=== PATIENT | male | born 1965 | race Asian ===

== ENCOUNTER 2020-03-01 12:04 | Outpatient (REF) | payer OTHER, SELFPAY ==
--- NOTE | 2020-03-01 | XR_ITS ---
EXAMINATION: XR CHEST CLINICAL INFORMATION: Cough COMPARISON: 08/27/2017 TECHNIQUE: 2 views of the chest were obtained. FINDINGS: Lung volumes are slightly diminished from the prior study. There is new linear opacity in the left midlung; the appearance favors atelectasis. There is slight prominence of the pulmonary interstitium although this is commensurate with the degree of reduced lung volumes. No focal consolidation or mass. No pleural effusion or pneumothorax. Normal heart size. XR/XR chest 2V IMPRESSION: Low lung volumes with slight interstitial prominence which may reflect bronchovascular crowding. New linear opacity in the left midlung is most likely atelectasis.
== END 2020-03-01 12:05 | disposition home or self-care (01) ==
LOC: HO.HMGCX 12:04
PROVIDERS: PCP Pediatrics; Visit Provider Internal Medicine
DX: R05 Cough (principal)
CPT/HCPCS: 71046

== ENCOUNTER 2021-02-07 10:56 | Outpatient (REF) | payer OTHER, SELFPAY ==
--- NOTE | ~2021-02-07 | XR_ITS ---
EXAMINATION: XR CHEST CLINICAL INFORMATION: Cough COMPARISON: 03/01/2020 TECHNIQUE: 2 views of the chest were obtained. FINDINGS: The lungs are well expanded. There is no focal consolidation, edema, or effusion. No pneumothorax. The cardiomediastinal silhouette is within normal limits. No acute osseous abnormality. XR/XR chest 2V IMPRESSION: No acute pulmonary finding.
== END 2021-02-07 10:57 | disposition home or self-care (01) ==
LOC: HO.HMGCX 10:56
PROVIDERS: PCP Pediatrics; Visit Provider Internal Medicine
DX: R05.9 Cough, unspecified (principal)
CPT/HCPCS: 71046

== ENCOUNTER → 2021-03-27 09:01 | Outpatient (BNVA) | payer OTHER, SELFPAY | PROVIDERS: PCP Pediatrics; Visit Provider Internal Medicine Pulmonary Disease | DX: J45.991 Cough variant asthma (principal); R05.3 Chronic cough | CPT/HCPCS: 99202 ==

== ENCOUNTER 2021-04-15 11:16 | Outpatient (REF) | payer OTHER, SELFPAY ==
--- NOTE | 2021-04-15 17:18 | PFT_ITS ---
Forced vital capacity 56%, FEV1 63%, FEV1/FVC ratio is 85. [id number] is 85% and MVV 63%. Post bronchodilator therapy, there is no significant change. Lung volumes, total lung capacity 64%, residual volume 73%. Diffusion capacity 62%, DL/VA is 96%. CONCLUSION: Moderately severe restrictive pulmonary disorder. No significant obstructive airway disorder. No significant response to bronchodilator therapy. Clinical correlation is recommended. MD BRIDGETTE Almazan/[facility] / [phone]
== END 2021-04-15 11:17 | disposition home or self-care (01) ==
LOC: HO.RESP 11:16
PROVIDERS: PCP Pediatrics; Visit Provider Internal Medicine Pulmonary Disease
DX: J45.991 Cough variant asthma (principal)
CPT/HCPCS: 94060; 94727; 94729

== ENCOUNTER → 2021-05-13 08:59 | Outpatient (BNVA) | payer OTHER, SELFPAY | PROVIDERS: PCP Pediatrics; Visit Provider Internal Medicine Pulmonary Disease | DX: J45.991 Cough variant asthma (principal); R05.3 Chronic cough | CPT/HCPCS: 99212 ==

== ENCOUNTER 2021-06-17 09:44 | Emergency (ER) | payer OTHER, SELFPAY ==
--- NOTE | ~2021-06-17 | US_ITS ---
EXAMINATION: ULTRASOUND EXTREMITY NONVASCULAR. CLINICAL INFORMATION: Right arm lump lateral and superior to elbow in the area of triceps COMPARISON: None TECHNIQUE: Limited imaging to the right posterior arm was performed where patient feels a lump. FINDINGS: Imaging to the right posterior arm reveals no focal mass or fluid collection. The soft tissues are unremarkable. Ultrasound of the left posterior arm was performed for comparison with no abnormality seen.. US/US extremity nonvascular IMPRESSION: No soft tissue mass or focal abnormality seen along the right posterior arm.
--- NOTE | ~2021-06-17 | CT_ITS ---
EXAMINATION: DEPENDENT CT LUMBAR SPINE WITHOUT CONTRAST CLINICAL INFORMATION: Intermittent weakness the lower extremities/follicles and intermittent dizziness. COMPARISON: None TECHNIQUE: 5 mm thin axial and reformatted 2 mm thin sagittal and coronal images of brain were obtained. DLP [id number]. Subsequently axial 2 mm thin and reformatted 2 mm thin sagittal and coronal images of lumbar spine were obtained. DLP [id number] FINDINGS: BRAIN: There is no acute intra-axial, extra-axial bleed, masses or midline shift. There is no acute infarction evolution. There is no edema. The david to white matter difference is maintained. The lateral ventricles are symmetrical in size and configuration without enlargement. Bone windows reveal no calvarial abnormality. There is no scalp soft tissue abnormality seen. There is mild mucoperiosteal thickening bilateral anterior middle ethmoid sinuses. Rest the paranasal sinuses and mastoid air cells are well aerated and clear. Bone windows reveal no calvarial abnormality LUMBAR SPINE: On sagittal reconstructed images there is maintained lumbar lordosis. The vertebral heights, alignment and disc heights are normal. Mild ventral spondylosis at the L3-L4 and L4-L5 disc levels. The L1-L2, L2-L3 disc levels are unremarkable. L3-L4 disc level there is minimal disc bulge without spinal canal stenosis. The neural foramina are patent bilaterally. At L4-L5 disc level there is a broad-based diffuse bulge slightly eccentric to the left with mild AP canal stenosis with mild bilateral narrowing of neural foramina.. There is mild bilateral facet joint arthropathy and hypertrophy slightly greater on the left At L5-S1 disc level there is no syndesmophytes, herniation or spinal stenosis. The neural foramina are patent bilaterally. There is mild bilateral facet joint hypertrophy and arthropathy No aggressive lytic or sclerotic process seen. CT/CT lumbar spine wo con IMPRESSION: No acute intracranial process seen. Mild degenerative disc bulge L4-L5 and L5/S1 disc levels with mild AP canal stenosis and mild bilateral narrowing of neural foramina at the L4-L5 disc level. Mild bilateral facet joint arthropathy L5-S1, L4-L5 and L3-L4 disc level slightly greater on the left at the L4-L5 disc level.
--- NOTE | ~2021-06-17 | XR_ITS ---
EXAMINATION: RIGHT SHOULDER, RIGHT HUMERUS AND RIGHT ELBOW CLINICAL INFORMATION: Pain. COMPARISON: None TECHNIQUE: Right shoulder 4 views. Right humerus 2 views and right elbow 3 views. FINDINGS: RIGHT ELBOW: There is no visible acute fracture, dislocation or joint effusion. There is a small olecranon process spur. RIGHT HUMERUS: There is no visible acute fracture or dislocation seen. No bony erosive changes. The soft tissues are normal. RIGHT SHOULDER: There is no visible acute fracture or dislocation. No bony erosive changes or spurring. The soft tissues are normal. There is an old healed right lateral ninth rib fracture XR/XR shoulder RT 1V IMPRESSION: No acute fracture right elbow, right humerus and right shoulder. There is old healed fracture right lateral ninth rib. There is a small olecranon process spur.
--- NOTE | ~2021-06-17 | XR_ITS ---
EXAMINATION: RIGHT SHOULDER, RIGHT HUMERUS AND RIGHT ELBOW CLINICAL INFORMATION: Pain. COMPARISON: None TECHNIQUE: Right shoulder 4 views. Right humerus 2 views and right elbow 3 views. FINDINGS: RIGHT ELBOW: There is no visible acute fracture, dislocation or joint effusion. There is a small olecranon process spur. RIGHT HUMERUS: There is no visible acute fracture or dislocation seen. No bony erosive changes. The soft tissues are normal. RIGHT SHOULDER: There is no visible acute fracture or dislocation. No bony erosive changes or spurring. The soft tissues are normal. There is an old healed right lateral ninth rib fracture XR/XR humerus RT IMPRESSION: No acute fracture right elbow, right humerus and right shoulder. There is old healed fracture right lateral ninth rib. There is a small olecranon process spur.
--- NOTE | ~2021-06-17 | XR_ITS ---
EXAMINATION: XR CHEST CLINICAL INFORMATION: Intermittent dizziness and right arm pain COMPARISON: None TECHNIQUE: Frontal view of the chest was obtained. FINDINGS: No significant abnormality is noted involving the heart, lungs, mediastinum, bony thorax or soft tissues. XR/XR chest 1V IMPRESSION: Unremarkable chest examination.
--- NOTE | ~2021-06-17 | XR_ITS ---
EXAMINATION: RIGHT SHOULDER, RIGHT HUMERUS AND RIGHT ELBOW CLINICAL INFORMATION: Pain. COMPARISON: None TECHNIQUE: Right shoulder 4 views. Right humerus 2 views and right elbow 3 views. FINDINGS: RIGHT ELBOW: There is no visible acute fracture, dislocation or joint effusion. There is a small olecranon process spur. RIGHT HUMERUS: There is no visible acute fracture or dislocation seen. No bony erosive changes. The soft tissues are normal. RIGHT SHOULDER: There is no visible acute fracture or dislocation. No bony erosive changes or spurring. The soft tissues are normal. There is an old healed right lateral ninth rib fracture XR/XR elbow RT 2V IMPRESSION: No acute fracture right elbow, right humerus and right shoulder. There is old healed fracture right lateral ninth rib. There is a small olecranon process spur.
[2021-06-17 10:21] VITALS: BP 134/73; PULSE 61; RESP 18; TEMP 36.8; O2SAT 100; BMI 32.1
--- NOTE | 2021-06-17 12:26 | ED_ITS ---
HPI - Extremity Problem General Chief complaint: Extremity Injury, Upper Stated complaint: Upper R arm pain Time Seen by Provider: 06/17/21 11:48 Source: patient Mode of arrival: ambulatory Limitations: no limitations History of Present Illness HPI Narrative: 55-year-old male with a past medical history of hyperlipidemia, chronic cough, cough variant asthma presenting to the ED with complaints of atraumatic right lateral mid humerus pain for the past 10 days worse today. He reports that he feels a lump that he did not have before. 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 He is unsure if he could of hurt this at work but he does not believe so. He denies any fevers, chills, dizziness, headaches, neck pain/stiffness, trouble swallowing or breathing, chest pain or shortness of breath, dyspnea on exertion, orthopnea, palpitations, paresthesias, nausea/vomiting/diarrhea constipation, black or bloody stools, rashes, recent travel, recent immobilization, recent surgery, history of cancer, history of DVT or PE, any estrogen usage, lower extremity edema or calf tenderness or any other symptoms complaints or concerns at this time. MD Complaint: extremity pain Onset (ago): day(s) (10) Pain Consistency: constant Location: right and upper extremity Quality: aching Radiation: proximal Relieving factors: nothing Exacerbating factors: palpation Associated symptoms: denies other symptoms Related Data Home Medications Medication Instructions Recorded Confirmed albuterol sulfate 90 mcg/actuation 2 puff INHALATION Q4H PRN 03/27/21 aerosol inhaler (ProAir HFA) atorvastatin 40 mg tablet 40 mg PO BEDTIME 03/27/21 cetirizine 10 mg tablet 10 mg PO DAILY PRN 03/27/21 fluticasone propionate 50 1 spray INTRANASAL DAILY 03/27/21 mcg/actuation nasal spray,suspension naproxen 500 mg tablet 500 mg PO BID PRN 03/27/21 omega-3 fatty acids-fish oil 340 1 cap PO BID 03/27/21 mg-1,000 mg capsule (Fish Oil) omeprazole 10 mg capsule,delayed 10 mg PO QAM 03/27/21 release sennosides 8.6 mg-docusate sodium 2 tab PO DAILY PRN 03/27/21 50 mg tablet (Stool Softener-Laxative) Previous Rx's Medication Instructions Recorded fluticasone propionate 220 2 puff INHALATION BID 30 Days #1 ea 03/27/21 mcg/actuation HFA aerosol inhaler (Flovent HFA) cyclobenzaprine 10 mg tablet 10 mg PO Q8H PRN #14 tab 06/17/21 meclizine 50 mg tablet (Antivert) 50 mg PO DAILY PRN #14 tab 06/17/21 naproxen 500 mg tablet 500 mg PO BID PRN #14 tab 06/17/21 Allergies Allergy/AdvReac Type Severity Reaction Status Date / Time No Known Allergies Allergy Verified 06/17/21 10:21 [No Known Allergies*] Review of Systems Review of Systems: Constitutional : No Weight loss, No Fever, No Chills, No Night Sweats, No Fatigue, No Malaise ENT/Mouth : No Hearing loss, No Ear Pain, No Nasal Congestion, No Sinus Pain, No Hoarseness, No sore throat, No Rhinorrhea, No Swallowing Difficulty Eyes: No Eye Pain, No Swelling, No Redness, No Foreign Body, No Discharge, No Vision Changes Cardiovascular : No Chest Pain, No SOB, No Dyspnea on Exertion, No Orthopnea, No Edema, No Palpitations Respiratory : No Cough, No Sputum, No Wheezing, No Smoke Exposure, No Dyspnea Gastrointestinal : No Nausea, No Vomiting, No Diarrhea, No Constipation, No abdominal Pain, No Hematochezia, No Melena Genitourinary : no irregular bleeding, No Dysuria, No Urinary Frequency, No Hematuria, No Urinary Incontinence, No Urgency, No Flank Pain, No Urinary Flow Changes, No Hesitancy Musculoskeletal : + right humerus pain/lump sensation, No joint pain, No Myalgias Skin : No Skin Lesions, No rash Neuro : No Weakness, No Numbness, No Paresthesias, No Loss of Consciousness, No Dizziness, No Headache Psych : No Anxiety/Panic, No Depression, No SI/HI/AH/VH, No Social Issues, Heme/Lymph: No Bruising, No Bleeding,No Lymphadenopathy Endocrine : No Polyuria, No Polydipsia, No Temperature Intolerance Yes all other systems are reviewed and are negative [facility] Past Medical History Attestation statement: The following information was validated with the patient. Medical History High cholesterol Social History Social History Advance Directives: No Advance Directives Information Provided: No Physical Exam Vital Signs: Vital Signs: Last Vital Signs Temp 98.2 F 06/17/21 10:21 Pulse 57 06/17/21 14:25 Resp 18 06/17/21 10:21 BP 141/83 H 06/17/21 14:25 Pulse Ox 100 06/17/21 10:21 BMI result Body Mass Index 32.1 vital signs have been reviewed as normal and appeared to be correct. Blood pressure normal. Heart rate normal. Respiration rate normal. Temperature normal. Oxygen saturation normal. Appearance: Alert. Oriented X3. No acute distress. Head: Normal external exam. Normocephalic. Eyes: PERRLA. EOMI. Conjunctiva and sclera normal. Eyelids normal. ENT: Pharynx normal. Uvula midline. Moist mucous membranes. Neck: Normal inspection. Neck supple. FROM. No adenopathy. No meningeal signs. CVS: Normal heart rate and rhythm. Heart sound normal. No murmurs noted. Pulses normal throughout. Respiratory: No respiratory distress. Painless inspiration. Breath sounds normal. No wheezes/rales/rhonchi noted. Chest nontender. No accessory muscle usage noted or decreased air movement noted. Back: Full range of motion noted. Skin: Skin warm and dry. Normal skin color. Normal skin turgor. To left upper extremity/humerus lateral aspect patient has hardened area questioning lipoma although no signs of infection/fluctuance/induration/drainage/streaking/foreign bodies. Distal pulses are intact. Not consistent with arterial occlusion. No additional rashes/lesions/lacerations noted. Extremities: Patient has full range of motion of right humerus/elbow/hand and wrist. No obvious deformities. No obvious ligmenatous injury noted. Otherwise all other Extremities exhibit normal range of motion and nontender. Neuro: Oriented X 3. No motor deficit. No sensory deficit. Reflexes normal. Moving all extremities. No focal motor deficits. Cranial nerves II-XI intact bilaterally. Facial strength normal. Normal cognition. Speech normal. Gait normal. Strength 5/5 throughout. No pronator drift. No tremor noted. No fasciculations noted. No rigidity noted. Muscle tone normal throughout. No asterixis noted. [id number] test normal. Heel to wheatley test normal. Tandem gait normal. Does not sway with eyes open. Romberg test negative. Rapid alternating movement upper extremity normal. Rapid alternating movement lower extremity normal. Hand drop from overhead Misses face. NIHSS score 0. Course Course Course Narrative: 11:50am - 55-year-old male with a past medical history of hyperlipidemia, chronic cough, cough variant asthma presenting to the ED with complaints of atraumatic right lateral mid humerus pain for the past 10 days worse today. He reports that he feels a lump that he did not have before. 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 He is unsure if he could of hurt this at work but he does not believe so. X-ray of right shoulder/elbow and humerus revealed chronic changes no acute processes were noted. Therefore at this time will obtain of ultrasound to evaluate for possible abscess versus lipoma. Reevaluation(s) Reevaluation #1: - soft tissue ultrasound negative for any acute processes. - when I went into the discharge the patient to him have his results he reported that he is concerned because he is been having intermittent dizziness and pain in this right arm and weakness in his legs and he had a fall and he is concerned that it may be related to his right arm pain/lump. - he reported that his PCP sent him for some type of monitoring for his legs although told him it was normal although patient is not convinced and wants further evaluation treatment. I explained to the patient that I asked him if he was having any other symptoms when I evaluated him 4 hours ago and he reported that he forgot to tell me. - therefore at this time will obtain labs, CT scan of brain, EKG, chest x-ray and re-evaluate. Time: 13:49 Reevaluation #2: - labs reviewed patient mild anemia with an H&H of 13.9/41.5. Anion gap 11. BUN 17. ALT 51. Otherwise all other labs are within normal limits. Negative troponin. EKG sinus bradycardia with right bundle branch block which is similar compared to prior EKG no acute ischemic change are noted. - chest x-ray within normal limits. - CT scan of brain within normal limits no acute processes noted. CT scan of lumbar spine revealed chronic changes such as degenerative disc disease otherwise no other acute processes. Will DC home with symptomatic treatment instructions to follow-up with PCP and to return if any new or worsening symptoms. Patient understands agrees with this plan. Time: 16:00 MDM - Extremity (Nontraumatic) Medical Records Attestation: I reviewed the patient's medical records. Lab Data Attestation: I reviewed the patient's lab results. Result diagrams: 06/17/21 14:05 06/17/21 14:05 Labs: Lab Results 06/17/21 06/17/21 06/17/21 Range/Units 14:05 14:05 14:05 WBC 6.7 (4.8-10.8) X10*3/uL RBC 4.74 (4.60-5.80) X10*6/uL Hgb 13.9 L (14.0-18.0) g/dl Hct 41.5 L (42.0-52.0) % MCV 87.6 (80.0-98.0) fL MCH 29.3 (27.0-33.0) pg MCHC 33.5 (31.0-36.0) g/dl RDW 13.4 (11.0-16.0) % Plt Count 205 (160-400) X10*3/uL MPV 9.6 (9.4-12.4) fL Immature Gran % (Auto) 0.1 (0.0-0.4) % Neut % (Auto) 40.6 L (45-73) % Lymph % (Auto) 43.4 H (20-40) % Boone % (Auto) 8.5 (2-11) % Eos % (Auto) 6.7 H (0-4) % Baso % (Auto) 0.7 (0-2) % Lymph # (Auto) 2.9 (1.2-4.9) X10*3/uL Boone # (Auto) 0.6 (0.1-1.2) X10*3/uL Eos # (Auto) 0.5 H (0.0-0.4) X10*3/uL Baso # (Auto) 0.1 (0.0-0.2) X10*3/uL Abs Immat Gran (auto) 0.01 (0.00-0.03) X10*3/uL Absolute Neuts (auto) 2.7 (2.0-8.3) x10*3/uL Absolute Nucleated RBC 0.000 (0.0-0.012) X10*3/uL Nucleated RBC % (auto) 0.0 (0.0-0.2) /100WBC Sodium 138 (135-145) mmol/L Potassium 4.6 (3.3-5.1) mmol/L Chloride 104 (96-108) mmol/L Carbon Dioxide 28 (22-29) mmol/L Anion Gap 11 L (12-20) BUN 17 H (9-16) mg/dL Creatinine 0.84 (0.5-1.4) mg/dL Estim Creat Clear Calc 105.4 Estimated GFR > 60 Random Glucose 93 (60-115) mg/dL Calcium 9.4 (8.4-10.2) mg/dL Magnesium 2.0 (1.6-2.6) mg/dL Total Bilirubin 0.5 (0.0-1.0) mg/dL AST 30 (5-37) U/L ALT 51 H (0-40) U/L Alkaline Phosphatase 91 (39-117) U/L Troponin I High Sens < 3.5 (<3.5-35.0) ng/L Total Protein 7.9 (6.5-8.0) g/dL Albumin 4.6 (3.5-5.0) g/dL Imaging Data right shoulder/humerus/elbow xrays: Attestation: I personally reviewed and interpreted this imaging study as follows: Radiologist's impression: FINDINGS: RIGHT ELBOW: There is no visible acute fracture, dislocation or joint effusion. There is a small olecranon process spur. RIGHT HUMERUS: There is no visible acute fracture or dislocation seen. No bony erosive changes. The soft tissues are normal. RIGHT SHOULDER: There is no visible acute fracture or dislocation. No bony erosive changes or spurring. The soft tissues are normal. There is an old healed right lateral ninth rib fracture XR/XR shoulder RT 1V IMPRESSION: No acute fracture right elbow, right humerus and right shoulder. ? There is old healed fracture right lateral ninth rib. ? There is a small olecranon process spur.? Soft tissue ultrasound of right upper extremity: Attestation: I personally reviewed and interpreted this imaging study as follows: Radiologist's impression: FINDINGS: Imaging to the right posterior arm reveals no focal mass or fluid collection. The soft tissues are unremarkable. Ultrasound of the left posterior arm was performed for comparison with no abnormality seen.. US/US extremity nonvascular IMPRESSION: No soft tissue mass or focal abnormality seen along the right posterior arm.? CT scan of brain without contrast and CT scan of lumbar spine without contrast: Attestation: I personally reviewed and interpreted this imaging study as follows: Radiologist's impression: FINDINGS: BRAIN: There is no acute intra-axial, extra-axial bleed, masses or midline shift. There is no acute infarction evolution. There is no edema. The david to white matter difference is maintained. The lateral ventricles are symmetrical in size and configuration without enlargement. Bone windows reveal no calvarial abnormality. There is no scalp soft tissue abnormality seen. There is mild mucoperiosteal thickening bilateral anterior middle ethmoid sinuses. Rest the paranasal sinuses and mastoid air cells are well aerated and clear. Bone windows reveal no calvarial abnormality LUMBAR SPINE: On sagittal reconstructed images there is maintained lumbar lordosis. The vertebral heights, alignment and disc heights are normal. Mild ventral spondylosis at the L3-L4 and L4-L5 disc levels. The L1-L2, L2-L3 disc levels are unremarkable. L3-L4 disc level there is minimal disc bulge without spinal canal stenosis. The neural foramina are patent bilaterally. At L4-L5 disc level there is a broad-based diffuse bulge slightly eccentric to the left with mild AP canal stenosis with mild bilateral narrowing of neural foramina.. There is mild bilateral facet joint arthropathy and hypertrophy slightly greater on the left At L5-S1 disc level there is no syndesmophytes, herniation or spinal stenosis. The neural foramina are patent bilaterally. There is mild bilateral facet joint hypertrophy and arthropathy No aggressive lytic or sclerotic process seen. CT/CT head/brain wo con IMPRESSION: No acute intracranial process seen. ? Mild degenerative disc bulge L4-L5 and L5/S1 disc levels with mild AP canal stenosis and mild bilateral narrowing of neural foramina at the L4-L5 disc level. ? Mild bilateral facet joint arthropathy L5-S1, L4-L5 and L3-L4 disc level slightly greater on the left at the L4-L5 disc level.? ECG Data Attestation EKG: I personally reviewed and interpreted this ECG as follows: ECG interpretation date: 06/17/21 ECG interpretation time: 13:49 Interpretation: Sinus bradycardia with ventricular rate of 54 with right bundle-branch block no acute ischemic change are noted. Similar compared to prior EKG 08/27/2017 Critical Care Time Critical Care Time Critical Care Time: Yes Total Critical Care Time: 60 Attestation: I personally attest to this time spent taking care of the patient Discharge Plan Discharge Clinical Impression: Dizziness, Cramp of muscle of right upper extremity, Degenerative disc disease, lumbar Patient Disposition: Home, Self-Care Instructions: Dizziness (ED), Muscle Spasm (ED), Muscle Cramp (ED), Degenerat dane Disc Disease (ED) Prescriptions: New naproxen 500 mg tablet 500 mg PO BID PRN (Reason: pain) Qty: 14 0RF cyclobenzaprine 10 mg tablet 10 mg PO Q8H PRN (Reason: Muscle spasm) Qty: 14 0RF Antivert 50 mg tablet 50 mg PO DAILY PRN (Reason: dizziness) Qty: 14 0RF No Action atorvastatin 40 mg tablet 40 mg PO BEDTIME 0RF omeprazole 10 mg capsule,delayed release(DR/EC) 10 mg PO QAM 0RF cetirizine 10 mg tablet 10 mg PO DAILY PRN0RF albuterol sulfate [ProAir HFA] 90 mcg/actuation HFA aerosol inhaler 2 puff inhalation Q4H PRN (Reason: wheezing) 0RF Fish Oil 340-1,000 mg capsule 1 cap PO BID 0RF naproxen 500 mg tablet 500 mg PO BID PRN (Reason: pain) 0RF fluticasone propionate 50 mcg/actuation spray,suspension 1 spray intranasal DAILY 0RF sennosides-docusate sodium [Stool Softener-Laxative] 8.6-50 mg tablet 2 tab PO DAILY PRN (Reason: constipation) 0RF Flovent HFA 220 mcg/actuation HFA aerosol inhaler 2 puff inhalation BID 30 Days Qty: 1 3RF Referrals: Abiola Hadley MD [Primary Care Provider] - Print Language: Citizen Of [place]
--- NOTE | 2021-06-17 13:47 | ECG_ITS ---
Test Reason : DIZZINESS Blood Pressure : / mmHG Vent. Rate : 054 BPM Atrial Rate : 054 BPM P-R Int : 204 ms QRS Dur : 146 ms QT Int : 434 ms P-R-T Axes : -04 -23 014 degrees QTc Int : 411 ms Sinus bradycardia Right bundle branch block Abnormal ECG When compared with ECG of 27-AUG-2017 11:44, Right bundle branch block is now Present Referred By: Becky Smith Electronically Signed By:SUSHANT ROONEY MD
[2021-06-17 14:09] LABS: MANUAL DIFF FLAG NO
[2021-06-17 14:23] VITALS: BP 134/81; BP 136/84; PULSE 53
[2021-06-17 14:25] VITALS: BP 141/83; PULSE 57
[2021-06-17 14:27] LABS: Alanine Aminotransferase 51 U/L (0-40); Albumin Level 4.6 g/dL (3.5-5.0); Alkaline Phosphatase 91 U/L (39-117); Anion Gap 11 (12-20); Aspartate Amino Transferase 30 U/L (5-37); Bilirubin Total 0.5 mg/dL (0.0-1.0); Blood Urea Nitrogen 17 mg/dL (9-16); Calcium 9.4 mg/dL (8.4-10.2); Carbon Dioxide 28 mmol/L (22-29); Chloride 104 mmol/L (96-108); Creatinine Clr Calc Pharmacy 105.4; Estimated Glomerular Filt Rate > 60; Glucose Random 93 mg/dL (60-115); Potassium 4.6 mmol/L (3.3-5.1); Sodium 138 mmol/L (135-145); Total Protein 7.9 g/dL (6.5-8.0)
[2021-06-17 14:29] LABS: Troponin-I High Sensitivity < 3.5 ng/L (<3.5-35.0)
[2021-06-17 15:20] LABS: Basophils Absolute Auto 0.1 X10*3/uL (0.0-0.2); Basophils Percent Auto 0.7 % (0-2); Eosinophils Absolute Auto 0.5 X10*3/uL (0.0-0.4); Eosinophils Percent Auto 6.7 % (0-4); Hematocrit 41.5 % (42.0-52.0); Hemoglobin 13.9 g/dl (14.0-18.0); Imm Gran Abs Auto 0.01 X10*3/uL (0.00-0.03); Imm Gran Pct Auto 0.1 % (0.0-0.4); Lymphocytes Absolute Auto 2.9 X10*3/uL (1.2-4.9); Lymphocytes Percent Auto 43.4 % (20-40); Mean Corpuscular HGB Conc 33.5 g/dl (31.0-36.0); Mean Corpuscular Hemoglobin 29.3 pg (27.0-33.0); Mean Corpuscular Volume 87.6 fL (80.0-98.0); Mean Platelet Volume 9.6 fL (9.4-12.4); Monocytes Absolute Auto 0.6 X10*3/uL (0.1-1.2); Monocytes Percent Auto 8.5 % (2-11); Neutrophils Absolute Auto 2.7 x10*3/uL (2.0-8.3); Neutrophils Percent Auto 40.6 % (45-73); Platelet Count 205 X10*3/uL (160-400); Red Blood Count 4.74 X10*6/uL (4.60-5.80); Red Cell Distribution Width 13.4 % (11.0-16.0); White Blood Count 6.7 X10*3/uL (4.8-10.8)
== END 2021-06-17 16:49 | disposition home or self-care (01) ==
PROVIDERS: Physician Assistant Medical; Emergency Provider Emergency Medicine; PCP Pediatrics
DX: R42 Dizziness and giddiness (principal); M79.621 Pain in right upper arm; R25.2 Cramp and spasm; M54.50 Low back pain, unspecified; M51.36 Other intervertebral disc degeneration, lumbar region; R05.9 Cough, unspecified; R00.2 Palpitations; Z79.899 Other long term (current) drug therapy
CPT/HCPCS: 36415; 70450; 71045; 72131; 73020; 73060; 73070; 76882; 80053; 83735; 84484; 85025; 93005; 99283; 99291

== ENCOUNTER → 2021-07-15 08:03 | Outpatient (BNVA) | payer OTHER, SELFPAY | PROVIDERS: PCP Pediatrics; Referring Provider Pediatrics; Visit Provider Nurse Practitioner Family | DX: Z13.89 Encounter for screening for other disorder (principal) ==

== ENCOUNTER → 2021-08-20 07:57 | Outpatient (BNVA) | payer OTHER, SELFPAY | PROVIDERS: PCP Pediatrics; Referring Provider Pediatrics; Visit Provider Nurse Practitioner Family | DX: Z12.11 Encounter for screening for malignant neoplasm of colon (principal) | CPT/HCPCS: 99202 ==

== ENCOUNTER 2021-09-30 09:42 | Outpatient (REF) | payer OTHER, SELFPAY ==
--- NOTE | ~2021-09-30 | XR_ITS ---
EXAMINATION: XR KNEE, RIGHT CLINICAL INFORMATION: Sprain COMPARISON: None TECHNIQUE: Four views of the right knee. FINDINGS: Bones and soft tissues are normal. No fracture . Alignment is anatomic. Joint spaces are well maintained. No abnormal soft tissue calcification. Radiolucent line through the patella along the upper lateral corner, this is probably congenitally unfused secondary ossification center versus an old fracture. XR/XR knee RT 4V IMPRESSION: No acute fracture or dislocation. Small knee joint effusion. 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 Please correlate with patient's clinical history.
== END 2021-09-30 09:43 | disposition home or self-care (01) ==
LOC: HO.HMGCX 09:42
PROVIDERS: PCP Pediatrics; Visit Provider Internal Medicine
DX: S83.91XA Sprain of unspecified site of right knee, initial encounter (principal)
CPT/HCPCS: 73564

== ENCOUNTER 2021-10-27 11:05 | Emergency (ER) | payer OTHER, SELFPAY ==
[2021-10-27 11:16] VITALS: BP 161/80; PULSE 62; RESP 17; TEMP 36.6; O2SAT 98; BMI 31.1
--- NOTE | 2021-10-27 12:31 | ED.EXTPRO ---
HPI - Extremity Problem General Chief complaint: Extremity Injury, Lower Stated complaint: R knee pain Time Seen by Provider: 10/27/21 12:16 Source: patient Mode of arrival: ambulatory Limitations: no limitations History of Present Illness HPI Narrative: Patient presents emergency department for ongoing evaluation of right knee pain. He was evaluated about 1 month ago, 09/30/2021 after experiencing 10 days of right knee pain. 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 When he was initially evaluated he had an x-ray obtained which revealed no acute fracture or dislocation and was diagnosed with a sprain. He had been using an Ubaldo bandage for compression and ibuprofen for approximately 3 weeks without significant improvement. The pain continues to be experienced. He is self-employed, and states he is unable to avoid the driving which seems to exacerbate his pain. Denies any fevers, chills, rash, redness, swelling, warmth. Denies swelling to the lower extremity, tenderness in his calf, cold sensation to the legs. Denies any prior history of DVT/PE, coagulation disorders, personal history of cancer. Related Data Home Medications Medication Instructions Recorded Confirmed atorvastatin 40 mg tablet 40 mg PO BEDTIME 03/27/21 cetirizine 10 mg tablet 10 mg PO DAILY PRN 03/27/21 fluticasone propionate 50 1 spray intranasal DAILY 03/27/21 mcg/actuation nasal spray,suspension omega-3 fatty acids-fish oil 340 1 cap PO BID 03/27/21 mg-1,000 mg capsule (Fish Oil) meclizine 25 mg tablet 50 mg PO DAILY PRN dizziness 08/20/21 Previous Rx's Medication Instructions Recorded bisacodyl 5 mg tablet,delayed 10 mg PO ONCE 1 day #2 tabs 08/20/21 release (Dulcolax (bisacodyl)) polyethylene glycol 3350 17 238 g PO ONCE #238 grams 08/20/21 gram/dose oral powder (Miralax) meloxicam 15 mg tablet 15 mg PO DAILY #14 tabs 09/30/21 Allergies Allergy/AdvReac Type Severity Reaction Status Date / Time No Known Allergies Allergy Verified 09/30/21 09:28 [No Known Allergies*] Review of Systems Review of Systems: Musculoskeletal: Positive knee pain Yes all other systems are reviewed and are negative PMFSH Past Medical History Attestation statement: The following information was validated with the patient. Source: old records reviewed Medical History High cholesterol Surgical History Hx of colonoscopy Hx of inguinal hernia surgery Social History Social History Household Members: Spouse and Children Alcohol intake: current Alcohol intake frequency: a few times a month Patient Tobacco Use Status: Never used Tobacco Advance Directives: No Advance Directives Information Provided: No Physical Exam Vital Signs: Vital Signs: Last Vital Signs Temp 98 F 10/27/21 11:16 Pulse 62 10/27/21 11:16 Resp 17 10/27/21 11:16 BP 161/80 H 10/27/21 11:16 Pulse Ox 98 10/27/21 11:16 O2 Del Method 10/27/21 11:16 BMI result Body Mass Index 31.1 Appearance: Alert.?Oriented to person, place and time. No acute distress.?Normal affect. Eyes: Pupils equal, round and reactive to light.? ENT: Pharynx normal.?? Neck: Normal inspection.? Neck supple.?? CVS: Heart sounds normal. Normal heart rate and rhythm.? Pulses normal.?? Respiratory: No respiratory distress.? Lung sounds clear to auscultation bilaterally?? Abdomen: Soft and non-tender. Skin: Skin warm and dry.? Normal skin color.? Extremities: No lower extremity edema.? No calf ttp. Anterior drawer test negative, posterior drawer test negative, valgus stress test negative, Varus stress test negative. José Luis sign negative. No palpable tenderness, warmth, no notable erythema, or rash. 2+ DP/PT pulse bilaterally ? Neuro: Moves all extremities spontaneously. Sensation intact bilaterally. No motor deficits. Ambulates with normal steady gait. Course Course Course Narrative: Patient is a 56-year-old male with a past medical history of hypercholesterolemia who presents to the emergency department for evaluation of persistent right knee pain. Previously diagnosed at the sprain of the knee, pain unrelieved with Ubaldo bandage for compression, ice, and NSAIDs. Patient has not had any further follow-up with his primary care provider or an market risk specialist. Physical exam not consistent with septic arthritis, DVT, wells score 0. Full AROM. No weakness to the lower extremity. Neurovascularly intact distally. No indication for repeat x-ray today as he has had no trauma. Advised outpatient follow-up with primary care provider and provided with referral for market risk specialist for further evaluation and treatment. Advised to continue with rest at all times possibly a, elevation of the leg. Reviewed worrisome signs and symptoms return back to the emergency department for. All questions were answered, and patient was discharged home in stable condition. MDM - Extremity (Nontraumatic) Medical Records Attestation: I reviewed the patient's medical records. Discharge Plan Discharge Clinical Impression: Knee pain, right Patient Disposition: Home, Self-Care Instructions: Arthralgia (ED) Additional Instructions: As we discussed, please contact your primary care provider to arrange for follow-up, additionally a been given contact information for the market risk specialist to follow up regarding your persistent knee pain. Please feel free to return to the emergency department any new or worsening symptoms or concerns. Prescriptions: No Action meloxicam 15 mg tablet 15 mg PO DAILY Qty: 14 0RF atorvastatin 40 mg tablet 40 mg PO BEDTIME cetirizine 10 mg tablet 10 mg PO DAILY PRN Fish Oil 340-1,000 mg capsule 1 cap PO BID fluticasone propionate 50 mcg/actuation spray,suspension 1 spray intranasal DAILY meclizine 25 mg tablet 50 mg PO DAILY PRN (Reason: dizziness) bisacodyl [Dulcolax (bisacodyl)] 5 mg tablet,delayed release (DR/EC) 10 mg PO ONCE 1 Days Qty: 2 0RF Rx Instructions: take 2 tabs at noon the day before your colonoscopy polyethylene glycol 3350 [Miralax] 17 gram/dose powder 238 g PO ONCE Qty: 238 0RF Rx Instructions: As directed by gastroenterology department at [facility] Referrals: Therese Friedman PA-C [Physician Manager Community Development] - (persistent knee pain <1 month, normal XR) Interventions: ED Discharge Assessment Last Done: 10/27/21 12:52 Discharge Date/Time: 10/27/21 12:53
== END 2021-10-27 12:53 | disposition home or self-care (01) ==
PROVIDERS: Emergency Provider Emergency Medicine; PCP Pediatrics
DX: M25.561 Pain in right knee (principal)
CPT/HCPCS: 99282

== ENCOUNTER → 2021-11-18 09:01 | Outpatient (BNVA) | payer OTHER, SELFPAY | PROVIDERS: PCP Pediatrics; Visit Provider Internal Medicine Pulmonary Disease | DX: J45.991 Cough variant asthma (principal) | CPT/HCPCS: 99212 ==

== ENCOUNTER 2022-01-06 07:32 | Day surgery (SDC) | payer OTHER, SELFPAY ==
--- NOTE | 2022-01-03 08:23 | HO.ANESPROP2 ---
Documented by User: Mayi Ribera NP 01/03/22 08:24 HPI - Anesthesia Eval Consult details Narrative: 56yo M for Colonoscopy PMFSH Active Problems Active Problems: All Active Problems (Updated 10/28/21 @ 00:00 by Saul [place]) Sprain of right knee (Acute) High cholesterol (Acute) Chronic cough (Acute) Cough variant asthma (Acute) Past Medical History Medical History High cholesterol Surgical History Surgical History Hx of colonoscopy Hx of inguinal hernia surgery Social History Social History Household Members: Spouse and Children Alcohol intake: current Alcohol intake frequency: a few times a month Patient Tobacco Use Status: Never used Tobacco Advance Directives: No Advance Directives Information Provided: Yes Meds Allergies Allergy/AdvReac Type Severity Reaction Status Date / Time No Known Allergies Allergy Verified 12/31/21 11:04 [No Known Allergies*] Home Medications Medication Instructions Recorded Confirmed Last Taken Type atorvastatin 40 mg tablet 40 mg PO BEDTIME 03/27/21 01/06/22 Unknown History fluticasone propionate 50 1 spray intranasal DAILY 03/27/21 01/06/22 Unknown History mcg/actuation nasal spray,suspension omega-3 fatty acids-fish oil 340 1 cap PO BID 03/27/21 01/06/22 Unknown History mg-1,000 mg capsule (Fish Oil) meclizine 25 mg tablet 50 mg PO DAILY PRN dizziness 08/20/21 01/06/22 Unknown History albuterol sulfate 90 mcg/actuation 2 puff inhalation Q4H PRN wheezing 12/31/21 01/06/22 Unknown History aerosol inhaler (ProAir HFA) Exam Exam Date and Time: January 03, 2022 0823 Pertinent Lab Results Pertinent Lab Results: Laboratory Tests 06/17/21 06/17/21 14:05 14:05 WBC 6.7 Hgb 13.9 L Hct 41.5 L Plt Count 205 Sodium 138 Potassium 4.6 Chloride 104 Carbon Dioxide 28 BUN 17 H Creatinine 0.84 Narrative Narrative: EKG 05/2021 ent. Rate : 054 BPM ? ? Atrial Rate : 054 BPM ?? P-R Int : 204 ms? QRS Dur : 146 ms ? ? QT Int : 434 ms ? ? ? P-R-T Axes : - 014 degrees ?? QTc Int : 411 ms ? Sinus bradycardia Right bundle branch block Abnormal ECG When compared with ECG of 27-AUG-2017 11:44, Right bundle branch block is now Present Assessment and Plan Assessment Anesthesia Assessment: Chart Reviewed Documented by User: Akanksha Gordon MD 01/06/22 13:47 PMF Past Medical History Medical History High cholesterol Surgical History Surgical History Hx of colonoscopy Hx of inguinal hernia surgery History of Problems with Anesthesia: No Social History Social History Household Members: Spouse and Children Alcohol intake: current Alcohol intake frequency: a few times a month Patient Tobacco Use Status: Never used Tobacco Advance Directives: No Advance Directives Information Provided: Yes Meds Allergies Allergy/AdvReac Type Severity Reaction Status Date / Time No Known Allergies Allergy Verified 12/31/21 11:04 [No Known Allergies*] Home Medications Medication Instructions Recorded Confirmed Last Taken Type atorvastatin 40 mg tablet 40 mg PO BEDTIME 03/27/21 01/06/22 Unknown History fluticasone propionate 50 1 spray intranasal DAILY 03/27/21 01/06/22 Unknown History mcg/actuation nasal spray,suspension omega-3 fatty acids-fish oil 340 1 cap PO BID 03/27/21 01/06/22 Unknown History mg-1,000 mg capsule (Fish Oil) meclizine 25 mg tablet 50 mg PO DAILY PRN dizziness 08/20/21 01/06/22 Unknown History albuterol sulfate 90 mcg/actuation 2 puff inhalation Q4H PRN wheezing 12/31/21 01/06/22 Unknown History aerosol inhaler (ProAir HFA) Exam Airway Mallampati Class: III TM Dist: >3cm Neck ROM: Full Loose/Missing/Broken Teeth: No Heart: RRR Lungs: CTA Assessment and Plan Assessment Anesthesia Assessment: Anesthesia Plan Discussed Final Anesthetic Review History of Problems with Anesthesia: No NPO: Yes ASA Class: II Final Preanesthetic Review: Meds/Allgs Chart Reviewed, Consent Obtained/Reviewed and Anes Risks/Benef Reviewed Patient Risk: Low Procedure Risk: Low Anesthetic Plan Anesthetic Plan: MAC: Disposition: Standard PACU
--- NOTE | 2022-01-06 13:30 | MHC.SHP ---
Pre-Procedural Eval Section A Date of Service: 01/06/22 Section B Chief Complaint: screening Details of Present Illness: colon cancer screening, history of colon polyps Relevant Family History (Specify if Yes): No Relevant Social History: None Present Medications: see Short Stay Collaborative assessment Medical History: Significant History (High cholesterol) History of Previous Operations: Relevant previous surgery/procedure and date(s) (Hx of colonoscopy Hx of inguinal hernia surgery) Allergies: Allergies Allergy/AdvReac Type Severity Reaction Status Date / Time No Known Allergies Allergy Verified 12/31/21 11:04 [No Known Allergies*] Review of Systems Sugical H&P ROS: Negative: Constitution, Cardiovascular, Respiratory and Gastrointestinal Exam Surgical H&P Exam: Normal: Heart, Normal: Lungs, Normal: Extremities and Normal: Abdomen Plan Diagnosis/Plan: Unchanged I have reviewed the history and physical and performed a pertinent physical examination on my patient. No changes have occurred unless specified.
[2022-01-06 13:33] VITALS: BMI 32.1
[2022-01-06 13:36] VITALS: BP 128/85; PULSE 62; RESP 16; TEMP 36.1; O2SAT 97
[2022-01-06] MEDS: Lactated Ringers 1,000 ML 100 ML IVCONT (14:00)
--- NOTE | 2022-01-06 14:02 | PM.OP ---
Brief Operative Note Date of Service: 01/06/22 Pre-op diagnosis: colon cancer screening, history of colon polyps Post-op diagnosis: other ( colon polyps, diverticulosis, hemorrhoids) Procedure: COLONOSCOPY TO CECUM WITH BIOPSIES, SNARE POLYPECTOMY AND SUBMUCOSAL INJECTION Surgeon: Jennifer Taveras MD Anesthesia: MAC Was an Gluing Machine Operator used for this Procedure?: Yes Gluing Machine Operator: Richard Hollingsworth Estimated blood loss (mL): 0 Pathology: other (A) Polyp Ascending Colon B) Polyps Transverse Colon C) Polyp Sigmoid Colon) Condition: stable Disposition: PACU
--- NOTE | 2022-01-06 14:02 | W.PM.OPN ---
Operative Note Operative Note Date of Service: 01/06/22 Narrative: Pre-op diagnosis: colon cancer screening, history of colon polyps Post-op diagnosis:?other ( colon polyps, diverticulosis, hemorrhoids) Surgeon: Jennifer Taveras MD Anesthesia:?MAC COLONOSCOPY TILL CECUM WITH BIOPSIES, SNARE POLYPECTOMY AND SUBMUCOSAL INJECTION Consent: Indications for the procedure and potential complications of bleeding, perforation, reaction to medications and missed diagnosis were discussed with the patient and informed consent was obtained. Instrument: Olympus PCF H 190 L variable stiffness pediatric colonoscope Monitoring: Vital signs and clinical assessment, intermittent blood pressure monitoring, continuous EKG monitoring, Pulse oximetry and Carbon Dioxide monitoring were done throughout the procedure. Colon withdrawl time was 31 minutes. Procedure: The patient was placed in the left lateral decubitis position and pre-procedure medications were administered. After a digital rectal examination of the ano-rectum, the video colonoscope was inserted into the rectum and advanced through the colon to the cecum. The colonoscope was slowly withdrawn in a retrograde panoramic fashion and the colon mucosa was carefully examined including a retroflexed view of the rectum. Findings and interventions are described below. Procedure Difficulty: Without difficulty Findings: Terminal Ileum: Not evaluated Cecum: Normal Ascending Colon: A 10 -12 mm sessile polyp removed with a hot snare Transverse Colon: Two 12- 15 mm flat polyps raised with 2-3 cc of normal saline and removed with a hot snare. Descending Colon: Moderate diverticulosis Sigmoid Colon: A 5-6 mm diminutive appearing polyp - removed with a cold biopsy. Moderate diverticulosis Rectum: Normal Ano-rectum: Moderate internal hemorrhoids Colon preparation: Good after some irrigation Impression and Post Procedure Diagnosis: Colonoscopy Findings: Four small to medium sized polyps removed Moderate diverticulosis seen in the left colon Moderate hemorrhoids on retroflexed exam. Plan: Await pathology results Patient has an appointment on 01/20/22 in the [facility] with Rosalba Huber FNP-BC. Repeat Colonoscopy interval based on path results - in 3-5 years if polyps are adenomatous and 10 years if polyps are hyperplastic. Above findings were reviewed with the patient and colon polyps and diverticulosis handouts were given in the discharge area
[2022-01-06 14:54] VITALS: BP 110/65; PULSE 62; RESP 16; TEMP 36.1; O2SAT 100
[2022-01-06 15:09] VITALS: BP 110/65; PULSE 55; RESP 16; O2SAT 99
[2022-01-06 15:20] VITALS: BP 122/73; PULSE 54; RESP 16; TEMP 36.4; O2SAT 99
== END 2022-01-06 15:54 | disposition home or self-care (01) ==
PROVIDERS: PCP Pediatrics; Visit Provider Internal Medicine Gastroenterology
PROC: 0DJD8ZZ Inspection of Lower Intestinal Tract, Via Natural or Artificial Opening Endoscopic (ICD-10-PCS; CPT 45378; principal; 2022-01-06 09:20)
DX: Z12.11 Encounter for screening for malignant neoplasm of colon (principal); Z86.010 Personal history of colon polyps; K63.5 Polyp of colon; K57.30 Diverticulosis of large intestine without perforation or abscess without bleeding; K64.8 Other hemorrhoids; E78.00 Pure hypercholesterolemia, unspecified; Z79.899 Other long term (current) drug therapy
CPT/HCPCS: 45385; 45380; 45381; 88305

== ENCOUNTER 2022-01-13 09:00 | Outpatient (REF) | payer OTHER, SELFPAY ==
--- NOTE | ~2022-01-13 | XR_ITS ---
EXAMINATION: XR KNEE AP STANDING, BILATERAL CLINICAL INFORMATION: Pain right knee COMPARISON: None TECHNIQUE: AP bilateral standing view of the knees was obtained. Lateral views each knee weight-bearing. FINDINGS: BILATERAL AP KNEE STANDING: There is mild reduction in the medial and lateral compartment of both knees but no bony erosive changes, loose bodies or soft tissue swelling. WEIGHT-BEARING: Right Knee: The patellofemoral compartment joint space is reduced with mild suprapatellar spurring. There is minimal suprapatellar joint effusion. No loose bodies, fracture or dislocation. Left Knee: There is minimal suprapatellar joint effusion. Mild reduction in the patellofemoral compartment joint space. No fracture, loose bodies or bony erosive changes. XR/XR knee standing BI IMPRESSION: Bilateral tricompartment reduced joint space with minimal bilateral suprapatellar joint effusion. No visible acute fracture or dislocation seen.
== END 2022-01-13 09:01 | disposition home or self-care (01) ==
LOC: HO.HMGCX 09:00
PROVIDERS: PCP Pediatrics; Visit Provider Pediatrics
DX: M25.561 Pain in right knee (principal)
CPT/HCPCS: 73565

== ENCOUNTER → 2022-01-20 08:09 | Outpatient (BNVA) | payer OTHER, SELFPAY | PROVIDERS: PCP Pediatrics; Referring Provider Pediatrics; Visit Provider Nurse Practitioner Family | DX: K63.5 Polyp of colon (principal); K57.90 Diverticulosis of intestine, part unspecified, without perforation or abscess without bleeding; K59.01 Slow transit constipation | CPT/HCPCS: 99212 ==

== ENCOUNTER 2022-05-05 14:11 | Emergency (ER) | payer OTHER, SELFPAY ==
--- NOTE | ~2022-05-05 | CT_ITS ---
EXAMINATION: CT ABDOMEN AND PELVIS WITHOUT CONTRAST CLINICAL INFORMATION: Abdominal distention and abdominal pain COMPARISON: CT abdomen 08/27/2017. CT pelvis 12/18/2017 TECHNIQUE: Multidetector volumetric imaging was performed from the superior aspect of the liver through the pubic symphysis. Sagittal and coronal reformatted images were obtained on the technologist's workstation. This CT examination was performed using dose optimization techniques as appropriate, variously including the following: *Automated exposure control *Adjustment of mA and/or kV according to patient size (this includes techniques or standardized protocols for targeted exams where dose is matched to indication/reason for exam; i.e. extremities or head) *Use of iterative reconstruction technique DLP: 674 mGy-cm FINDINGS: LUNG BASES: The visualized lung bases are unremarkable. LIVER, GALLBLADDER, AND BILIARY TREE: The liver is normal in size, shape, and attenuation. No focal hepatic lesion or biliary ductal dilatation is present. The gallbladder is unremarkable with no evidence of radiopaque gallstones, gallbladder wall thickening, or obvious pericholecystic inflammatory changes. PANCREAS: Unremarkable. SPLEEN: Unremarkable. ADRENAL GLANDS: Unremarkable. KIDNEYS AND URETERS: The kidneys are normal in size, shape, and attenuation. No hydronephrosis, hydroureter, or calculi seen. No perinephric stranding. BLADDER: Unremarkable. GASTROINTESTINAL TRACT: The small and large bowel are unremarkable. The appendix is unremarkable. ABDOMINAL WALL: No significant hernia is appreciated. LYMPH NODES: Normal. VASCULAR: Unremarkable. PELVIC VISCERA: Prostate measures 3.8 cm transverse. OSSEOUS STRUCTURES: Unremarkable. CT/CT abdomen pelvis wo IV con IMPRESSION: No significant abnormality. Fleischner guidelines were followed.
[2022-05-05 14:19] VITALS: BP 131/77; PULSE 62; RESP 20; TEMP 36.5; O2SAT 99; BMI 32.8
--- NOTE | 2022-05-05 14:20 | ECG_ITS ---
Test Reason : ABD PAIN Blood Pressure : / mmHG Vent. Rate : 060 BPM Atrial Rate : 060 BPM P-R Int : 194 ms QRS Dur : 144 ms QT Int : 388 ms P-R-T Axes : 002 -34 009 degrees QTc Int : 388 ms Artifact in tracing Normal sinus rhythm Left axis deviation Right bundle branch block Abnormal ECG When compared with ECG of 17-JUN-2021 13:49, No significant change was found Referred By: Ammy Lakhani Electronically Signed By:LAILA MACIEL
--- NOTE | 2022-05-05 14:21 | ED.ABDPAIN ---
HPI - Abdominal Pain General Chief Complaint: Abdominal Pain <RENATA Miles - Last Filed: 05/05/22 14:23> Stated Complaint: Abd pain/Chest pain sent by [facility] <RENATA Miles - Last Filed: 05/05/22 14:23> Time Seen by Provider: 05/05/22 20:41 <RENATA Miles - Last Filed: 05/05/22 14:23> Source: patient <Sarwat Raphael MD - Last Filed: 05/05/22 22:11> Mode of arrival: ambulatory <Sarwat Raphael MD - Last Filed: 05/05/22 22:11> Limitations: no limitations <Sarwat Raphael MD - Last Filed: 05/05/22 22:11> History of Present Illness HPI narrative: Patient no significant abdominal complaints in the past had colonoscopy 3 months ago comes here for abdominal distention for last 4 - 5 minutes feels bloated all the time. GI aware about this and has a follow-up plan to see him. Patient states whenever he eats something feels increase care and abdominal distension does have constipation but moves his bowels every day. No fever no chills no nausea no vomiting patient is not alcoholic no liver issues <Sarwat Raphael MD - Last Filed: 05/05/22 22:11> Related Data Home Medications: Home Medications Medication Instructions Recorded Confirmed atorvastatin 40 mg tablet 40 mg PO BEDTIME 03/27/21 01/06/22 fluticasone propionate 50 1 spray intranasal DAILY 03/27/21 01/06/22 mcg/actuation nasal spray,suspension omega-3 fatty acids-fish oil 340 1 cap PO BID 03/27/21 01/06/22 mg-1,000 mg capsule (Fish Oil) meclizine 25 mg tablet 50 mg PO DAILY PRN dizziness 08/20/21 01/06/22 albuterol sulfate 90 mcg/actuation 2 puff inhalation Q4H PRN wheezing 12/31/21 01/06/22 aerosol inhaler (ProAir HFA) Previous Rx's Medication Instructions Recorded fluticasone propionate 220 2 puff inhalation BID 30 days #12 11/18/21 mcg/actuation HFA aerosol inhaler grams (Flovent HFA) polyethylene glycol 3350 17 17 g PO DAILY #510 grams 01/20/22 gram/dose oral powder (Miralax) <RENATA Miles - Last Filed: 05/05/22 14:23> Allergies/Adverse Reactions: Allergies Allergy/AdvReac Type Severity Reaction Status Date / Time No Known Allergies Allergy Verified 05/05/22 13:31 [No Known Allergies*] <RENATA Miles - Last Filed: 05/05/22 14:23> Review of Systems Review of Systems Yes all other systems are reviewed and are negative <Sarwat Raphael MD - Last Filed: 05/05/22 22:11> [facility] Past Medical History Medical History: Medical History Diverticulosis High cholesterol Sessile colonic polyp <RENATA Miles - Last Filed: 05/05/22 14:23> Surgical History: Surgical History Hx of colonoscopy Hx of inguinal hernia surgery <RENATA Miles - Last Filed: 05/05/22 14:23> Social History Social History: Social History Household Members: Spouse and Children Alcohol intake: current Alcohol intake frequency: a few times a month Patient Tobacco Use Status: Never used Tobacco Advance Directives: No Advance Directives Information Provided: No <RENATA Miles - Last Filed: 05/05/22 14:23> Physical Exam ED Vital Signs: Vital Signs - 24 hr 05/05/22 14:19 05/05/22 17:20 Temperature 97.7 F 98.4 F Pulse Rate 62 72 Respiratory Rate 20 16 Blood Pressure 131/77 135/77 Pulse Oximetry 99 98 Oxygen Delivery Method Room Air Room Air BMI result Body Mass Index 32.8 <RENATA Miles - Last Filed: 05/05/22 14:23> Vital Signs - 24 hr 05/05/22 14:19 05/05/22 17:20 Temperature 97.7 F 98.4 F Pulse Rate 62 72 Respiratory Rate 20 16 Blood Pressure 131/77 135/77 Pulse Oximetry 99 98 Oxygen Delivery Method Room Air Room Air BMI result Body Mass Index 32.8 <Sarwat Raphael MD - Last Filed: 05/05/22 22:11> Appearance: Alert. Oriented X3. No acute distress. Eyes: No pallor or icterus ENT: Pharynx normal. Oral Mucosa moist Neck: Normal inspection. Neck supple. CVS: Normal heart rate and rhythm. Pulses normal. Respiratory: No respiratory distress. Equal air entry bilateral, no wheezing/rales/rhonchi Abdomen: Soft , diffuse tenderness gaseous distended. Bowel sounds are present, no mass palpable, no CVA tenderness Skin: Skin warm and dry. Normal skin color. Normal skin turgor. Extremities: No lower extremity edema. No calf tenderness Neuro: Oriented X 3. No motor deficit. <Sarwat Raphael MD - Last Filed: 05/05/22 22:11> Course Course Course Narrative: RME - 56 yo male wtih history of HLD, asthma, diverticulosis, constipation who presents to the ER for worsening diffuse abdominal pain and distention for the last 2 months. He denies any associated N/V/D and has been having normal BMs once per day. He reports significant distention w/ eating small amounts of food. He also reports new onset chest tightness that started last night. Plan: EKG, CXR, labs, and CT scan of the abd/pelvis <RENATA Miles - Last Filed: 05/05/22 14:23> Medical Decision Making Medical Decision Making [facility] Narrative: Patient nonspecific abdominal distension likely IBS CT scan was done prior to my evaluation which was negative labs are stable patient advised to follow-up with GI meanwhile advised to avoid food which causes increase gas list of FODMAPs food was given to the patient to avoid <Sarwat Raphael MD - Last Filed: 05/05/22 22:11> Differential Diagnosis Constipation/IBS/obesity <Sarwat Raphael MD - Last Filed: 05/05/22 22:11> Lab Data [facility] Lab Attestation statement: I reviewed the patient's lab results. <Sarwat Raphael MD - Last Filed: 05/05/22 22:11> Result Diagrams: 05/05/22 17:11 05/05/22 17:11 <RENATA Miles - Last Filed: 05/05/22 14:23> Labs: Lab Results 05/05/22 05/05/22 05/05/22 Range/Units 17:11 17:11 17:11 WBC 10.0 (4.8-10.8) X10*3/uL RBC 5.31 (4.60-5.80) X10*6/uL Hgb 15.7 (14.0-18.0) g/dl Hct 47.5 (42.0-52.0) % MCV 89.5 (80.0-98.0) fL MCH 29.6 (27.0-33.0) pg MCHC 33.1 (31.0-36.0) g/dl RDW 13.5 (11.0-16.0) % Plt Count 215 (160-400) X10*3/uL MPV 9.2 L (9.4-12.4) fL Immature Gran % (Auto) 0.1 (0.0-0.4) % Neut % (Auto) 50.7 (45-73) % Lymph % (Auto) 35.9 (20-40) % Kemper % (Auto) 9.9 (2-11) % Eos % (Auto) 2.6 (0-4) % Baso % (Auto) 0.8 (0-2) % Lymph # (Auto) 3.6 (1.2-4.9) X10*3/uL Kemper # (Auto) 1.0 (0.1-1.2) X10*3/uL Eos # (Auto) 0.3 (0.0-0.4) X10*3/uL Baso # (Auto) 0.1 (0.0-0.2) X10*3/uL Abs Immat Gran (auto) 0.01 (0.00-0.03) X10*3/uL Absolute Neuts (auto) 5.1 (2.0-8.3) x10*3/uL Absolute Nucleated RBC 0.000 (0.0-0.012) X10*3/uL Nucleated RBC % (auto) 0.0 (0.0-0.2) /100WBC Sodium 145 (135-145) mmol/L Potassium 4.6 (3.3-5.1) mmol/L Chloride 107 (96-108) mmol/L Carbon Dioxide 27 (22-29) mmol/L Anion Gap 16 (12-20) BUN 15 (9-16) mg/dL Creatinine 0.86 (0.5-1.4) mg/dL Estim Creat Clear Calc 102.9 Estimated GFR > 60 Random Glucose 71 (60-115) mg/dL Calcium 9.4 (8.4-10.2) mg/dL Magnesium 2.1 (1.6-2.6) mg/dL Total Bilirubin 0.7 (0.0-1.0) mg/dL Direct Bilirubin 0.2 (0.0-0.5) mg/dL AST 24 (5-37) U/L ALT 46 H (0-40) U/L Alkaline Phosphatase 78 (39-117) U/L Troponin I High Sens < 3.5 (<3.5-35.0) ng/L Total Protein 8.2 H (6.5-8.0) g/dL Albumin 4.8 (3.5-5.0) g/dL Urine Color Urine Appearance Urine pH (5.0-9.0) Ur Specific Stamps (1.005-1.025) Urine Protein (Neg-Trace) mg/dL Urine Glucose (UA) (Negative) mg/dL Urine Ketones (Negative) mg/dL Urine Blood (Negative) Urine Nitrite (Negative) Ur Leukocyte Esterase (Negative) 05/05/22 Range/Units 17:11 WBC (4.8-10.8) X10*3/uL RBC (4.60-5.80) X10*6/uL Hgb (14.0-18.0) g/dl Hct (42.0-52.0) % MCV (80.0-98.0) fL MCH (27.0-33.0) pg MCHC (31.0-36.0) g/dl RDW (11.0-16.0) % Plt Count (160-400) X10*3/uL MPV (9.4-12.4) fL Immature Gran % (Auto) (0.0-0.4) % Neut % (Auto) (45-73) % Lymph % (Auto) (20-40) % Kemper % (Auto) (2-11) % Eos % (Auto) (0-4) % Baso % (Auto) (0-2) % Lymph # (Auto) (1.2-4.9) X10*3/uL Kemper # (Auto) (0.1-1.2) X10*3/uL Eos # (Auto) (0.0-0.4) X10*3/uL Baso # (Auto) (0.0-0.2) X10*3/uL Abs Immat Gran (auto) (0.00-0.03) X10*3/uL Absolute Neuts (auto) (2.0-8.3) x10*3/uL Absolute Nucleated RBC (0.0-0.012) X10*3/uL Nucleated RBC % (auto) (0.0-0.2) /100WBC Sodium (135-145) mmol/L Potassium (3.3-5.1) mmol/L Chloride (96-108) mmol/L Carbon Dioxide (22-29) mmol/L Anion Gap (12-20) BUN (9-16) mg/dL Creatinine (0.5-1.4) mg/dL Estim Creat Clear Calc Estimated GFR Random Glucose (60-115) mg/dL Calcium (8.4-10.2) mg/dL Magnesium (1.6-2.6) mg/dL Total Bilirubin (0.0-1.0) mg/dL Direct Bilirubin (0.0-0.5) mg/dL AST (5-37) U/L ALT (0-40) U/L Alkaline Phosphatase (39-117) U/L Troponin I High Sens (<3.5-35.0) ng/L Total Protein (6.5-8.0) g/dL Albumin (3.5-5.0) g/dL Urine Color Yellow Urine Appearance Clear Urine pH 5.0 (5.0-9.0) Ur Specific Stamps 1.025 (1.005-1.025) Urine Protein Negative (Neg-Trace) mg/dL Urine Glucose (UA) Negative (Negative) mg/dL Urine Ketones Negative (Negative) mg/dL Urine Blood Negative (Negative) Urine Nitrite Negative (Negative) Ur Leukocyte Esterase Negative (Negative) <RENATA Miles - Last Filed: 05/05/22 14:23> Lab Results 05/05/22 05/05/22 05/05/22 Range/Units 17:11 17:11 17:11 WBC 10.0 (4.8-10.8) X10*3/uL RBC 5.31 (4.60-5.80) X10*6/uL Hgb 15.7 (14.0-18.0) g/dl Hct 47.5 (42.0-52.0) % MCV 89.5 (80.0-98.0) fL MCH 29.6 (27.0-33.0) pg MCHC 33.1 (31.0-36.0) g/dl RDW 13.5 (11.0-16.0) % Plt Count 215 (160-400) X10*3/uL MPV 9.2 L (9.4-12.4) fL Immature Gran % (Auto) 0.1 (0.0-0.4) % Neut % (Auto) 50.7 (45-73) % Lymph % (Auto) 35.9 (20-40) % Kemper % (Auto) 9.9 (2-11) % Eos % (Auto) 2.6 (0-4) % Baso % (Auto) 0.8 (0-2) % Lymph # (Auto) 3.6 (1.2-4.9) X10*3/uL Kemper # (Auto) 1.0 (0.1-1.2) X10*3/uL Eos # (Auto) 0.3 (0.0-0.4) X10*3/uL Baso # (Auto) 0.1 (0.0-0.2) X10*3/uL Abs Immat Gran (auto) 0.01 (0.00-0.03) X10*3/uL Absolute Neuts (auto) 5.1 (2.0-8.3) x10*3/uL Absolute Nucleated RBC 0.000 (0.0-0.012) X10*3/uL Nucleated RBC % (auto) 0.0 (0.0-0.2) /100WBC Sodium 145 (135-145) mmol/L Potassium 4.6 (3.3-5.1) mmol/L Chloride 107 (96-108) mmol/L Carbon Dioxide 27 (22-29) mmol/L Anion Gap 16 (12-20) BUN 15 (9-16) mg/dL Creatinine 0.86 (0.5-1.4) mg/dL Estim Creat Clear Calc 102.9 Estimated GFR > 60 Random Glucose 71 (60-115) mg/dL Calcium 9.4 (8.4-10.2) mg/dL Magnesium 2.1 (1.6-2.6) mg/dL Total Bilirubin 0.7 (0.0-1.0) mg/dL Direct Bilirubin 0.2 (0.0-0.5) mg/dL AST 24 (5-37) U/L ALT 46 H (0-40) U/L Alkaline Phosphatase 78 (39-117) U/L Troponin I High Sens < 3.5 (<3.5-35.0) ng/L Total Protein 8.2 H (6.5-8.0) g/dL Albumin 4.8 (3.5-5.0) g/dL Urine Color Urine Appearance Urine pH (5.0-9.0) Ur Specific Stamps (1.005-1.025) Urine Protein (Neg-Trace) mg/dL Urine Glucose (UA) (Negative) mg/dL Urine Ketones (Negative) mg/dL Urine Blood (Negative) Urine Nitrite (Negative) Ur Leukocyte Esterase (Negative) 05/05/22 Range/Units 17:11 WBC (4.8-10.8) X10*3/uL RBC (4.60-5.80) X10*6/uL Hgb (14.0-18.0) g/dl Hct (42.0-52.0) % MCV (80.0-98.0) fL MCH (27.0-33.0) pg MCHC (31.0-36.0) g/dl RDW (11.0-16.0) % Plt Count (160-400) X10*3/uL MPV (9.4-12.4) fL Immature Gran % (Auto) (0.0-0.4) % Neut % (Auto) (45-73) % Lymph % (Auto) (20-40) % Kemper % (Auto) (2-11) % Eos % (Auto) (0-4) % Baso % (Auto) (0-2) % Lymph # (Auto) (1.2-4.9) X10*3/uL Kemper # (Auto) (0.1-1.2) X10*3/uL Eos # (Auto) (0.0-0.4) X10*3/uL Baso # (Auto) (0.0-0.2) X10*3/uL Abs Immat Gran (auto) (0.00-0.03) X10*3/uL Absolute Neuts (auto) (2.0-8.3) x10*3/uL Absolute Nucleated RBC (0.0-0.012) X10*3/uL Nucleated RBC % (auto) (0.0-0.2) /100WBC Sodium (135-145) mmol/L Potassium (3.3-5.1) mmol/L Chloride (96-108) mmol/L Carbon Dioxide (22-29) mmol/L Anion Gap (12-20) BUN (9-16) mg/dL Creatinine (0.5-1.4) mg/dL Estim Creat Clear Calc Estimated GFR Random Glucose (60-115) mg/dL Calcium (8.4-10.2) mg/dL Magnesium (1.6-2.6) mg/dL Total Bilirubin (0.0-1.0) mg/dL Direct Bilirubin (0.0-0.5) mg/dL AST (5-37) U/L ALT (0-40) U/L Alkaline Phosphatase (39-117) U/L Troponin I High Sens (<3.5-35.0) ng/L Total Protein (6.5-8.0) g/dL Albumin (3.5-5.0) g/dL Urine Color Yellow Urine Appearance Clear Urine pH 5.0 (5.0-9.0) Ur Specific Stamps 1.025 (1.005-1.025) Urine Protein Negative (Neg-Trace) mg/dL Urine Glucose (UA) Negative (Negative) mg/dL Urine Ketones Negative (Negative) mg/dL Urine Blood Negative (Negative) Urine Nitrite Negative (Negative) Ur Leukocyte Esterase Negative (Negative) <Sarwat Raphael MD - Last Filed: 05/05/22 22:11> Medications Administered Discontinued Medications Generic Name Dose Route Start Last Admin Trade Name Freq PRN Reason Stop Dose Admin Magnesium Hydroxide 30 ml 05/05/22 21:35 05/05/22 22:05 Milk Of Magnesia 30 Ml Oral.Susp PO 05/05/22 21:36 30 ml ONCE ONE Administration <RENATA Miles - Last Filed: 05/05/22 14:23> Medications Administered Discontinued Medications Generic Name Dose Route Start Last Admin Trade Name Freq PRN Reason Stop Dose Admin Magnesium Hydroxide 30 ml 05/05/22 21:35 05/05/22 22:05 Milk Of Magnesia 30 Ml Oral.Susp PO 05/05/22 21:36 30 ml ONCE ONE Administration <Sarwat Raphael MD - Last Filed: 05/05/22 22:11> Discharge Plan Discharge Clinical Impression: Abdominal pain, Irritable bowel syndrome <RENATA Miles - Last Filed: 05/05/22 14:23> Patient Disposition: Home, Self-Care <RENATA Miles - Last Filed: 05/05/22 14:23> Instructions: Irritable Bowel Syndrome (ED), Abdominal Pain (ED) <RENATA Miles - Last Filed: 05/05/22 14:23> Additional Instructions: Drink plenty of fluids Likely have IBS, avoid food as advised which causes more gas Follow with gastroenterology for further management <RENATA Miles - Last Filed: 05/05/22 14:23> Prescriptions: No Action albuterol sulfate [ProAir HFA] 90 mcg/actuation HFA aerosol inhaler 2 puff inhalation Q4H PRN (Reason: wheezing) atorvastatin 40 mg tablet 40 mg PO BEDTIME Fish Oil 340-1,000 mg capsule 1 cap PO BID fluticasone propionate 50 mcg/actuation spray,suspension 1 spray intranasal DAILY fluticasone propionate [Flovent HFA] 220 mcg/actuation HFA aerosol inhaler 2 puff inhalation BID 30 Days Qty: 12 6RF meclizine 25 mg tablet 50 mg PO DAILY PRN (Reason: dizziness) polyethylene glycol 3350 [Miralax] 17 gram/dose powder 17 g PO DAILY Qty: 510 2RF <RENATA Miles - Last Filed: 05/05/22 14:23>
[2022-05-05 17:18] LABS: MANUAL DIFF FLAG NO
[2022-05-05 17:20] VITALS: BP 135/77; PULSE 72; RESP 16; TEMP 36.9; O2SAT 98
[2022-05-05 17:21] LABS: Appearance Urine Clear; Basophils Absolute Auto 0.1 X10*3/uL (0.0-0.2); Basophils Percent Auto 0.8 % (0-2); Color Urine Yellow; Eosinophils Absolute Auto 0.3 X10*3/uL (0.0-0.4); Eosinophils Percent Auto 2.6 % (0-4); Glucose Urine UA Negative (Negative); Hematocrit 47.5 % (42.0-52.0); Hemoglobin 15.7 g/dl (14.0-18.0); Imm Gran Abs Auto 0.01 X10*3/uL (0.00-0.03); Imm Gran Pct Auto 0.1 % (0.0-0.4); Leukocyte Esterase Urine Negative (Negative); Lymphocytes Absolute Auto 3.6 X10*3/uL (1.2-4.9); Lymphocytes Percent Auto 35.9 % (20-40); Mean Corpuscular HGB Conc 33.1 g/dl (31.0-36.0); Mean Corpuscular Hemoglobin 29.6 pg (27.0-33.0); Mean Corpuscular Volume 89.5 fL (80.0-98.0); Mean Platelet Volume 9.2 fL (9.4-12.4); Monocytes Percent Auto 9.9 % (2-11); Neutrophils Absolute Auto 5.1 x10*3/uL (2.0-8.3); Neutrophils Percent Auto 50.7 % (45-73); Nitrite Urine Negative (Negative); Platelet Count 215 X10*3/uL (160-400); Red Blood Count 5.31 X10*6/uL (4.60-5.80); Red Cell Distribution Width 13.5 % (11.0-16.0); Specific Gravity - Urine 1.025 (1.005-1.025); Urine Blood Negative (Negative); Urine Ketones Negative (Negative); Urine Protein Negative (Neg-Trace)
--- NOTE | 2022-05-05 17:21 | MHC.EDTECH ---
pt blood drawn ,urine sample collected and sent to lab ,ekg taken and read by provider .
[2022-05-05 17:38] LABS: Alanine Aminotransferase 46 U/L (0-40); Albumin Level 4.8 g/dL (3.5-5.0); Alkaline Phosphatase 78 U/L (39-117); Anion Gap 16 (12-20); Aspartate Amino Transferase 24 U/L (5-37); Bilirubin Direct 0.2 mg/dL (0.0-0.5); Bilirubin Total 0.7 mg/dL (0.0-1.0); Blood Urea Nitrogen 15 mg/dL (9-16); Calcium 9.4 mg/dL (8.4-10.2); Carbon Dioxide 27 mmol/L (22-29); Chloride 107 mmol/L (96-108); Creatinine Clr Calc Pharmacy 102.9; Estimated Glomerular Filt Rate > 60; Glucose Random 71 mg/dL (60-115); Magnesium 2.1 mg/dL (1.6-2.6); Potassium 4.6 mmol/L (3.3-5.1); Sodium 145 mmol/L (135-145); Total Protein 8.2 g/dL (6.5-8.0)
[2022-05-05 17:49] LABS: Troponin-I High Sensitivity < 3.5 ng/L (<3.5-35.0)
[2022-05-05] MEDS: Milk of Magnesia 30 ML ORAL.SUSP PO (22:05)
== END 2022-05-05 23:01 | disposition home or self-care (01) ==
PROVIDERS: Physician Assistant; Emergency Provider Internal Medicine; PCP Pediatrics
DX: K58.9 Irritable bowel syndrome, unspecified (principal); R10.9 Unspecified abdominal pain; E78.5 Hyperlipidemia, unspecified; Z79.02 Long term (current) use of antithrombotics/antiplatelets
CPT/HCPCS: 36415; 74176; 80048; 80076; 81003; 83735; 84484; 85025; 93005; 99283; 99284

== ENCOUNTER → 2022-05-07 10:41 | Outpatient (BNVA) | payer OTHER, SELFPAY | PROVIDERS: PCP Pediatrics; Visit Provider Nurse Practitioner Family | DX: R14.0 Abdominal distension (gaseous) (principal); R10.9 Unspecified abdominal pain; K58.1 Irritable bowel syndrome with constipation; K59.01 Slow transit constipation; K21.9 Gastro-esophageal reflux disease without esophagitis | CPT/HCPCS: 99212 ==

== ENCOUNTER 2022-05-08 09:54 | Outpatient (REF) | payer OTHER, SELFPAY ==
[2022-05-08 11:14] LABS: TSH reflex Free T4 1.69 uIU/mL (0.32-4.0)
[2022-05-08 12:11] LABS: Vitamin B12 959 pg/mL (200-900)
[2022-05-14 18:13] LABS: Vitamin D 25-OH, D2 <4 ng/mL; Vitamin D 25-OH, D3 13 ng/mL; Vitamin D 25-OH, Total 13 ng/mL (30-100)
[2022-05-15 12:23] LABS: Transglutaminase Ab IgG 1.7 U/mL; Transglutaminase IgA <1.0 U/mL
== END 2022-05-08 09:55 | disposition home or self-care (01) ==
LOC: HO.LAB 09:54
PROVIDERS: PCP Pediatrics; Visit Provider Nurse Practitioner Family
DX: E55.9 Vitamin D deficiency, unspecified (principal); R19.7 Diarrhea, unspecified; R10.9 Unspecified abdominal pain; K59.00 Constipation, unspecified
CPT/HCPCS: 36415; 82306; 82607; 82746; 84443; 86364

== ENCOUNTER → 2022-05-22 09:22 | Outpatient (BNVA) | payer OTHER, SELFPAY | PROVIDERS: PCP Pediatrics; Visit Provider Urology | DX: N40.1 Benign prostatic hyperplasia with lower urinary tract symptoms (principal); R35.0 Frequency of micturition; R39.15 Urgency of urination | CPT/HCPCS: 51798 ==

== ENCOUNTER 2022-05-22 10:52 | Outpatient (REF) | payer OTHER, SELFPAY ==
[2022-05-22 13:13] LABS: PSA,Total (Free>4and<10) 0.62 ng/mL (0.00-4.00)
== END 2022-05-22 10:53 | disposition home or self-care (01) ==
LOC: HO.LAB 10:52
PROVIDERS: Visit Provider Urology
DX: Z12.5 Encounter for screening for malignant neoplasm of prostate (principal); N40.1 Benign prostatic hyperplasia with lower urinary tract symptoms
CPT/HCPCS: 36415; 84153

== ENCOUNTER 2022-10-29 07:49 | Outpatient (AMB) | payer OTHER, SELFPAY ==
--- NOTE | 2022-10-29 07:59 | A.OFFVIS_ITS ---
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 At low FODMAP diet discussed with patient. List of food recommended as well as list of food to avoid given to patient. Patient was also given eliminate shunt diet sample if he chooses Abdominal pain Postprandial abdominal cramping and discomfort. Most likely related to gas trapping as patient is constipated and is eating food that for meds when is digested. Patient was encouraged to her try low FODMAP diet. As mentioned above list of food recommended as well as is the food to avoid given to patient. Patient was encouraged to stop pear, apples, sosa IBS (irritable bowel syndrome) Postprandial abdominal bloating and cramping. Patient is constipated. Patient was educated on how much MiraLax he should be taking. Low FODMAP diet discussed with patient. Constipation Continue MiraLax. I will add Senokot. Patient can take 1 or 2 tablets depending on how is he moving his bowels. Patient was also encouraged to increase fluid intake and activity to promote better bowel motility. GERD (gastroesophageal reflux disease) Occasional postprandial epigastric discomfort with dyspepsia, without dysphagia or odynophagia. Discussed with patient avoiding dietary triggers and I and snacking. Staying upright for minimal 3 hours after meals discussed with patient. Will start him on low-dose omeprazole and keep him on that for 3 months. Patient will let me know if this not going to be effective I will see him in 3 months, sooner on as needed basis. Patient is agreeable to this plan and verbalizes understanding of instructions. He was given the opportunity to ask questions and all questions answered. ? Thank you for allowing me to participate in his care Plan Orders Orders TSH reflex Free T4 Today K59.00 Vitamin B12 and Folate Today R19.7 Vitamin D 25-OH (D2 and D3) Today E55.9 Transglutaminase Ab IgG Today R10.9 Transglutaminase IgA Today R10.9 Medications New omeprazole 20 mg PO DAILY 30 caps 3RF K21.9 sennosides (Natural Senna Laxative) 17.2 mg (2 x 8.6 mg) PO BEDTIME 60 tabs 3RF constipation K59.00 Refilled polyethylene glycol 3350 (Miralax) 17 grams PO DAILY 510 grams 2RF TODAY'S VISIT Patient is here today for follow-up. Patient reports that he no longer is taking omeprazole. Patient no longer has symptoms of acid reflux. Patient denies is Pepcid, dysphagia or odynophagia. Patient reports that he has still postprandial abdominal bloating and constipation. Patient is taking MiraLax once a day, however he finished Senokot and now he reports to be constipated. Patient states that he tried to follow low FODMAP diet. He continues to be very bloated. Patient denies melena, hematochezia, unintentional weight loss or ribbon like stools. Sometimes no bowel movements for 3-4 days. Patient denies any nausea or vomiting. Denies any other GI concerning symptoms. PFSH Medical History Diverticulosis High cholesterol Sessile colonic polyp Surgical History Hx of colonoscopy Hx of inguinal hernia surgery Social History Household Members: Spouse and Children Alcohol intake: current Alcohol intake frequency: a few times a month Patient Tobacco Use Status: Never used Tobacco Review of Systems Const Denies weight gain and Denies weight loss ENT Reports no additional complaints, Denies dysphagia and Denies odynophagia Card Reports no additional complaints Resp Reports no additional complaints GI Denies abdominal pain, Denies belching, Denies melena, Reports bloating, Denies change in bowel habits, Reports constipation, Denies dysphagia, Denies excessive flatus, Denies dyspepsia, Denies heartburn, Denies diarrhea, Denies loose stools, Denies nausea, Denies odynophagia and Denies vomiting Reports no additional complaints Musc Reports no additional complaints Neuro Reports no additional complaints Psych Reports no additional complaints Endo Reports no additional complaints Physical Exam Vital Signs: Last Vital Signs Pulse 60 10/29/22 08:00 BP 131/80 10/29/22 08:00 BMI result Body Mass Index 33.3 Const General: healthy appearing, no acute distress and well developed Nutritional Appearance: obese Orientation/consciousness: patient oriented x3 HEENT Head: Yes normal to inspection, Yes normocephalic and Yes atraumatic Face and sinus: Yes normal facial exam Mouth: Normal oral and palatal mucosa present Throat: Yes posterior oropharynx normal, Yes tonsils normal and Yes uvula midline Eyes General: appearance normal, both eyes and all related structures Neck Neck: Yes normal visual inspection, Yes full ROM and Yes trachea midline Thyroid: Thyroid normal Resp Effort & Inspection: normal respiratory effort, able to speak in complete sentences, no tracheal deviation and symmetric chest movement Auscultation: clear to auscultation bilaterally Cardio Rate: regular rate Heart sounds: S1 normal heart sound present and S2 normal heart sound present GI Inspection: Yes normal to inspection, Yes distended and Yes obesity Palpation (GI): Soft to palpation, not firm, nontender and No hepatosplenomegaly present Auscultation: normal bowel sounds General: Yes no CVA tenderness Back/Spine/Pelvis Back: no CVA tenderness Skin General skin exam: elasticity normal, turgor normal and dry skin Neuro General: patient oriented x3 Psych Appearance: grossly normal Mental Status: mental status grossly normal Speech and movement: Normal speech and movement present Assessment & Plan Assessment & Plan (1) Abdominal distention: Code(s): R14.0 - Abdominal distension (gaseous) Plan: Postprandial abdominal bloating and distension. Most likely related to patient not be emptying his bowels completely. (2) IBS (irritable bowel syndrome): Code(s): K58.9 - Irritable bowel syndrome without diarrhea Qualifiers: Irritable bowel syndrome type: with constipation Qualified Code(s): K58.1 - Irritable bowel syndrome with constipation Plan: Patient reports postprandial abdominal bloating. Patient reports that he feels bloated sometimes the whole day. No bowel movements for 3-4 days sometimes. Continue low FODMAP diet. Patient reports occasional abdominal cramping. Cramping throughout the whole abdomen especially when he is very bloated. Will check lipase, liver profile, pancreatic insufficiency (3) Constipation: Code(s): K59.00 - Constipation, unspecified Qualifiers: Constipation type: slow transit constipation Qualified Code(s): K59.01 - Slow transit constipation Plan: Patient tried [id number] Senokot. States that it was helping, however he felt like he was not emptying his bowels completely. Patient can start Linzess. He will call us in 2 weeks if the medication will not be effective. Patient was also encouraged to increase fluid intake and activity to promote better bowel motility. (4) GERD (gastroesophageal reflux disease): Code(s): K21.9 - Gastro-esophageal reflux disease without esophagitis Plan: Patient reports that he no longer has acid reflux. Patient stopped taking omeprazole. Discussed with patient avoiding dietary triggers in late night snacking. Staying upright for minimum 3 hours after meals discussed with patient. Patient will return in 4-5 weeks, sooner on as needed basis. Patient is agreeable to this plan and verbalizes understanding of instructions. He was given the opportunity to ask questions and all questions answered. Thank you for allowing me to participate in his care Orders: Orders Pancreatic Elastase-1 Today R10.9 - Unspecified abdominal pain Lipase Today R10.9 - Unspecified abdominal pain Liver Panel Today R10.9 - Unspecified abdominal pain Medications: New linaclotide (Linzess) 145 mcg PO DAILY 30 caps 2RF Refilled cholecalciferol (vitamin D3) 50 mcg PO DAILY 90 caps 3RF R79.89 - Other specified abnormal findings of blood chemistry Discontinued sennosides (Natural Senna Laxative) Discontinued Reason: Patient no longer taking 17.2 mg (2 x 8.6 mg) PO BEDTIME 60 tabs 3RF constipation K59.00 - Constipation, unspecified omeprazole Discontinued Reason: Patient no longer taking 20 mg PO DAILY 30 caps 3RF K21.9 - Gastro-esophageal reflux disease without esophagitis Coding Level of Care Code Est Pt Level 4 (48211) Diagnoses Abdominal distention R14.0 IBS (irritable bowel syndrome) K58.1 Irritable bowel syndrome type: with constipation Constipation K59.01 Constipation type: slow transit constipation GERD (gastroesophageal reflux disease) K21.9 Time Spent (min) 35 Comment 20 minutes spent with patient and additional 15 minutes spent reviewing his records
[2022-10-29 08:00] VITALS: BP 131/80; PULSE 60; BMI 33.3
== END 2022-10-29 08:23 | disposition home or self-care (01) ==
PROVIDERS: PCP Pediatrics; Visit Provider Nurse Practitioner Family
DX: R14.0 Abdominal distension (gaseous) (principal); K58.1 Irritable bowel syndrome with constipation; K59.01 Slow transit constipation; K21.9 Gastro-esophageal reflux disease without esophagitis
CPT/HCPCS: 99214

== ENCOUNTER 2022-10-29 07:49 | Outpatient (REF) | payer OTHER, SELFPAY ==
[2022-10-29 09:24] LABS: Alanine Aminotransferase 42 U/L (0-40); Albumin Level 4.4 g/dL (3.5-5.0); Alkaline Phosphatase 91 U/L (39-117); Aspartate Amino Transferase 26 U/L (5-37); Bilirubin Direct 0.2 mg/dL (0.0-0.5); Bilirubin Total 0.5 mg/dL (0.0-1.0); Lipase 18 U/L (8-78); Total Protein 7.7 g/dL (6.5-8.0)
== END 2022-10-29 07:50 | disposition home or self-care (01) ==
LOC: HO.LAB 07:49
PROVIDERS: PCP Pediatrics; Visit Provider Nurse Practitioner Family
DX: R10.9 Unspecified abdominal pain (principal); R14.0 Abdominal distension (gaseous); K58.1 Irritable bowel syndrome with constipation; K59.01 Slow transit constipation; K21.9 Gastro-esophageal reflux disease without esophagitis
CPT/HCPCS: 36415; 80076; 83690; 99212

== ENCOUNTER 2022-10-30 13:02 | Outpatient (REF) | payer OTHER, SELFPAY ==
[2022-11-08 04:09] LABS: Pancreatic Elastase-1 158 mcg/g
== END 2022-10-30 13:03 | disposition home or self-care (01) ==
LOC: HO.CHCLNP 13:02
PROVIDERS: Visit Provider Nurse Practitioner Family
DX: R10.9 Unspecified abdominal pain (principal)
CPT/HCPCS: 82656

== ENCOUNTER 2022-12-10 08:17 | Outpatient (AMB) | payer OTHER, SELFPAY ==
[2022-12-10 08:21] VITALS: BP 116/83; PULSE 61; BMI 33.3
--- NOTE | 2022-12-10 08:21 | A.OFFVIS_ITS ---
Intake Vital Signs 12/10/22 08:21 Height 5 ft 7 in Weight 212 lb 8.41 oz BMI 33.3 BP 116/83 Blood Pressure Location Rt brachial Position Sitting Pulse 61 Pulse Source Monitor Intake Visit Reasons: 6 week follow up Intake Note: Patient is here for a 6 week follow up , no complaints Allergies No Known Allergies [No Known Allergies*] Allergy (Verified 10/29/22 08:02) HPI 6 week follow up HPI Details LAST VISIT: Abdominal distention Postprandial abdominal bloating and distension. Most likely related to patient not be emptying his bowels completely. IBS (irritable bowel syndrome) Patient reports postprandial abdominal bloating. Patient reports that he feels bloated sometimes the whole day. No bowel movements for 3-4 days sometimes. Continue low FODMAP diet. Patient reports occasional abdominal cramping. Cramping throughout the whole abdomen especially when he is very bloated. Will check lipase, liver profile, pancreatic insufficiency Constipation Patient tried [id number] Senokot. States that it was helping, however he felt like he was not emptying his bowels completely. Patient can start Linzess. He will call us in 2 weeks if the medication will not be effective. Patient was also encouraged to increase fluid intake and activity to promote better bowel motility. GERD (gastroesophageal reflux disease) Patient reports that he no longer has acid reflux. Patient stopped taking omeprazole. Discussed with patient avoiding dietary triggers in late night snacking. Staying upright for minimum 3 hours after meals discussed with patient. Patient will return in 4-5 weeks, sooner on as needed basis. Patient is agreeable to this plan and verbalizes understanding of instructions. He was given the opportunity to ask questions and all questions answered. ? * TODAY'S VISIT Patient is here today for follow-up. Patient was diagnosed with pancreatic insufficiency and was started on Creon. Patient reports that he has been feeling little better, however he continues to feel abdominal bloating postprandially. Patient denies any nausea or vomiting. Reports that he is moving his bowels well. He is taking Linzess and he feels like he empties his bowels completely with this dose. Patient denies dyspepsia, dysphagia or odynophagia. Patient denies any melena, hematochezia, unintentional weight loss or ribbon like stools. PFSH Medical History Diverticulosis High cholesterol Sessile colonic polyp Surgical History Hx of colonoscopy Hx of inguinal hernia surgery Social History Household Members: Spouse and Children Alcohol intake: current Alcohol intake frequency: a few times a month Patient Tobacco Use Status: Never used Tobacco Review of Systems Const Denies weight gain and Denies weight loss ENT Reports no additional complaints, Denies dysphagia and Denies odynophagia Card Reports no additional complaints Resp Reports no additional complaints GI Denies abdominal pain, Denies belching, Denies melena, Reports bloating, Denies change in bowel habits, Denies dysphagia, Denies excessive flatus, Denies dyspepsia, Denies heartburn, Denies diarrhea, Denies loose stools, Denies nausea, Denies odynophagia and Denies vomiting Reports no additional complaints Musc Reports no additional complaints Neuro Reports no additional complaints Psych Reports no additional complaints Endo Reports no additional complaints Physical Exam Vital Signs: Last Vital Signs Pulse 61 12/10/22 08:21 BP 116/83 12/10/22 08:21 BMI result Body Mass Index 33.3 Const General: healthy appearing, no acute distress and well developed Nutritional Appearance: obese Orientation/consciousness: patient oriented x3 HEENT Head: Yes normal to inspection, Yes normocephalic and Yes atraumatic Face and sinus: Yes normal facial exam Mouth: Normal oral and palatal mucosa present Throat: Yes posterior oropharynx normal, Yes tonsils normal and Yes uvula midline Eyes General: appearance normal, both eyes and all related structures Neck Neck: Yes normal visual inspection, Yes full ROM and Yes trachea midline Thyroid: Thyroid normal Resp Effort & Inspection: normal respiratory effort, able to speak in complete sentences, no tracheal deviation and symmetric chest movement Auscultation: clear to auscultation bilaterally Cardio Rate: regular rate Heart sounds: S1 normal heart sound present and S2 normal heart sound present GI Inspection: Yes normal to inspection, No distended and Yes obesity Palpation (GI): Soft to palpation, not firm, nontender and No hepatosplenomegaly present Auscultation: normal bowel sounds General: Yes no CVA tenderness Back/Spine/Pelvis Back: no CVA tenderness Skin General skin exam: elasticity normal, turgor normal and dry skin Neuro General: patient oriented x3 Psych Appearance: grossly normal Mental Status: mental status grossly normal Speech and movement: Normal speech and movement present Assessment & Plan Assessment & Plan (1) Exocrine pancreatic insufficiency: Code(s): K86.81 - Exocrine pancreatic insufficiency (2) Constipation: Code(s): K59.00 - Constipation, unspecified Qualifiers: Constipation type: slow transit constipation Qualified Code(s): K59.01 - Slow transit constipation (3) Postprandial abdominal bloating: Code(s): R14.0 - Abdominal distension (gaseous) Plan Will increase patient's Creon. Patient will take it with meals. Currently patient reports that he eats about twice a day. Patie encouraged to eat smaller meals and more often. Avoid food that is high in fat. List of food recommended given to patient. Continue Linzess. Patient was encouraged to increase fluid intake and activity to promote better bowel motility. I will see patient in 6 months, sooner on as needed basis. Patient is agreeable to this plan and verbalizes understanding of instructions. He was given the opportunity to ask questions and all questions answered. Thank you for allowing me to participate in his care Medications: Changed From [id number] 36,000-114,000- 180,000 unit (Creon) administer with meals and/or snacks 1 cap PO QID 120 caps 3RF K86.89 - Other specified diseases of pancreas To [id number] 36,000-114,000- 180,000 unit (Creon) administer with meals and/or snacks 2 caps PO QID 240 caps 3RF K86.89 - Other specified diseases of pancreas Coding Level of Care Code Est Pt Level 4 (02598) Diagnoses Exocrine pancreatic insufficiency K86.81 Slow transit constipation K59.01 Constipation type: slow transit constipation Postprandial abdominal bloating R14.0 Time Spent (min) 35 Comment 20 minutes spent with patient and additional 15 minutes spent reviewing his records.
== END 2022-12-10 08:53 | disposition home or self-care (01) ==
PROVIDERS: PCP Pediatrics; Visit Provider Nurse Practitioner Family
DX: K86.81 Exocrine pancreatic insufficiency (principal); K59.01 Slow transit constipation; R14.0 Abdominal distension (gaseous)
CPT/HCPCS: 99214

== ENCOUNTER → 2022-12-10 08:17 | Outpatient (BNVA) | payer OTHER, SELFPAY | PROVIDERS: PCP Pediatrics; Visit Provider Nurse Practitioner Family | DX: K59.01 Slow transit constipation (principal); K86.81 Exocrine pancreatic insufficiency; R14.0 Abdominal distension (gaseous) | CPT/HCPCS: 99212 ==

== ENCOUNTER 2023-04-29 12:21 | Emergency (ER) | payer OTHER, SELFPAY ==
--- NOTE | ~2023-04-29 | CT_ITS ---
EXAMINATION: CT ABDOMEN AND PELVIS WITH CONTRAST CLINICAL INFORMATION: Lower abdominal pain COMPARISON: CT abdomen and pelvis without IV contrast 05/05/2022. TECHNIQUE: Multidetector volumetric images were obtained from the superior aspect of the liver through the pubic symphysis following administration 85 mL of Omnipaque 350 intravenous contrast. Sagittal and coronal reformatted images were obtained on the technologist's workstation. Oral contrast: No This CT examination was performed using dose optimization techniques as appropriate, variously including the following: *Automated exposure control *Adjustment of mA and/or kV according to patient size (this includes techniques or standardized protocols for targeted exams where dose is matched to indication/reason for exam; i.e. extremities or head) *Use of iterative reconstruction technique DLP: 648 mGy-cm FINDINGS: LUNG BASES: Minimal atelectatic changes seen left lung base. LIVER, GALLBLADDER, AND BILIARY TREE: The liver is normal in size, shape, and attenuation. No focal hepatic lesion or biliary ductal dilatation is present. The gallbladder is unremarkable with no evidence of radiopaque gallstones, gallbladder wall thickening, or obvious pericholecystic inflammatory changes. PANCREAS: Unremarkable. SPLEEN: Unremarkable. ADRENAL GLANDS: Unremarkable. KIDNEYS AND URETERS: The kidneys are normal in size, shape, and attenuation. No hydronephrosis, hydroureter, or calculi seen. No perinephric stranding. There are punctate hypodensities in the midpole left kidney question cyst. They are not optimally visualized. BLADDER: Unremarkable. GASTROINTESTINAL TRACT: There is scattered stool and gas seen in the colon without any significant distention. The small bowel loops are normal caliber. Appendix is normal caliber. No free air or free fluid seen. ABDOMINAL WALL: There is small umbilical hernia containing fat. LYMPH NODES: Normal. VASCULAR: Unremarkable. PELVIC VISCERA: A prominent right inguinal canal containing fat is noted. OSSEOUS STRUCTURES: No aggressive lytic or sclerotic process seen. CT/CT abdomen pelvis w IV con IMPRESSION: Moderate constipation otherwise no acute intra-abdominal process seen. Normal appendix. Fleischner guidelines were followed.
[2023-04-29 12:24] VITALS: BP 149/80; PULSE 71; RESP 16; TEMP 36.6; O2SAT 98; BMI 31.6
--- NOTE | 2023-04-29 12:24 | ED.GENADULT ---
HPI - General Adult General Chief complaint: General Medical Stated complaint: ? Hernia Time Seen by Provider: 04/29/23 12:37 Source: patient Mode of arrival: ambulatory Limitations: no limitations History of Present Illness HPI narrative: Patient is a 57 yo male with a history of HLD, asthma, BPH (with urinary frequency and urgency), and diverticulosis with a 1 week history of lower abdominal/groin pain. Patient states that he has pain on the right and left side of his groin (right side worse than left) that is exacerbated by pressure and when attempting to lift heavy objects at work. Patient also endorses a right inguinal hernia repair 5-6 years ago at this facility. Onset (ago): week(s) (1) Location: pelvis Radiation: non-radiation Severity: mild Severity scale (1-10): 2 Quality: aching Pain Consistency: intermittent Relieving factors: none Exacerbating factors: none Associated symptoms: denies other symptoms Treatments prior to arrival: none Related Data Home Medications Medication Instructions Recorded Confirmed atorvastatin 40 mg tablet 40 mg PO BEDTIME 03/27/21 05/22/22 fluticasone propionate 50 1 spray intranasal DAILY 03/27/21 05/22/22 mcg/actuation nasal spray,suspension omega-3 fatty acids-fish oil 340 1 cap PO BID 03/27/21 05/22/22 mg-1,000 mg capsule (Fish Oil) meclizine 25 mg tablet 50 mg PO DAILY PRN dizziness 08/20/21 05/22/22 albuterol sulfate 90 mcg/actuation 2 puff inhalation Q4H PRN wheezing 12/31/21 05/22/22 aerosol inhaler (ProAir HFA) Previous Rx's Medication Instructions Recorded fluticasone propionate 220 2 puff inhalation BID 30 days #12 11/18/21 mcg/actuation HFA aerosol inhaler grams (Flovent HFA) solifenacin 10 mg tablet (Vesicare) 10 mg PO DAILY #90 tabs 05/22/22 tamsulosin 0.4 mg capsule (Flomax) 0.4 mg PO BEDTIME #90 caps 05/22/22 cholecalciferol (vitamin D3) 50 50 mcg PO DAILY #90 caps 10/29/22 mcg (2,000 unit) capsule polyethylene glycol 3350 17 17 g PO DAILY #510 grams 11/14/22 gram/dose oral powder (Miralax) [id number] 2 cap PO QID #240 caps 12/10/22 36,000-114,000-180,000 unit capsule,delay rel (Creon) linaclotide 145 mcg capsule 145 mcg PO DAILY #30 caps 12/25/22 (Linzess) magnesium citrate 150 ml PO DAILY PRN constipation 04/29/23 #296 mL Allergies Allergy/AdvReac Type Severity Reaction Status Date / Time No Known Allergies Allergy Verified 04/29/23 12:23 [No Known Allergies*] Review of Systems Constitutional: Constitutional: Reports no additional constitutional complaints, Denies chills, Denies fever(s) and Denies night sweats Eyes: Eyes: Reports no additional eye complaints, Denies blurry vision, Denies change in vision, Denies diplopia, Denies eye discharge, Denies loss of vision and Denies eye pain ENT: Denies dizziness Cardiovascular: Cardiovascular: Reports no additional cardiovascular complaints, Denies chest pain, Denies lightheadedness, Denies Loss of Consciousness and Denies dyspnea Respiratory: Respiratory: Reports no additional respiratory complaints and Denies dyspnea Gastrointestinal: Gastrointestinal: Reports no additional gastrointestinal complaints, Reports abdominal pain, Denies melena, Denies hematochezia, Denies change in bowel habits and Denies change in stool character Genitourinary: Genitourinary: Reports no additional male genitourinary complaints, Denies hematuria, Denies oliguria, Denies difficulty urinating, Denies dysuria, Denies urinary frequency, Denies urinary hesitancy, Denies urinary incontinence and Denies urinary urgency Musculoskeletal: Musculoskeletal: Reports no additional musculoskeletal complaints, Denies numbness and Denies tingling Neurologic: Denies dizziness, Denies loss of vision, Denies numbness and Denies tingling Psychiatric: Psychiatric: Reports no additional psychiatric complaints Endocrine: Endocrine: Reports no additional endocrine complaints Hematologic/Lymphatic: Hematologic/Lymphatic: Reports no additional hematologic/lymphatic complaints Allergic/Immunologic: Allergic/Immunologic: Reports no additional allergic/immunologic complaints PMFSH Past Medical History Attestation statement: The following information was validated with the patient. Source: old records reviewed and nursing notes reviewed Medical History Diverticulosis Sessile colonic polyp High cholesterol Surgical History Hx of inguinal hernia surgery Hx of colonoscopy Social History Social History Household Members: Spouse and Children Alcohol intake: current Alcohol intake frequency: a few times a month Patient Tobacco Use Status: Never used Tobacco Advance Directives: No Advance Directives Information Provided: Yes Physical Exam ED Vital Signs: Vital Signs - 24 hr 04/29/23 12:24 Temperature 98 F Pulse Rate 71 Respiratory Rate 16 Blood Pressure 149/80 H Pulse Oximetry 98 Oxygen Delivery Method Room Air BMI result Body Mass Index 31.6 Const General: cooperative, no acute distress, alert and awake Nutritional Appearance: well nourished Orientation/consciousness: patient oriented x3 Limitations: no limitations HENMT Head: Yes normal to inspection and Yes atraumatic Ears: hearing grossly normal bilaterally and external ears normal General nose exam: Normal external nose present, no nasal discharge noted and no epistaxis Face and sinus: Yes normal facial exam, No abrasion and No laceration Mouth: Normal oral and palatal mucosa present, no drooling and no muffled voice Eyes General: appearance normal, both eyes and all related structures Periorbital: periorbital findings normal Eyelids: Yes eyelids normal Conjunctivae: conjunctivae normal Pupils: Equal, round and reactive pupils present EOM: EOMs intact bilaterally Neck Neck: Yes normal visual inspection, Yes full ROM and Yes no lymphadenopathy Chest Chest palpation & inspection: normal inspection of the chest Resp Effort & Inspection: normal respiratory effort and able to speak in complete sentences GI Inspection: Yes normal to inspection Palpation (GI): Soft to palpation, not firm, Tenderness to palpation present (GI) in the LLQ and in the RLQ, no guarding and not rigid Neuro General: patient oriented x3 and moves all extremities Cranial nerves: Yes Equal, round and reactive pupils present Cognition (Neuro): normal cognition Motor exam (neuro): 5/5 motor strength present throughout Sensory Exam: Normal double simultaneous stimulation for sensation Coordination: [id number] test normal Extrem General: Yes normal to inspection, Yes full ROM and Yes capillary refill normal Psych Appearance: grossly normal Mental Status: mental status grossly normal Affect: normal affect Attitude: cooperative Thought process: Normal thought process present Thought content: Normal thought content present Insight: Good insight present (Psych) Course Course Course Narrative: This is a rapid medical exam: Additional HPI, ROS, PE not included below will be deferred to primary provider. Patient is a 57-year-old male with history of inguinal hernia repair around 6 years ago presenting to the emergency department with complaint of bilateral groin pain radiating to lower back for the past week. Denies any nausea, vomiting, diarrhea. Denies any difficulty with urination. Unable to fully assess in triage due to privacy concerns. Plan: UA Medications Administered Discontinued Medications Generic Name Dose Route Start Last Admin Trade Name Panchito PRN Reason Stop Dose Admin Iohexol 100 ml 04/29/23 13:41 04/29/23 13:41 Iohexol 350 Mg/Ml 100 Ml Infus..Btl IV 04/29/23 13:42 85 ml ONCE ONE Administration Medical Decision Making Medical Decision Making [facility] Narrative: Patient is a 57 year old assigned male at with a history of BPH, diverticulosis, and HLD presenting to the emergency department today with lower abdominal pain. Patient's physical exam showed minimal tenderness to palpation of the RLQ and LLQ of the abdomen but was otherwise unremarkable. Patient's blood work was unremarkable. Patient's urine showed no acute process. Patient's abdomen/pelvis CT showed moderate constipation but was otherwise unremarkable. I explained my physical exam findings as well as all test results to the patient. I answered all questions asked by the patient. I stressed the importance of the patient taking his medication as prescribed. I stressed the importance of the patient following up with his primary care provider. I stressed the importance of the patient returning to the emergency department immediately if his symptoms were to worsen or if he were to develop any dizziness, shortness of breath, difficulty breathing, chest pain, blurry vision, loss of vision, nausea, vomiting, abdominal pain, fever, chills, back pain, or any other complaints. Patient verbalized agreement and understanding with this treatment plan and discharge. Differential Diagnosis Differential Diagnoses: The differential diagnosis associated with the presentation includes Constipation Abdominal pain Diverticulitis Admission/Observation Consideration of admission/observation: Escalation of care including admission/observation considered Patient would have been admitted to the hospital had his work up had any findings where hospital admission was appropriate and his clinical presentation warranted hospital admission. Lab Data [facility] Lab Attestation statement: I reviewed the patient's lab results. My interpretation of these results are in the [facility] Rationale portion of this note. 04/29/23 13:02 04/29/23 13:02 Labs: Lab Results 04/29/23 04/29/23 Range/Units 12:32 13:02 WBC 6.6 (4.8-10.8) X10*3/uL RBC 4.83 (4.60-5.80) X10*6/uL Hgb 14.1 (14.0-18.0) g/dl Hct 42.1 (42.0-52.0) % MCV 87.2 (80.0-98.0) fL MCH 29.2 (27.0-33.0) pg MCHC 33.5 (31.0-36.0) g/dl RDW 13.2 (11.0-16.0) % Plt Count 200 (160-400) X10*3/uL MPV 9.1 L (9.4-12.4) fL Immature Gran % (Auto) 0.2 (0.0-0.4) % Neut % (Auto) 44.8 L (45-73) % Lymph % (Auto) 38.9 (20-40) % Clinch % (Auto) 10.1 (2-11) % Eos % (Auto) 5.2 H (0-4) % Baso % (Auto) 0.8 (0-2) % Lymph # (Auto) 2.6 (1.2-4.9) X10*3/uL Clinch # (Auto) 0.7 (0.1-1.2) X10*3/uL Eos # (Auto) 0.3 (0.0-0.4) X10*3/uL Baso # (Auto) 0.1 (0.0-0.2) X10*3/uL Abs Immat Gran (auto) 0.01 (0.00-0.03) X10*3/uL Absolute Neuts (auto) 3.0 (2.0-8.3) x10*3/uL Absolute Nucleated RBC 0.000 (0.0-0.012) X10*3/uL Nucleated RBC % (auto) 0.0 (0.0-0.2) /100WBC Sodium 142 (135-145) mmol/L Potassium 4.6 (3.3-5.1) mmol/L Chloride 107 (96-108) mmol/L Carbon Dioxide 28 (22-29) mmol/L Anion Gap 12 (12-20) BUN 20 H (9-16) mg/dL Creatinine 0.80 (0.5-1.4) mg/dL Estim Creat Clear Calc 110.7 Estimated GFR > 60 Random Glucose 88 (60-115) mg/dL Calcium 9.4 (8.4-10.2) mg/dL Magnesium 2.1 (1.6-2.6) mg/dL Total Bilirubin 0.4 (0.0-1.0) mg/dL AST 23 (5-37) U/L ALT 35 (0-40) U/L Alkaline Phosphatase 94 (39-117) U/L Total Protein 8.0 (6.5-8.0) g/dL Albumin 4.4 (3.5-5.0) g/dL Urine Color Yellow Urine Appearance Clear Urine pH 7.0 (5.0-9.0) Ur Specific [place] 1.020 (1.005-1.025) Urine Protein Negative (Neg-Trace) mg/dL Urine Glucose (UA) Negative (Negative) mg/dL Urine Ketones Negative (Negative) mg/dL Urine Blood Negative (Negative) Urine Nitrite Negative (Negative) Ur Leukocyte Esterase Negative (Negative) Independent Interpretation I performed an independent interpretation of an: CT Scan Interpretation: My interpretation is in agreement with the radiologist's impression of this imaging study. EXAMINATION: CT ABDOMEN AND PELVIS WITH CONTRAST CLINICAL INFORMATION: Lower abdominal pain COMPARISON: CT abdomen and pelvis without IV contrast 05/05/2022. TECHNIQUE: Multidetector volumetric images were obtained from the superior aspect of the liver through the pubic symphysis following administration 85 mL of Omnipaque 350 intravenous contrast. Sagittal and coronal reformatted images were obtained on the technologist's workstation. Oral contrast: No This CT examination was performed using dose optimization techniques as appropriate, variously including the following: *Automated exposure control *Adjustment of mA and/or kV according to patient size (this includes techniques or standardized protocols for targeted exams where dose is matched to indication/reason for exam; i.e. extremities or head) *Use of iterative reconstruction technique DLP: 648 mGy-cm FINDINGS: LUNG BASES: Minimal atelectatic changes seen left lung base. LIVER, GALLBLADDER, AND BILIARY TREE: The liver is normal in size, shape, and attenuation. No focal hepatic lesion or biliary ductal dilatation is present. The gallbladder is unremarkable with no evidence of radiopaque gallstones, gallbladder wall thickening, or obvious pericholecystic inflammatory changes. PANCREAS: Unremarkable. SPLEEN: Unremarkable. ADRENAL GLANDS: Unremarkable. KIDNEYS AND URETERS: The kidneys are normal in size, shape, and attenuation. No hydronephrosis, hydroureter, or calculi seen. No perinephric stranding. There are punctate hypodensities in the midpole left kidney question cyst. They are not optimally visualized. BLADDER: Unremarkable. GASTROINTESTINAL TRACT: There is scattered stool and gas seen in the colon without any significant distention. The small bowel loops are normal caliber. Appendix is normal caliber. No free air or free fluid seen. ABDOMINAL WALL: There is small umbilical hernia containing fat. LYMPH NODES: Normal. VASCULAR: Unremarkable. PELVIC VISCERA: A prominent right inguinal canal containing fat is noted. OSSEOUS STRUCTURES: No aggressive lytic or sclerotic process seen. CT/CT abdomen pelvis w IV con IMPRESSION: Moderate constipation otherwise no acute intra-abdominal process seen. Normal appendix. Fleischner guidelines were followed. Dictated By: Venkata Vargas MD Signed By: Electronically signed by Venkata Vargas MD 04/29/23 5406 Radiology Impression Discussion of test interpretation with radiology: I have reviewed the radiologist's reading. Discharge Plan Discharge Clinical Impression: Constipation Patient Disposition: Home, Self-Care Instructions: Constipation (DC) Additional Instructions: Follow up with your primary care provider. Return to the emergency department immediately if your symptoms worsen or if you develop any dizziness, shortness of breath, difficulty breathing, chest pain, blurry vision, loss of vision, nausea, vomiting, abdominal pain, fever, chills, back pain, or any other complaints. Prescriptions: New magnesium citrate Solution 150 ml PO DAILY PRN (Reason: constipation) Qty: 296 0RF No Action polyethylene glycol 3350 [Miralax] 17 gram/dose powder 17 g PO DAILY Qty: 510 2RF Linzess 145 mcg capsule 145 mcg PO DAILY Qty: 30 2RF albuterol sulfate [ProAir HFA] 90 mcg/actuation HFA aerosol inhaler 2 puff inhalation Q4H PRN (Reason: wheezing) atorvastatin 40 mg tablet 40 mg PO BEDTIME Fish Oil 340-1,000 mg capsule 1 cap PO BID fluticasone propionate 50 mcg/actuation spray,suspension 1 spray intranasal DAILY fluticasone propionate [Flovent HFA] 220 mcg/actuation HFA aerosol inhaler 2 puff inhalation BID 30 Days Qty: 12 6RF solifenacin [Vesicare] 10 mg tablet 10 mg PO DAILY Qty: 90 1RF Rx Instructions: take with breakfast tamsulosin [Flomax] 0.4 mg capsule 0.4 mg PO BEDTIME Qty: 90 1RF meclizine 25 mg tablet 50 mg PO DAILY PRN (Reason: dizziness) cholecalciferol (vitamin D3) 50 mcg (2,000 unit) capsule 50 mcg PO DAILY Qty: 90 3RF Creon 36,000-114,000- 180,000 unit capsule,delayed release(DR/EC) 2 cap PO QID Qty: 240 3RF Rx Instructions: administer with meals and/or snacks Referrals: Abiola Hadley MD [Primary Care Provider] - Interventions: ED Discharge Assessment Last Done: 04/29/23 15:32 Print Language: Jamaican
[2023-04-29 12:40] LABS: Appearance Urine Clear; Color Urine Yellow; Glucose Urine UA Negative (Negative); Leukocyte Esterase Urine Negative (Negative); Nitrite Urine Negative (Negative); Urine Blood Negative (Negative); Urine Ketones Negative (Negative); Urine Protein Negative (Neg-Trace)
[2023-04-29 13:06] LABS: MANUAL DIFF FLAG NO
[2023-04-29 13:13] LABS: Basophils Absolute Auto 0.1 X10*3/uL (0.0-0.2); Basophils Percent Auto 0.8 % (0-2); Eosinophils Absolute Auto 0.3 X10*3/uL (0.0-0.4); Eosinophils Percent Auto 5.2 % (0-4); Hematocrit 42.1 % (42.0-52.0); Hemoglobin 14.1 g/dl (14.0-18.0); Imm Gran Abs Auto 0.01 X10*3/uL (0.00-0.03); Imm Gran Pct Auto 0.2 % (0.0-0.4); Lymphocytes Absolute Auto 2.6 X10*3/uL (1.2-4.9); Lymphocytes Percent Auto 38.9 % (20-40); Mean Corpuscular HGB Conc 33.5 g/dl (31.0-36.0); Mean Corpuscular Hemoglobin 29.2 pg (27.0-33.0); Mean Corpuscular Volume 87.2 fL (80.0-98.0); Mean Platelet Volume 9.1 fL (9.4-12.4); Monocytes Absolute Auto 0.7 X10*3/uL (0.1-1.2); Monocytes Percent Auto 10.1 % (2-11); Neutrophils Percent Auto 44.8 % (45-73); Platelet Count 200 X10*3/uL (160-400); Red Blood Count 4.83 X10*6/uL (4.60-5.80); Red Cell Distribution Width 13.2 % (11.0-16.0); White Blood Count 6.6 X10*3/uL (4.8-10.8)
[2023-04-29 13:26] LABS: Alanine Aminotransferase 35 U/L (0-40); Albumin Level 4.4 g/dL (3.5-5.0); Alkaline Phosphatase 94 U/L (39-117); Anion Gap 12 (12-20); Aspartate Amino Transferase 23 U/L (5-37); Bilirubin Total 0.4 mg/dL (0.0-1.0); Blood Urea Nitrogen 20 mg/dL (9-16); Calcium 9.4 mg/dL (8.4-10.2); Carbon Dioxide 28 mmol/L (22-29); Chloride 107 mmol/L (96-108); Creatinine Clr Calc Pharmacy 110.7; Estimated Glomerular Filt Rate > 60; Glucose Random 88 mg/dL (60-115); Magnesium 2.1 mg/dL (1.6-2.6); Potassium 4.6 mmol/L (3.3-5.1); Sodium 142 mmol/L (135-145)
[2023-04-29] MEDS: iohexoL 350 MG/ML 100 ML INFUS..BTL IV (13:41)
== END 2023-04-29 15:33 | disposition home or self-care (01) ==
PROVIDERS: Physician Assistant Medical; Registered Nurse Emergency; Emergency Provider Emergency Medicine; PCP Pediatrics
DX: K59.00 Constipation, unspecified (principal)
CPT/HCPCS: 36415; 74177; 80053; 81003; 83735; 85025; 99284; Q9967

== ENCOUNTER 2023-05-21 09:43 | Outpatient (REF) | payer OTHER, SELFPAY ==
[2023-05-21 15:26] LABS: Alanine Aminotransferase 61 U/L (0-40); Albumin Level 4.2 g/dL (3.5-5.0); Alkaline Phosphatase 102 U/L (39-117); Anion Gap 13 (12-20); Aspartate Amino Transferase 28 U/L (5-37); Bilirubin Direct 0.2 mg/dL (0.0-0.5); Bilirubin Total 0.4 mg/dL (0.0-1.0); Blood Urea Nitrogen 16 mg/dL (9-16); Calcium 9.4 mg/dL (8.4-10.2); Carbon Dioxide 25 mmol/L (22-29); Chloride 107 mmol/L (96-108); Cholesterol 131 mg/dL (<200); Estimated Glomerular Filt Rate > 60; Glucose Random 89 mg/dL (60-115); HDL Cholesterol 37 mg/dL (>40); LDL Cholesterol Calculated 74 mg/dL (<100); Potassium 4.3 mmol/L (3.3-5.1); Sodium 141 mmol/L (135-145); Total Protein 7.6 g/dL (6.5-8.0); Triglycerides 102 mg/dL (<150)
== END 2023-05-21 09:44 | disposition home or self-care (01) ==
LOC: HO.CHCLDS 09:43
PROVIDERS: Visit Provider Student in an Organized Health Care Education/Training Program
DX: E78.5 Hyperlipidemia, unspecified (principal)
CPT/HCPCS: 36415; 80048; 80061; 80076

== ENCOUNTER 2023-06-12 07:58 | Outpatient (AMB) | payer OTHER, SELFPAY ==
--- NOTE | 2023-06-12 08:01 | MHC.OFFVIS ---
Intake Vital Signs 06/12/23 08:04 Height 5 ft 7 in Weight 216 lb 0.848 oz BMI 33.8 BP 125/69 Blood Pressure Location Lt brachial Position Sitting Pulse 79 Intake Visit Reasons: 6 month follow up diseases of pancreas Intake Note: Jeronimo presents in the office as a 6 month follow up. CC: Disease of pancreas - states that he is not having any concerns at this time. 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 Patient will take it with meals. Currently patient reports that he eats about twice a day. Patie encouraged to eat smaller meals and more often. Avoid food that is high in fat. List of food recommended given to patient. Continue Linzess. Patient was encouraged to increase fluid intake and activity to promote better bowel motility. I will see patient in 6 months, sooner on as needed basis. Patient is agreeable to this plan and verbalizes understanding of instructions. He was given the opportunity to ask questions and all questions answered. ? Thank you for allowing me to participate in his care Medications Changed Changed From [id number]-[id number]-oyzytki 36,000-114,000- 180,000 unit (Creon) administer with meals and/or snacks 1 cap PO QID 120 caps 3RF K86.89 Changed To [id number] 36,000-114,000- 180,000 unit (Creon) administer with meals and/or snacks 2 caps PO QID 240 caps 3RF K86.89 TODAY'S VISIT Patient is here today for follow-up. Patient reports that he is feeling little better, however he continues to have abdominal bloating. Patient reports that when he takes Linzess he feels well, however sometimes he skips the dose as he works and Linzess makes him go to the bathroom fairly quickly. 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 Patient states that he takes Linzess usually in the evening with food. Patient states that Creon is making him feel little better, however he continues to have a postprandial abdominal bloating. Patient reports that he feels like he does not empty completely. In April he went to ER for right and left lower quadrant pain. Patient thought that he had inguinal hernia, however CT scan showed no acute processes except for moderate constipation. Patient does not feel like he empty his bowels completely currently is on Linzess 145 mcg daily. Patient denies any nausea or vomiting. Denies any dyspepsia, dysphagia or odynophagia. Denies any melena, hematochezia, unintentional weight loss or ribbon like stools. Patient had colonoscopy in 2021 1 hyperplastic polyp found and colonoscopy was recommended in 10 years. Patient denies any other GI concerning symptoms. [facility] Medical History Diverticulosis Sessile colonic polyp High cholesterol Surgical History Hx of inguinal hernia surgery Hx of colonoscopy Social History Household Members: Spouse and Children Alcohol intake: current Alcohol intake frequency: a few times a month Patient Tobacco Use Status: Never used Tobacco Review of Systems Const Denies weight gain and Denies weight loss ENT Reports no additional complaints, Denies dysphagia and Denies odynophagia Card Reports no additional complaints Resp Reports no additional complaints GI Reports abdominal pain, Denies belching, Denies melena, Reports bloating, Reports constipation, Denies dysphagia, Denies excessive flatus, Denies dyspepsia, Denies heartburn, Denies diarrhea, Denies loose stools, Denies nausea, Denies odynophagia and Denies vomiting Reports no additional complaints Musc Reports no additional complaints Neuro Reports no additional complaints Psych Reports no additional complaints Endo Reports no additional complaints Physical Exam Vital Signs: Last Vital Signs Pulse 79 06/12/23 08:04 BP 125/69 06/12/23 08:04 BMI result Body Mass Index 33.8 Const General: healthy appearing and no acute distress Nutritional Appearance: obese Orientation/consciousness: patient oriented x3 Resp Effort & Inspection: normal respiratory effort, able to speak in complete sentences, no tracheal deviation and symmetric chest movement Auscultation: clear to auscultation bilaterally Cardio Rate: regular rate GI Inspection: Yes normal to inspection and No distended Palpation (GI): Soft to palpation, not firm, nontender and No hepatosplenomegaly present Auscultation: normal bowel sounds General: Yes no CVA tenderness Back/Spine/Pelvis Back: no CVA tenderness Skin General skin exam: elasticity normal, turgor normal and dry skin Neuro General: patient oriented x3 Psych Appearance: grossly normal Mental Status: mental status grossly normal Results Reviewed Results Reviewed: ABDOMINAL CT SCAN 04/29/2023 FROM ED VISIT FINDINGS: LUNG BASES: Minimal atelectatic changes seen left lung base. LIVER, GALLBLADDER, AND BILIARY TREE: The liver is normal in size, shape, and attenuation. No focal hepatic lesion or biliary ductal dilatation is present. The gallbladder is unremarkable with no evidence of radiopaque gallstones, gallbladder wall thickening, or obvious pericholecystic inflammatory changes. PANCREAS: Unremarkable. SPLEEN: Unremarkable. ADRENAL GLANDS: Unremarkable. KIDNEYS AND URETERS: The kidneys are normal in size, shape, and attenuation. No hydronephrosis, hydroureter, or calculi seen. No perinephric stranding. There are punctate hypodensities in the midpole left kidney question cyst. They are not optimally visualized. BLADDER: Unremarkable. GASTROINTESTINAL TRACT: There is scattered stool and gas seen in the colon without any significant distention. The small bowel loops are normal caliber. Appendix is normal caliber. No free air or free fluid seen. ABDOMINAL WALL: There is small umbilical hernia containing fat. LYMPH NODES: Normal. VASCULAR: Unremarkable. PELVIC VISCERA: A prominent right inguinal canal containing fat is noted. OSSEOUS STRUCTURES: No aggressive lytic or sclerotic process seen. CT/CT abdomen pelvis w IV con IMPRESSION: Moderate constipation otherwise no acute intra-abdominal process seen. Normal appendix. Assessment & Plan Assessment & Plan (1) Exocrine pancreatic insufficiency: Code(s): K86.81 - Exocrine pancreatic insufficiency (2) Constipation: Code(s): K59.00 - Constipation, unspecified Qualifiers: Constipation type: chronic idiopathic constipation Qualified Code(s): K59.04 - Chronic idiopathic constipation (3) Postprandial abdominal bloating: Code(s): R14.0 - Abdominal distension (gaseous) (4) Abdominal pain: Code(s): R10.9 - Unspecified abdominal pain Qualifiers: Abdominal location: lower abdomen, unspecified Qualified Code(s): R10.30 - Lower abdominal pain, unspecified Plan Will increase Linzess to 290 mcg daily. Patient was encouraged to drink fluids throughout the day. Patient should take Linzess on empty stomach. If he can not take it in the morning then he can take it when he gets home from work, however should be NPO for few hours before taking it. Take Creon before meals. Continue avoiding dietary triggers. Continue low FODMAP diet, low fat diet. Patient was encouraged to increase activity to promote better bowel motility and to help him lose weight. Continues with high ALT. Normal AST. Weight loss encouraged. Patient will be seen in 2 months, sooner on as needed basis. He is agreeable to this plan and verbalizes understanding of instructions. He was given the opportunity to ask questions and all questions answered. Thank you for allowing me to participate in his care Medications: New linaclotide (Linzess) 290 mcg PO QAM 30 caps 4RF K59.00 - Constipation, unspecified Discontinued linaclotide (Linzess) Discontinued Reason: Doctor's Order 145 mcg PO DAILY 30 caps 2RF Coding Level of Care Code Est Pt Level 4 (42282) Diagnoses Exocrine pancreatic insufficiency K86.81 Chronic idiopathic constipation K59.04 Constipation type: chronic idiopathic constipation Postprandial abdominal bloating R14.0 Lower abdominal pain R10.30 Abdominal location: lower abdomen, unspecified Time Spent (min) 40 Comment 25 minutes spent with patient and additional 15 minutes spent reviewing his records
[2023-06-12 08:04] VITALS: BP 125/69; PULSE 79; BMI 33.8
== END 2023-06-12 08:47 | disposition home or self-care (01) ==
PROVIDERS: PCP Pediatrics; Visit Provider Nurse Practitioner Family
DX: K86.81 Exocrine pancreatic insufficiency (principal); K59.04 Chronic idiopathic constipation; R14.0 Abdominal distension (gaseous); R10.30 Lower abdominal pain, unspecified
CPT/HCPCS: 99214

== ENCOUNTER → 2023-06-12 07:58 | Outpatient (BNVA) | payer OTHER, SELFPAY | PROVIDERS: PCP Pediatrics; Visit Provider Nurse Practitioner Family | DX: K86.81 Exocrine pancreatic insufficiency (principal); K59.04 Chronic idiopathic constipation; R14.0 Abdominal distension (gaseous); R10.30 Lower abdominal pain, unspecified | CPT/HCPCS: 99212 ==

== ENCOUNTER 2023-09-22 09:59 | Outpatient (REF) | payer OTHER, SELFPAY ==
[2023-09-22 14:25] LABS: Alanine Aminotransferase 34 U/L (0-40); Albumin Level 4.3 g/dL (3.5-5.0); Alkaline Phosphatase 93 U/L (39-117); Anion Gap 12 (12-20); Aspartate Amino Transferase 19 U/L (5-37); Bilirubin Direct 0.2 mg/dL (0.0-0.5); Bilirubin Total 0.6 mg/dL (0.0-1.0); Blood Urea Nitrogen 16 mg/dL (9-16); Calcium 9.1 mg/dL (8.4-10.2); Carbon Dioxide 25 mmol/L (22-29); Chloride 107 mmol/L (96-108); Estimated Glomerular Filt Rate > 60; Glucose Random 104 mg/dL (60-115); Potassium 4.3 mmol/L (3.3-5.1); Sodium 140 mmol/L (135-145); Total Protein 7.5 g/dL (6.5-8.0)
== END 2023-09-22 10:00 | disposition home or self-care (01) ==
LOC: HO.10HDL 09:59
PROVIDERS: Visit Provider Student in an Organized Health Care Education/Training Program
DX: E78.5 Hyperlipidemia, unspecified (principal)
CPT/HCPCS: 36415; 80048; 80076

== ENCOUNTER 2023-12-21 08:19 | Outpatient (AMB) | payer OTHER, SELFPAY ==
--- NOTE | 2023-12-21 08:33 | A.OFFVIS_ITS ---
Intake Visit Reasons: 1 yr. follow up/PVR Intake Note: PATIENT IS HERE TODAY FOR 1Y F/U PVR medications: none Blood thinners: none TODAY'S PVR:0ML'S Systems Navigator Required: No Accompanied by: Self / Same As Patient Allergies No Known Allergies [No Known Allergies*] Allergy (Verified 12/21/23 08:35) HPI Comments Details: 12/21/23--Jeronimo is a 58-year-old male who has LUTS urge incontinence and hesitency. He was last seen on 05/22/22 and started on vesicare and tamsulosin. He states the meds helped. He ran out of refills and is here for FU. UA- unremarkable. Will continue combination therapy. PSA screening. Review of chart: 05/22/2022--Jeronimo is a 56-year-old male who presents to the clinic as a new patient evaluation for urge incontinence. The patient visited the ER on 05/05/22 for complaint of abdominal pain The patient complains urine dribbling before voiding since a year. Have urge to use washroom after every 2 hours during the day and wakes up once at nighttime. The patient is taking atorvastatin, Vitamin D, meclizine PRN and inhaler PRN. Has well controlled diabetes. Denies drinking and consumes tea 16-20 ounces a day. States consuming adequate amount of water. Consumes apple and voids right away. Denies family history of prostate cancer. AUA symptom score-2. Plan: Advised to cut back to 10 ounces of caffeinated beverage/tea. Orders were written for PSA testing. Orders were written to take Vesicare 10 mg in the morning with breakfast. Educated that the drug can cause dry mouth. Orders were written to take Flomax in the evening with meal for bladder emptying. Educated that the drug can cause retrograde ejaculations. Follow-up in [address] scan result reviewed--05/05/2022-- Normal findings. Evaluation today: Blood: negative, Leukocytes: Negative. Prostate Exam: Smooth and no suspicious nodules palpated. [facility] Medical History Diverticulosis Sessile colonic polyp High cholesterol Surgical History Hx of inguinal hernia surgery Hx of colonoscopy Social History Household Members: Spouse and Children Alcohol intake: current Alcohol intake frequency: a few times a month Patient Tobacco Use Status: Never used Tobacco Review of Systems Const All systems reviewed & are unremarkable except as noted in HPI and below Reports no additional complaints Eyes Reports no additional complaints ENT Reports no additional complaints Card Reports no additional complaints Resp Reports no additional complaints GI Reports no additional complaints Reports as per HPI Musc Reports no additional complaints Skin/Breast Reports system reviewed and no additional complaints, except as documented Neuro Reports no additional complaints Psych Reports no additional complaints Endo Reports no additional complaints Reyes/Lymph Reports no additional complaints Aller/Immun Reports no additional complaints Office Procedures Post Void Residual Post Residual Void Post Void Residual (PVR): 0 [id number]-[id number] Void Residual by ultrasound Results AMB Urinalysis, Automated UA Leukoctes 0 Krissy/uL Last Edit by WIL Leonardo on 12/21/23 08:49 UA Nitrite Negative Last Edit by WIL Leonardo on 12/21/23 08:49 UA Urobilinogen 0.2 mg/dL Last Edit by WIL Leonardo on 12/21/23 08:4 9 UA Protein 15 mg/dL Last Edit by WIL Leonardo on 12/21/23 08:49 UA pH 6.0 Last Edit by WIL Leonardo on 12/21/23 08:49 UA Blood 0 Carl/uL Last Edit by WIL Leonardo on 12/21/23 08:49 UA Specific [place] 1.020 Last Edit by WIL Leonardo on 12/21/23 08: 49 UA Ketone Negative Last Edit by WIL Leonardo on 12/21/23 08:49 UA Bilirubin 1 mg/dL Last Edit by WIL Leonardo on 12/21/23 08:49 UA Glucose 0 mg/dL Last Edit by WIL Leonardo on 12/21/23 08:49 Results Reviewed Results Reviewed: Laboratory Last Values Urine pH (Auto) 6.0 12/21/23 08:49 Specific [place] (Auto) 1.020 12/21/23 08:49 Urine Protein (Auto) 15 mg/dL 12/21/23 08:49 Glucose (UA)(Auto) 0 mg/dL 12/21/23 08:49 Urine Ketones (Auto) Negative 12/21/23 08:49 Urine Blood (Auto) 0 Carl/uL 12/21/23 08:49 Urine Nitrite (Auto) Negative 12/21/23 08:49 Urine Bilirubin (Auto) 1 mg/dL 12/21/23 08:49 Urine Urobilinogen (Auto) 0.2 mg/dL 12/21/23 08:49 Leukocyte Esterase (Auto) 0 Krissy/uL 12/21/23 08:49 Assessment & Plan Assessment & Plan (1) Urinary frequency: Code(s): R35.0 - Frequency of micturition Category: Medical (2) BPH loc w urin obs/LUTS: Code(s): N40.1 - Benign prostatic hyperplasia with lower urinary tract symptoms Category: Medical (3) Urinary urgency: Code(s): R39.15 - Urgency of urination Category: Medical (4) Screening PSA (prostate specific antigen): Code(s): Z12.5 - Encounter for screening for malignant neoplasm of prostate Category: Medical Plan LUTS- treatment combination Oxybutynin and tamsulosin Orders: Orders AMB Urinalysis Automated 12/21/23 Z13.9 - Encounter for screening, unspecified PSA,Total (Free>4and<10) 12/21/23 Z12.5 - Encounter for screening for malignant neoplasm of prostate Medications: New oxybutynin chloride ER take in the morning with breakfast 10 mg PO DAILY 90 tabs 3RF tamsulosin (Flomax) 0.4 mg PO BEDTIME 90 caps 3RF Patient Instructions: The patient had an opportunity to ask questions regarding treatment plan. The patient expressed understanding and agreement with the above treatment plan. The patient is aware they should contact our office by phone for worsening of their current condition or the appearance of new symptoms. Compliance is encouraged with any medications and followup testing that is ordered. It is a privilege to be allowed the opportunity to participate in the urologic care of your patient. If you have any questions or concerns regarding treatment for the above conditions please do not hesitate to contact me. The office telephone contact is [phone]. This note is constructed in part using voice recognition software. While every effort has been made to ensure accuracy photograph inspector errors may have been included. Yours sincerely, Barbie Melo MD Coding Level of Care Code Est Pt Level 4 (66807) Diagnoses Urinary frequency R35.0 BPH loc w urin obs/LUTS N40.1 Urinary urgency R39.15 Screening PSA (prostate specific antigen) Z12.5 CPT Codes Post Residual Void - PVR CPT Code: 07359-Pwlj Void Residual by ultrasound ([id number])
== END 2023-12-21 09:10 | disposition home or self-care (01) ==
PROVIDERS: PCP Pediatrics; Visit Provider Urology
DX: N40.1 Benign prostatic hyperplasia with lower urinary tract symptoms (principal); R35.0 Frequency of micturition; R39.15 Urgency of urination; Z12.5 Encounter for screening for malignant neoplasm of prostate
CPT/HCPCS: 99214

== ENCOUNTER → 2023-12-21 08:19 | Outpatient (BNVA) | payer OTHER, SELFPAY | PROVIDERS: PCP Pediatrics; Visit Provider Urology | DX: N40.1 Benign prostatic hyperplasia with lower urinary tract symptoms (principal); N39.41 Urge incontinence; R39.11 Hesitancy of micturition; R35.0 Frequency of micturition | CPT/HCPCS: 51798; 81003; 99212 ==

== ENCOUNTER 2023-12-21 09:20 | Outpatient (REF) | payer OTHER, SELFPAY ==
[2023-12-21 11:39] LABS: PSA,Total (Free>4and<10) 0.64 ng/mL (0.00-4.00)
== END 2023-12-21 09:21 | disposition home or self-care (01) ==
LOC: HO.10HDL 09:20
PROVIDERS: Visit Provider Urology
DX: Z12.5 Encounter for screening for malignant neoplasm of prostate (principal)
CPT/HCPCS: 36415; 84153

== ENCOUNTER 2024-01-05 07:54 | Outpatient (AMB) | payer OTHER, SELFPAY ==
[2024-01-05 08:14] VITALS: BP 130/66; PULSE 62; O2SAT 98; BMI 33.8
--- NOTE | 2024-01-05 08:14 | A.OFFVIS_ITS ---
Vital Signs 01/05/24 08:14 Height 5 ft 7 in Weight 216 lb 0.848 oz BMI 33.8 BP 130/66 Blood Pressure Location Rt brachial Position Sitting Pulse 62 Pulse Source Pulse Oximeter Pulse Oximetry (%) 98 Oxygen Delivery Method Room Air Intake Visit Reasons: r/s from July Intake Note: Relevant Flags or Indicators ? Requires Rn Admissions? Cricket Decker presents in office today for a scheduled ~6-7 mos FUV. CC; No recent labs, diagnostics, or med orders placed. ? Relevant GI Sx as reported per pt? None ? Hx of any recent surgeries? None Rn Admissions Required: No Allergies No Known Allergies [No Known Allergies*] Allergy (Verified 01/05/24 08:15) HPI HPI r/s from July: Details: LAST VISIT: Exocrine pancreatic insufficiency Constipation Postprandial abdominal bloating Abdominal pain Plan Will increase Linzess to 290 mcg daily. Patient was encouraged to drink fluids throughout the day. Patient should take Linzess on empty stomach. If he can not take it in the morning then he can take it when he gets home from work, however should be NPO for few hours before taking it. Take Creon before meals. Continue avoiding dietary triggers. Continue low FODMAP diet, low fat diet. Patient was encouraged to increase activity to promote better bowel motility and to help him lose weight. Continues with high ALT. Normal AST. Weight loss encouraged. Patient will be seen in 2 months, sooner on as needed basis. He is agreeable to this plan and verbalizes understanding of instructions. He was given the opportunity to ask questions and all questions answered. ? Thank you for allowing me to participate in his care Medications New linaclotide (Linzess) 290 mcg PO QAM 30 caps 4RF K59.00 Discontinued linaclotide (Linzess) Discontinued Reason: Doctor's Order 145 mcg PO DAILY 30 caps 2RF TODAY'S VISIT Patient is here today for follow-up. Patient reports that he continues to feel bloated. Takes Linzess daily and is moving his bowels. Patient admits that if he is not taking Linzess he will be constipated. Patient reports that he feels like he empties well. Denies melena, hematochezia, unintentional weight loss or ribbon like stools. Patient is taking Creon with meals and reports that his symptoms of abdominal bloating are better, however he continues to feel bloated after meals. Patient denies any dyspepsia, dysphagia or odynophagia. Patient denies any other GI concerning symptoms PFSH Medical History Diverticulosis Sessile colonic polyp High cholesterol Surgical History Hx of inguinal hernia surgery Hx of colonoscopy Social History Household Members: Spouse and Children Alcohol intake: current Alcohol intake frequency: a few times a month Patient Tobacco Use Status: Never used Tobacco Review of Systems Const Denies weight gain and Denies weight loss ENT Reports no additional complaints, Denies dysphagia and Denies odynophagia Card Reports no additional complaints Resp Reports no additional complaints GI Denies abdominal pain, Denies belching, Denies melena, Reports bloating, Denies change in bowel habits, Denies constipation, Denies dysphagia, Denies excessive flatus, Denies dyspepsia, Denies heartburn, Denies diarrhea, Denies loose stools, Denies nausea, Denies odynophagia and Denies vomiting Reports no additional complaints Musc Reports no additional complaints Neuro Reports no additional complaints Psych Reports no additional complaints Endo Reports no additional complaints Physical Exam Vital Signs: Last Vital Signs Pulse 62 01/05/24 08:14 BP 130/66 01/05/24 08:14 Pulse Ox 98 01/05/24 08:14 Oxygen Delivery Method Room Air 01/05/24 08:14 BMI result Body Mass Index 33.8 Const General: healthy appearing and no acute distress Nutritional Appearance: obese Orientation/consciousness: patient oriented x3 Resp Effort & Inspection: normal respiratory effort, able to speak in complete sentences, no tracheal deviation and symmetric chest movement Auscultation: clear to auscultation bilaterally Cardio Rate: regular rate GI Inspection: Yes normal to inspection, No distended and Yes obesity Palpation (GI): Soft to palpation, not firm, nontender and No hepatosplenomegaly present Auscultation: normal bowel sounds General: Yes no CVA tenderness Back/Spine/Pelvis Back: no CVA tenderness Skin General skin exam: elasticity normal, turgor normal and dry skin Neuro General: patient oriented x3 Psych Appearance: grossly normal Mental Status: mental status grossly normal Assessment & Plan Assessment & Plan (1) Exocrine pancreatic insufficiency: Code(s): K86.81 - Exocrine pancreatic insufficiency (2) Constipation: Code(s): K59.00 - Constipation, unspecified Qualifiers: Constipation type: chronic idiopathic constipation Qualified Code(s): K59.04 - Chronic idiopathic constipation (3) Postprandial abdominal bloating: Code(s): R14.0 - Abdominal distension (gaseous) (4) Abdominal pain: Code(s): R10.9 - Unspecified abdominal pain Qualifiers: Abdominal location: generalized Qualified Code(s): R10.84 - Generalized abdominal pain Plan Continue Linzess every morning. Increase fluid intake and activity to promote better bowel motility. Discussed with patient low FODMAP diet. List of food recommended as well as list of food to avoid given to patient. Continue Creon with meals. Follow-up in 6 months, sooner on as needed basis. He is agreeable to plan of care and verbalizes understanding of instructions. He was given the opportunity to ask questions and all questions answered Thank you for allowing me to participate in his care Coding Level of Care Code Est Pt Level 3 (91058) Diagnoses Exocrine pancreatic insufficiency K86.81 Chronic idiopathic constipation K59.04 Constipation type: chronic idiopathic constipation Postprandial abdominal bloating R14.0 Generalized abdominal pain R10.84 Abdominal location: generalized Time Spent (min) 30 Comment 20 minutes spent with patient and additional 10 minutes spent reviewing his records
== END 2024-01-05 08:52 | disposition home or self-care (01) ==
LOC: HO.HGI 07:55
PROVIDERS: PCP Pediatrics; Visit Provider Nurse Practitioner Family
DX: K86.81 Exocrine pancreatic insufficiency (principal); K59.04 Chronic idiopathic constipation; R14.0 Abdominal distension (gaseous); R10.84 Generalized abdominal pain
CPT/HCPCS: 99213

== ENCOUNTER → 2024-01-05 07:54 | Outpatient (BNVA) | payer OTHER, SELFPAY | PROVIDERS: PCP Pediatrics; Visit Provider Nurse Practitioner Family | DX: K86.81 Exocrine pancreatic insufficiency (principal); R14.0 Abdominal distension (gaseous); K59.04 Chronic idiopathic constipation; R10.84 Generalized abdominal pain | CPT/HCPCS: 99212 ==

== ENCOUNTER 2024-02-06 15:05 | Emergency (ER) | payer OTHER, SELFPAY ==
--- NOTE | ~2024-02-06 | XR_ITS ---
EXAMINATION: XR HAND, LEFT CLINICAL INFORMATION: injury to 5th digit COMPARISON: None available. TECHNIQUE: PA, lateral, and oblique views of the left hand. FINDINGS: Fragmentation of the tuft of the left fifth distal phalanx. Mild soft tissue swelling around the left fifth digit. Normal radiocarpal alignment. XR/XR hand LT 2V IMPRESSION: Comminuted fracture of the tuft of the left fifth distal phalanx. Electronically signed by: Chandana Ac MD 02/06/2024 04:21 PM [facility]
[2024-02-06 15:12] VITALS: BP 142/80; PULSE 84; RESP 18; TEMP 36.6; O2SAT 98; BMI 33.5
--- NOTE | 2024-02-06 15:13 | ED.WOUNDLAC ---
HPI - Wound/Laceration General Chief Complaint: Wound/Laceration Stated Complaint: pinky laceration Time Seen by Provider: 02/06/24 18:00 Source: patient Mode of arrival: ambulatory Limitations: no limitations History of Present Illness ED Provider: DALE HURT PA-C HPI narrative: 58 year old male with past medical history significant for diverticulosis presents to the ED today for evaluation of laceration/injury to left pinky a sustained prior to arrival in ED. Patient states that he was attempting to get his [place] decorations out of the attic when the top of the ladder slid down and crushed his left pinky. Reports immediate pain and bleeding. Bleeding controlled on arrival to ED. he was not on a blood thinner. he does not believe his tetanus is up to date. He has no further concerns in the ED. Related Data Home Medications ?Medication ?Instructions ?Recorded ?Confirmed atorvastatin 40 mg tablet 40 mg PO BEDTIME 03/27/21 05/22/22 fluticasone propionate 50 1 spray intranasal DAILY 03/27/21 05/22/22 mcg/actuation nasal spray,suspension meclizine 25 mg tablet 50 mg PO DAILY PRN dizziness 08/20/21 05/22/22 albuterol sulfate 90 mcg/actuation 2 puff inhalation Q4H PRN wheezing 12/31/21 05/22/22 aerosol inhaler (ProAir HFA) omega-3 300 mg-dha 120 mg-epa 180 1 cap PO BID 06/12/23 mg-fish oil 1,000 mg capsule cetirizine 10 mg tablet 10 mg PO DAILY 01/05/24 Previous Rx's ?Medication ?Instructions ?Recorded fluticasone propionate 220 2 puff inhalation BID 30 days #12 11/18/21 mcg/actuation HFA aerosol inhaler grams (Flovent HFA) cholecalciferol (vitamin D3) 50 50 mcg PO DAILY #90 caps 10/29/22 mcg (2,000 unit) capsule magnesium citrate 150 ml PO DAILY PRN constipation 04/29/23 #296 mL polyethylene glycol 3350 17 17 g PO DAILY #510 grams 11/19/23 gram/dose oral powder (Miralax) linaclotide 290 mcg capsule 290 mcg PO QAM #30 caps 12/15/23 (Linzess) kibmwc-rtdpzbmn-pcatcvt 2 cap PO QID #240 caps 12/15/23 36,000-114,000-180,000 unit capsule,delay rel (Creon) oxybutynin chloride 10 mg 10 mg PO DAILY #90 tabs 12/21/23 tablet,extended release 24 hr tamsulosin 0.4 mg capsule (Flomax) 0.4 mg PO BEDTIME #90 caps 12/21/23 amoxicillin 875 mg-potassium 1 tab PO BID 7 days #14 tabs 02/06/24 clavulanate 125 mg tablet Allergies Allergy/AdvReac Type Severity Reaction Status Date / Time No Known Allergies Allergy Verified 02/06/24 15:15 [No Known Allergies*] Review of Systems Review of Systems: Yes all other systems are reviewed and are negative [facility] Past Medical History Attestation statement: The following information was validated with the patient. Source: old records reviewed and nursing notes reviewed Medical History Diverticulosis Sessile colonic polyp High cholesterol Surgical History Hx of inguinal hernia surgery Hx of colonoscopy Social History Social History Household Members: Spouse and Children Alcohol intake: current Alcohol intake frequency: a few times a month Patient Tobacco Use Status: Never used Tobacco Advance Directives: No Advance Directives Information Provided: No Do you have a plan to hurt others: No Plan Physical Exam Vital Signs: Vital Signs: Last Vital Signs Temp 98 F 02/06/24 18:59 Pulse 82 02/06/24 18:59 Resp 20 02/06/24 18:59 BP 146/78 H 02/06/24 18:59 Pulse Ox 99 02/06/24 18:59 O2 Del Method Room Air 02/06/24 18:59 BMI result Body Mass Index 33.5 Patient hypertensive, vitals otherwise WNL General: Well appearing, in no acute distress. Skin: Warm, dry, intact. No rashes or lesions. Head: Normocephalic, atraumatic. EENT: Hearing is intact b/l. Conjunctiva clear. PERRLA. EOM intact. Moist mucous membranes.? Cardiac: Chest wall symmetric. RRR Lungs: Normal respiratory effort without accessory muscle use Ext: + small, 1 cm laceration noted to distal left 5th digit with partial nail avulsion. No obvious exposed bone. No foreign body. Full ROM intact to left 5th digit. Finger strength intact. Cryptographic Clerk strength intact. Sensation intact. 2+ radial/ulnar pulse intact. Neuro: AOx3. Normal speech. Ambulating with steady gait. Psych: Appropriate mood and affect. Responds appropriately to questions. Course Course Course Narrative: This is a rapid medical exam. Deferred additional HPI, ROS, PE to primary provider. 58yo male with no known medical history here with laceration to left 5th digit. On exam there is a distal laceration, nail avulsion partial. Unclear injury but maybe crushed in a ladder from a ?hook. Will need x-ray and tetanus updated as well as wound repair. EVER Arora APRN Reevaluation(s) Reevaluation #1: X-ray left hand showing a comminuted fracture of the tuft of the distal left 5th phalanx. Laceration soaked in saline and iodine for around 30 minutes. Laceration repaired with sutures. See procedure note. Patient's tetanus was updated today. Will start patient on Augmentin for prophylactic treatment of open fracture. I also advised him to follow up with our hand surgeon Thursday morning. Referral provided. Patient has remained stable throughout ED visit today. Discussed worrisome signs and symptoms and when to return to the ED. All questions answered at this time. Patient is agreeable with disposition and stable for discharge. Medications Administered Discontinued Medications Generic Name Dose Route Start Last Admin Trade Name Freq PRN Reason Stop Dose Admin Diphtheria/Tetanus/Acell Pertussis 0.5 ml 02/06/24 15:14 02/06/24 17:13 Diphth,Pertus(Acell),Tet Adult 0.5 Ml Syringe IM 02/06/24 15:15 0.5 ml .ONCE ONE Administration Lidocaine HCl 5 ml 02/06/24 18:16 02/06/24 18:54 Lidocaine Hcl 1 % Mpf 5 Ml Vial INFILTRATI 02/06/24 18:17 5 ml ONCE ONE Administration Medical Decision Making Medical Decision Making MDM Narrative: 58 year old male with past medical history significant for diverticulosis presents to the ED today for evaluation of laceration/injury to left pinky a sustained prior to arrival in ED. patient hypertensive, vitals otherwise WNL. He is nontoxic-appearing and in no acute distress. On exam, there is a small, 1 cm laceration noted to distal left 5th digit with partial nail avulsion. No obvious exposed bone. No foreign body. Full ROM intact to left 5th digit. Finger strength intact. Cryptographic Clerk strength intact. Sensation intact. 2+ radial/ulnar pulse intact. Differential diagnosis includes fracture, subluxation, open fracture, laceration, nail avulsion, skin avulsion Plan for x-rays, Tdap booster, laceration repair, re-evaluation. Differential Diagnosis Differential Diagnoses: The differential diagnosis associated with the presentation includes as above. Admission/Observation not indicated Independent Interpretation I performed an independent interpretation of an: Plain X-Ray Interpretation: xr left hand showing fracture to distal left 5th phalanx Radiology Impression Discussion of test interpretation with radiology: I have reviewed the radiologist's reading. Radiologist Impression: EXAMINATION: XR HAND, LEFT CLINICAL INFORMATION: injury to 5th digit COMPARISON: None available. TECHNIQUE: PA, lateral, and oblique views of the left hand. FINDINGS: Fragmentation of the tuft of the left fifth distal phalanx. Mild soft tissue swelling around the left fifth digit. Normal radiocarpal alignment. XR/XR hand LT 2V IMPRESSION: Comminuted fracture of the tuft of the left fifth distal phalanx. Electronically signed by: Chandana Ac MD 02/06/2024 04:21 PM [facility] External Record Review External record reviewed: Inpatient record Prescription Management I considered prescription management with: Antibiotic (Augmentin) Social Determinants Patient?s care significantly limited by Social Determinants of Health including: Other Social Determinant of Health Procedures Laceration Laceration 1: Site: hand Side (If applicable): left Size (cm): 1 Description: linear Depth: simple, single layer Local Anesthetic: lidocaine 1% Amount of anesthesia used (mL): 5 Pre-repair: wound explored, irrigated extensively and deep structures intact Skin layer closed with: nylon Size (cm): 3-0 Number of sutures: 2 Technique: simple, interrupted Nerve Block Nerve Block 1: Time out performed: Yes Local Anesthetic: lidocaine 1% Amount of anesthesia used (mL): 5 Side: left Nerve Blocks: digital Procedure Successful: Yes Patient Tolerated Procedure: well Complications: none Critical Care Time Critical Care Time Critical Care Time: No Discharge Plan Discharge Clinical Impression: Avulsion of nail of left little finger, Open fracture of tuft of distal phalanx of finger Patient Disposition: Home, Self-Care Instructions: Laceration (ED), Finger Fracture (ED) Additional Instructions: You were evaluated in the ED today following injury to your left pinky finger. You were noted to have a fracture to the tip of the left finger. The laceration was repaired with 2 sutures today. Please keep the area surrounding the laceration clean and dry. Please keep the area out of the sunlight for the next 6 months to help prevent scarring.? If you develop redness or swelling at the site of your laceration please come back to the ER for a wound check. Augmentin as antibiotic that has been sent to your pharmacy. Take this as prescribed. Do not skip any doses or finish this early. I recommend you take 600mg ibuprofen every 6 hours or tylenol 650mg every 6 hours as needed for pain. If needed, you can alternate these medications so that you take one medication every 3 hours. For example, at noon take ibuprofen, then at 3pm take tylenol, then at 6pm take ibuprofen. Please follow up with your primary care physician in 7-10 days for suture removal. You can also return to the ER or another urgent care facility for this service. I have also provided you with a referral to our hand surgeon. Please call them to follow-up. They will not call you. Return to the Emergency Department if you experience discharge from your laceration, redness around your laceration, warmth around your laceration, fever, vomiting, numbness, tingling, or any other concerning symptoms. In the case of an emergency call 911. Prescriptions: New amoxicillin-pot clavulanate 875-125 mg tablet 1 tab PO BID 7 Days Qty: 14 0RF No Action polyethylene glycol 3350 [Miralax] 17 gram/dose powder 17 g PO DAILY Qty: 510 2RF Linzess 290 mcg capsule 290 mcg PO QAM Qty: 30 4RF Creon 36,000-114,000- 180,000 unit capsule,delayed release(DR/EC) 2 cap PO QID Qty: 240 3RF Rx Instructions: administer with meals and/or snacks albuterol sulfate [ProAir HFA] 90 mcg/actuation HFA aerosol inhaler 2 puff inhalation Q4H PRN (Reason: wheezing) magnesium citrate Solution 150 ml PO DAILY PRN (Reason: constipation) Qty: 296 0RF atorvastatin 40 mg tablet 40 mg PO BEDTIME fluticasone propionate 50 mcg/actuation spray,suspension 1 spray intranasal DAILY fluticasone propionate [Flovent HFA] 220 mcg/actuation HFA aerosol inhaler 2 puff inhalation BID 30 Days Qty: 12 6RF meclizine 25 mg tablet 50 mg PO DAILY PRN (Reason: dizziness) cholecalciferol (vitamin D3) 50 mcg (2,000 unit) capsule 50 mcg PO DAILY Qty: 90 3RF omega 5-fjf-kul-fish oil 300 mg (120 mg- 180mg)-1,000 mg capsule 1 cap PO BID cetirizine 10 mg tablet 10 mg PO DAILY oxybutynin chloride 10 mg tablet extended release 24hr 10 mg PO DAILY Qty: 90 3RF Rx Instructions: take in the morning with breakfast tamsulosin [Flomax] 0.4 mg capsule 0.4 mg PO BEDTIME Qty: 90 3RF Referrals: Ayesha Chua MD [Primary Care Provider] - Neelam West MD [Physician] - 3 days (Open Fracture of distal phalanx) Print Language: Icelandic
[2024-02-06] MEDS: Diphth,Pertus(ACell),Tet Adult 0.5 ML SYRINGE IM (17:13)
[2024-02-06] MEDS: Lidocaine HCl 1 % MPF 5 ML VIAL INFILTRATI (18:54)
[2024-02-06 18:59] VITALS: BP 146/78; PULSE 82; RESP 20; TEMP 36.6; O2SAT 99
[2024-02-06] MEDS: Amoxicillin/Potassium Clav 875 MG TABLET PO (19:27)
[2024-02-06 19:37] VITALS: BP 146/78; PULSE 82; RESP 20; TEMP 36.6; O2SAT 99
== END 2024-02-06 19:38 | disposition home or self-care (01) ==
PROVIDERS: Emergency Provider Emergency Medicine; PCP Student in an Organized Health Care Education/Training Program
DX: S62.637B Displaced fracture of distal phalanx of left little finger, initial encounter for open fracture (principal); W20.8XXA Other cause of strike by thrown, projected or falling object, initial encounter; Y93.89 Activity, other specified; Y92.018 Other place in single-family (private) house as the place of occurrence of the external cause; Y99.9 Unspecified external cause status; Z23 Encounter for immunization
CPT/HCPCS: 12001; 73120; 90471; 90715; 99282; 99284; J2003

== ENCOUNTER 2024-02-14 10:14 | Emergency (ER) | payer OTHER, SELFPAY ==
[2024-02-14 10:16] VITALS: BP 142/74; PULSE 57; RESP 16; TEMP 36.8; O2SAT 99; BMI 32.0
--- NOTE | 2024-02-14 10:25 | ED_ITS ---
HPI - General Adult General Chief complaint: General Medical Stated complaint: Suture removal Time Seen by Provider: 02/14/24 10:22 Source: patient and old records reviewed Mode of arrival: ambulatory Limitations: no limitations History of Present Illness ED Provider: PEDRITO MERCADO narrative: 58 yo male with PMH of HLD, asthma, BPH was here on 02/05 for crush injury of the L pinky with tuft fracture, oral abx, 2 sutures placed he has no sig complaints no fevers. He has appointment with hand surgery tomorrow. Keeps a dressing on it daily MD complaint: suture removal Onset (ago): day(s) (7) Location: left and upper extremity Radiation: non-radiation Severity: mild Relieving factors: none Exacerbating factors: none Associated symptoms: denies other symptoms Treatments prior to arrival: other (bandage) Related Data Home Medications ?Medication ?Instructions ?Recorded ?Confirmed atorvastatin 40 mg tablet 40 mg PO BEDTIME 03/27/21 05/22/22 fluticasone propionate 50 1 spray intranasal DAILY 03/27/21 05/22/22 mcg/actuation nasal spray,suspension meclizine 25 mg tablet 50 mg PO DAILY PRN dizziness 08/20/21 05/22/22 albuterol sulfate 90 mcg/actuation 2 puff inhalation Q4H PRN wheezing 12/31/21 05/22/22 aerosol inhaler (ProAir HFA) omega-3 300 mg-dha 120 mg-epa 180 1 cap PO BID 06/12/23 mg-fish oil 1,000 mg capsule cetirizine 10 mg tablet 10 mg PO DAILY 01/05/24 Previous Rx's ?Medication ?Instructions ?Recorded fluticasone propionate 220 2 puff inhalation BID 30 days #12 11/18/21 mcg/actuation HFA aerosol inhaler grams (Flovent HFA) cholecalciferol (vitamin D3) 50 50 mcg PO DAILY #90 caps 10/29/22 mcg (2,000 unit) capsule magnesium citrate 150 ml PO DAILY PRN constipation 04/29/23 #296 mL polyethylene glycol 3350 17 17 g PO DAILY #510 grams 11/19/23 gram/dose oral powder (Miralax) linaclotide 290 mcg capsule 290 mcg PO QAM #30 caps 12/15/23 (Linzess) nyrdmc-lglaxmvn-kcauask 2 cap PO QID #240 caps 12/15/23 36,000-114,000-180,000 unit capsule,delay rel (Creon) oxybutynin chloride 10 mg 10 mg PO DAILY #90 tabs 12/21/23 tablet,extended release 24 hr tamsulosin 0.4 mg capsule (Flomax) 0.4 mg PO BEDTIME #90 caps 12/21/23 amoxicillin 875 mg-potassium 1 tab PO BID 7 days #14 tabs 02/06/24 clavulanate 125 mg tablet Allergies Allergy/AdvReac Type Severity Reaction Status Date / Time No Known Allergies Allergy Verified 02/14/24 10:19 [No Known Allergies*] Review of Systems Review of Systems: Constitutional : No Fever, No Chills, Cardiovascular : No Chest Pain, No SOB Respiratory : No Dyspnea Gastrointestinal : No abdominal pain Musculoskeletal : No Joint Swelling Skin : No rash, positive healing skin laceration Neuro : No Weakness, No Numbness PMFSH Past Medical History Attestation statement: The following information was validated with the patient. Source: old records reviewed Medical History Diverticulosis Sessile colonic polyp High cholesterol Surgical History Hx of inguinal hernia surgery Hx of colonoscopy Social History Social History Household Members: Spouse and Children Alcohol intake: current Alcohol intake frequency: a few times a month Patient Tobacco Use Status: Never used Tobacco Do you have a plan to hurt others: No Plan Physical Exam ED Vital Signs: Vital Signs - 24 hr 02/14/24 10:16 Temperature 98.2 F Pulse Rate 57 Respiratory Rate 16 Blood Pressure 142/74 H Pulse Oximetry 99 Oxygen Delivery Method Room Air BMI result Body Mass Index 32.0 Appearance: Alert. Oriented X3. No acute distress. Eyes: Pupils equal, round and reactive to light. ENT: Pharynx normal. Neck: Neck supple. CVS: Pulses normal. Respiratory: No respiratory distress. Abdomen: Soft and nontender. Skin: Skin warm and dry. Normal skin color. Extremities: L pinky encrusted sutures in place no redness, erythema, purulence, scant ss/drainage from top of nail when palpating, NV intact, stitches are encrusted Neuro: Oriented X 3. No motor deficit. No sensory deficit. Procedures Procedure Narrative Procedure Narrative: needed to soak hand given the encrusted sutures unable to remove as finger was covered in scab afterwards removed 2 sutures without issue. Medical Decision Making Medical Decision Making [facility] Narrative: 58 yo male with PMH of HLD, asthma, BPH was here on 02/05 for crush injury of the L ramonita here for suture removal has no sig complaints no signs of infection. Has hand appointment tomorrow Differential Diagnosis Differential Diagnoses: The differential diagnosis associated with the presentation includes suture removal External Record Review External record reviewed: Outpatient record Discharge Plan Discharge Clinical Impression: Encounter for removal of sutures Patient Disposition: Home, Self-Care Instructions: Stitches Removal (ED) Additional Instructions: return for any worsening symptoms - pain yellow drainage, swelling fevers follow up with hand surgery tomorrow as planned Prescriptions: No Action polyethylene glycol 3350 [Miralax] 17 gram/dose powder 17 g PO DAILY Qty: 510 2RF Linzess 290 mcg capsule 290 mcg PO QAM Qty: 30 4RF Creon 36,000-114,000- 180,000 unit capsule,delayed release(DR/EC) 2 cap PO QID Qty: 240 3RF Rx Instructions: administer with meals and/or snacks albuterol sulfate [ProAir HFA] 90 mcg/actuation HFA aerosol inhaler 2 puff inhalation Q4H PRN (Reason: wheezing) amoxicillin-pot clavulanate 875-125 mg tablet 1 tab PO BID 7 Days Qty: 14 0RF magnesium citrate Solution 150 ml PO DAILY PRN (Reason: constipation) Qty: 296 0RF atorvastatin 40 mg tablet 40 mg PO BEDTIME fluticasone propionate 50 mcg/actuation spray,suspension 1 spray intranasal DAILY fluticasone propionate [Flovent HFA] 220 mcg/actuation HFA aerosol inhaler 2 puff inhalation BID 30 Days Qty: 12 6RF meclizine 25 mg tablet 50 mg PO DAILY PRN (Reason: dizziness) cholecalciferol (vitamin D3) 50 mcg (2,000 unit) capsule 50 mcg PO DAILY Qty: 90 3RF omega 1-gjw-ttp-fish oil 300 mg (120 mg- 180mg)-1,000 mg capsule 1 cap PO BID cetirizine 10 mg tablet 10 mg PO DAILY oxybutynin chloride 10 mg tablet extended release 24hr 10 mg PO DAILY Qty: 90 3RF Rx Instructions: take in the morning with breakfast tamsulosin [Flomax] 0.4 mg capsule 0.4 mg PO BEDTIME Qty: 90 3RF Print Language: Jamaican
[2024-02-14 10:58] VITALS: BP 142/74; PULSE 57; RESP 16; TEMP 36.8; O2SAT 99
== END 2024-02-14 10:58 | disposition home or self-care (01) ==
LOC: HO.ED 10:54
PROVIDERS: Emergency Provider Emergency Medicine; PCP Student in an Organized Health Care Education/Training Program
DX: Z48.02 Encounter for removal of sutures (principal)
CPT/HCPCS: 99282

== ENCOUNTER 2024-02-15 08:47 | Outpatient (AMB) | payer OTHER, SELFPAY ==
--- NOTE | 2024-02-15 08:55 | A.OFFVIS_ITS ---
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 DOI: 02/05/24. Patient reports he was at work and was trying to reverse to the loading dock, he opened the door, the loading dock had black ice and he slipped under the truck. He thinks the door closed on his small left finger. Patient was seen in [facility] ED on 02/06/24 after the injury where they repaired his laceration with 2 sutures, prescribed antibiotics and referred to Orthopedics. He was then seen again on 02/14/24 where his sutures were removed. Patient reports a 2 out of 10 on pain scale that comes and goes. Mild numbness and tingling at the tip of his left 5th digit. He express first day he took Tylenol but has not been taking it since. 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 Patient was previously evaluated in the emergency department, where x-rays were taken revealing a distal tuft fracture of the left small finger, and sutures were placed in the laceration. Patient did have sutures removed in the ED yesterday. Today, the patient reports that he experiences minimal pain in the left small finger, and then he has no concerns for redness, swelling, purulent drainage, or other signs of infection. The patient does report some numbness in the distal aspects of the left small finger. No other acute complaints or concerns at this time. 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 Neuro: Diminished sensation of the tip of the left small finger at this time Normal sensation of the tips of all of the digits of the left hand Vascular: Cap refill brisk Pain: Mild tenderness to palpation about the laceration in fracture site of the left small finger ROM: Patient is able to make a closed fist and extend all digits of the left hand fully Skin: There is a laceration noted on the dorsal aspect of the patient's left small finger with nail involvement No surrounding erythema, purulent drainage, or other evidence of infection General: No ecchymosis Psych: Appears grossly normal Affect normal Attitude cooperative Office Procedures AMB Fracture Care Details: Tuft fracture of the left small finger Fracture Billing Code: Fracture Billing Code Results Reviewed Results Reviewed: X-rays obtained in the office today and independently reviewed by me, Gopal Sherman PA-C, demonstrate minimally displaced distal tuft fracture of the left small finger. Assessment & Plan Assessment & Plan (1) Open fracture of distal phalanx of left little finger: Code(s): S62.637B - Displaced fracture of distal phalanx of left little finger, initial encounter for open fracture Category: Medical Plan 1. 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 West in the office, sooner with any acute concerns Orders: Orders XR hand LT min 3V Today M79.642 - Pain in left hand Medications: New amoxicillin-pot clavulanate 875-125 mg 1 tab PO BID 20 tabs 0RF 10 days Coding Level of Care Code New Pt Level 3 (43467) Diagnoses Open fracture of distal phalanx of left little finger S62.637B CPT Codes Fracture Care - Fracture Billing Code: Fracture Billing Code ([id number])
[2024-02-15 09:00] VITALS: BMI 32.6
== END 2024-02-15 09:36 | disposition home or self-care (01) ==
PROVIDERS: PCP Student in an Organized Health Care Education/Training Program
DX: S62.637B Displaced fracture of distal phalanx of left little finger, initial encounter for open fracture (principal)
CPT/HCPCS: 99203

== ENCOUNTER 2024-02-15 09:04 | Outpatient (REF) | payer OTHER, SELFPAY | END 2024-02-15 09:05 | disposition home or self-care (01) | LOC: HO.HOSX 09:04 | DX: M79.642 Pain in left hand (principal); S62.637B Displaced fracture of distal phalanx of left little finger, initial encounter for open fracture | CPT/HCPCS: 73130; 99202 ==

== ENCOUNTER 2024-02-23 09:08 | Outpatient (REF) | payer OTHER, SELFPAY | END 2024-02-23 09:09 | disposition home or self-care (01) | LOC: HO.HOSX 09:08 | DX: S62.637D Displaced fracture of distal phalanx of left little finger, subsequent encounter for fracture with routine healing (principal) | CPT/HCPCS: 73130; 99212 ==

== ENCOUNTER 2024-02-23 11:40 | Outpatient (AMB) | payer OTHER, SELFPAY ==
--- NOTE | 2024-02-23 11:44 | A.OFFVIS_ITS ---
Vital Signs 02/23/24 11:49 Height 5 ft 7 in Weight 208 lb BMI 32.6 Handedness Right Intake Visit Reasons: OV: FX of distal phalanx of 5th digit DOI 02/05/24 Intake Note: Jeronimo is a 58 year old right hand dominant male who presents today for a follow up visit and wound check of his fracture of distal phalanx of left 5th digit, DOI: 02/05/2024. Patient reports he is still taking his antibiotics. Denies numbness and tingling. Reports he has pain at tip of small finger when it is palpitated or bumped. Denies any other concerns. Allergies No Known Allergies [No Known Allergies*] Allergy (Verified 02/23/24 11:49) HPI HPI OV: FX of distal phalanx of 5th digit DOI 02/05/24: Details: Patient is a 58 year old right hand dominant male who presents today for a follow up visit and wound check of his fracture of distal phalanx of left 5th digit,02/05/2024. Patient reports he is still taking his antibiotics. Denies numbness and tingling. Reports he has pain at tip of small finger when it is palpitated or bumped. Denies any other concerns. 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 Neuro: Diminished sensation of the tip of the left small finger at this time Normal sensation of the tips of all of the digits of the left hand Vascular: Cap refill brisk Pain: Mild tenderness to palpation about the laceration in fracture site of the left small finger ROM: Patient is able to make a closed fist and extend all digits of the left hand fully Skin: There is a laceration noted on the dorsal aspect of the patient's left small finger with nail involvement Appears much better healed and was less discharge and at last visit No surrounding erythema, purulent drainage, or other evidence of infection General: No ecchymosis Psych: Appears grossly normal Affect normal Attitude cooperative Results Reviewed Results Reviewed: X-rays obtained in the office today and independently reviewed by me, Gopal Sherman PA-C, demonstrate minimally displaced distal tuft fracture of the left small finger. Assessment & Plan Assessment & Plan (1) Open fracture of distal phalanx of left little finger: Code(s): S62.637B - Displaced fracture of distal phalanx of left little finger, initial encounter for open fracture Category: Medical Plan 1. 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, but he must keep the dressing clean, dry, intact, and has a strict 2 lb weight restriction in his left hand Patient was advised that he should continue keeping the wound site clean, dry, intact until follow-up Patient expresses some frustration that he can not return to work, but 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 West in the office, sooner with any acute concerns Orders: Orders XR hand LT min 3V 02/23/24 M79.642 - Pain in left hand Coding Level of Care Code Global (68081) Diagnoses Open fracture of distal phalanx of left little finger S62.637B
[2024-02-23 11:49] VITALS: BMI 32.6
== END 2024-02-23 12:44 | disposition home or self-care (01) ==
PROVIDERS: PCP Student in an Organized Health Care Education/Training Program
DX: S62.637B Displaced fracture of distal phalanx of left little finger, initial encounter for open fracture (principal)
CPT/HCPCS: 99213

== ENCOUNTER 2024-03-25 09:52 | Outpatient (REF) | payer OTHER, SELFPAY ==
[2024-03-25 15:54] LABS: Alanine Aminotransferase 68 U/L (0-40); Albumin Level 4.4 g/dL (3.5-5.0); Alkaline Phosphatase 99 U/L (39-117); Anion Gap 11 (12-20); Aspartate Amino Transferase 41 U/L (5-37); Bilirubin Direct 0.3 mg/dL (0.0-0.5); Bilirubin Total 0.8 mg/dL (0.0-1.0); Blood Urea Nitrogen 14 mg/dL (9-16); Calcium 9.2 mg/dL (8.4-10.2); Carbon Dioxide 27 mmol/L (22-29); Chloride 106 mmol/L (96-108); Cholesterol 176 mg/dL (<200); Estimated Glomerular Filt Rate > 60; Glucose Random 101 mg/dL (60-115); HDL Cholesterol 33 mg/dL (>40); LDL Cholesterol Calculated 106 mg/dL (<100); Potassium 4.1 mmol/L (3.3-5.1); Sodium 140 mmol/L (135-145); Total Protein 8.3 g/dL (6.5-8.0); Triglycerides 187 mg/dL (<150)
== END 2024-03-25 09:53 | disposition home or self-care (01) ==
LOC: HO.CHCLDS 09:52
PROVIDERS: Visit Provider Student in an Organized Health Care Education/Training Program
DX: E78.5 Hyperlipidemia, unspecified (principal)
CPT/HCPCS: 36415; 80048; 80061; 80076

== ENCOUNTER 2024-06-06 13:16 | Emergency (ER) | payer OTHER, SELFPAY ==
--- NOTE | ~2024-06-06 | CT_ITS ---
CLINICAL HISTORY: LLQ tenderness R O diverticulitis CT abdomen and pelvis with contrast Comparison: CT/SR - CT ABDOMEN PELVIS W IV CON - 04/29/23 13:[address]/DC/SR - CT ABDOMEN PELVIS WO IV CON - 05/05/22 14:27 EST Findings: The lung bases are clear. Hepatic steatosis. 1.7 cm pancreatic head cyst, similar to prior. Gallbladder, spleen, and adrenal glands are within normal limits. No hydronephrosis. Symmetric contrast enhancement of the kidneys. Left renal cyst. No bowel obstruction, pneumoperitoneum, or pneumatosis. Small round area of fat necrosis in the left lower quadrant most consistent with omental infarct. Pelvic contents unremarkable. Normal appendix. No acute fracture. IMPRESSION: Left lower quadrant omental infarct. 1.7 cm pancreatic head cyst, stable from 2022. Recommend follow-up MRI or CT pancreas protocol in 2 years. This document has been electronically signed by: Teagan Zheng MD on 06/06/2024 20:36:20
[2024-06-06 13:22] VITALS: BP 133/76; PULSE 82; RESP 16; TEMP 36.8; O2SAT 97; BMI 32.7
--- NOTE | 2024-06-06 14:36 | ED.GENADULT ---
HPI - General Adult General Chief complaint: Abdominal Pain Stated complaint: l side lower abd pain Time Seen by Provider: 06/06/24 17:55 Source: patient Mode of arrival: ambulatory Limitations: no limitations History of Present Illness ED Provider: Dr. Rogelio Kelly HPI narrative: 58-year-old male with a history of hyperlipidemia who presents emergency department for evaluation of left lower quadrant pain x2 days. The patient states that the pain came on gradually but he was gotten progressively worse. The pain is constant sharp and is 8/10 at its worst. Patient states that he was last bowel movement was at 02:30 hours, he states that it was a normal bowel movement with no blood or dark stool. He states he does feel bloated. He denied fever, chills, nausea, vomiting, diarrhea. This is 1st episode of this type of pain. He states he did have a colonoscopy 3 years ago and was told it was not need another colonoscopy for 10 years. Related Data Home Medications ?Medication ?Instructions ?Recorded ?Confirmed atorvastatin 40 mg tablet 40 mg PO BEDTIME 03/27/21 05/22/22 fluticasone propionate 50 1 spray intranasal DAILY 03/27/21 05/22/22 mcg/actuation nasal spray,suspension meclizine 25 mg tablet 50 mg PO DAILY PRN dizziness 08/20/21 05/22/22 albuterol sulfate 90 mcg/actuation 2 puff inhalation Q4H PRN wheezing 12/31/21 05/22/22 aerosol inhaler (ProAir HFA) omega-3 300 mg-dha 120 mg-epa 180 1 cap PO BID 06/12/23 mg-fish oil 1,000 mg capsule cetirizine 10 mg tablet 10 mg PO DAILY 01/05/24 Previous Rx's ?Medication ?Instructions ?Recorded fluticasone propionate 220 2 puff inhalation BID 30 days #12 11/18/21 mcg/actuation HFA aerosol inhaler grams (Flovent HFA) cholecalciferol (vitamin D3) 50 50 mcg PO DAILY #90 caps 10/29/22 mcg (2,000 unit) capsule magnesium citrate 150 ml PO DAILY PRN constipation 04/29/23 #296 mL linaclotide 290 mcg capsule 290 mcg PO QAM #30 caps 12/15/23 (Linzess) oxybutynin chloride 10 mg 10 mg PO DAILY #90 tabs 12/21/23 tablet,extended release 24 hr tamsulosin 0.4 mg capsule (Flomax) 0.4 mg PO BEDTIME #90 caps 12/21/23 amoxicillin 875 mg-potassium 1 tab PO BID 10 days #20 tabs 02/15/24 clavulanate 125 mg tablet polyethylene glycol 3350 17 17 g PO DAILY #510 grams 03/30/24 gram/dose oral powder [id number] 2 cap PO QID #240 caps 06/06/24 36,000-114,000-180,000 unit capsule,delay rel (Creon) morphine 15 mg immediate release 15 mg PO Q6H PRN pain #14 tabs 06/06/24 tablet Allergies Allergy/AdvReac Type Severity Reaction Status Date / Time No Known Allergies Allergy Verified 06/06/24 13:23 [No Known Allergies*] Review of Systems Review of Systems: Yes all other systems are reviewed and are negative [facility] Past Medical History [facility] Narrative: Social history: He denies tobacco use. He states he occasionally drinks alcohol but he was not had any alcohol to drink in over 30 days. He denies drug use. 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 Exam: General: Awake, alert in no distress Head: Normocephalic, atraumatic EENT: PERRL, Lids normal, sclera normal, conjunctiva normal, nose normal , ears normal, throat without erythema or exudates Neck: Supple, no adenopathy Lung: breath sounds symmetric, no wheezing, rales or rhonchi Chest: symmetric movement, nontender Heart: regular rate and rhythm, normal S1, S2 no murmurs or rubs Abdomen: soft, Moderate left lower quadrant tenderness, no voluntary or involuntary guarding, no rebound, nondistended, normal bowel sounds Back: no vertebral tenderness, no CVAT Extremities: no deformities, moves all extremities symmetrically Neuro: Awake, alert, oriented, normal speech, cranial nerves intact, moves all extremities symmetrically Psych: Pleasant, cooperative Course Course Course Narrative: RME: 58-year-old male presents to ED for left lower quadrant abdominal pain without any genitourinary symptoms. positive for LLQ pain. labs UA ordered. Medications Administered Discontinued Medications Generic Name Dose Route Start Last Admin Trade Name Freq PRN Reason Stop Dose Admin Sodium Chloride 1,000 mls @ 999 mls/hr 06/06/24 18:23 06/06/24 21:26 Ns IV 06/06/24 19:23 Infused .Q1H1M STA Infusion Iohexol 85 ml 06/06/24 19:35 06/06/24 19:35 Iohexol 350 Mg/Ml 100 Ml Infus..Btl IV 06/06/24 19:36 85 ml ONCE ONE Administration Ketorolac Tromethamine 15 mg 06/06/24 18:25 06/06/24 18:36 Ketorolac Tromethamine 15 Mg/Ml Vial IVPUSH 06/06/24 18:26 15 mg ONCE STA Administration Morphine Sulfate 4 mg 06/06/24 18:25 06/06/24 18:36 Morphine Sulfate 4 Mg/Ml Cartridge IVPUSH 06/06/24 18:26 4 mg ONCE STA Administration Protocol Medical Decision Making Medical Decision Making [facility] Narrative: 58-year-old male with a history of hyperlipidemia who presents emergency department for evaluation of gradual onset, constant, left lower quadrant pain, 8/10 x2 days. patient feels bloated, last bowel movement was at 02:30 hours and was normal. It was a 1st episode of this type of pain for this patient. Patient states that he had a colonoscopy 3 years prior which she was negative. Vital signs were unremarkable. Physical examination revealed moderate left lower quadrant tenderness. Differential diagnosis: Includes but is not limited to Pancreatitis, diverticulitis, colitis, bowel obstruction, anemia, electrolyte abnormalities Course: 18:31 My interpretation patient's laboratory evaluation as follows: CBC was normal. AST and ALT were elevated 46 and 83. Urinalysis was negative. Given the severity of the patient's left lower quadrant pain, I am concerned that he may have diverticulitis with possible perforation/abscess. The patient was treated with normal saline IV x1 L, morphine 4 mg IV and Toradol 15 mg IV. I did order a CT scan of the abdomen pelvis with IV contrast for further evaluation of his pain. 21:08 the patient's lipase was normal. CT scan of the abdomen pelvis with IV contrast revealed left lower quadrant omental fat infarct and an incidental 1.7 cm pancreatic head cyst which has been stable since 2022. the omental fat infarct explains the patient's pain. I did discuss this with him. I told him that the treatment is often pain management and at the symptoms resolve over time and often does not require any further workup. The patient is on aspirin 81 mg daily and I told him to continue this medication. Patient was advised to take Tylenol and ibuprofen for pain and for pain not relieved by these medications he was prescribed morphine. There was an incidental pancreatic cysts noted that is unchanged from 2022. I advised the patient to follow up with his PCP and to discuss getting an MRI of the pancreas now and getting a follow-up MRI in 2 years. Printed and verbal instructions and discharged home. Differential Diagnosis Differential Diagnoses: The differential diagnosis associated with the presentation includes ( Yes) Lab Data [facility] Lab Attestation statement: I reviewed the patient's lab results. 06/06/24 14:45 06/06/24 14:45 Labs: Lab Results 06/06/24 Range/Units 14:45 WBC 8.1 (4.8-10.8) X10*3/uL RBC 4.91 (4.60-5.80) X10*6/uL Hgb 14.4 (14.0-18.0) g/dl Hct 41.3 L (42.0-52.0) % MCV 84.1 (80.0-98.0) fL MCH 29.3 (27.0-33.0) pg MCHC 34.9 (31.0-36.0) g/dl RDW 13.3 (11.0-16.0) % Plt Count 217 (160-400) X10*3/uL MPV 8.8 L (9.4-12.4) fL Immature Gran % (Auto) 0.2 (0.0-0.4) % Neut % (Auto) 51.3 (45-73) % Lymph % (Auto) 34.0 (20-40) % [place] % (Auto) 8.1 (2-11) % Eos % (Auto) 5.8 H (0-4) % Baso % (Auto) 0.6 (0-2) % Lymph # (Auto) 2.7 (1.2-4.9) X10*3/uL [place] # (Auto) 0.7 (0.1-1.2) X10*3/uL Eos # (Auto) 0.5 H (0.0-0.4) X10*3/uL Baso # (Auto) 0.1 (0.0-0.2) X10*3/uL Abs Immat Gran (auto) 0.02 (0.00-0.03) X10*3/uL Absolute Neuts (auto) 4.1 (2.0-8.3) x10*3/uL Absolute Nucleated RBC 0.000 (0.0-0.012) X10*3/uL Nucleated RBC % (auto) 0.0 (0.0-0.2) /100WBC Sodium 141 (135-145) mmol/L Potassium 4.7 (3.3-5.1) mmol/L Chloride 106 (96-108) mmol/L Carbon Dioxide 27 (22-29) mmol/L Anion Gap 13 (12-20) BUN 14 (9-16) mg/dL Creatinine 0.89 (0.5-1.4) mg/dL Estim Creat Clear Calc 99.9 Estimated GFR > 60 Random Glucose 100 (60-115) mg/dL Calcium 9.5 (8.4-10.2) mg/dL Total Bilirubin 0.7 (0.0-1.0) mg/dL AST 46 H (5-37) U/L ALT 83 H (0-40) U/L Alkaline Phosphatase 107 (39-117) U/L Total Protein 7.9 (6.5-8.0) g/dL Albumin 4.4 (3.5-5.0) g/dL Lipase 26 (8-78) U/L Urine Color Yellow Urine Appearance Clear Urine pH 5.5 (5.0-9.0) Ur Specific [place] 1.015 (1.005-1.025) Urine Protein Negative (Neg-Trace) mg/dL Urine Glucose (UA) Negative (Negative) mg/dL Urine Ketones Negative (Negative) mg/dL Urine Blood Negative (Negative) Urine Nitrite Negative (Negative) Ur Leukocyte Esterase Negative (Negative) Radiology Impression Discussion of test interpretation with radiology: I have reviewed the radiologist's reading. Radiologist Impression: CT abdomen and pelvis with contrast Comparison: CT/SR - CT ABDOMEN PELVIS W IV CON - 04/29/23 13:[address]/MA/SR - CT ABDOMEN PELVIS WO IV CON - 05/05/22 14:27 EST Findings: The lung bases are clear. Hepatic steatosis. 1.7 cm pancreatic head cyst, similar to prior. Gallbladder, spleen, and adrenal glands are within normal limits. No hydronephrosis. Symmetric contrast enhancement of the kidneys. Left renal cyst. No bowel obstruction, pneumoperitoneum, or pneumatosis. Small round area of fat necrosis in the left lower quadrant most consistent with omental infarct. Pelvic contents unremarkable. Normal appendix. No acute fracture. IMPRESSION: Left lower quadrant omental infarct. 1.7 cm pancreatic head cyst, stable from 2022. Recommend follow-up MRI or CT pancreas protocol in 2 years. This document has been electronically signed by: Teagan Zheng MD on 06/06/2024 20:36:20 Prescription Management I considered prescription management with: Pain Medication ( Morphine) Chronic Conditions Patient?s care impacted by: Other ( hyperlipidemia) Discharge Plan Discharge Clinical Impression: Abdominal pain, Pancreas cyst Patient Disposition: Home, Self-Care Instructions: Abdominal Pain (ED) Additional Instructions: Your blood work was unremarkable. The CT scan of your abdomen revealed an area of fat, on the left side of your belly, that lost its blood supply ( ischemia) and . The reason for this is often unknown, it is not uncommon ad it explains the severe pain that your having in your belly. The treatment is pain medications and not antibiotics. Take ibuprofen 200 mg pills, 2 pills every 6 hours as needed for pain. Take Tylenol (acetaminophen) 2 pills every 6 hours as needed for pain. For pain not relieved by ibuprofen or Tylenol take morphine 15 mg pills, 1 pill every 6 hours as needed for pain. This medication will make you sleepy, do not drive or work while taking this medication. Morphine is a narcotic medication and can be addicting. If you are concerned about addiction you can ask the pharmacist for less pills or do not get this prescription filled. Continue taking your aspirin 81 mg once a day. You also have an a cyst on your pancreas that revealed a 1.7 cm pancreatic head cyst which was unchanged from 2022. The radiologist recommended that you get an MRI or CT of the pancreas protocol in 2 years however I would discuss this with your doctor and see if they want to get an MRI now to make sure you do not have pancreatic cancer and then get a follow-up MRI in 2 years. I want you to follow-up in 4 days with your doctor and review the CT scan results below and also to make sure that your pain is getting better Follow-up with your doctor in 4 days. Please return to the emergency department if your symptoms get worse or if you develop any symptoms that are concerning to you. CT abdomen and pelvis with contrast Comparison: CT/SR - CT ABDOMEN PELVIS W IV CON - 04/29/23 13:[address]/MA/SR - CT ABDOMEN PELVIS WO IV CON - 05/05/22 14:27 EST Findings: The lung bases are clear. Hepatic steatosis. 1.7 cm pancreatic head cyst, similar to prior. Gallbladder, spleen, and adrenal glands are within normal limits. No hydronephrosis. Symmetric contrast enhancement of the kidneys. Left renal cyst. No bowel obstruction, pneumoperitoneum, or pneumatosis. Small round area of fat necrosis in the left lower quadrant most consistent with omental infarct. Pelvic contents unremarkable. Normal appendix. No acute fracture. IMPRESSION: Left lower quadrant omental infarct. 1.7 cm pancreatic head cyst, stable from 2022. Recommend follow-up MRI or CT pancreas protocol in 2 years. This document has been electronically signed by: Teagan Zheng MD on 06/06/2024 20:36:20 Prescriptions: New morphine 15 mg tablet 15 mg PO Q6H PRN (Reason: pain) Qty: 14 0RF Rx Instructions: Partial Fill upon patient request. No Action Linzess 290 mcg capsule 290 mcg PO QAM Qty: 30 4RF polyethylene glycol 3350 17 gram/dose powder 17 g PO DAILY Qty: 510 2RF Creon 36,000-114,000- 180,000 unit capsule,delayed release(DR/EC) 2 cap PO QID Qty: 240 3RF albuterol sulfate [ProAir HFA] 90 mcg/actuation HFA aerosol inhaler 2 puff inhalation Q4H PRN (Reason: wheezing) magnesium citrate Solution 150 ml PO DAILY PRN (Reason: constipation) Qty: 296 0RF atorvastatin 40 mg tablet 40 mg PO BEDTIME fluticasone propionate 50 mcg/actuation spray,suspension 1 spray intranasal DAILY fluticasone propionate [Flovent HFA] 220 mcg/actuation HFA aerosol inhaler 2 puff inhalation BID 30 Days Qty: 12 6RF meclizine 25 mg tablet 50 mg PO DAILY PRN (Reason: dizziness) cholecalciferol (vitamin D3) 50 mcg (2,000 unit) capsule 50 mcg PO DAILY Qty: 90 3RF omega 4-wpn-hzr-fish oil 300 mg (120 mg- 180mg)-1,000 mg capsule 1 cap PO BID amoxicillin-pot clavulanate 875-125 mg tablet 1 tab PO BID 10 Days Qty: 20 0RF cetirizine 10 mg tablet 10 mg PO DAILY oxybutynin chloride 10 mg tablet extended release 24hr 10 mg PO DAILY Qty: 90 3RF Rx Instructions: take in the morning with breakfast tamsulosin [Flomax] 0.4 mg capsule 0.4 mg PO BEDTIME Qty: 90 3RF Interventions: ED Discharge Assessment Last Done: 06/06/24 21:27 Discharge Date/Time: 06/06/24 21:27 Print Language: [place]
[2024-06-06 14:50] LABS: MANUAL DIFF FLAG NO
[2024-06-06 14:52] LABS: Basophils Absolute Auto 0.1 X10*3/uL (0.0-0.2); Basophils Percent Auto 0.6 % (0-2); Eosinophils Absolute Auto 0.5 X10*3/uL (0.0-0.4); Eosinophils Percent Auto 5.8 % (0-4); Hematocrit 41.3 % (42.0-52.0); Hemoglobin 14.4 g/dl (14.0-18.0); Imm Gran Abs Auto 0.02 X10*3/uL (0.00-0.03); Imm Gran Pct Auto 0.2 % (0.0-0.4); Lymphocytes Absolute Auto 2.7 X10*3/uL (1.2-4.9); Mean Corpuscular HGB Conc 34.9 g/dl (31.0-36.0); Mean Corpuscular Hemoglobin 29.3 pg (27.0-33.0); Mean Corpuscular Volume 84.1 fL (80.0-98.0); Mean Platelet Volume 8.8 fL (9.4-12.4); Monocytes Absolute Auto 0.7 X10*3/uL (0.1-1.2); Monocytes Percent Auto 8.1 % (2-11); Neutrophils Absolute Auto 4.1 x10*3/uL (2.0-8.3); Neutrophils Percent Auto 51.3 % (45-73); Platelet Count 217 X10*3/uL (160-400); Red Blood Count 4.91 X10*6/uL (4.60-5.80); Red Cell Distribution Width 13.3 % (11.0-16.0); White Blood Count 8.1 X10*3/uL (4.8-10.8)
[2024-06-06 14:53] LABS: Appearance Urine Clear; Color Urine Yellow; Glucose Urine UA Negative (Negative); Leukocyte Esterase Urine Negative (Negative); Nitrite Urine Negative (Negative); PH 5.5 (5.0-9.0); Specific Gravity - Urine 1.015 (1.005-1.025); Urine Blood Negative (Negative); Urine Ketones Negative (Negative); Urine Protein Negative (Neg-Trace)
[2024-06-06 15:31] LABS: Alanine Aminotransferase 83 U/L (0-40); Albumin Level 4.4 g/dL (3.5-5.0); Anion Gap 13 (12-20); Aspartate Amino Transferase 46 U/L (5-37); Bilirubin Total 0.7 mg/dL (0.0-1.0); Blood Urea Nitrogen 14 mg/dL (9-16); Calcium 9.5 mg/dL (8.4-10.2); Carbon Dioxide 27 mmol/L (22-29); Chloride 106 mmol/L (96-108); Creatinine Clr Calc Pharmacy 99.9; Estimated Glomerular Filt Rate > 60; Glucose Random 100 mg/dL (60-115); Potassium 4.7 mmol/L (3.3-5.1); Sodium 141 mmol/L (135-145); Total Protein 7.9 g/dL (6.5-8.0)
[2024-06-06 16:28] LABS: Alkaline Phosphatase 107 U/L (39-117)
[2024-06-06 18:02] VITALS: BP 134/80; PULSE 78; RESP 16; TEMP 36.8; O2SAT 99
[2024-06-06 18:03] VITALS: BP 154/74; PULSE 62; O2SAT 98
[2024-06-06] MEDS: Morphine Sulfate 4 MG/ML CARTRIDGE IVPUSH (18:36)
[2024-06-06] MEDS: Ketorolac Tromethamine 15 MG/ML VIAL IVPUSH (18:36)
[2024-06-06] MEDS: 0.9 % Sodium Chloride 1,000 ML 999 ML IV (18:36)
[2024-06-06 18:40] LABS: Lipase 26 U/L (8-78)
--- OUTSIDE RECORDS SUMMARY | 2024-06-06 18:58 | XMS_ITS | Encounter Summary ---
Author Organization [employer] Address [address] [place] [address] 7[address] [place] [address] Care Team Providers Care Floatlight Powder Mixer Name Role Phone Abiola Hadley MD Primary Care Provider [phone] Ayesha Chua MD Primary Care Provider [phone] Ho Wilkerson DMD Unavailable [phone] Encounter Details Date Type Department Care Team (Late Contact Info) Description 02/18/2022 Orders Only [facility] [address] [place] [address] Linda Alvarez LPN Social History Tobacco Use Types Packs/Day Years Used Date Smoking Tobacco: Never Assessed Sex and Gender Information Value Date Recorded Sex Assigned at Male 12/30/2021 10:20 AM EDT Legal Sex Male 10:20 AM EDT Gender Identity Male 12/30/2021 10:20 AM EDT Sexual Orientation Straight 12/30/2021 10 :20 AM EDT documented as of this encounter Plan of Treatment Upcoming Encounters Date Type Department Care Team (Late st Contact Info) Description 06/23/2024 10:00 AM EDT Office Visit [facility] [address] [place] [address] Ho Wilkerson DMD [address] [place] [address] 07/15/2024 8:00 AM EDT Office Visit [facility] [address] [place] [address] Jennifer Barboza 08/26/2024 9:15 AM EDT Office Visit [facility] [address] [place] [address] Ayesha Chua MD [address] [place] [address] documented as of this encounter Procedures Procedure Name Priority Date/Time Associated Diagnosis Comments LIPASE Routine 10/29/2022 8:42 AM EDT HEPATIC FUNCTION PANEL Routine 8:42 AM EDT PSA, TOTAL WITH REFLEX TO PSA, FREE Routine 05/22/2022 11:03 AM EDT VITAMIN D 25-OH (D2 AND D3) Routine 05/08/2022 10:09 AM EST VITAMIN B12/FOLATE, SERUM PANEL Routine 05/08/2022 10:09 AM EST TSH W/REFLEX TO FT4 Routine 05/08/2022 1 0:09 AM EST TISSUE TRANSGLUTAMINASE AB, IGG Routine 05/08/2022 10:09 AM EST TISSUE TRANSGLUTAMINASE AB, IGA Routine 05/08/2022 10:09 AM EST HIGH SENSITIVITY TROPONIN I Routine 05/05/2022 5:11 PM EST CBC WITH AUTO DIFFERENTIAL Routine 05/05/2022 5:11 PM EST URINALYSIS WITH REFLEX MICROSCOPIC Routine 05/05/2022 5:11 PM EST MAGNESIUM Routine 05/05/2022 5:11 PM EST HEPATIC FUNCTION PANEL Routine 5:11 PM EST BASIC METABOLIC PANEL Routine 05/05/2022 5:11 PM EST documented in this encounter Results * Lipase (10/29/2022 8:42 AM EDT) Lipase 18 8 - 78 U/L [facility] 10/29/2022 8:42 AM EDT 10/29/2022 8:42 AM EDT Generic External Data Provider LAB BLOOD ORDERAB LES Final Result Performing Organization Address [facility]/ZIP Co de Phone Number [facility] [address] [place] [address] [phone] * (ABNORMAL) Hepatic Function Panel (10/29/2022 8:42 AM EDT) Pathologist [facility] Bilirubin, Total 0.5 0.0 - 1.0 mg/dL [facility] Bilirubin, Direct 0.2 0.0 - 0.5 mg/dL [facility] Aspartate Amino Transferase 26 5 - 37 U/L [facility] Alanine Aminotransferase 42(H) 0 - 40 U/L [facility] Total Protein 7.7 6.5 - 8.0 g/dL [facility] Albumin Level 4.4 3.5 - 5.0 g/dL [facility] Alkaline Phosphatase 91 39 - 117 U/L [facility] 10/29/2022 8:42 AM EDT 10/29/2022 8:42 AM EDT [facility] External Provider LAB BLO OD ORDERABLES Final Result Performing Organization Address [facility]/ZIP Co de Phone Number [facility] [address] [place] [address] [phone] * PSA, Total With Reflex to PSA, Free (05/22/2022 11:03 AM EDT) PSA,Total (Free>4and<10) 0.62 0.00 - 4.00 ng/mL [facility] Comment:A Free PSA was not p erformed: The percentage of Free PSA can be used to enhance the differentiation of prostate cancer from benign prostatic disease in subjects whose PSA levels are between 4.0 and 10.0 ng/mL. For subjects whose PSA levels are below 4.0 or above 10.0 ng/mL, the risk of prostate cancer is determined on the basis of the PSA alone. Therefore the % Free PSA is recommended only for those subjects whose PSA levels are between 4.0 and 10.0 ng/mL.PSA methodology: Warren Alinity i ChemiluminescentMicroparticle Immunoassay (CMIA) 05/22/2022 11:0 3 AM EDT 05/22/2022 11:03 AM EDT [facility] External Provider LAB BLO OD ORDERABLES Final Result Performing Organization Address [facility] [[email or web address]] Co de Phone Number [facility] [address] [place] [phone] * Tissue Transglutaminase Antibody, IgA (05/08/2022 10:09 AM EST) Transglutaminase IgA <1.0 U/mL [facility] Comment:Value Interpretation ----- <15.0 Antibody not detected> or = 15.0 Antibody detectedTHIS TEST WAS PERFORMED AT:[employer] [place] [phone] FULLER MD 05/08/2022 10:0 9 AM EST 05/08/2022 10:09 AM EST [facility] External Provider LAB BLO OD ORDERABLES Final Result Performing Organization Address [facility] [[email or web address]] Co de Phone Number [facility] [address] [place] [phone] * Tissue Transglutaminase (tTG) Antibody (IgG) (05/08/2022 10:09 AM EST) Tissue Transglutaminase Antibody IgG 1.7 U/mL [facility] Comment:Value Interpretation ----- <15.0 Antibody not detected> or = 15.0 Antibody detectedTHIS TEST WAS PERFORMED AT:[employer] [phone] FULLER MD 05/08/2022 10:0 9 AM EST 05/08/2022 10:09 AM EST [facility] External Provider LAB BLO OD ORDERABLES Final Result [facility] [address] [place] [address] [phone] * (ABNORMAL) VITAMIN D 25-OH (D2 AND D3) (05/08/2022 10:09 AM EST) Vitamin D, 25-OH, D2 <4 ng/mL [facility] Comment:This test was develo ped and its analytical performancecharacteristics have been determined by [employer], [place]. It hasnot been cleared or approved by the U.S. Food and DrugAdministration. This assay has been validated pursuantto the CLIA regulations and is used for clinicalpurposes.THIS TEST WAS PERFORMED AT:[employer] [id number] [place] [phone] W. MASON,MD,PHD Vitamin D, 25-OH, D3 13 ng/mL [facility] Comment:This test was develo ped and its analytical performancecharacteristics have been determined by [employer] [place], [place]. It hasnot been cleared or approved by the U.S. Food and DrugAdministration. This assay has been validated pursuantto the CLIA regulations and is used for clinicalpurposes. Vitamin D, 25-OH, Total 13(A) 30 - 100 ng/mL [facility] Comment: Vitamin D, 25-Hydroxy reports concentrations of twocommon forms, 25-OHD2 and 25- OHD3. 25-OHD3 indicatesboth endogenous production and supplementation.25-OHD2 is an indicator of exogenous sources such asdiet or supplementation. ??Therapy is based onmeasurement of Total 25-OHD, with levels <20 ng/mLindicative of Vitamin D deficiency, while levelsbetween 20 ng/mL and 30 ng/mL suggest insufficiency.Optimal levels are > or = 30 ng/mL.Vitamin D is fat-soluble and therefore inadvertent orintentional ingestion of excessively high amountscould be toxic. Studies in children and adults suggestblood levels would need to exceed 150 ng/mL beforethere is any concern. Shi MF, Zain LAI,Vivi THAPA, et al. Evaluation, treatment andprevention of vitamin D deficiency: an EndocrineSociety clinical practice guideline. J Clin EndocrinolMetab. 2011;96(7):1911-30.For additional information, please refer tohttp://education.Med fusion/faq/YPZ714(This link is being provided for informational/educational purposes only.) 05/08/2022 10:0 9 AM EST 05/08/2022 10:09 AM EST us [facility] External Provider LAB BLO OD ORDERABLES Final Result [facility] [address] [place] [phone] * (ABNORMAL) Vitamin B12/Folate, Serum Panel (05/08/2022 10:09 AM EST) Vitamin B12 959(H) 200 - 900 pg/mL [facility] Comment:NORMAL 200-900 PG/ML INDETERMINATE 160-199 PG/ML DEFICIENT < 160 PG/ML Folate 13.0 > or = 4.0 ng/mL [facility] Comment:Reference Values:> o r = 4.0 ng/mL< 4.0 ng/mL suggests folate deficiency Methotrexate, aminopterin and folinic acid(leucovorin) are chemotherapeutic agents whose molecularstructures are similar to folate; therefore, the Architectfolate assay cannot be used for patients using these drugs. 05/08/2022 10:0 9 AM EST 05/08/2022 10:09 AM EST [facility] External Provider LAB BLO OD ORDERABLES Final Result Performing Organization Address [facility] [[email or web address]] Co de Phone Number [facility] [address] [place] [phone] * TSH W/Reflex to FT4 (05/08/2022 10:09 AM EST) TSH reflex Free T4 1.69 0.32 - 4.0 uIU/mL [facility] 05/08/2022 10:0 9 AM EST 05/08/2022 10:09 AM EST [facility] External Provider LAB BLO OD ORDERABLES Final Result Performing Organization Address [facility] [address] [place] [phone] * HIGH SENSITIVITY TROPONIN I (05/05/2022 5:11 PM EST) TROPONIN I HIGH SENSITIVITY <3.5 <3.5 - 35.0 ng/L [facility] Comment:The Warren high sens itivity Troponin-I results should beused in conjunction with other diagnostic information suchas ECG, clinical observations and information, and patientsymptoms to aid in the diagnosis of ND. 05/05/2022 5:11 PM EST 05/05/2022 5:16 PM EST [facility] External Provider LAB BLO OD ORDERABLES Final Result Performing Organization Address [facility] Phone Number [facility] [address] [place] [phone] * Magnesium (05/05/2022 5:11 PM EST) Magnesium 2.1 1.6 - 2.6 mg/dL [facility] 05/05/2022 5:11 PM EST 05/05/2022 5:16 PM EST [facility] External Provider LAB BLO OD ORDERABLES Final Result Performing Organization Address City/[facility]/ZIP Co de Phone Number [facility] [address] [place] [address] [phone] * Basic Metabolic Panel (05/05/2022 5:11 PM EST) Sodium 145 135 - 145 mmol/L [facility] Potassium 4.6 3.3 - 5.1 mmol/L [facility] Chloride 107 96 - 108 mmol/L [facility] Carbon Dioxide 27 22 - 29 mmol/L [facility] Anion Gap 16 12 - 20 [facility] Urea Nitrogen (BUN) 15 9 - 16 mg/dL [facility] Creatinine, Serum 0.86 0.5 - 1.4 mg/dL [facility] Creatinine Clr Calc Pharmacy 102.9 [facility] Comment:eGFR (calculated fro m the MDRD study equation) and eCrCl(calculated from the Cockcroft-Gault equation) are based ondifferent parameters and may not yield comparable results.If eCrCl result is absurd, please check patient'sheight/weight. Estimated Glomerular Filt Rate >60 [facility] Comment:NOTE: For -Am erican individuals, multiply the result by 1.210.Chronic Kidney Disease: Estimated GFR < 60 mL/min/1.01g6Szirqo Kidney Disease: Estimated GFR < 15 mL/min/1.73m2 Glucose 71 60 - 115 mg/dL [facility] Calcium 9.4 8.4 - 10.2 mg/dL [facility] 05/05/2022 5:11 PM EST 05/05/2022 5:16 PM EST [facility] External Provider LAB BLO OD ORDERABLES Final Result Performing Organization Address City/[facility]/ZIP Co de Phone Number [facility] [address] [place] [phone] [phone] * (ABNORMAL) Hepatic Function Panel (05/05/2022 5:11 PM EST) [facility] Bilirubin, Total 0.7 0.0 - 1.0 mg/dL [facility] Bilirubin, Direct 0.2 0.0 - 0.5 mg/dL [facility] Aspartate Amino Transferase 24 5 - 37 U/L [facility] Alanine Aminotransferase 46(H) 0 - 40 U/L [facility] Total Protein 8.2(H) 6.5 - 8.0 g/dL [facility] Albumin Level 4.8 3.5 - 5.0 g/dL [facility] Alkaline Phosphatase 78 39 - 117 U/L [facility] 05/05/2022 5:11 PM EST 05/05/2022 5:16 PM EST us [facility] External Provider LAB BLO OD ORDERABLES Final Result Performing Organization Address City/State/[facility] [[email or web address]] Co de Phone Number [facility] [address] [place] [phone] * (ABNORMAL) CBC auto differential (05/05/2022 5:11 PM EST) [facility] White Blood Count 10.0 4.8 - 10.8 X10*3/uL [facility] Red Blood Count 5.31 4.60 - 5.80 X10*6/uL [facility] Hemoglobin 15.7 14.0 - 18.0 g/dl [facility] Hematocrit 47.5 42.0 - 52.0 % [facility] Mean Corpuscular Volume 89.5 80.0 - 98.0 fL [facility] Mean Corpuscular Hemoglobin 29.6 27.0 - 33.0 pg [facility] Mean Corpuscular HGB Conc 33.1 31.0 - 36.0 g/dl [facility] Red Cell Distribution Width 13.5 11.0 - 16.0 % [facility] Platelet Count 215 160 - 400 X10*3/uL [facility] Mean Platelet Volume 9.2(L) 9.4 - 12.4 fL [facility] Neutrophils Percent Auto 50.7 45 - 73 % [facility] Imm Gran Pct Auto 0.1 0.0 - 0.4 % [facility] Lymphocytes Percent Auto 35.9 20 - 40 % [facility] Monocytes Percent Auto 9.9 2 - 11 % [facility] Eosinophils Percent Auto 2.6 0 - 4 % [facility] Basophils Percent Auto 0.8 0 - 2 % [facility] NRBC Pct Auto 0.0 0.0 - 0.2 /100WBC [facility] Neutrophils Absolute Auto 5.1 2.0 - 8.3 x10*3/uL [facility] Imm Gran Abs Auto 0.01 0.00 - 0.03 X10*3/uL [facility] Lymphocytes Absolute Auto 3.6 1.2 - 4.9 X10*3/uL [facility] Monocytes Absolute Auto 1.0 0.1 - 1.2 X10*3/uL [facility] Eosinophils Absolute Auto 0.3 0.0 - 0.4 X10*3/uL [facility] Basophils Absolute Auto 0.1 0.0 - 0.2 X10*3/uL [facility] NRBC Abs Auto 0.000 0.0 - 0.012 X10*3/uL [facility] 05/05/2022 5:11 PM EST 05/05/2022 5:16 PM EST us [facility] External Provider LAB BLO OD ORDERABLES Final Result [facility] [address] [place] [phone] * Urinalysis with reflex microscopic (05/05/2022 5:11 PM EST) Color Urine Yellow [facility] Appearance Urine Clear [facility] PH 5.0 5.0 - 9.0 [facility] Glucose Urine UA Negative Negative mg/dL [facility] Urine Blood Negative Negative [facility] Specific [place] - Urine 1.025 1.005 - 1.025 [facility] Urine Protein Negative Neg-Trace mg/dL [facility] Urine Ketones Negative Negative mg/dL [facility] Nitrite Urine Negative Negative [facility] Leukocyte Esterase Urine Negative Negative [facility] 05/05/2022 5:11 PM EST 05/05/2022 5:17 PM EST Narrative [facility] - 05/05/2022 5:21 PM EST [id number], Clean Catch us [facility] External Provider LAB URI NE ORDERABLES Final Result [facility] [address] [place] [phone] [phone] documented in this encounter Visit Diagnoses Not on filedocumented in this encounter Care Teams Floatlight Powder Mixer Relationship Specialty Start Date End Date Abiola Hadley MD [address] [place] [address] PCP - General Family Medicine 10/22/17 05/20/23 Ayesha Chua MD [address] [place] [address] PCP - General Family Medicine 05/21/23 Ho Wilkerson DMD [address] [place] [address] Dentist 04/21/24 documented as of this encounter
--- OUTSIDE RECORDS SUMMARY | 2024-06-06 18:58 | XMS_ITS | Encounter Summary ---
Author Organization [employer] Address [address] [facility] 7t [place] [address] Care Team Providers Care Machine Operator Hay Stacker Name Role Phone Abiola Hadley MD Primary Care Provider [phone] Ayesha Chua MD Primary Care Provider [phone] Ho Wilkerson DMD Unavailable [phone] Encounter Details Date Type Department Care Team (Latest Contact Info) Description 12/10/2018 Abstract [facility] CONVERSIONS Dental, Provider, DDS Social History Tobacco Use Types Packs/Day Years [...] Description 06/23/2024 10:00 AM EDT Office Visit [facility] [address] [place] [address] Ho Wilkerson, DMD [address] [place] [address] 07/15/2024 8:00 AM EDT Office Visit [facility] [address] [place] [address] Jennifer Barboza 08/26/2024 9:15 AM EDT Office Visit [facility] [address] [place] [address] Ayesha Chua MD [address] [place] [address] documented as of this encounter Visit Diagnoses Not on filedocumented in this encounter Care Teams Machine Operator Hay Stacker Relationship Specialty Start Date End Date Abiola Hadley MD [address] [place] [address] PCP - General Family Medicine 10/22/17 05/20/23 Ayesha Chua MD [address] [place] [phone] PCP - General Family Medicine 05/21/23 Ho Wilkerson DMD [address] [place] [address] Dentist 04/21/24 documented as of this encounter
--- OUTSIDE RECORDS SUMMARY | 2024-06-06 18:58 | XMS_ITS | Clinical Summary ---
Author Organization [facility] Address [address] [place] [address] Care Team Providers Care Clinical Lab Clerk Name Role Phone Unavailable Primary Care Provider Unavailabl e Social History Tobacco Use Types Packs/Day Years Used Date Smoking Tobacco: Never Assessed Sex and Gender Information Value Date Recorded Sex Assigned at Not on file Legal Sex Male 11:42 AM EST Gender Identity Not on file Sexual Orientation Not on file Plan of Treatment Not on file
--- OUTSIDE RECORDS SUMMARY | 2024-06-06 18:58 | XMS_ITS | Encounter Summary ---
Author Organization [employer] Address [address] [facility] [address] [place] [address] Care Team Providers Care Blasting Clay Miner Name Role Phone Abiola Hadley MD Primary Care Provider Ayesha Chua MD Primary Care Provider [phone] Ho Wilkerson DMD Unavailable [phone] Encounter Details Date Type Department Care Team (Latest Contact Info) Description 10/01/2021 Abstract [facility] CONVERSIONS Dental, Provider, DDS Social History [...] Description 06/23/2024 10:00 AM EDT Office Visit [facility] [address] [place] [address] Ho Wilkerson, DMD [address] [place] [address] 07/15/2024 8:00 AM EDT Office Visit [facility] [address] [place] [address] Jennifer Barboza 08/26/2024 9:15 AM EDT Office Visit [facility] [address] [place] [address] Aeysha Chua MD [address] [place] [address] documented as of this encounter Visit Diagnoses Not on filedocumented in this encounter Care Teams Blasting Clay Miner Relationship Specialty Start Date End Date Abiola Hadley MD [address] [place] [address] PCP - General Family Medicine 10/22/17 05/20/23 Ayesha Chua MD [address] [place] [phone] PCP - General Family Medicine 05/21/23 Ho Wilkerson DMD [address] [place] [address] Dentist 04/21/24 documented as of this encounter
--- OUTSIDE RECORDS SUMMARY | 2024-06-06 18:58 | XMS_ITS | Clinical Summary ---
Author Organization [employer] Address [address] [place] [address] Care Team Providers [facility] [employer] Name Role Phone Ayesha Chua MD Primary Care Provider [phone] Ho Wilkerson DMD Unavailable [phone] Allergies No known active allergies Medications cholecalciferol (Vitamin D-3) 50 MCG (1999 UT) capsule Take by mouth in the morning. 023 Active polyethylene glycol, PEG, 3350 (Glycolax) 17 GM/SCOOP powder STIR 17GM INTO 8 OUNCES OF WATER, OR JUICE, AND DRINK DAILY NEEDED / DIRECTED 023 Active senna (Senokot) 8.6 MG tablet TAKE TWO TABLETS BY MOUTH AT BEDTIME NEEDED FOR CONSTIPATION 023 Active fluticasone (Flonase) 50 MCG/ACT nasal spray INHALE ONE SPRAY IN EACH NOSTRIL DAILY 16 g 11 024 Active Linzess 145 MCG capsule Take 145 mcg by mouth in the morning. 024 Active Creon [id number] units capsule delayed-release particles capsule TAKE TWO CAPSULES FOUR TIMES DAILY WITH MEALS AND OR snacks Active triamcinolone (Kenalog) 0.1 % cream Apply topically if needed in the morning and at bedtime (pain and swelling). 30 g 2 024 Active hydroquinone 4 % cream Apply topically at bedtime. 30 mL 2 024 2024 Active albuterol 108 (90 Base) MCG/ACT inhaler Q4H 021 Active FT Magnesium Citrate oral solution DRINK 150 ML BY MOUTH DAILY NEEDED FOR CONSTIPATION Active oxybutynin XL (Ditropan-XL) 10 MG 24 hr tablet Take 10 mg by mouth with breakfast. Active tamsulosin (Flomax) 0.4 MG 24 hr capsule TAKE ONE CAPSULE EVERY NIGHT AT BEDTIME Active Sodium Fluoride 1.1 % creamIndications:De ntin hypersensitivity [place] teeth for 2 minutes, morning and night. Spit, do not rinse. Do not eat or drink anything for 30 minutes following use. 112 g 3 024 Active cetirizine (ZyrTEC) 10 MG tablet TAKE ONE TABLET BY MOUTH ONCE DAILY 90 tablet 1 025 Active triamcinolone (Kenalog) 0.1 % ointmentIndications :Post-inflammatory hyperpigmentation Apply topically 2 times daily. 30 g 025 Active omega-3 (Fish Oil) 1000 MG capsule TAKE ONE CAPSULE TWICE DAILY 60 capsule 5 025 Active pseudoephedrine (Sudafed) 30 MG tablet Take 1 tablet (30 mg) by mouth every 4 (four) hours if needed for congestion for up to 10 days. 30 tablet 025 Active atorvastatin (Lipitor) 40 MG tabletIndications:M ixed hyperlipidemia TAKE ONE TABLET BY MOUTH AT BEDTIME 90 tablet 1 025 Active atorvastatin (Lipitor) 40 MG tabletIndications:M ixed hyperlipidemia TAKE ONE TABLET BY MOUTH AT BEDTIME 90 tablet 1 024 2024 Discontinued azithromycin (Zithromax) 250 MG tabletIndications:A cute cough,Bronchitis 500 mg on day 1, 250 mg day 2-5 6 tablet 025 2024 Discontinued benzonatate (Tessalon Perles) 100 MG capsuleIndications: Acute cough,Bronchitis Take 1 capsule (100 mg) by mouth if needed in the morning, at noon, and at bedtime for cough for up to 7 days. Do not crush or chew. 20 capsule 025 2024 Discontinued Active Problems Problem Noted Date Diagnosed Date Avulsion of nail of left little finger Benign localized prostatic h yperplasia with lower urinary tract symptoms (LUTS) 04/21/2024 Chronic cough 04/21/2024 Constipation 04/21/2024 Cough variant asthma 04/21/2024 Diverticulosis 04/21/2024 High cholesterol 04/21/2024 Open fracture of tuft of distal phalanx of finge r 04/21/2024 Screening PSA (prostate specific antigen) 2024 Sessile colonic polyp 04/21/2024 Overview (04/21/2024): Sessile serrated polyp Sprain of right knee 04/21/2024 Urinary frequency 04/21/2024 Urinary urgency 04/21/2024 Allergic rhinitis 08/06/2015 Dyslipidemia 01/15/2015 Obstructive sleep apnea of adult 01/15/2015 Tubular adenoma of colon 01/15/2015 Overweight 10/27/2011 Hyperlipidemia 10/27/2011 Encounters Date Type Department Care Team Description 06/01/2024 8:00 AM EDT Office Visit [facility] [address] [place] [address] Ho Wilkerson, AMOS Partial edentulism, unspecified edentulism class (Primary Dx) 05/28/2024 Refill [facility] [address] [place] [address] Ayesha Chua MD Mixed hyperlipidemia 05/25/2024 11:00 AM EDT Office Visit [facility] [address] [place] [address] Ayesha Chua MD Cough, unspecified type (Primary Dx) 05/25/2024 Travel 05/23/2024 Telephone [facility] [address] [place] [address] Ayesha Chua MD Nurse Triage 05/16/2024 10:45 AM EDT Office Visit [facility] [address] [place] [address] Suze Santos MD Acute cough (Primary Dx); Bronchitis 05/16/2024 Travel 05/16/2024 Telephone [facility] [address] [place] [address] Ayesha Chua MD Nurse Triage 04/28/2024 Refill [facility] [address] [place] [address] Suze Santos MD 04/21/2024 11:00 AM EST Office Visit [facility] [address] [place] [address] Ho Wilkerson DMD Full coverage crown needed for tooth at risk for fracture (Primary Dx) 04/19/2024 9:00 AM EST Office Visit [facility] [address] [place] [address] Suze Santos MD Post inflammatory hypopigmentation (Primary Dx); Post-inflammatory hyperpigmentation 04/19/2024 Travel 04/05/2024 10:15 AM EST Office Visit [facility] [address] [place] [address] Ayesha Chua MD Dyslipidemia (Primary Dx); Preop cardiovascular exam; Obstructive sleep apnea of adult 04/05/2024 Travel 04/04/2024 Telephone [facility] [address] [place] [address] Ayesha Chua MD Chart Prep 04/02/2024 Refill [facility] [address] [place] [address] Ayesha Chua MD 03/30/2024 Telephone [facility] [address] [place] [phone] Ayesha Chua MD results 03/29/2024 Telephone [facility] [address] [place] [address] Ayesha Chua MD Pre-op Exam 03/25/2024 8:00 AM EST Office Visit [facility] [address] [place] [address] Ho Wilkerson DMD Dental caries (Primary Dx); Full coverage crown needed for tooth at risk for fracture 03/24/2024 Telephone [facility] [address] [place] [address] Awilda Shaw OD from Last 3 Months Immunizations Name Administration Dates Next Due Influenza, seasonal, injectable, preservative fr ee 01/08/2024 Pneumococcal Polysaccharide PPSV23 06/04/2015 TD (adult), 2 Lf tetanus tox oid, preservative free, adsorbed 03/18/2017,05/16/2008 Tdap 05/21/2023 Social History Tobacco Use Types Packs/Day Years Used Date Smoking Tobacco: Never Passive Smoke Exposure: Never Smokeless Tobacco: Never Tobacco Cessation:Counseling Given: Not Answered Alcohol Use Standard Drinks/Week Comments Never 0 (1 standard drink = 0.6 oz pur e alcohol) Depression Answer Date Recorded Patient Health Questionnaire-9 Score 0 08/05/2022 Housing Stability Answer Date Recorded What is your housing situation today? I have pranay melissa 01/07/[address] you li ve. Do you have problems with any of the following? None of the above 01/07/2023 Food Insecurity Answer Date Recorded Within the past 12 months, y ou worried that your food would run out before you got money to buy more: Never True 01/07/2023 Within the past 12 months,th e food you bought just didn't last and you didn't have enough money to get more: Never True 09/2022 Transportation Answer Date Recorded In the past 12 months, has l ack of transportation kept you from medical appts, meetings, work or from getting things needed for daily living? No 01/07/2023 Utilities Answer Date Recorded In the past 12 months, has t he electric, gas, oil or water company threatened to shut off services in your home? No 01/07/2023 Depression Answer Date Recorded Patient Health Questionnaire-2 Score 0 08/05/2022 Sex and Gender Information Value Date Recorded Sex Assigned at Male 12/30/2021 10:20 AM EDT Legal Sex Male 10:20 AM EDT Gender Identity Male 12/30/2021 10:20 AM EDT Sexual Orientation Straight 12/30/2021 10 :20 AM EDT Last Filed Vital Signs Vital Sign Reading Time Taken Comments Blood Pressure 118/72 05/25/2024 11:07 AM EDT Pulse 74 05/25/2024 11:07 AM EDT Temperature 36.3 ??C (97.3 ??F) 05/25/2024 11:07 AM E DT Respiratory Rate 18 05/25/2024 11:07 AM EDT Oxygen Saturation 99% 05/25/2024 11:07 AM EDT Inhaled Oxygen Concentration - - Weight 97.5 kg (215 lb) 05/25/2024 11:07 AM EDT Height 170.2 cm (5' 7 ) 05/25/2024 11:07 AM EDT Body Mass Index 33.67 05/25/2024 11:07 AM EDT Plan of Treatment Upcoming Encounters Date Type Department Care Team (Late st Contact Info) Description 06/23/2024 10:00 AM EDT Office Visit [facility] [address] [place] [address] Ho Wilkerson DMD [address] [place] [address] 07/15/2024 8:00 AM EDT Office Visit [facility] [address] [place] [address] Jennifer Barboza 08/26/2024 9:15 AM EDT Office Visit [facility] [address] [place] [address] Ayesha Chua MD [address] [place] [address] Health Maintenance Due Date Last Done Comments CT Colonography 1963 FIT DNA/Cologuard 1963 FIT 1963 FOBT 1963 HIV Screening 1963 Sigmoidoscopy 1963 Alcohol/Substance Use Screening 1975 Hepatitis C Screening 09/07/1981 Zoster Vaccines (1 of 2) 09/07/2013 Pneumococcal Vaccine: 50+ Years (2 of 2 - PCV) 06/03/2016 06/04/2015 Depression Screening 08/06/2023 08/05/2022, 08/06/19 23 RSV Patients and Patients Aged 60 years or older (1 - Risk 60-74 years 1-dose series) 2023 COVID-19 Vaccine ( season) 2023 12/16/2021, 04/12/2021, 06/22/2020, Additional history exists SDOH Screening 05/12/2024 05/13/2023 Dental X-Ray: Bitewings 05/15/2024 05/15/19 24, 11/27/2021, 10/01/2021, Additional history exists Dental Oral Exam 07/13/2024 01/13/2024, , 10/01/2021, Additional history exists Dental Prophylaxis 07/13/2024 01/13/2024, 0 05/15/2023, 10/16/2021, Additional history exists Tobacco Screening 06/01/2025 06/01/2024 Dental X-Ray: Full Mouth 05/15/2026 05/15/2023, 01/31 Colonoscopy 01/06/2027 01/06/2022 Colorectal Cancer Screening 01/06/2027 Lipid Panel 03/25/2029 03/25/2024, 05/01, 04/15/2021, Additional history exists DTaP/Tdap/Td Vaccines (3 - Td or Tdap) 02/05/2034 02/06/2024, 05/21/2023, 03/18/2017, Additional history exists Influenza Vaccine Completed 01/08/2024, , 11/22/2019, Additional history exists HIB Vaccines Aged Out No longer eligi ble based on patient's age to complete this topic HPV Vaccines Aged Out No longer eligi ble based on patient's age to complete this topic Hepatitis A Vaccines Aged Out No long er eligible based on patient's age to complete this topic Hepatitis B Vaccines Aged Out No long er eligible based on patient's age to complete this topic IPV Vaccines Aged Out No longer eligi ble based on patient's age to complete this topic Meningococcal Vaccine Aged Out No heber lexx eligible based on patient's age to complete this topic RSV under 20 months Aged Out No longe r eligible based on patient's age to complete this topic Rotavirus Vaccines Aged Out No longer eligible based on patient's age to complete this topic Procedures Procedure Name Priority Date/Time Associated Diagnosis Comments LIPASE Routine 06/06/2024 2:45 PM EDT COMPREHENSIVE METABOLIC PANEL Routine 06/06/2024 2:45 PM EDT URINALYSIS WITH REFLEX MICROSCOPIC Routine 06/06/2024 2:45 PM EDT CBC WITH AUTO DIFFERENTIAL Routine 06/06/2024 2:45 PM EDT CASE PRESENTATION, DETAILED AND EXTENSIVE TREATMENT PLANNING Routine 06/01/2024 8:00 AM EDT Partial edentulism, unspecified edentulism class DENTURE IMPRESSION Routine 06/01/2024 8: 00 AM EDT Partial edentulism, unspecified edentulism class POCT INFLUENZA B Routine 05/16/2024 11:1 3 AM EDT Acute cough Bronchitis POCT INFLUENZA A Routine 05/16/2024 11:1 3 AM EDT Acute cough Bronchitis POCT RAPID COVID ANTIGEN Routine 05/16/2024 11:12 AM EDT Acute cough Bronchitis CASE PRESENTATION, DETAILED AND EXTENSIVE TREATMENT PLANNING Routine 04/21/2024 11:00 AM EST Full coverage crown needed for tooth at risk for fracture 20 CROWN - PORCELAIN/CERAMIC Routine 04/21/2024 11:00 AM EST Full coverage crown needed for tooth at risk for fracture ECG 12-LEAD Routine 04/05/2024 11:36 AM EST Preop cardiovascular exam HEPATIC FUNCTION PANEL Routine 03/25/2024 9:53 AM EST Dyslipidemia LIPID PANEL, STANDARD Routine 03/25/2024 9:53 AM EST Dyslipidemia BASIC METABOLIC PANEL Routine 03/25/2024 9:53 AM EST Dyslipidemia CASE PRESENTATION, DETAILED AND EXTENSIVE TREATMENT PLANNING Routine 03/25/2024 8:00 AM EST Dental caries Full coverage crown needed for tooth at risk for fracture 20 CORE BUILDUP, INCL ANY PINS WHEN REQ Routine 03/25/2024 8:00 AM EST Dental caries Full coverage crown needed for tooth at risk for fracture 20 CROWN PREP Routine 03/25/2024 8:00 AM EST Dental caries Full coverage crown needed for tooth at risk for fracture 21 DO RESIN-BASED COMPOSITE - 2 SURF, POSTERIOR Routine 03/25/2024 8:00 AM EST Dental caries 19 O RESIN-BASED COMPOSITE - 1 SURF, POSTERIOR Routine 03/25/2024 8:00 AM EST Dental caries PROPHYLAXIS - ADULT Routine 01/13/2024 8 :00 AM EST Dentin hypersensitivity Dental caries PERIODIC ORAL EVALUATION - ESTABLISHED PATIENT Routine 01/13/2024 8:00 AM EST Dentin hypersensitivity Dental caries INTRAORAL - COMPLETE SERIES OF RADIOGRAPHIC IMAGES Routine 05/15/2023 8:00 AM EDT HM COLONOSCOPY Routine 01/06/2022 from Last 3 Months or Most Recently Relevant to Health Maintenance Results * (ABNORMAL) CBC auto differential (06/06/2024 2:45 PM EDT) White Blood Count 8.1 4.8 - 10.8 X10*3/uL [facility] Red Blood Count 4.91 4.60 - 5.80 X10*6/uL [facility] Hemoglobin 14.4 14.0 - 18.0 g/dl [facility] Hematocrit 41.3(L) 42.0 - 52.0 % [facility] Mean Corpuscular Volume 84.1 80.0 - 98.0 fL [facility] Mean Corpuscular Hemoglobin 29.3 27.0 - 33.0 pg [facility] Mean Corpuscular HGB Conc 34.9 31.0 - 36.0 g/dl [facility] Red Cell Distribution Width 13.3 11.0 - 16.0 % [facility] Platelet Count 217 160 - 400 X10*3/uL [facility] Mean Platelet Volume 8.8(L) 9.4 - 12.4 fL [facility] Neutrophils Percent Auto 51.3 45 - 73 % [facility] Imm Gran Pct Auto 0.2 0.0 - 0.4 % [facility] Lymphocytes Percent Auto 34.0 20 - 40 % [facility] Monocytes Percent Auto 8.1 2 - 11 % [facility] Eosinophils Percent Auto 5.8(H) 0 - 4 % [facility] Basophils Percent Auto 0.6 0 - 2 % [facility] NRBC Pct Auto 0.0 0.0 - 0.2 /100WBC [facility] Neutrophils Absolute Auto 4.1 2.0 - 8.3 x10*3/uL [facility] Imm Gran Abs Auto 0.02 0.00 - 0.03 X10*3/uL [facility] Lymphocytes Absolute Auto 2.7 1.2 - 4.9 X10*3/uL [facility] Monocytes Absolute Auto 0.7 0.1 - 1.2 X10*3/uL [facility] Eosinophils Absolute Auto 0.5(H) 0.0 - 0.4 X10*3/uL [facility] Basophils Absolute Auto 0.1 0.0 - 0.2 X10*3/uL [facility] NRBC Abs Auto 0.000 0.0 - 0.012 X10*3/uL [facility] 06/06/2024 2:45 PM EDT 06/06/2024 2:48 PM EDT us Generic External Data Provider LAB BLOOD ORDERAB LES Final Result [facility] [address] [place] [phone] * Urinalysis w/reflex microscopic (06/06/2024 2:45 PM EDT) Color Urine Yellow [facility] Appearance Urine Clear [facility] PH 5.5 5.0 - 9.0 [facility] Glucose Urine UA Negative Negative mg/dL [facility] Urine Blood Negative Negative [facility] Specific Mousie - Urine 1.015 1.005 - 1.025 [facility] Urine Protein Negative Neg-Trace mg/dL [facility] Urine Ketones Negative Negative mg/dL [facility] Nitrite Urine Negative Negative [facility] Leukocyte Esterase Urine Negative Negative [facility] 06/06/2024 2:45 PM EDT 06/06/2024 2:48 PM EDT Narrative [facility] - 06/06/2024 2:54 PM EDT [id number], [employer] us Generic External Data Provider LAB URINE ORDERAB LES Final Result Performing Organization Address City/[facility]/ZIP Co de Phone Number [facility] [address] [place] [address] [phone] * Lipase (06/06/2024 2:45 PM EDT) Lipase 26 8 - 78 U/L [facility] 06/06/2024 2:45 PM EDT 06/06/2024 2:48 PM EDT Generic External Data Provider LAB BLOOD ORDERAB LES Final Result Performing Organization Address [facility] Phone Number [facility] [address] [place] [address] [phone] * (ABNORMAL) Comprehensive Metabolic Panel (06/06/2024 2:45 PM EDT) Pathologist [facility] Sodium 141 135 - 145 mmol/L [facility] Potassium 4.7 3.3 - 5.1 mmol/L [facility] Chloride 106 96 - 108 mmol/L [facility] Carbon Dioxide 27 22 - 29 mmol/L [facility] Anion Gap 13 12 - 20 [facility] Urea Nitrogen (BUN) 14 9 - 16 mg/dL [facility] Creatinine, Serum 0.89 0.5 - 1.4 mg/dL [facility] Creatinine Clr Calc Pharmacy 99.9 [facility] Comment:eGFR (calculated fro m the MDRD study equation) and eCrCl(calculated from the Cockcroft-Gault equation) are based ondifferent parameters and may not yield comparable results.If eCrCl result is absurd, please check patient'sheight/weight. Estimated Glomerular Filt Rate >60 [facility] Comment:Chronic Kidney Disea se: Estimated GFR < 60 mL/min/[id number] Kidney Disease: Estimated GFR < 15 mL/min/1.73m2 Glucose 100 60 - 115 mg/dL [facility] Calcium 9.5 8.4 - 10.2 mg/dL [facility] Bilirubin, Total 0.7 0.0 - 1.0 mg/dL [facility] Aspartate Amino Transferase 46(H) 5 - 37 U/L [facility] Alanine Aminotransferase 83(H) 0 - 40 U/L [facility] Total Protein 7.9 6.5 - 8.0 g/dL [facility] Albumin Level 4.4 3.5 - 5.0 g/dL [facility] Alkaline Phosphatase 107 39 - 117 U/L [facility] 06/06/2024 2:45 PM EDT 06/06/2024 2:48 PM EDT Generic External Data Provider LAB BLOOD ORDERAB LES Final Result Performing Organization Address City/State/[facility] Co de Phone Number [facility] [address] [place] [phone] * POCT Rapid Influenza B OSOM (05/16/2024 11:13 AM EDT) Pathologist [facility] Rapid Influenza B Ag Negative Negative, Indeterminate QC Media Lot # [id number] Lot# Expiration Date Swab 05/16/2024 11:1 3 AM EDT Suze Santos MD POINT OF CARE TEST ENTER/ED IT ORDERABLES Final Result * POCT Rapid Influenza A OSOM (05/16/2024 11:13 AM EDT) Pathologist [facility] Rapid Influenza A Ag Negative Negative, Indeterminate QC Media Lot # [id number] Lot# Expiration Date Swab Nasopharyngeal structure / Unknown 05/16/2024 11:13 AM EDT Suze Santos MD POINT OF CARE TEST ENTER/ED IT ORDERABLES Final Result * POCT Rapid Covid-19 BinaxNOW (05/16/2024 11:12 AM EDT) Pathologist [facility] Rapid COVID Ag Negative QC Media Lot # [id number] Lot# Expiration Date Swab 05/16/2024 11:1 2 AM EDT Suze Santos MD POINT OF CARE TEST ENTER/ED IT ORDERABLES Final Result * ECG 12 lead (04/05/2024 11:36 AM EST) Narrative Ayesha Cuha MD - 04/05/2024 11:36 AM EST NSR No acute process.Multiple artifacts due to the machine Ayesha Chua MD ECG ORDERABLES Final Result * (ABNORMAL) Hepatic Function Panel (03/25/2024 9:53 AM EST) [facility] Bilirubin, Total 0.8 0.0 - 1.0 mg/dL [facility] Bilirubin, Direct 0.3 0.0 - 0.5 mg/dL [facility] Aspartate Amino Transferase 41(H) 5 - 37 U/L [facility] Alanine Aminotransferase 68(H) 0 - 40 U/L [facility] Total Protein 8.3(H) 6.5 - 8.0 g/dL [facility] Albumin Level 4.4 3.5 - 5.0 g/dL [facility] Alkaline Phosphatase 99 39 - 117 U/L [facility] Blood Venous blood specimen / Unknown 03/25/2024 9:53 AM EST 03/25/2024 2:34 PM EST Ayesha Chua MD LAB BLOOD ORDERABLES Final Resul t [facility] [address] [place] [phone] * (ABNORMAL) Lipid Panel, Standard (03/25/2024 9:53 AM EST) [facility] Triglycerides 187(H) <150 mg/dL [facility] Comment:Desirable Triglyceri de: less than 150 mg/dLBorderline High Triglyceride 150-199 mg/dLHigh Triglyceride: 200-499 mg/dLVery High Triglyceride: greater than or equal to 5OO mg/dL Cholesterol 176 <200 mg/dL [facility] Comment:Desirable Cholestero l: less than 200 mg/dLBorderline High Cholesterol: 200-239 mg/dLHigh Cholesterol: greater than 239 mg/dL LDL Cholesterol Calculated 106(H) <100 mg/dL [facility] Comment:Desirable LDL: less than 100 mg/dLNear Optimal/Above Optimal LDL: 110- 129 mg/dLBorderline High LDL: 130-159 mg/dLHigh LDL: 160-189 mg/dLVery High LDL: greater than or equal to 190 mg/dL HDL Cholesterol 33(L) >40 mg/dL [facility] Comment:Desirable HDL: great er than 40 mg/dL Note: This HDL assay may give artificially low results in patients with liver disease. Blood Venous blood specimen / Unknown 03/25/2024 9:53 AM EST 03/25/2024 2:34 PM EST us Ayesha Chua MD LAB BLOOD ORDERABLES Final Resul t [facility] [address] [place] [phone] * (ABNORMAL) Basic Metabolic Panel (03/25/2024 9:53 AM EST) Sodium 140 135 - 145 mmol/L [facility] Potassium 4.1 3.3 - 5.1 mmol/L [facility] Chloride 106 96 - 108 mmol/L [facility] Carbon Dioxide 27 22 - 29 mmol/L [facility] Anion Gap 11(L) 12 - 20 [facility] Urea Nitrogen (BUN) 14 9 - 16 mg/dL [facility] Creatinine, Serum 0.86 0.5 - 1.4 mg/dL [facility] Estimated Glomerular Filt Rate >60 [facility] Comment:Chronic Kidney Disea se: Estimated GFR < 60 mL/min/[id number] Kidney Disease: Estimated GFR < 15 mL/min/1.73m2 Glucose 101 60 - 115 mg/dL [facility] Calcium 9.2 8.4 - 10.2 mg/dL [facility] Blood Venous blood specimen / Unknown 03/25/2024 9:53 AM EST 03/25/2024 2:34 PM EST Ayesha Chua MD LAB BLOOD ORDERABLES Final Resul t [facility] [address] [place] [phone] * Colonoscopy (01/06/2022) Colonoscopy Normal Normal Narrative Anu Cartagena - 01/06/2022 Recommended 5 year follow up Historical Provider HEALTH MAINTENANCE Final Result from Last 3 Months or Most Recently Relevant to Health Maintenance Insurance [employer] [facility] F[facility] MEDICAID LIMITED ADULT DENTAL - HSN FULL (MEDICAID) Care Teams [employer] Relationship Specialty Start Date End Date Ayesha Chua MD [address] [place] [phone] PCP - General Family Medicine 05/21/23 Ho Wilkerson DMD [address] [place] [address] Dentist 04/21/24
--- OUTSIDE RECORDS SUMMARY | 2024-06-06 18:58 | XMS_ITS | Encounter Summary ---
Author Organization [employer] Address [address] [place] [address] Care Team Providers Care Field Sales Trainer Name Role Phone Abiola Hadley MD Primary Care Provider [phone] Ayesha Chua MD Primary Care Provider [phone] Ho Wilkerson DMD Unavailable [phone] Encounter Details Date Type Department Care Team (Late st Contact Info) Description 01/07/2023 Abstract [facility] MEDICINE [address] [place] [address] Anu Cartagena Social History Tobacco Use Types Packs/Day Years Used Date Smoking Tobacco: Never Passive Smoke Exposure: Never Smokeless Tobacco: Never Alcohol Use Standard Drinks/Week Comments Never 0 (1 standard drink = 0.6 oz pur e alcohol) Depression Answer Date Recorded Patient Health Questionnaire-9 Score 0 08/05/2022 Housing Stability Answer Date Recorded What is your housing situation today? I have pranay torres 01/07/[address] you li [...] Description 06/23/2024 10:00 AM EDT Office Visit [facility] ADULT DENTAL [address] [place] [address] Ho Wilkerson DMD [address] [place] [address] 07/15/2024 8:00 AM EDT Office Visit [facility] ADULT DENTAL [address] [place] [address] Jennifer Barboza 08/26/2024 9:15 AM EDT Office Visit [facility] MED & PEDS [address] [place], [place] [phone] Ayesha Chua MD [address] [place] [address] documented as of this encounter Procedures Procedure Name Priority Date/Time Associated Diagnosis Comments COLONOSCOPY Routine 01/06/2022 documented in this encounter Results * Hm Colonoscopy (01/06/2022) Colonoscopy Normal Normal Narrative Anu Cartagena - 01/06/2022 Recommended 5 year follow up us Historical Provider HEALTH MAINTENANCE Final Result documented in this encounter Visit Diagnoses Not on filedocumented in this encounter Additional Health Concerns Assessment Noted Time PHQ-9 Depression Total Score: 0 08/06/19 23 9:03 AM EDT documented as of this encounter Care Teams Field Sales Trainer Relationship Specialty Start Date End Date Abiola Hadley MD [address] [place] [id number] PCP - General Family Medicine 10/22/17 05/20/23 Ayesha Chua MD [address] [place] [id number] PCP - General Family Medicine 05/21/23 Ho Wilkerson DMD [address] [place] [phone] Dentist 04/21/24 documented as of this encounter
--- OUTSIDE RECORDS SUMMARY | 2024-06-06 18:58 | XMS_ITS | Encounter Summary ---
Author Organization [employer] Address [address] [facility] [facility] [address] [place] [address] Care Team Providers Care French Tutor Name Role Phone Ayesha Chua MD Primary Care Provider [phone] Ho Wilkerson DMD Unavailable [phone] Reason for Visit * Reason Comments Dentures Impression for dentu res Encounter Details Date Type Department Care Team (Late st Contact Info) Description 06/01/2024 8:00 AM EDT Office Visit [facility] ADULT DENTAL [address] [place] [address] Ho Wilkerson, DMD [address] [place] [address] Partial edentulism, unspecified edentulism class (Primary Dx) Social History Tobacco Use Types Packs/Day Years [...] AM EDT documented as of this encounter Progress Notes * Ho Wilkerson DMD - 06/01/2024 8:00 AM EDT Patient ID: Jeronimo Banks is a 58 y.o. male. Time Out: Timeout Date: 06/01/24, Timeout Time: 806 Location: [facility] Tooth: Maxilla and Mandible Procedure: Dentures Verified the above with patient, news production assistant, and provider. Confirmed via patient's chart, intraorally and by radiographs. Reverse Unit Operator: not applicable Chief Complaint Patient presents with Dentures Impression for dentures Medical Hx: Vitals: There were no vitals taken for this visit. Medications, Med Hx reviewed with patient and updated in chart. Consent Obtained: The risks, benefits, indications, potential complications, and alternatives were explained to the patient and informed consent was obtained with good understanding. Treatment Provided: Dental procedures in this visit D5110 - DENTURE IMPRESSION (Completed) Service provider: Ho Wilkerson DMD Billing provider: Ho Wilkerson DMD [id number] - CASE PRESENTATION, DETAILED AND EXTENSIVE TREATMENT PLANNING (Completed) Service provider: Ho Wilkerson DMD Billing provider: Ho Wilkerson DMD Impression taken with [place] of Maxilla and Mandible Case sent to lab to fabricate record bases and wax rims Pt interested in UR and UL 3 unit FPD to replace #7 and #12 Pt approved for SFS - gave pt estimated cost. Financially not possible for pt at this time Advise fabricating partial and in future we can fabricate FPDs. Pt understood and agreed Lab used: [facility] Due Date: 06/10 Patient discharged alert, oriented, and in stable condition. NV: Bite reg Nuclear Engineer: Lizzeth Henriquez Dentist: Ho Wilkerson DMD documented in this encounter Plan of Treatment Upcoming Encounters Date Type Department Care Team (Late st Contact Info) Description 06/23/2024 10:00 AM EDT Office Visit [facility] ADULT DENTAL [address] [place] [address] Ho Wilkerson DMD [address] [place] [address] 07/15/2024 8:00 AM EDT Office Visit [facility] ADULT DENTAL [address] [place] [address] Jennifer Barboza 08/26/2024 9:15 AM EDT Office Visit [facility] MED & PEDS [address] [place] [address] Ayesha Chua MD [address] [place] [address] Scheduled Orders Name Type Priority Associated Diagnoses Orde r Schedule DENTAL LAB DENTURES AND PARTIALS Dental Routine Ordered: 025 documented as of this encounter Procedures Procedure Name Priority Date/Time Associated Diagnosis Comments DENTURE IMPRESSION Routine 06/01/2024 8: 00 AM EDT Partial edentulism, unspecified edentulism class CASE PRESENTATION, DETAILED AND EXTENSIVE TREATMENT PLANNING Routine 06/01/2024 8:00 AM EDT Partial edentulism, unspecified edentulism class documented in this encounter Visit Diagnoses Diagnosis Partial edentulism, unspecified edentulism class- Primary documented in this encounter Additional Health Concerns Assessment Noted Time PHQ-9 Depression Total Score: 0 08/06/19 23 9:03 AM EDT documented as of this encounter Care Teams French Tutor Relationship Specialty Start Date End Date Ayesha Chua MD [address] [place] [phone] PCP - General Family Medicine 3/21/24 Ho Wilkerson DMD [address] [place] [phone] Dentist 04/21/24 documented as of this encounter
[2024-06-06] MEDS: iohexoL 350 MG/ML 100 ML INFUS..BTL 85 ML IV (19:35)
[2024-06-06 20:14] VITALS: BP 128/69; PULSE 67; RESP 16; TEMP 36.7; O2SAT 98
[2024-06-06 21:27] VITALS: BP 128/69; PULSE 67; RESP 16; TEMP 36.7; O2SAT 98
== END 2024-06-06 21:27 | disposition home or self-care (01) ==
PROVIDERS: Physician Assistant; Emergency Provider Emergency Medicine Emergency Medical Services; PCP Student in an Organized Health Care Education/Training Program
DX: R10.32 Left lower quadrant pain (principal); K86.2 Cyst of pancreas; R11.0 Nausea; Z79.899 Other long term (current) drug therapy
CPT/HCPCS: 36415; 74177; 80053; 81003; 83690; 85025; 96361; 96374; 96375; 99284; J1885; J2270; Q9967

== ENCOUNTER → 2024-06-06 18:25 | Outpatient (BNV) | payer OTHER, SELFPAY | PROVIDERS: Emergency Provider Emergency Medicine Emergency Medical Services; PCP Student in an Organized Health Care Education/Training Program; Visit Provider Radiology Diagnostic Radiology | DX: K86.2 Cyst of pancreas (principal) | CPT/HCPCS: 74177 ==

== ENCOUNTER 2024-07-04 08:13 | Outpatient (AMB) | payer OTHER, SELFPAY ==
--- NOTE | 2024-07-04 08:14 | MHC.OFFVIS ---
Vital Signs 07/04/24 08:15 Height 5 ft 8 in Weight 215 lb BMI 32.7 BP 132/64 Blood Pressure Location Rt brachial Position Sitting Pulse 64 Pulse Source Pulse Oximeter Pulse Oximetry (%) 98 Oxygen Delivery Method Room Air Intake Visit Reasons: 6 mo. f/u Intake Note: ESTABLISHED PATIENT for mgmt of constipation, IBS, and pancreatic insuff. Chief Complaint; Pt denies any GI sx or concerns at this time. Medications still effective. Pt reports he just recently requested refills but believes they should be processed / handled already. Pt comments if he needs another refill that he will call. Lobby Concierge Required: No Accompanied by: Self / Same As Patient Allergies No Known Allergies [No Known Allergies*] Allergy (Verified 07/04/24 08:19) HPI HPI 6 mo. f/u: Details: LAST VISIT: Exocrine pancreatic insufficiency Constipation Postprandial abdominal bloating Abdominal pain Plan Continue Linzess every morning. Increase fluid intake and activity to promote better bowel motility. Discussed with patient low FODMAP diet. List of food recommended as well as list of food to avoid given to patient. Continue Creon with meals. Follow-up in 6 months, sooner on as needed basis. He is agreeable to plan of care and verbalizes understanding of instructions. He was given the opportunity to ask questions and all questions answered ? TODAY'S VISIT: Patient is here today for follow-up. Patient was seen in the ER June 06 for left lower quadrant abdominal pain. CT scan done and it showed left lower quadrant omental infarct. No diverticulitis. No leukocytosis, transaminitis. Patient reports that he has been doing well except he is more constipated now. Patient states that he is taking Linzess 290 mcg every day and feels like no longer is working as well as it did in the beginning. Patient reports that he drinks water throughout the day. Follows low FODMAP diet to prevent bloating. He still is taking Creon. Patient denies melena, hematochezia, unintentional weight loss or ribbon like stools. Patient denies dyspepsia, dysphagia or odynophagia. 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 Patient reports that he has a bowel movement every day, however he feels like he does not empty his bowels completely like he used to. Patient denies dyspepsia, dysphagia or odynophagia. Denies any other GI concerning symptoms. 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 Review of Systems Const Denies weight gain and Denies weight loss ENT Reports no additional complaints, Denies dysphagia and Denies odynophagia Card Reports no additional complaints Resp Reports no additional complaints GI Denies abdominal pain, Denies belching, Denies melena, Reports bloating, Denies change in bowel habits, Reports constipation, Denies dysphagia, Denies excessive flatus, Denies dyspepsia, Denies heartburn, Denies diarrhea, Denies loose stools, Denies nausea, Denies odynophagia and Denies vomiting Reports no additional complaints Musc Reports no additional complaints Neuro Reports no additional complaints Psych Reports no additional complaints Endo Reports no additional complaints Physical Exam Vital Signs: Last Vital Signs Pulse 64 07/04/24 08:15 BP 132/64 07/04/24 08:15 Pulse Ox 98 07/04/24 08:15 Oxygen Delivery Method Room Air 07/04/24 08:15 BMI result Body Mass Index 32.7 Const General: healthy appearing and no acute distress Nutritional Appearance: obese Orientation/consciousness: patient oriented x3 Resp Effort & Inspection: normal respiratory effort, able to speak in complete sentences, no tracheal deviation and symmetric chest movement Auscultation: clear to auscultation bilaterally Cardio Rate: regular rate GI Inspection: Yes normal to inspection, No distended and Yes obesity Palpation (GI): Soft to palpation, not firm, nontender and No hepatosplenomegaly present Auscultation: normal bowel sounds General: Yes no CVA tenderness Back/Spine/Pelvis Back: no CVA tenderness Skin General skin exam: elasticity normal, turgor normal and dry skin Neuro General: patient oriented x3 Psych Appearance: grossly normal Mental Status: mental status grossly normal Results Reviewed Results Reviewed: CT OF ABDOMEN AND PELVIS 06/06/2024 MPRESSION: Left lower quadrant omental infarct. 1.7 cm pancreatic head cyst, stable from 2022. Recommend follow-up MRI or CT pancreas protocol in 2 years. Laboratory Tests 03/25/24 06/06/24 09:53 14:45 AST 41 H 46 H ALT 68 H 83 H Assessment & Plan Assessment & Plan (1) Exocrine pancreatic insufficiency: Code(s): K86.81 - Exocrine pancreatic insufficiency (2) Constipation: Code(s): K59.00 - Constipation, unspecified Qualifiers: Constipation type: slow transit constipation Qualified Code(s): K59.01 - Slow transit constipation (3) Postprandial abdominal bloating: Code(s): R14.0 - Abdominal distension (gaseous) (4) Abdominal pain: Code(s): R10.9 - Unspecified abdominal pain Qualifiers: Abdominal location: left lower quadrant Qualified Code(s): R10.32 - Left lower quadrant pain (5) Pancreatic cyst: Code(s): K86.2 - Cyst of pancreas Plan Patient will continue Linzess 290 mcg daily. Increase fluid intake and activity to promote better bowel motility. Patient can add Dulcolax 2 tablets in the evening. Increased fiber in his diet as well. Increase fluid intake and activity to promote better bowel motility. Continue Creon. Elevation of liver enzymes last months and in March. Will send patient for ultrasound with elastography. He will return in 4 months we will repeat labs then. Patient was en encouraged to follow fact diet. Weight loss and exercise recommended. Patient is agreeable to current plan of care and verbalizes understanding of instructions. He was given the opportunity to ask questions and all questions answered. Thank you for allowing me to participate in his care Orders: Orders US abdomen comp w elastography Today R79.89 - Other specified abnormal findings of blood chemistry Medications: New bisacodyl (Dulcolax (bisacodyl)) 10 mg (2 x 5 mg) PO BEDTIME 180 tabs 4RF Coding Level of Care Code Est Pt Level 4 (18695) Complex EM visit Add On G2211 Diagnoses Exocrine pancreatic insufficiency K86.81 Slow transit constipation K59.01 Constipation type: slow transit constipation Postprandial abdominal bloating R14.0 Left lower quadrant abdominal pain R10.32 Abdominal location: left lower quadrant Pancreatic cyst K86.2 Time Spent (min) 35 Comment 20 minutes spent with patient and additional 15 minutes spent reviewing his records
[2024-07-04 08:15] VITALS: BP 132/64; PULSE 64; O2SAT 98; BMI 32.7
--- OUTSIDE RECORDS SUMMARY | 2024-07-04 08:29 | XMS_ITS | Clinical Summary ---
Author Organization [employer] Address [address] [facility] 7[address] [place] [address] Care Team Providers Care Gas Treater Name Role Phone Ayesha Chua MD Primary Care Provider [phone] Ho Wilkerson DMD Unavailable Allergies No known active allergies Medications cholecalciferol [...] mouth in the morning. 024 Active Creon 58587-100787 units capsule delayed-release particles capsule TAKE TWO [...] ML BY MOUTH DAILY NEEDED FOR CONSTIPATION 024 Active oxybutynin XL (Ditropan-XL) 10 MG 24 hr tablet Take 10 mg by mouth with breakfast. 024 Active tamsulosin (Flomax) 0.4 MG 24 hr capsule TAKE ONE CAPSULE EVERY NIGHT AT BEDTIME 024 Active Sodium Fluoride 1.1 % creamIndications:De ntin hypersensitivity [place] teeth for 2 minutes, morning and night. [...] TWICE DAILY 60 capsule 5 025 Active atorvastatin (Lipitor) 40 MG tabletIndications:M ixed hyperlipidemia TAKE ONE TABLET BY MOUTH AT BEDTIME 90 tablet 1 025 Active pseudoephedrine (Sudafed) 30 MG tablet Take 1 tablet (30 mg) by mouth every 4 (four) hours if needed for congestion for up to 10 days. 30 tablet 025 2024 Discontinued Active Problems Problem Noted Date Diagnosed Date Hepatic steatosis 06/28/2024 Pancreatic cyst 06/28/2024 Avulsion of nail of left little finger [...] Encounters Date Type Department Care Team Description 06/28/2024 8:45 AM EDT Office Visit [facility] [address] [place] [address] Ayesha Chua MD Hepatic steatosis (Primary Dx); Pancreatic cyst; Pure hypercholesterolemia 06/28/2024 Travel 06/27/2024 Telephone [facility] [address] [place] [address] Ayesha Chua MD Chart Prep 06/23/2024 10:00 AM EDT Office Visit [facility] [address] [place] [address] Ho Wilkerson DMD Partial edentulism, unspecified edentulism class (Primary Dx) 06/09/2024 Telephone [facility] [address] [place] [address] Ayesha Chua MD ER Follow-up 06/06/2024 Orders Only [facility] External Provider, [facility] 06/01/2024 8:00 AM EDT Office Visit [facility] [address] [place] [address] Ho Wilkerson, AMOS Partial edentulism, unspecified edentulism class (Primary Dx) 05/28/2024 Refill [facility] [address] [place] [address] Ayesha Chua MD Mixed hyperlipidemia 05/25/2024 11:00 AM EDT Office Visit [facility] [address] [place] [address] Ayesha Chua MD Cough, unspecified type (Primary Dx) 05/25/2024 Travel 05/23/2024 Telephone [facility] [address] [place] [address] Ayesha Chua MD Nurse Triage 05/16/2024 10:45 AM EDT Office Visit [facility] [address] [place] [address] Suze Santos MD Acute cough (Primary Dx); Bronchitis 05/16/2024 Travel 05/16/2024 Telephone [facility] [address] [place] [address] Ayesha Chua MD Nurse Triage 04/28/2024 Refill [facility] [address] [place] [address] Suze Santos MD 04/21/2024 11:00 AM EST Office Visit [facility] [address] [place] [address] Ho Wilkerson DMD Full coverage crown needed for tooth at risk for fracture (Primary Dx) 04/19/2024 9:00 AM EST Office Visit [facility] [address] [place] [address] Suze Santos MD Post inflammatory hypopigmentation (Primary Dx); Post-inflammatory hyperpigmentation 04/19/2024 Travel from Last 3 Months Immunizations Name Administration Dates Next Due Influenza, seasonal, injectable, preservative fr ee 01/08/2024 Pneumococcal Polysaccharide PPSV23 06/04/2015 TD (adult), 2 Lf tetanus tox oid, preservative free, adsorbed 03/18/2017,05/16/2008 Tdap 02/06/2024,05/21/2023 Social History Tobacco Use Types Packs/Day Years Used Date Smoking Tobacco: Never Passive Smoke Exposure: Never Smokeless Tobacco: Never Tobacco Cessation:Counseling Given: Not Answered Alcohol Use Standard Drinks/Week Comments Never 0 (1 standard drink = 0.6 oz pur e alcohol) Depression Answer Date Recorded Patient Health Questionnaire-9 Score 0 06/28/2024 Patient Health Questionnaire-9 Score 0 06/28/2024 Last PHQ-9: Questionnaire Data Not on file 0 06/28/2024 Housing Stability Answer Date Recorded What is your housing situation today? I have pranay torres 06/28/[address] you li ve. Do you have problems with any of the following? None of the above 06/28/2024 Food Insecurity Answer Date Recorded Within the past 12 months, y ou worried that your food would run out before you got money to buy more: Never True 06/28/2024 Within the past 12 months,th e food you bought just didn't last and you didn't have enough money to get more: Never True Transportation Answer Date Recorded In the past 12 months, has l ack of transportation kept you from medical appts, meetings, work or from getting things needed for daily living? No 06/28/2024 Utilities Answer Date Recorded In the past 12 months, has t he electric, gas, oil or water company threatened to shut off services in your home? No 06/28/2024 Depression Answer Date Recorded Patient Health Questionnaire-2 Score 0 06/28/2024 Internet Access Answer Date Recorded Internet Access Q1 No 06/28/2024 Internet Access Q2 I do not want or need it 06/01 Sex and Gender Information Value Date Recorded Sex Assigned at Male 12/30/2021 10:20 AM EDT Legal Sex Male 10:20 AM EDT Gender Identity Male 12/30/2021 10:20 AM EDT Sexual Orientation Straight 12/30/2021 10 :20 AM EDT Last Filed Vital Signs Vital Sign Reading Time Taken Comments Blood Pressure 129/74 06/28/2024 9:06 AM EDT Pulse 65 06/28/2024 9:06 AM EDT Temperature 36.4 ??C (97.6 ??F) 06/28/2024 9:06 AM ED T Respiratory Rate 18 06/28/2024 9:06 AM EDT Oxygen Saturation 99% 06/28/2024 9:06 AM EDT Inhaled Oxygen Concentration - - Weight 97.5 kg (215 lb) 06/28/2024 9:06 AM EDT Height 170.2 cm (5' 7 ) 06/28/2024 9:06 AM EDT Body Mass Index 33.67 06/28/2024 9:06 AM EDT Plan of Treatment Upcoming Encounters Date Type Department Care Team (Late st Contact Info) Description 07/19/2024 9:00 AM EDT Office Visit [facility] [address] [place] [address] Subhash Santos 07/19/2024 11:00 AM EDT Office Visit [facility] [address] [place] [address] Ho Wilkerson DMD [address] [place] [address] 08/26/2024 9:15 AM EDT Office Visit [facility] [address] [place] [address] Ayesha Chua MD [address] [place] [address] 09/27/2024 9:15 AM EDT Office Visit [facility] [address] [place] [address] Ayesha Chua MD [address] [place] [address] Health Maintenance Due Date Last Done Comments CT Colonography 1965 FIT DNA/Cologuard 1965 FIT 1965 FOBT 1965 HIV Screening 1965 Sigmoidoscopy 1965 Hepatitis C Screening 09/07/1981 Hepatitis A Vaccines (1 of 2 - Risk 2-dose series) 09/07/1982 Zoster Vaccines (1 of 2) 09/07/2013 Pneumococcal Vaccine: 50+ Years (2 of 2 - PCV) 06/03/2016 06/04/2015 Hepatitis B Vaccines (1 of 3 - Risk 3-dose series) 2023 RSV Patients and Patients Aged 60 years or older (1 - Risk 60-74 years 1-dose series) 2023 COVID-19 Vaccine ( season) 2023 12/16/2021, 04/12/2021, 06/22/2020, Additional history exists Dental X-Ray: Bitewings 05/15/2024 05/15/19 24, 11/27/2021, 10/01/2021, Additional history exists Dental Oral Exam 07/13/2024 01/13/2024, , 10/01/2021, Additional history exists Dental Prophylaxis 07/13/2024 01/13/2024, 0 05/15/2023, 10/16/2021, Additional history exists Alcohol/Substance Use Screening 06/28/2025 06/28/2024 Depression Screening 06/28/2025 06/28/2024, 06/29/19 25 SDOH Screening 06/28/2025 06/28/2024 Tobacco Screening 06/28/2025 06/28/2024 Dental X-Ray: Full Mouth 05/15/2026 05/15/2023, 01/31 [...] Procedure Name Priority Date/Time Associated Diagnosis Comments CASE PRESENTATION, DETAILED AND EXTENSIVE TREATMENT PLANNING Routine 06/23/2024 10:00 AM EDT Partial edentulism, unspecified edentulism class BITE REGISTRATION Routine 06/23/2024 10: 00 AM EDT Partial edentulism, unspecified edentulism class AMB REFERRAL TO SLEEP MEDICINE Routine 06/14/2024 Obstructive sleep apnea of adult CT ABDOMEN PELVIS W CONTRAST Routine 06/06/2024 8:36 PM EDT LIPASE Routine 06/06/2024 2:45 PM EDT COMPREHENSIVE [...] needed for tooth at risk for fracture LIPID PANEL, STANDARD Routine 03/25/2024 9:53 AM EST Dyslipidemia PROPHYLAXIS - ADULT Routine 01/13/2024 8 :00 AM EST Dentin hypersensitivity Dental caries PERIODIC ORAL EVALUATION - ESTABLISHED PATIENT Routine 01/13/2024 8:00 AM EST Dentin hypersensitivity Dental caries INTRAORAL - COMPLETE SERIES OF RADIOGRAPHIC IMAGES Routine 05/15/2023 8:00 AM EDT HM COLONOSCOPY Routine 01/06/2022 from Last 3 Months or Most Recently Relevant to Health Maintenance Results * Referral to Sleep Medicine (06/14/2024) us Ayesha Chua MD OUTPATIENT REFERRAL ORDERABLES F inal Result * CT Abdomen Pelvis w/ Contrast (06/06/2024 8:36 PM EDT) Anatomical Region Laterality Modality Body, Pelvis, Abdomen Computed T omography 06/06/2024 8:36 PM EDT Narrative 06/06/2024 8:37 PM EDT ? [facility] ?[address] ?[place] [address] ? CT Scan Report ? Signed ? Patient: Mendis,Hiddadura ?MR#: [id number] ?? [id number] ? : 1965 ?Acct:[id number] ? Age/Sex: 58 / M ?ADM Date: 06/06/24 ? Loc: HO.ED ? Attending Dr: ? Ordering Physician: Rogelio Kelly MD ?? Date of Service: 06/06/24 ?? Procedure(s): CT abdomen pelvis w IV con ?? Accession Number(s): [id number] ? cc: Ayesha Chua MD; Rogelio Kelly MD ? Report Number: ?? [id number]: Total DLP = ??575.00 mGy-cm ? CLINICAL HISTORY: LLQ tenderness R O diverticulitis ? CT abdomen and pelvis with contrast ? Comparison: CT/SR - CT ABDOMEN PELVIS W IV CON - 2/ 13:34 EST ?? CT/SD/SR - CT ABDOMEN PELVIS WO IV CON - 05/05/22 14:27 EST ? Findings: ?? The lung bases are clear. ? Hepatic steatosis. ?? 1.7 cm pancreatic head cyst, similar to prior. ?? Gallbladder, spleen, and adrenal glands are within normal limits. ?? No hydronephrosis. Symmetric contrast enhancement of the kidneys. Left ?? renal cyst. ? No bowel obstruction, pneumoperitoneum, or pneumatosis. ?? Small round area of fat necrosis in the left lower quadrant most ?? consistent with omental infarct. ? Pelvic contents unremarkable. Normal appendix. ?? No acute fracture. ? IMPRESSION: ? Left lower quadrant omental infarct. ?? 1.7 cm pancreatic head cyst, stable from 2022. Recommend follow-up MRI or ?? CT pancreas protocol in 2 years. ? This document has been electronically signed by: Teagan Zheng MD on ?? 06/06/2024 20:36:20 ? Dictated By: ?Teagan Zheng MD ? Signed By: ?<Electronically signed by Teagan Zheng MD in OV> ?06/06/242036 ? DD/ 35 ? TD/TT: 06/06/242035 ? Environmental Science Technician: ? Procedure Note Donotuseinterpreter, Image - 06/06/[address] [place] [id number] [address] Scan Report Signed Patient: Paty Banks#: [id number] : 1965Acct:[id number] Age/Sex: 58 / MADM Date: 06/06/24 Loc: HO.ED Attending Dr: Ordering Physician: Rogelio Kelly MD Date of Service: 06/06/24 Procedure(s): CT abdomen pelvis w IV con Accession Number(s): [id number] cc: Ayesha Chua MD; Rogelio Kelly MD Report Number: [id number]: Total DLP = 575.00 mGy-cm CLINICAL HISTORY: LLQ tenderness R O diverticulitis CT abdomen and pelvis with contrast Comparison: CT/SR - CT ABDOMEN PELVIS W IV CON - 04/29/23 13:[address]/SD/SR - CT ABDOMEN PELVIS WO IV CON - 05/05/22 14:27 EST Findings: The lung bases are clear. Hepatic steatosis. 1.7 cm pancreatic head cyst, similar to prior. Gallbladder, spleen, and adrenal glands are within normal limits. No hydronephrosis. Symmetric contrast enhancement of the kidneys. Left renal cyst. No bowel obstruction, pneumoperitoneum, or pneumatosis. Small round area of fat necrosis in the left lower quadrant most consistent with omental infarct. Pelvic contents unremarkable. Normal appendix. No acute fracture. IMPRESSION: Left lower quadrant omental infarct. 1.7 cm pancreatic head cyst, stable from 2022. Recommend follow-up MRI or CT pancreas protocol in 2 years. This document has been electronically signed by: Teagan Zheng MD on 06/06/2024 20:36:20 Dictated By: Teagan Zheng MD Signed By: <Electronically signed by Teagan Zheng MD in OV> 06/06/242036 DD/ 35 TD/TT: 06/06/242035 Environmental Science Technician: [facility] External Provider IMG CT PROCEDURES Final Result * (ABNORMAL) CBC auto differential (06/06/2024 2:45 PM EDT) White Blood Count 8.1 4.8 - 10.8 X10*3/uL [facility] Red Blood Count 4.91 4.60 - 5.80 X10*6/uL [facility] Hemoglobin 14.4 14.0 - 18.0 g/dl [facility] Hematocrit 41.3(L) 42.0 - 52.0 % [facility] Mean Corpuscular Volume 84.1 80.0 - 98.0 fL [facility] Mean Corpuscular Hemoglobin 29.3 27.0 - 33.0 pg [facility] Mean Corpuscular HGB Conc 34.9 31.0 - 36.0 g/dl [facility] Red Cell Distribution Width 13.3 11.0 - 16.0 % [facility] Platelet Count 217 160 - 400 X10*3/uL [facility] Mean Platelet Volume 8.8(L) 9.4 - 12.4 fL [facility] Neutrophils Percent Auto 51.3 45 - 73 % [facility] Imm Gran Pct Auto 0.2 0.0 - 0.4 % [facility] Lymphocytes Percent Auto 34.0 20 - 40 % [facility] Monocytes Percent Auto 8.1 2 - 11 % [facility] Eosinophils Percent Auto 5.8(H) 0 - 4 % [facility] Basophils Percent Auto 0.6 0 - 2 % [facility] NRBC Pct Auto 0.0 0.0 - 0.2 /100WBC [facility] Neutrophils Absolute Auto 4.1 2.0 - 8.3 x10*3/uL [facility] Imm Gran Abs Auto 0.02 0.00 - 0.03 X10*3/uL [facility] Lymphocytes Absolute Auto 2.7 1.2 - 4.9 X10*3/uL [facility] Monocytes Absolute Auto 0.7 0.1 - 1.2 X10*3/uL [facility] Eosinophils Absolute Auto 0.5(H) 0.0 - 0.4 X10*3/uL [facility] Basophils Absolute Auto 0.1 0.0 - 0.2 X10*3/uL [facility] NRBC Abs Auto 0.000 0.0 - 0.012 X10*3/uL [facility] 06/06/2024 2:45 PM EDT 06/06/2024 2:48 PM EDT us Generic External Data Provider LAB BLOOD ORDERAB LES Final Result Performing Organization Address [facility] Co de Phone Number [facility] [address] [place] [phone] * Urinalysis w/reflex microscopic (06/06/2024 2:45 PM EDT) Color Urine Yellow [facility] Appearance Urine Clear [facility] PH 5.5 5.0 - 9.0 [facility] Glucose Urine UA Negative Negative mg/dL [facility] Urine Blood Negative Negative [facility] Specific Gore - Urine 1.015 1.005 - 1.025 [facility] Urine Protein Negative Neg-Trace mg/dL [facility] Urine Ketones Negative Negative mg/dL [facility] Nitrite Urine Negative Negative [facility] Leukocyte Esterase Urine Negative Negative [facility] 06/06/2024 2:45 PM EDT 06/06/2024 2:48 PM EDT Narrative [facility] - 06/06/2024 2:54 PM EDT [id number], [employer] us Generic External Data Provider LAB URINE ORDERAB LES Final Result Performing Organization Address [facility]/ZIP Co de Phone Number [facility] [address] [place] [phone] * Lipase (06/06/2024 2:45 PM EDT) Lipase 26 8 - 78 U/L [facility] 06/06/2024 2:45 PM EDT 06/06/2024 2:48 PM EDT us Generic External Data Provider LAB BLOOD ORDERAB LES Final Result [facility] [address] [place] [phone] [phone] * (ABNORMAL) Comprehensive Metabolic Panel (06/06/2024 2:45 PM EDT) Sodium 141 135 - 145 mmol/L [facility] Potassium 4.7 3.3 - 5.1 mmol/L [facility] Chloride 106 96 - 108 mmol/L [facility] Carbon Dioxide 27 22 - 29 mmol/L [facility] Anion Gap 13 12 - 20 [facility] Urea Nitrogen (BUN) 14 9 - 16 mg/dL [facility] Creatinine, Serum 0.89 0.5 - 1.4 mg/dL [facility] Creatinine Clr Calc Pharmacy 99.9 [facility] Comment:eGFR (calculated fro m the MDRD study equation) and eCrCl(calculated from the Cockcroft-Gault equation) are based ondifferent parameters and may not yield comparable results.If eCrCl result is absurd, please check patient'sheight/weight. Estimated Glomerular Filt Rate >60 [facility] Comment:Chronic Kidney Disea se: Estimated GFR < 60 mL/min/1.39c3Fidyfs Kidney Disease: Estimated GFR < 15 mL/min/1.73m2 Glucose 100 60 - 115 mg/dL [facility] Calcium 9.5 8.4 - 10.2 mg/dL [facility] Bilirubin, Total 0.7 0.0 - 1.0 mg/dL [facility] Aspartate Amino Transferase 46(H) 5 - 37 U/L [facility] Alanine Aminotransferase 83(H) 0 - 40 U/L [facility] Total Protein 7.9 6.5 - 8.0 g/dL [facility] Albumin Level 4.4 3.5 - 5.0 g/dL [facility] Alkaline Phosphatase 107 39 - 117 U/L [facility] 06/06/2024 2:45 PM EDT 06/06/2024 2:48 PM EDT us Generic External Data Provider LAB BLOOD ORDERAB LES Final Result [facility] [address] [place] [phone] [phone] * POCT Rapid Influenza B OSOM (05/16/2024 11:13 AM EDT) [facility] Rapid Influenza B Ag Negative Negative, Indeterminate QC Media Lot # [id number] Lot# Expiration Date Swab 05/16/2024 11:1 3 AM EDT Suze Santos MD POINT OF CARE TEST ENTER/ED IT ORDERABLES Final Result * POCT Rapid Influenza A OSOM (05/16/2024 11:13 AM EDT) [facility] Rapid Influenza A Ag Negative Negative, Indeterminate QC Media Lot # [id number] Lot# Expiration Date Swab Nasopharyngeal structure / Unknown 05/16/2024 11:13 AM EDT Suze Santos MD POINT OF CARE TEST ENTER/ED IT ORDERABLES Final Result * POCT Rapid Covid-19 BinaxNOW (05/16/2024 11:12 AM EDT) [facility] Rapid COVID Ag Negative QC Media Lot # [id number] Lot# Expiration Date ,026 Swab 05/16/2024 11:1 2 AM EDT Suze Santos MD POINT OF CARE TEST ENTER/ED IT ORDERABLES Final Result * (ABNORMAL) Lipid Panel, Standard (03/25/2024 9:53 AM EST) Triglycerides 187(H) <150 mg/dL [facility] Comment:Desirable Triglyceri de: less than 150 mg/dLBorderline High Triglyceride 150-199 mg/dLHigh Triglyceride: 200-499 mg/dLVery High Triglyceride: greater than or equal to 5OO mg/dL Cholesterol 176 <200 mg/dL [facility] Comment:Desirable Cholestero l: less than 200 mg/dLBorderline High Cholesterol: 200-239 mg/dLHigh Cholesterol: greater than 239 mg/dL LDL Cholesterol Calculated 106(H) <100 mg/dL [facility] Comment:Desirable LDL: less than 100 mg/dLNear Optimal/Above Optimal LDL: 110- 129 mg/dLBorderline High LDL: 130-159 mg/dLHigh LDL: 160-189 mg/dLVery High LDL: greater than or equal to 190 mg/dL HDL Cholesterol 33(L) >40 mg/dL [facility] Comment:Desirable HDL: great er than 40 mg/dL Note: This HDL assay may give artificially low results in patients with liver disease. Blood Venous blood specimen / Unknown 03/25/2024 9:53 AM EST 03/25/2024 2:34 PM EST us Ayesha Chua MD LAB BLOOD ORDERABLES Final Resul t [facility] [address] [place] [phone] * Hm Colonoscopy (01/06/2022) Colonoscopy Normal Normal Narrative Anu Cartagena - 01/06/2022 Recommended 5 year follow up Historical Provider HEALTH MAINTENANCE Final Result from Last 3 Months or Most Recently Relevant to Health Maintenance Insurance [facility] FULL DENT[facility] LIMITED ADULT DENTAL - [facility] FULL (MEDICAID) Care Teams Gas Treater Relationship Specialty Start Date End Date Ayesha Chua MD [address] [place] [address] PCP - General Family Medicine 05/21/23 Ho Wilkerson DMD [address] [place] [phone] Dentist 04/21/24
--- OUTSIDE RECORDS SUMMARY | 2024-07-04 08:29 | XMS_ITS | Encounter Summary ---
Author Organization [email or web address] Address [address] [facility] [address] [place] [address] Care Team Providers Care Automatic Grinding Machine Operator Name Role Phone Abiola Hadley MD Primary Care Provider [phone] Ayesha Chua MD Primary Care Provider [phone] Ho Wilkerson DMD Unavailable [phone] Encounter Details Date Type Department Care Team (Latest Contact Info) Description 10/01/2021 Abstract [facility] Dental, Provider, DDS Social History Tobacco [...] 07/19/2024 9:00 AM EDT Office Visit [facility] [address] [place] [address] Subhash Santos 07/19/2024 11:00 AM EDT Office Visit [facility] [address] [place] [address] Ho Wilkerson, DMD [address] [place] [address] 08/26/2024 9:15 AM EDT Office Visit [facility] [address] [place] [address] Ayesha Chua MD [address] [place] [address] 09/27/2024 9:15 AM EDT Office Visit [facility] [address] [place] [address] Ayesha Chua MD [address] [place] [address] documented as of this encounter Visit Diagnoses Not on filedocumented in this encounter Care Teams Automatic Grinding Machine Operator Relationship Specialty Start Date End Date Abiola Hadley MD [address] [place] [address] PCP - General Family Medicine 10/22/17 05/20/23 Ayesha Chua MD [address] [place] [phone] PCP - General Family Medicine 05/21/23 Ho Wilkerson DMD [address] [place] [address] Dentist 04/21/24 documented as of this encounter
--- OUTSIDE RECORDS SUMMARY | 2024-07-04 08:29 | XMS_ITS | Encounter Summary ---
Author Organization [employer] Address [address] [place] [address] Care Team Providers Care Biomedical Engineering Technologist Name Role Phone Abiola Hadley MD Primary Care Provider [phone] Ayesha Chua MD Primary Care Provider Ho Wilkerson DMD Unavailable [phone] Encounter Details Date Type Department Care Team (Late st Contact Info) Description 01/07/2023 Abstract [facility] [address] [place] [address] Anu Cartagena Social History Tobacco Use Types [...] Description 07/19/2024 9:00 AM EDT Office Visit [facility] [address] [place] [address] Subhash Santos 07/19/2024 11:00 AM EDT Office Visit [facility] [address] [place] [address] Ho Wilkerson DMD [address] [place] [address] 08/26/2024 9:15 AM EDT Office Visit [facility] [address] [place] [address] Ayesha Chua MD [address] [place] [address] 09/27/2024 9:15 AM EDT Office Visit [facility] [address] [place] [address] Ayesha Chua MD [address] [place] [address] documented as of this encounter Procedures Procedure Name Priority Date/Time Associated Diagnosis Comments COLONOSCOPY Routine 01/06/2022 documented in this encounter Results * Colonoscopy (01/06/2022) Colonoscopy Normal Normal Narrative Anu Cartagena - 01/06/2022 Recommended 5 year follow up us Historical Provider HEALTH MAINTENANCE Final Result documented in this encounter Visit Diagnoses Not on filedocumented in this encounter Additional Health Concerns Assessment Noted Time PHQ-9 Depression Total Score: 0 08/06/19 9:03 AM EDT documented as of this encounter Care Teams Biomedical Engineering Technologist Relationship Specialty Start Date End Date Abiola Hadley MD [address] [place] [address] PCP - General Family Medicine 10/22/17 05/20/23 Ayesha Chua MD [address] [place] [address] PCP - General Family Medicine 05/21/23 Ho Wilkerson DMD [address] [place] [address] Dentist 04/21/24 documented as of this encounter
--- OUTSIDE RECORDS SUMMARY | 2024-07-04 08:29 | XMS_ITS | Encounter Summary ---
Author Organization [employer] Address [address] [place] [address] [address] [place] [address] Care Team Providers Care College Intern Name Role Phone Abiola Hadley MD Primary Care Provider [phone] Ayesha Chua MD Primary Care Provider [phone] Ho Wilkerson DMD Unavailable [phone] Encounter Details Date Type Department Care Team (Late Contact Info) Description 02/18/2022 Orders Only [facility] [address] [place] [address] Linda Alvarez LPN Social History Tobacco Use [...] Encounters Date Type Department Care Team (Late Contact Info) Description 07/19/2024 9:00 AM EDT Office Visit [facility] AD[facility] [address] [place] [address] Subhash Santos 07/19/2024 11:00 AM EDT Office Visit [facility] AD[facility] [address] [place] [address] Ho Wilkerson, DMD [address] [place] [address] 08/26/2024 9:15 AM EDT Office Visit [facility] & PEDS [address] [place] [address] Ayesha Chua MD [address] [place] [address] 09/27/2024 9:15 AM EDT Office Visit [facility] [address] [place] [address] Ayesha Chua MD [address] [place] [address] documented as of this encounter Procedures Procedure [...] EDT) Lipase 18 8 - 78 U/L [facility] 10/29/2022 8:42 AM EDT 10/29/2022 8:42 AM EDT [facility] [place] [facility] [place] LAB BLOOD ORDERAB LES Final Result Performing Organization Address [facility] de Phone Number [facility] [address] [place] [phone] * (ABNORMAL) Hepatic Function Panel (10/29/2022 8:42 AM EDT) Bilirubin, Total 0.5 0.0 - 1.0 mg/dL [facility] Bilirubin, Direct 0.2 0.0 - 0.5 mg/dL [facility] Aspartate Amino Transferase 26 5 - 37 U/L [facility] Alanine Aminotransferase 42(H) 0 - 40 U/L [facility] Total Protein 7.7 6.5 - 8.0 g/dL [facility] Albumin Level 4.4 3.5 - 5.0 g/dL [facility] Alkaline Phosphatase 91 39 - 117 U/L [facility] 10/29/2022 8:42 AM EDT 10/29/2022 8:42 AM EDT [facility] External Provider LAB BLO OD ORDERABLES Final Result Performing Organization Address [facility] Co de Phone Number [facility] [address] [place] [phone] * PSA, Total With Reflex to PSA, Free (05/22/2022 11:03 AM EDT) PSA,Total (Free>4and<10) 0.62 0.00 - 4.00 ng/mL [facility] Comment:A Free PSA was not p [...] 3 AM EDT 05/22/2022 11:03 AM EDT [facility] External Provider LAB BLO OD ORDERABLES Final Result Performing Organization Address City/[facility]/ZIP Co de Phone Number [facility] [address] [place] [phone] * Tissue Transglutaminase Antibody, IgA (05/08/2022 10:09 AM EST) Transglutaminase IgA <1.0 U/mL [facility] Comment:Value Interpretation ----- <15.0 Antibody not detected> or = 15.0 Antibody detectedTHIS TEST WAS PERFORMED AT:[facility] [place] [id number] FULLER MD 05/08/2022 10:0 9 AM EST 05/08/2022 10:09 AM EST [facility] External Provider LAB BLO OD ORDERABLES Final Result Performing Organization Address [facility]/ZIP Co de Phone Number [facility] [address] [place] [phone] * Tissue Transglutaminase (tTG) Antibody (IgG) (05/08/2022 10:09 AM EST) Tissue Transglutaminase Antibody IgG 1.7 U/mL [facility] Comment:Value Interpretation ----- <15.0 Antibody not detected> or = 15.0 Antibody detectedTHIS TEST WAS PERFORMED AT:[employer] [address] [id number] FULLER MD 05/08/2022 10:0 9 AM EST 05/08/2022 10:09 AM EST [facility] External Provider LAB BLO OD ORDERABLES Final Result [facility] [address] [place] [phone] * (ABNORMAL) VITAMIN D 25-OH (D2 AND D3) (05/08/2022 10:09 AM EST) Vitamin D, 25-OH, D2 <4 ng/mL [facility] Comment:This test was develo ped and its analytical performancecharacteristics have been determined by [employer] [place], [place]. It hasnot been cleared or approved by the U.S. Food and DrugAdministration. This assay has been validated pursuantto the CLIA regulations and is used for clinicalpurposes.THIS TEST WAS PERFORMED AT:[employer] [id number] [place] [address]CIRLEKG W. MASON,MD,PHD Vitamin D, 25-OH, D3 13 ng/mL [facility] Comment:This test was develo ped and its analytical performancecharacteristics have been determined by [facility] [place], [place]. It hasnot been cleared or approved by the U.S. Food and DrugAdministration. This assay has been validated pursuantto the CLIA regulations and is used for clinicalpurposes. Vitamin D, 25-OH, Total 13(A) 30 - 100 ng/mL [facility] Comment: Vitamin D, 25-Hydroxy reports concentrations [...] 150 ng/mL beforethere is any concern. Shi PEACOCK, Zain LAI,Vivi THAPA, et al. Evaluation, treatment andprevention of vitamin D deficiency: an EndocrineSociety clinical practice guideline. J Clin EndocrinolMetab. 2011;96(7):1911-30.For additional information, please refer tohttp://education.[employer].[place]. [employer]/faq/VZQ584(This link is being provided for informational/educational purposes only.) 05/08/2022 10:0 9 AM EST 05/08/2022 10:09 AM EST us [facility] External Provider LAB BLO OD ORDERABLES Final Result [facility] [address] [place] [phone] [phone] * (ABNORMAL) Vitamin B12/Folate, Serum Panel (05/08/2022 10:09 AM EST) Vitamin B12 959(H) 200 - 900 pg/mL [facility] Comment:NORMAL 200-900 PG/ML INDETERMINATE 160-199 PG/ML DEFICIENT < 160 PG/ML Folate 13.0 > or = 4.0 ng/mL [facility] Comment:Reference Values:> o r = 4.0 ng/mL< 4.0 ng/mL suggests folate deficiency Methotrexate, aminopterin and folinic acid(leucovorin) are chemotherapeutic agents whose molecularstructures are similar to folate; therefore, the Architectfolate assay cannot be used for patients using these drugs. 05/08/2022 10:0 9 AM EST 05/08/2022 10:09 AM EST [facility] External Provider LAB BLO OD ORDERABLES Final Result Performing Organization Address [facility] de Phone Number [facility] [address] [place] [phone] * TSH W/Reflex to FT4 (05/08/2022 10:09 AM EST) TSH reflex Free T4 1.69 0.32 - 4.0 uIU/mL [facility] 05/08/2022 10:0 9 AM EST 05/08/2022 10:09 AM EST [facility] External Provider LAB BLO OD ORDERABLES Final Result Performing Organization Address [facility] Number [facility] [address] [place] [phone] * HIGH SENSITIVITY TROPONIN I (05/05/2022 5:11 PM EST) TROPONIN I HIGH SENSITIVITY <3.5 <3.5 - 35.0 ng/L [facility] Comment:The [place] high sens itivity Troponin-I results should beused in conjunction with other diagnostic information suchas ECG, clinical observations and information, and patientsymptoms to aid in the diagnosis of [place]. 05/05/2022 5:11 PM EST 05/05/2022 5:16 PM EST [facility] External Provider LAB BLO OD ORDERABLES Final Result Performing Organization Address [facility] Phone Number [facility] [address] [place] [phone] * Magnesium (05/05/2022 5:11 PM EST) Magnesium 2.1 1.6 - 2.6 mg/dL [facility] 05/05/2022 5:11 PM EST 05/05/2022 5:16 PM EST us [facility] External Provider LAB BLO OD ORDERABLES Final Result [facility] [address] [place] [phone] [phone] * Basic Metabolic Panel (05/05/2022 5:11 PM EST) Sodium 145 135 - 145 mmol/L [facility] Potassium 4.6 3.3 - 5.1 mmol/L [facility] Chloride 107 96 - 108 mmol/L [facility] Carbon Dioxide 27 22 - 29 mmol/L [facility] Anion Gap 16 12 - 20 [facility] Urea Nitrogen (BUN) 15 9 - 16 mg/dL [facility] Creatinine, Serum 0.86 0.5 - 1.4 mg/dL [facility] Creatinine Clr Calc Pharmacy 102.9 [facility] Comment:eGFR (calculated fro m the MDRD study equation) and eCrCl(calculated from the Cockcroft-Gault equation) are based ondifferent parameters and may not yield comparable results.If eCrCl result is absurd, please check patient'sheight/weight. Estimated Glomerular Filt Rate >60 [facility] Comment:NOTE: For -Am erican individuals, multiply the result by 1.210.Chronic Kidney Disease: Estimated GFR < 60 mL/min/1.15g1[place] Kidney Disease: Estimated GFR < 15 mL/min/1.73m2 Glucose 71 60 - 115 mg/dL [facility] Calcium 9.4 8.4 - 10.2 mg/dL [facility] 05/05/2022 5:11 PM EST 05/05/2022 5:16 PM EST [facility] External Provider LAB BLO OD ORDERABLES Final Result Performing Organization Address City/[facility]/ZIP Co de Phone Number [facility] [address] [place] [phone] * (ABNORMAL) Hepatic Function Panel (05/05/2022 5:11 PM EST) Bilirubin, Total 0.7 0.0 - 1.0 mg/dL [facility] Bilirubin, Direct 0.2 0.0 - 0.5 mg/dL [facility] Aspartate Amino Transferase 24 5 - 37 U/L [facility] Alanine Aminotransferase 46(H) 0 - 40 U/L [facility] Total Protein 8.2(H) 6.5 - 8.0 g/dL [facility] Albumin Level 4.8 3.5 - 5.0 g/dL [facility] Alkaline Phosphatase 78 39 - 117 U/L [facility] 05/05/2022 5:11 PM EST 05/05/2022 5:16 PM EST [facility] External Provider LAB BLO OD ORDERABLES Final Result Performing Organization Address City/[facility] Co de Phone Number [facility] [address] [place] [phone] * (ABNORMAL) CBC auto differential (05/05/2022 5:11 PM EST) White Blood Count 10.0 4.8 - 10.8 X10*3/uL [facility] Red Blood Count 5.31 4.60 - 5.80 X10*6/uL [facility] Hemoglobin 15.7 14.0 - 18.0 g/dl [facility] Hematocrit 47.5 42.0 - 52.0 % [facility] Mean Corpuscular Volume 89.5 80.0 - 98.0 fL [facility] Mean Corpuscular Hemoglobin 29.6 27.0 - 33.0 pg [facility] Mean Corpuscular HGB Conc 33.1 31.0 - 36.0 g/dl [facility] Red Cell Distribution Width 13.5 11.0 - 16.0 % [facility] Platelet Count 215 160 - 400 X10*3/uL [facility] Mean Platelet Volume 9.2(L) 9.4 - 12.4 fL [facility] Neutrophils Percent Auto 50.7 45 - 73 % [facility] Imm Gran Pct Auto 0.1 0.0 - 0.4 % [facility] Lymphocytes Percent Auto 35.9 20 - 40 % [facility] Monocytes Percent Auto 9.9 2 - 11 % [facility] Eosinophils Percent Auto 2.6 0 - 4 % [facility] Basophils Percent Auto 0.8 0 - 2 % [facility] NRBC Pct Auto 0.0 0.0 - 0.2 /100WBC [facility] Neutrophils Absolute Auto 5.1 2.0 - 8.3 x10*3/uL [facility] Imm Gran Abs Auto 0.01 0.00 - 0.03 X10*3/uL [facility] Lymphocytes Absolute Auto 3.6 1.2 - 4.9 X10*3/uL [facility] Monocytes Absolute Auto 1.0 0.1 - 1.2 X10*3/uL [facility] Eosinophils Absolute Auto 0.3 0.0 - 0.4 X10*3/uL [facility] Basophils Absolute Auto 0.1 0.0 - 0.2 X10*3/uL [facility] NRBC Abs Auto 0.000 0.0 - 0.012 X10*3/uL [facility] 05/05/2022 5:11 PM EST 05/05/2022 5:16 PM EST us [facility] External Provider LAB BLO OD ORDERABLES Final Result [facility] [address] [place] [phone] * Urinalysis with reflex microscopic (05/05/2022 5:11 PM EST) Color Urine Yellow [facility] Appearance Urine Clear [facility] PH 5.0 5.0 - 9.0 [facility] Glucose Urine UA Negative Negative mg/dL [facility] Urine Blood Negative Negative [facility] Specific [place] - Urine 1.025 1.005 - 1.025 [facility] Urine Protein Negative Neg-Trace mg/dL [facility] Urine Ketones Negative Negative mg/dL [facility] Nitrite Urine Negative Negative [facility] Leukocyte Esterase Urine Negative Negative [facility] 05/05/2022 5:11 PM EST 05/05/2022 5:17 PM EST Narrative [facility] - 05/05/2022 5:21 PM EST [id number], Clean Catch us [facility] External Provider LAB URI NE ORDERABLES Final Result [facility] [address] [place] [address] [phone] documented in this encounter Visit Diagnoses Not on filedocumented in this encounter Care Teams College Intern Relationship Specialty Start Date End Date Abiola Hadley MD [address] [place] [address] PCP - General Family Medicine 10/22/17 05/20/23 Ayesha Chua MD [address] [place] [address] PCP - General Family Medicine 05/21/23 Ho Wilkerson DMD [address] [place] [address] Dentist 04/21/24 documented as of this encounter
--- OUTSIDE RECORDS SUMMARY | 2024-07-04 08:29 | XMS_ITS | Encounter Summary ---
Author Organization [employer] Address [address] [facility] [address] [place] [address] Care Team Providers Care House Wrecker Name Role Phone Abiola Hadley MD Primary Care Provider [phone] Ayesha Chua MD Primary Care Provider [phone] Ho Wilkerson DMD Unavailable [phone] Encounter Details Date Type Department Care Team (Latest Contact Info) Description 12/10/2018 [facility], Provider, DDS Social History [...] 07/19/2024 9:00 AM EDT [facility] [address] [place] [address] Subhash Santos 07/19/2024 11:00 AM EDT Office Visit [facility] [address] [place] [address] Ho Wilkerson, DMD [address] [place] [address] 08/26/2024 9:15 AM EDT Office Visit [facility] MED [facility] PEDS [address] [place] [address] Ayesha Chua MD [address] [place] [address] 09/27/2024 9:15 AM EDT Office Visit [facility] [address] [place] [address] Ayesha Chua MD [address] [place] [address] documented as of this encounter Visit Diagnoses Not on filedocumented in this encounter Care Teams House Wrecker Relationship Specialty Start Date End Date Abiola Hadley MD [address] [place] [address] PCP - General Family Medicine 10/22/17 05/20/23 Ayesha Chua MD [address] [place] [phone] PCP - General Family Medicine 05/21/23 Ho Wilkerson DMD [address] [place] [address] Dentist 04/21/24 documented as of this encounter
--- OUTSIDE RECORDS SUMMARY | 2024-07-04 08:29 | XMS_ITS | Clinical Summary ---
Author Organization [facility] Address [address] [place] [address] Care Team Providers Care Counter Intelligence Technician Name Role Phone Unavailable Primary Care Provider [...]
== END 2024-07-04 08:38 | disposition home or self-care (01) ==
LOC: HO.HGI 08:14
PROVIDERS: PCP Student in an Organized Health Care Education/Training Program; Visit Provider Nurse Practitioner Family
DX: K86.81 Exocrine pancreatic insufficiency (principal); K59.01 Slow transit constipation; R14.0 Abdominal distension (gaseous); R10.32 Left lower quadrant pain; K86.2 Cyst of pancreas
CPT/HCPCS: 99214; G2211

== ENCOUNTER → 2024-07-04 08:13 | Outpatient (BNVA) | payer OTHER, SELFPAY | PROVIDERS: PCP Student in an Organized Health Care Education/Training Program; Visit Provider Nurse Practitioner Family | DX: K86.81 Exocrine pancreatic insufficiency (principal); K59.01 Slow transit constipation; R14.0 Abdominal distension (gaseous); R10.32 Left lower quadrant pain; K86.2 Cyst of pancreas | CPT/HCPCS: 99212 ==

== ENCOUNTER 2024-08-19 09:20 | Outpatient (REF) | payer OTHER, SELFPAY ==
--- NOTE | ~2024-08-19 | US_ITS ---
EXAMINATION: US COMPLETE ABDOMEN WITH LIVER ELASTOGRAPHY CLINICAL INFORMATION: Elevated liver enzymes. COMPARISON: No prior ultrasound. Correlation made with CT abdomen and pelvis 06/06/2024. TECHNIQUE: Real-time imaging of the abdominal viscera. Noninvasive ultrasound liver fibrosis assessment is performed using Michael ElastPQ point quantification shear wave elastography (pSWE) with a C5-2 MHz transducer. Multiple elastography samples are obtained. FINDINGS: PANCREAS: There is a cyst in the head of the pancreas measuring 1.3 x 1.0 x 1.3 cm. This was present on the recent CT examinations. This is most likely an incidental IPMN. The visualized pancreatic head and body are otherwise normal in appearance. The remainder of the pancreas is obscured from visualization by the overlying bowel gas. ABDOMINAL AORTA: No aortic aneurysm is seen. INFERIOR VENA CAVA: Visualized portions are normal. LIVER: Liver is normal in size with diffusely increased hepatic echogenicity suggestive of steatosis. Focal fatty sparing seen adjacent to the gallbladder fossa. No suspicious focal lesion. No intrahepatic biliary dilatation. The right lobe measures 14.9 cm in length. The left lobe measures 10.9 cm in length. Portal flow is hepatopedal. Shear wave liver elastography median stiffness is 1.92 m/s (reference: normal median stiffness is 1.3 m/s or less). IQR/median stiffness to assess sampling precision is 0.08 (reference: good quality data set is IQR/median stiffness of 0.15 or less). GALLBLADDER: The gallbladder is physiologically distended without evidence of stones, sludge, polyps, wall thickening or pericholecystic fluid. COMMON BILE DUCT: Normal in caliber measuring 0.2 cm in diameter. RIGHT KIDNEY: No hydronephrosis. No renal calculi or focal parenchymal lesions. The kidney measures 11.6 cm in maximum dimension. LEFT KIDNEY: No hydronephrosis. No renal calculi or focal parenchymal lesions. The kidney measures 11.3 cm in maximum dimension. SPLEEN: Unremarkable. The spleen measures 10.2 cm in maximum dimension. FREE FLUID: None seen. US/US abdomen comp w elastography IMPRESSION: 1. Diffusely increased hepatic echogenicity suggestive of hepatic steatosis. No suspicious focal lesion. Focal fatty sparing abutting the gallbladder fossa. 2. Liver elastography: 1.92 m/s. Measuremensts are consistent with compensated advanced chronic liver disease. 3. Stable 1.3 cm small cyst in the head of the pancreas, statistically most likely a benign IPMN. 4. Normal gallbladder and bile ducts. 5. Remainder the exam is normal. REFERENCE: Society of Radiologists in Ultrasound Liver Stiffness Thresholds (2019): LIVER STIFFNESS THRESHOLDS: *Liver Stiffness equal or less than 1.3 m/s: High probability of being normal. *Liver Stiffness less than 1.7 m/s: In the absence of other known clinical signs, rules out compensated advanced chronic liver disease. *Liver Stiffness 1.7-2.1 m/s: Suggestive of compensated advanced chronic liver disease but need further test for confirmation. *Liver Stiffness over 2.1 m/s: Rules in compensated advanced chronic liver disease. *Liver Stiffness over 2.4 m/s: Suggestive of clinically significant portal hypertension. QUALITY OF DATA SET: *IQR/Median value equal or less than 0.15 implies a quality data set. *IQR/Median value over 0.15 implies a poor quality data set. SIGNIFICANT CHANGE FROM PRIOR EXAM: Significant change if liver stiffness measurement is 10% or greater from prior exam. OTHER CONSIDERATIONS: The stage of liver fibrosis may be overestimated in the setting of acute hepatitis, liver inflammation, elevated liver function tests, hepatic vascular congestion, obstructive cholestasis, non-fasting state, and infiltrative diseases such as amyloidosis and lymphoma. In some patients with NAFLD, the liver stiffness thresholds for compensated advanced chronic liver disease may be lower. In causes other than viral hepatitis and NAFLD, liver stiffness thresholds are not well established. Electronically signed by: Erwin Zuñiga MD 08/19/2024 10:15 AM EDT
--- OUTSIDE RECORDS SUMMARY | 2024-08-19 09:38 | XMS_ITS | Clinical Summary ---
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 [...] mouth in the morning. 024 Active Creon 55705-308265 units capsule delayed-release particles capsule TAKE TWO [...] Sodium Fluoride 1.1 % creamIndications:De ntin hypersensitivity Muddy teeth for 2 minutes, morning and night. Spit, do not rinse. Do not eat or drink anything for 30 minutes following use. 112 g 3 024 Active cetirizine (ZyrTEC) 10 MG tablet TAKE ONE TABLET BY MOUTH ONCE DAILY 90 tablet 1 025 Active omega-3 (Fish Oil) 1000 MG capsule TAKE ONE CAPSULE TWICE DAILY 60 capsule 5 025 Active atorvastatin (Lipitor) 40 MG tabletIndications:M ixed hyperlipidemia TAKE ONE TABLET BY MOUTH AT BEDTIME 90 tablet 1 025 Active triamcinolone (Kenalog) 0.1 % ointmentIndications :Post-inflammatory hyperpigmentation APPLY TO THE AFFECTED AREA(S) TWICE DAILY 30 g 025 Active triamcinolone (Kenalog) 0.1 % ointmentIndications :Post-inflammatory hyperpigmentation Apply topically 2 times daily. 30 g 025 2024 Discontinued( Reorder (will not trigger notification to Pharmacy)) Active Problems Problem Noted Date Diagnosed Date [...] Encounters Date Type Department Care Team Description 07/29/2024 Refill [facility] [address] [place] [address] Ayesha Chua MD Post-inflammatory hyperpigmentation 07/19/2024 11:00 AM EDT Office Visit [facility] [address] [place] [address] Ho Wilkerson DMD Partial edentulism, unspecified edentulism class (Primary Dx) 07/19/2024 9:00 AM EDT Office Visit [facility] [address] [place] [address] Subhash Santos Dental calculus (Primary Dx) 06/28/2024 8:45 AM EDT Office Visit [facility] [address] [place] [address] Ayesha Chua MD Hepatic steatosis (Primary Dx); Pancreatic cyst; Pure hypercholesterolemia 06/28/2024 Travel 06/27/2024 Telephone [facility] [address] [place] [address] Ayesha Chua MD Chart Prep 06/23/2024 10:00 AM EDT Office Visit [facility] [address] [place] [address] Ho Wilkerson DMD Partial edentulism, unspecified edentulism class (Primary Dx) 06/09/2024 Telephone [facility] [address] [place] [address] Ayesha Chua MD ER Follow-up 06/06/2024 Orders Only [facility] External Provider, [facility] 06/01/2024 8:00 AM EDT Office Visit [facility] [address] [place] [address] Rock, Ho, DMD Partial edentulism, unspecified edentulism class (Primary Dx) 05/28/2024 Refill [facility] [address] [facility] [place] [address] Ayesha Chua MD Mixed hyperlipidemia 05/25/2024 11:00 AM EDT Office Visit [facility] [address] [facility] [place] [address] Ayesha Chua MD Cough, unspecified type (Primary Dx) 05/25/2024 Travel 05/23/2024 Telephone [facility] [address] [facility] [place] [address] Ayesha Chua MD Nurse Triage from Last 3 Months Immunizations Immunization Administration Dates Next Due Influenza, seasonal, injectable, [...] Sign Reading Time Taken Comments Blood Pressure 118/64 07/19/2024 9:10 AM EDT Pulse 65 07/19/2024 9:10 AM EDT Temperature 36.4 C (97.6 F) 06/28/2024 9:06 AM EDT Respiratory Rate 18 06/28/2024 9:06 AM EDT Oxygen Saturation 99% 06/28/2024 9:06 AM EDT Inhaled Oxygen Concentration - - Weight 97.5 kg (215 lb) 06/28/2024 9:06 AM EDT Height 170.2 cm (5' 7 ) 06/28/2024 9:06 AM EDT Body Mass Index 33.67 06/28/2024 9:06 AM EDT Plan of Treatment Upcoming Encounters Date Type Department Care Team (Late st Contact Info) Description 08/26/2024 9:15 AM EDT Office Visit [facility] [address] [place] [address] Ayesha Chua MD [address] [place] [address] 09/27/2024 9:15 AM EDT Office Visit [facility] [address] [place] [address] Ayesha Chua MD [address] [place] [address] Health Maintenance Due Date Last Done Comments [...] 60-74 years 1-dose series) 2023 COVID-19 Vaccine (2023- season) 2023 12/16/2021, 04/12/2021, 06/22/2020, Additional history exists Dental X-Ray: Bitewings 05/15/2024 05/15/19, 11/27/2021, 10/01/2021, Additional history exists Dental Oral Exam 01/20/2025 07/19/2024, , 05/15/2023, Additional history exists Dental Prophylaxis 01/20/2025 07/19/2024, 1 03/14/2023, 05/15/2023, Additional history exists Alcohol/Substance Use Screening 06/28/2025 06/28/2024 Depression Screening 06/28/2025 06/28/2024, 06/29/19 25 Disability Screening 06/28/2025 06/28/2024 SDOH Screening 06/28/2025 06/28/2024 Tobacco Screening 07/19/2025 07/19/2024 Dental X-Ray: Full Mouth 05/15/2026 05/15/2023, 01/31 [...] patient's age to complete this topic Meningococcal B Vaccine Aged Out No l onger eligible based on patient's age to complete [...] Procedure Name Priority Date/Time Associated Diagnosis Comments PERIODIC ORAL EVALUATION - ESTABLISHED PATIENT Routine 07/19/2024 11:00 AM EDT Partial edentulism, unspecified edentulism class CASE PRESENTATION, DETAILED AND EXTENSIVE TREATMENT PLANNING Routine 07/19/2024 11:00 AM EDT Partial edentulism, unspecified edentulism class WAX TRY IN Routine 07/19/2024 11:00 AM EDT Partial edentulism, unspecified edentulism class CASE PRESENTATION, DETAILED AND EXTENSIVE TREATMENT PLANNING Routine 07/19/2024 9:00 AM EDT ORAL HYGIENE INSTRUCTIONS Routine 07/19/2024 9:00 AM EDT PROPHYLAXIS - ADULT Routine 07/19/2024 9 :00 AM EDT CASE PRESENTATION, DETAILED AND EXTENSIVE TREATMENT [...] AM EDT Partial edentulism, unspecified edentulism class LIPID PANEL, STANDARD Routine 03/25/2024 9:53 AM EST Dyslipidemia INTRAORAL - COMPLETE SERIES OF RADIOGRAPHIC IMAGES Routine 05/15/2023 8:00 AM EDT HM COLONOSCOPY Routine 01/06/2022 from Last 3 Months or Most Recently Relevant to Health Maintenance Results * Referral to Sleep Medicine (06/14/2024) Ayesha Chua MD OUTPATIENT REFERRAL ORDERABLES F inal Result * CT Abdomen Pelvis w/ Contrast (06/06/2024 8:36 PM EDT) Anatomical Region Laterality Modality Body, Pelvis, Abdomen Computed T omography 06/06/2024 8:36 PM EDT Narrative 06/06/2024 8:37 PM EDT [place] [address] [address] Scan Report Signed Patient: Jeronimo Banks MR#: [id number] : 1965 Acct:[id number] Age/Sex: 58 / M ADM Date: 06/06/24 Loc: HO.ED Attending Dr: Ordering Physician: Rogelio Kelly MD Date of Service: 06/06/24 Procedure(s): CT abdomen pelvis w IV con Accession Number(s): [id number] cc: Ayesha Chua MD; Rogelio Kelly MD Report Number: [id number]: Total DLP = 575.00 mGy-cm CLINICAL HISTORY: LLQ tenderness R O diverticulitis CT abdomen and pelvis with contrast Comparison: CT/SR - CT ABDOMEN PELVIS W IV CON - 04/29/23 13:[address]/[place]/SR - CT ABDOMEN PELVIS WO IV CON [...] in OV> 06/06/242036 DD/ 35 TD/TT: 06/06/242035 Electronics Lead: Procedure Note Donotuseinterpreter, Image - 06/06/[address] [place] [address] [address] Scan Report Signed Patient: Paty Banks#: [id number] : 1965Acct:[id number] Age/Sex: 58 / MADM Date: 06/06/24 Loc: HO.ED Attending Dr: Ordering Physician: Rogelio Kelly MD Date of Service: 06/06/24 Procedure(s): CT abdomen pelvis w IV con Accession Number(s): [id number] cc: Ayesha Chua MD; Rogelio Kelly MD Report Number: [id number]: Total DLP = 575.00 mGy-cm CLINICAL HISTORY: LLQ tenderness R O diverticulitis CT abdomen and pelvis with contrast Comparison: CT/SR - CT ABDOMEN PELVIS W IV CON - 04/29/23 13:[address]/[place]/SR - CT ABDOMEN PELVIS WO IV CON [...] in OV> 06/06/242036 DD/ 35 TD/TT: 06/06/242035 Electronics Lead: [facility] External Provider IMG CT PROCEDURES Final Result * (ABNORMAL) CBC auto differential (06/06/2024 2:45 PM EDT) White Blood Count 8.1 4.8 - 10.8 X10*3/uL [facility] Red Blood Count 4.91 4.60 - 5.80 X10*6/uL [facility] Hemoglobin 14.4 14.0 - 18.0 g/dl [facility] Hematocrit 41.3(L) 42.0 - 52.0 % [facility] Mean Corpuscular Volume 84.1 80.0 - 98.0 fL [facility] Mean Corpuscular Hemoglobin 29.3 27.0 - 33.0 pg [facility] Mean Corpuscular HGB Conc 34.9 31.0 - 36.0 g/dl [facility] Red Cell Distribution Width 13.3 11.0 - 16.0 % [facility] Platelet Count 217 160 - 400 X10*3/uL [facility] Mean Platelet Volume 8.8(L) 9.4 - 12.4 fL [facility] Neutrophils Percent Auto 51.3 45 - 73 % [facility] Imm Gran Pct Auto 0.2 0.0 - 0.4 % [facility] Lymphocytes Percent Auto 34.0 20 - 40 % [facility] Monocytes Percent Auto 8.1 2 - 11 % [facility] Eosinophils Percent Auto 5.8(H) 0 - 4 % [facility] Basophils Percent Auto 0.6 0 - 2 % [facility] NRBC Pct Auto 0.0 0.0 - 0.2 /100WBC [facility] Neutrophils Absolute Auto 4.1 2.0 - 8.3 x10*3/uL [facility] Imm Gran Abs Auto 0.02 0.00 - 0.03 X10*3/uL [facility] Lymphocytes Absolute Auto 2.7 1.2 - 4.9 X10*3/uL [facility] Monocytes Absolute Auto 0.7 0.1 - 1.2 X10*3/uL [facility] Eosinophils Absolute Auto 0.5(H) 0.0 - 0.4 X10*3/uL [facility] Basophils Absolute Auto 0.1 0.0 - 0.2 X10*3/uL [facility] NRBC Abs Auto 0.000 0.0 - 0.012 X10*3/uL [facility] 06/06/2024 2:45 PM EDT 06/06/2024 2:48 PM EDT us Generic External Data Provider LAB BLOOD ORDERAB LES Final Result [facility] [address], [place] [phone] * Urinalysis w/reflex microscopic (06/06/2024 2:45 PM EDT) Color Urine Yellow [facility] Appearance Urine Clear [facility] PH 5.5 5.0 - 9.0 [facility] Glucose Urine UA Negative Negative mg/dL [facility] Urine Blood Negative Negative [facility] Specific Fif[place] - Urine 1.015 1.005 - 1.025 [facility] Urine Protein Negative Neg-Trace mg/dL [facility] Urine Ketones Negative Negative mg/dL [facility] Nitrite Urine Negative Negative [facility] Leukocyte Esterase Urine Negative Negative [facility] 06/06/2024 2:45 PM EDT 06/06/2024 2:48 PM EDT Narrative [facility] - 06/06/2024 2:54 PM EDT [id number], Clean Catch us Generic External Data Provider LAB URINE ORDERAB LES Final Result Performing Organization Address [facility]/ZIP Co de Phone Number [facility] [address] [place] [phone] * Lipase (06/06/2024 2:45 PM EDT) Pathologist [facility] Lipase 26 8 - 78 U/L [facility] 06/06/2024 2:45 PM EDT 06/06/2024 2:48 PM EDT us Generic External Data Provider LAB BLOOD ORDERAB LES Final Result Performing Organization Address [facility] Co de Phone Number [facility] [address] [place] [phone] * (ABNORMAL) Comprehensive Metabolic Panel (06/06/2024 2:45 PM EDT) Sodium 141 135 - 145 mmol/L [facility] Potassium 4.7 3.3 - 5.1 mmol/L [facility] Chloride 106 96 - 108 mmol/L [facility] Carbon Dioxide 27 22 - 29 mmol/L [facility] Anion Gap 13 12 - 20 [facility] Urea Nitrogen (BUN) 14 9 - 16 mg/dL [facility] Creatinine, Serum 0.89 0.5 - 1.4 mg/dL [facility] Creatinine Clr Calc Pharmacy 99.9 [facility] Comment:eGFR (calculated fro m the MDRD study equation) and eCrCl(calculated from the Cockcroft-Gault equation) are based ondifferent parameters and may not yield comparable results.If eCrCl result is absurd, please check patient'sheight/weight. Estimated Glomerular Filt Rate >60 [facility] Comment:Chronic Kidney Disea se: Estimated GFR < 60 mL/min/1.22d4Gvqcfp Kidney Disease: Estimated GFR < 15 mL/min/1.73m2 Glucose 100 60 - 115 mg/dL [facility] Calcium 9.5 8.4 - 10.2 mg/dL [facility] Bilirubin, Total 0.7 0.0 - 1.0 mg/dL [facility] Aspartate Amino Transferase 46(H) 5 - 37 U/L [facility] Alanine Aminotransferase 83(H) 0 - 40 U/L [facility] Total Protein 7.9 6.5 - 8.0 g/dL [facility] Albumin Level 4.4 3.5 - 5.0 g/dL [facility] Alkaline Phosphatase 107 39 - 117 U/L [facility] 06/06/2024 2:45 PM EDT 06/06/2024 2:48 PM EDT us Generic External Data Provider LAB BLOOD ORDERAB LES Final Result [facility] [address], [place] [phone] * (ABNORMAL) Lipid Panel, Standard (03/25/2024 9:53 AM EST) Triglycerides 187(H) <150 mg/dL [facility] Comment:Desirable Triglyceri de: less than 150 mg/dLBorderline High Triglyceride 150-199 mg/dLHigh Triglyceride: 200-499 mg/dLVery High Triglyceride: greater than or equal to 5OO mg/dL Cholesterol 176 <200 mg/dL [facility] Comment:Desirable Cholestero l: less than 200 mg/dLBorderline High Cholesterol: 200-239 mg/dLHigh Cholesterol: greater than 239 mg/dL LDL Cholesterol Calculated 106(H) <100 mg/dL [facility] Comment:Desirable LDL: less than 100 mg/dLNear Optimal/Above Optimal LDL: 110- 129 mg/dLBorderline High LDL: 130-159 mg/dLHigh LDL: 160-189 mg/dLVery High LDL: greater than or equal to 190 mg/dL HDL Cholesterol 33(L) >40 mg/dL [facility] Comment:Desirable HDL: great er than 40 mg/dL Note: This HDL assay may give artificially low results in patients with liver disease. Blood Venous blood specimen / Unknown 03/25/2024 9:53 AM EST 03/25/2024 2:34 PM EST Ayesha Chua MD LAB BLOOD ORDERABLES Final Resul t [facility] [address] [place] [phone] * Hm Colonoscopy (01/06/2022) Colonoscopy Normal Normal Narrative Anu Cartagena - 01/06/2022 Recommended 5 year follow up Historical Provider HEALTH MAINTENANCE Final Result from Last 3 Months or Most Recently Relevant to Health Maintenance Insurance [employer] [facility] LIMITED ADULT DENTAL - HSN FULL (MEDICAID) Care Teams 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
== END 2024-08-19 09:21 | disposition home or self-care (01) ==
LOC: HO.US 09:20
PROVIDERS: PCP Student in an Organized Health Care Education/Training Program; Visit Provider Nurse Practitioner Family
DX: R79.89 Other specified abnormal findings of blood chemistry (principal)
CPT/HCPCS: 76700; 76981

== ENCOUNTER → 2024-08-19 09:22 | Outpatient (BNV) | payer OTHER, SELFPAY | PROVIDERS: PCP Student in an Organized Health Care Education/Training Program; Visit Provider Radiology Diagnostic Radiology | DX: K86.2 Cyst of pancreas (principal); K82.8 Other specified diseases of gallbladder | CPT/HCPCS: 76700 ==

== ENCOUNTER 2024-08-22 09:44 | Outpatient (REF) | payer OTHER, SELFPAY ==
--- OUTSIDE RECORDS SUMMARY | 2024-08-22 10:33 | XMS_ITS | Encounter Summary ---
Author Organization [facility] Address [address] [place] [address] Care Team Providers Care Canceling And Cutting Control Clerk Name Role Phone Ayesha Chua MD Primary Care Provider [phone] Ho Wilkerson DMD Unavailable [phone] Encounter Details Date Type Department Care Team ([facility] st Contact Info) Description 08/19/2024 Orders Only [facility] External Provider, [facility] Social History Tobacco Use Types Packs/Day Years [...] Description 08/26/2024 9:15 AM EDT Office Visit [facility] [address] [place] [address] Ayesha Chua MD [address] [place] [address] 09/07/2024 8:00 AM EDT Office Visit [facility] [address] [place] [address] Ho Wilkerson DMD [address] [place] [address] 09/27/2024 9:15 AM EDT Office Visit [facility] [address] [place] [address] Ayesha Chua MD [address] [place] [address] documented as of this encounter Procedures Procedure Name Priority Date/Time Associated Diagnosis Comments US ABDOMEN COMPLETE WITH ELASTOGRAPHY Routine 08/19/2024 9:34 AM EDT documented in this encounter Results * US Abdomen Comp w elastography (08/19/2024 9:34 AM EDT) Anatomical Region Laterality Modality Abdomen Ultrasound 08/19/2024 9:34 AM EDT Narrative 08/19/2024 10:17 AM EDT [address] [address] Ultrasound Report Signed Patient: Jeronimo Banks MR#: [id number] : 1965 Acct:[id number] Age/Sex: 58 / M ADM Date: 08/19/24 Loc: HO.US Attending Dr: Rosalba HORTA Ordering Physician: Rosalba Huber Date of Service: 08/19/24 Procedure(s): US abdomen comp w elastography Accession Number(s): [id number] cc: Rosalba Huber; Ayesha Chua MD EXAMINATION: US COMPLETE ABDOMEN WITH LIVER ELASTOGRAPHY CLINICAL INFORMATION: Elevated liver enzymes. COMPARISON: No prior ultrasound. Correlation made with CT abdomen and pelvis 06/06/2024. TECHNIQUE: Real-time imaging of the abdominal viscera. Noninvasive ultrasound liver fibrosis assessment is performed using Michael ElastPQ point quantification shear wave elastography (pSWE) with a C5-2 MHz transducer. Multiple elastography samples are obtained. FINDINGS: PANCREAS: There is a cyst in the head of the pancreas measuring 1.3 x 1.0 x 1.3 cm. This was present on the recent CT examinations. This is most likely an incidental IPMN. The visualized pancreatic head and body are otherwise normal in appearance. The remainder of the pancreas is obscured from visualization by the overlying bowel gas. ABDOMINAL AORTA: No aortic aneurysm is seen. INFERIOR VENA CAVA: Visualized portions are normal. LIVER: Liver is normal in size with diffusely increased hepatic echogenicity suggestive of steatosis. Focal fatty sparing seen adjacent to the gallbladder fossa. No suspicious focal lesion. No intrahepatic biliary dilatation. The right lobe measures 14.9 cm in length. The left lobe measures 10.9 cm in length. Portal flow is hepatopedal. Shear wave liver elastography median stiffness is 1.92 m/s (reference: normal median stiffness is 1.3 m/s or less). IQR/median stiffness to assess sampling precision is 0.08 (reference: good quality data set is IQR/median stiffness of 0.15 or less). GALLBLADDER: The gallbladder is physiologically distended without evidence of stones, sludge, polyps, wall thickening or pericholecystic fluid. COMMON BILE DUCT: Normal in caliber measuring 0.2 cm in diameter. RIGHT KIDNEY: No hydronephrosis. No renal calculi or focal parenchymal lesions. The kidney measures 11.6 cm in maximum dimension. LEFT KIDNEY: No hydronephrosis. No renal calculi or focal parenchymal lesions. The kidney measures 11.3 cm in maximum dimension. SPLEEN: Unremarkable. The spleen measures 10.2 cm in maximum dimension. FREE FLUID: None seen. US/US abdomen comp w elastography IMPRESSION: 1. Diffusely increased hepatic echogenicity suggestive of hepatic steatosis. No suspicious focal lesion. Focal fatty sparing abutting the gallbladder fossa. 2. Liver elastography: 1.92 m/s. Measuremensts are consistent with compensated advanced chronic liver disease. 3. Stable 1.3 cm small cyst in the head of the pancreas, statistically most likely a benign IPMN. 4. Normal gallbladder and bile ducts. 5. Remainder the exam is normal. REFERENCE: Society of Radiologists in Ultrasound Liver Stiffness Thresholds (2020): LIVER STIFFNESS THRESHOLDS: *Liver Stiffness equal or less than 1.3 m/s: High probability of being normal. *Liver Stiffness less than 1.7 m/s: In the absence of other known clinical signs, rules out compensated advanced chronic liver disease. *Liver Stiffness 1.7-2.1 m/s: Suggestive of compensated advanced chronic liver disease but need further test for confirmation. *Liver Stiffness over 2.1 m/s: Rules in compensated advanced chronic liver disease. *Liver Stiffness over 2.4 m/s: Suggestive of clinically significant portal hypertension. QUALITY OF DATA SET: *IQR/Median value equal or less than 0.15 implies a quality data set. *IQR/Median value over 0.15 implies a poor quality data set. SIGNIFICANT CHANGE FROM PRIOR EXAM: Significant change if liver stiffness measurement is 10% or greater from prior exam. OTHER CONSIDERATIONS: The stage of liver fibrosis may be overestimated in the setting of acute hepatitis, liver inflammation, elevated liver function tests, hepatic vascular congestion, obstructive cholestasis, non-fasting state, and infiltrative diseases such as amyloidosis and lymphoma. In some patients with NAFLD, the liver stiffness thresholds for compensated advanced chronic liver disease may be lower. In causes other than viral hepatitis and NAFLD, liver stiffness thresholds are not well established. Electronically signed by: Erwin Zuñiga MD 08/19/2024 10:15 AM EDT Dictated By: Erwin Zuñiga MD Signed By: <Electronically signed by Erwin Zuñiga MD in OV> 08/19/24 1015 DD/ 0934 TD/TT: 08/19/24 0955 Advanced Practice Provider: Procedure Note Donotuseinterpreter, Image - 08/19/2024 [place] [address] Ultrasound Report Signed Patient: Paty Banks#: [id number] : 1965Acct:[id number] Age/Sex: 58 / MADM Date: 08/19/24 Loc: HO.US Attending Dr: Rosalba HORTA Ordering Physician: Rosalba Huber Date of Service: 08/19/24 Procedure(s): US abdomen comp w elastography Accession Number(s): [id number] cc: Rosalba Hbuer; Ayesha Chua MD EXAMINATION: US COMPLETE ABDOMEN WITH LIVER ELASTOGRAPHY CLINICAL INFORMATION: Elevated liver enzymes. COMPARISON: No prior ultrasound. Correlation made with CT abdomen and pelvis 06/06/2024. TECHNIQUE: Real-time imaging of the abdominal viscera. Noninvasive ultrasound liver fibrosis assessment is performed using Michael ElastPQ point quantification shear wave elastography (pSWE) with a C5-2 MHz transducer. Multiple elastography samples are obtained. FINDINGS: PANCREAS: There is a cyst in the head of the pancreas measuring 1.3 x 1.0 x 1.3 cm. This was present on the recent CT examinations. This is most likely an incidental IPMN. The visualized pancreatic head and body are otherwise normal in appearance. The remainder of the pancreas is obscured from visualization by the overlying bowel gas. ABDOMINAL AORTA: No aortic aneurysm is seen. INFERIOR VENA CAVA: Visualized portions are normal. LIVER: Liver is normal in size with diffusely increased hepatic echogenicity suggestive of steatosis. Focal fatty sparing seen adjacent to the gallbladder fossa. No suspicious focal lesion. No intrahepatic biliary dilatation. The right lobe measures 14.9 cm in length. The left lobe measures 10.9 cm in length. Portal flow is hepatopedal. Shear wave liver elastography median stiffness is 1.92 m/s (reference: normal median stiffness is 1.3 m/s or less). IQR/median stiffness to assess sampling precision is 0.08 (reference: good quality data set is IQR/median stiffness of 0.15 or less). GALLBLADDER: The gallbladder is physiologically distended without evidence of stones, sludge, polyps, wall thickening or pericholecystic fluid. COMMON BILE DUCT: Normal in caliber measuring 0.2 cm in diameter. RIGHT KIDNEY: No hydronephrosis. No renal calculi or focal parenchymal lesions. The kidney measures 11.6 cm in maximum dimension. LEFT KIDNEY: No hydronephrosis. No renal calculi or focal parenchymal lesions. The kidney measures 11.3 cm in maximum dimension. SPLEEN: Unremarkable. The spleen measures 10.2 cm in maximum dimension. FREE FLUID: None seen. US/US abdomen comp w elastography IMPRESSION: 1. Diffusely increased hepatic echogenicity suggestive of hepatic steatosis. No suspicious focal lesion. Focal fatty sparing abutting the gallbladder fossa. 2. Liver elastography: 1.92 m/s. Measuremensts are consistent with compensated advanced chronic liver disease. 3. Stable 1.3 cm small cyst in the head of the pancreas, statistically most likely a benign IPMN. 4. Normal gallbladder and bile ducts. 5. Remainder the exam is normal. REFERENCE: Society of Radiologists in Ultrasound Liver Stiffness Thresholds (2020): LIVER STIFFNESS THRESHOLDS: *Liver Stiffness equal or less than 1.3 m/s: High probability of being normal. *Liver Stiffness less than 1.7 m/s: In the absence of other known clinical signs, rules out compensated advanced chronic liver disease. *Liver Stiffness 1.7-2.1 m/s: Suggestive of compensated advanced chronic liver disease but need further test for confirmation. *Liver Stiffness over 2.1 m/s: Rules in compensated advanced chronic liver disease. *Liver Stiffness over 2.4 m/s: Suggestive of clinically significant portal hypertension. QUALITY OF DATA SET: *IQR/Median value equal or less than 0.15 implies a quality data set. *IQR/Median value over 0.15 implies a poor quality data set. SIGNIFICANT CHANGE FROM PRIOR EXAM: Significant change if liver stiffness measurement is 10% or greater from prior exam. OTHER CONSIDERATIONS: The stage of liver fibrosis may be overestimated in the setting of acute hepatitis, liver inflammation, elevated liver function tests, hepatic vascular congestion, obstructive cholestasis, non-fasting state, and infiltrative diseases such as amyloidosis and lymphoma. In some patients with NAFLD, the liver stiffness thresholds for compensated advanced chronic liver disease may be lower. In causes other than viral hepatitis and NAFLD, liver stiffness thresholds are not well established. Electronically signed by: Erwin Zuñiga MD 08/19/2024 10:15 AM EDT Dictated By: Erwin Zuñiga MD Signed By: <Electronically signed by Erwin Zuñiga MD in OV> 08/19/24 1015 DD/ 0934 TD/TT: 08/19/24 0955 Advanced Practice Provider: [facility] External Provider IMG US PROCEDURES Final Result documented in this encounter Visit Diagnoses Not on filedocumented in this encounter Additional Health Concerns Assessment Noted Time PHQ-9 Depression Total Score: 0 06/29/19 25 9:07 AM EDT documented as of this encounter Care Teams Canceling And Cutting Control Clerk Relationship Specialty Start Date End Date Ayesha Chua MD [address] [place] [address] PCP - General Family Medicine 05/21/23 Ho Wilkerson DMD [address] [place] [address] Dentist 04/21/24 documented as of this encounter
[2024-08-22 14:08] LABS: Alanine Aminotransferase 45 U/L (0-40); Albumin Level 4.3 g/dL (3.5-5.0); Alkaline Phosphatase 102 U/L (39-117); Anion Gap 10 (12-20); Aspartate Amino Transferase 47 U/L (5-37); Bilirubin Direct 0.1 mg/dL (0.0-0.5); Bilirubin Total 0.3 mg/dL (0.0-1.0); Blood Urea Nitrogen 18 mg/dL (9-16); Calcium 8.5 mg/dL (8.4-10.2); Carbon Dioxide 22 mmol/L (22-29); Chloride 112 mmol/L (96-108); Cholesterol 108 mg/dL (<200); Estimated Glomerular Filt Rate > 60; Glucose Random 103 mg/dL (60-115); HDL Cholesterol 30 mg/dL (>40); LDL Cholesterol Calculated 60 mg/dL (<100); Sodium 140 mmol/L (135-145); Total Protein 7.2 g/dL (6.5-8.0); Triglycerides 92 mg/dL (<150)
== END 2024-08-22 09:45 | disposition home or self-care (01) ==
LOC: HO.CHCLDS 09:44
PROVIDERS: Visit Provider Student in an Organized Health Care Education/Training Program
DX: E78.00 Pure hypercholesterolemia, unspecified (principal)
CPT/HCPCS: 36415; 80048; 80061; 80076

== ENCOUNTER 2024-11-11 10:51 | Outpatient (REF) | payer OTHER, SELFPAY ==
[2024-11-11 13:15] LABS: Hemoglobin A1C 154.0915 umol/L; Total Hemoglobin (HGBA1C) 3559.2001 umol/L
[2024-11-11 13:17] LABS: INTERNATIONAL NORM RATIO 1.0 (0.9-1.1); Prothrombin Time 11.5 SEC (10.9-12.4)
[2024-11-11 13:53] LABS: Gamma Glutamyl Transpeptidase 93 U/L (11-51)
[2024-11-11 14:03] LABS: Ferritin 293 ng/mL (20-250)
[2024-11-12 09:14] LABS: HBS Num1 0.87 mIU/mL (0-7.99); HBc Num1 0.04 S/CO (0.00-0.79); HBsAGNum1 0.48 S/CO (0.00-0.99); Hepatitis A Antibody IgM 0.24 Index (0-0.79); Hepatitis B Surface Antigen Negative (Negative); ~HepC Num1 0.07 S/CO (0.00-0.79); ~Hepatitis A Antibody IgM Nonreactive (Nonreactive); ~Hepatitis B Surface Antibody NONREACTIVE (Nonreactive); ~Hepatitis C Antibody Nonreactive (Nonreactive)
[2024-11-15 14:14] LABS: Anti Nuclear Antibody Screen NEGATIVE (NEGATIVE)
[2024-11-18 17:13] LABS: FIB-ALT 36 U/L (9-46); FIB-Alpha-2-Macroglobulin 121 mg/dL (106-279); FIB-Apolipoprotein A1 126 mg/dL (94-176); FIB-GGT 73 U/L (3-70); FIB-Haptoglobin 120 mg/dL (43-212); FIB-Total Bilirubin 0.6 mg/dL (0.2-1.2); Liver Fibrosis Score 0.25; Liver Fibrosis Stage F0-F1; Nec Inflam Act Grade A0-A1; Nec Inflam Act Score 0.18
== END 2024-11-11 10:52 | disposition home or self-care (01) ==
LOC: HO.LAB 10:51
PROVIDERS: PCP Student in an Organized Health Care Education/Training Program; Visit Provider Nurse Practitioner Family
DX: R74.8 Abnormal levels of other serum enzymes (principal); R79.89 Other specified abnormal findings of blood chemistry; K58.9 Irritable bowel syndrome, unspecified; K76.0 Fatty (change of) liver, not elsewhere classified; K86.81 Exocrine pancreatic insufficiency; K59.01 Slow transit constipation; R14.0 Abdominal distension (gaseous); R10.84 Generalized abdominal pain; K86.2 Cyst of pancreas; K86.89 Other specified diseases of pancreas; Z83.3 Family history of diabetes mellitus
CPT/HCPCS: 36415; 81596; 82105; 82390; 82728; 82977; 83036; 85610; 86015; 86038; 86140; 86704; 86706; 86709; 86803; 87340

== ENCOUNTER 2025-01-08 03:08 | Emergency (ER) | payer OTHER, SELFPAY ==
[2025-01-08 03:13] VITALS: BP 142/79; PULSE 65; RESP 18; TEMP 36.2; O2SAT 99; BMI 33.8
--- OUTSIDE RECORDS SUMMARY | 2025-01-08 03:59 | XMS_ITS | Encounter Summary ---
Author Organization [employer] Address [address] [facility] 7[address] [place] [address] Care Team Providers Care Beater Out Leveling Machine Name Role Phone Abiola Hadley MD Primary Care Provider [phone] Ayesha Chua MD Primary Care Provider [phone] Ho Wilkerson DMD Unavailable [phone] Derek Lemos MD Primary Care Prov ider Encounter Details Date Type Department Care Team (Latest Contact Info) Description 12/10/2018 Abstract [facility] CONVERSIONS Dental, Provider, DDS Social History Tobacco Use Types Packs/Day Years Used Date Smoking Tobacco: Never Assessed Sex and Gender Information Value Date Recorded Sex Assigned at Male 12/30/2021 10:20 AM EDT Legal Sex Male 10:20 AM EDT Gender Identity Male 12/30/2021 10:20 AM EDT Sexual Orientation Straight 12/30/2021 10 :20 AM EDT documented as of this encounter Plan of Treatment Not on file documented as of this encounter Visit Diagnoses Not on filedocumented in this encounter Care Teams Beater Out Leveling Machine Relationship Specialty Start Date End Date Abiola Hadley MD [address] [place] [address] PCP - General Family Medicine 10/22/17 05/20/23 Ayesha Chua MD [address] [place] [address] PCP - General Family Medicine 05/21/23 12/27/24 Derek Lemos MD [address] [place] [address] PCP - General Internal Medicine 12/28/24 Ho Wilkerson DMD [address] [place] [address] Dentist 04/21/24 documented as of this encounter
--- OUTSIDE RECORDS SUMMARY | 2025-01-08 03:59 | XMS_ITS | Encounter Summary ---
Author Organization [employer] Address [address] [facility] [address] [place] [address] Care Team Providers Care Custodian Name Role Phone Ho Wilkerson DMD Unavailable Derek Lemos MD Primary Care Prov ider Reason for Visit * Reason Onset Date Comments Med Refill 01/05/2025 Encounter Details Date Type Department Care Team ([facility] st Contact Info) Description 01/05/2025 Refill [facility] [address] [place], [place] [phone] Derek Lemos MD [address] [place], [place] [phone] Social History Tobacco Use Types Packs/Day Years [...] Time PHQ-9 Depression Total Score: 0 06/29/19 9:07 AM EDT documented as of this encounter Care Teams Custodian Relationship Specialty Start Date End Date Derek Lemos MD [address] [place] [address] PCP - General Internal Medicine 12/28/24 Ho Wilkersno DMD [address] [place] [address] Dentist 04/21/24 documented as of this encounter
--- OUTSIDE RECORDS SUMMARY | 2025-01-08 03:59 | XMS_ITS | Encounter Summary ---
Author Organization [employer] Address [address] [facility] 7[address] [place] [address] Care Team Providers Care Senior Treasury Consultant Name Role Phone Abiola Hadley MD Primary Care Provider [phone] Ayesha Chua MD Primary Care Provider [phone] Ho Wilkerson DMD Unavailable [phone] Derek Lemos MD Primary Care Prov ider Encounter Details Date Type Department Care Team (Latest Contact Info) Description 10/01/2021 Abstract [facility] CONVERSIONS Dental, Provider, DDS Social [...] on filedocumented in this encounter Care Teams Senior Treasury Consultant Relationship Specialty Start Date End Date Abiola Hadley MD [address] [place] [address] PCP - General Family Medicine 10/22/17 05/20/23 Ayesha Chua MD [address] [place] [address] PCP - General Family Medicine 05/21/23 12/27/24 Derek Lemos MD [address] [place] [address] PCP - General Internal Medicine 12/28/24 Ho Wilkerson DMD [address] [place] [address] Dentist 04/21/24 documented as of this encounter
--- OUTSIDE RECORDS SUMMARY | 2025-01-08 03:59 | XMS_ITS | Clinical Summary ---
Author Organization [facility] Address [address] [place] [address] Care Team Providers Care Special Needs Babysitter Name Role Phone Unavailable Primary Care Provider [...]
--- OUTSIDE RECORDS SUMMARY | 2025-01-08 03:59 | XMS_ITS | Encounter Summary ---
Author Organization [employer] Address [address] [place] [address] Care Team Providers Care Admitting Representative Name Role Phone Abiola Hadley MD Primary Care Provider [phone] Ayesha Chua MD Primary Care Provider [phone] Ho Wilkerson DMD Unavailable [phone] Derek Lemos MD Primary Care Prov ider Encounter Details Date Type Department Care Team (Late st Contact Info) Description 01/07/2023 Abstract [facility]ICINE [address] [place] [address] Anu Cartagena Social History Tobacco Use Types [...] on file documented as of this encounter Procedures Procedure Name Priority Date/Time Associated Diagnosis Comments COLONOSCOPY Routine 01/06/2022 documented in this encounter Results * Hm Colonoscopy (01/06/2022) Colonoscopy Normal Normal Narrative Anu Cartagena - 01/06/2022 Recommended 5 year follow up Historical Provider HEALTH MAINTENANCE Final Result documented in this encounter Visit Diagnoses Not on filedocumented in this encounter Additional Health Concerns Assessment Noted Time PHQ-9 Depression Total Score: 0 08/06/19 23 9:03 AM EDT documented as of this encounter Care Teams Admitting Representative Relationship Specialty Start Date End Date Abiola Hadley MD [address] [place] [address] PCP - General Family Medicine 10/22/17 05/20/23 Ayesha Chua MD [address] [place] [address] PCP - General Family Medicine 05/21/23 12/27/24 Derek Lemos MD [address] [place] [address] PCP - General Internal Medicine 12/28/24 Ho Wilkerson DMD [address] [place] [address] Dentist 04/21/24 documented as of this encounter
--- OUTSIDE RECORDS SUMMARY | 2025-01-08 03:59 | XMS_ITS | Encounter Summary ---
Author Organization [employer] Address [address] [place] [address] Care Team Providers Care Supervisor Dehydrogenation Name Role Phone Abiola Hadley MD Primary Care Provider [phone] Ayesha Chua MD Primary Care Provider [phone] Ho Wilkerson DMD Unavailable [phone] Derek Lemos MD Primary Care Prov ider Encounter Details Date Type Department Care Team (Late st Contact Info) Description 02/18/2022 Orders Only [facility] [address] [place] [address] Linda Alvarez LPN Social History Tobacco Use [...] Results * Lipase (10/29/2022 8:42 AM EDT) Pathologist [facility] Lipase 18 8 - 78 U/L [facility] 10/29/2022 8:42 AM EDT 10/29/2022 8:42 AM EDT us Generic External Data Provider LAB BLOOD ORDERAB LES Final Result [facility] [address] [place] [phone] * (ABNORMAL) Hepatic Function Panel (10/29/2022 8:42 AM EDT) Pathologist [facility] Bilirubin, Total 0.5 0.0 - 1.0 mg/dL [facility] Bilirubin, Direct 0.2 0.0 - 0.5 mg/dL [facility] Aspartate Amino Transferase 26 5 - 37 U/L [facility] Alanine Aminotransferase 42(H) 0 - 40 U/L [facility] Total Protein 7.7 6.5 - 8.0 g/dL [facility] Albumin Level 4.4 3.5 - 5.0 g/dL [facility] Alkaline Phosphatase 91 39 - 117 U/L [facility] 10/29/2022 8:42 AM EDT 10/29/2022 8:42 AM EDT [facility] External Provider LAB BLO OD ORDERABLES Final Result Performing Organization Address [facility]/ZIP Co de Phone Number [facility] [address] [place] [phone] * PSA, Total With Reflex to PSA, Free (05/22/2022 11:03 AM EDT) PSA,Total (Free>4and<10) 0.62 0.00 - 4.00 ng/mL [facility] Comment:A Free PSA was not [...] 3 AM EDT 05/22/2022 11:03 AM EDT [facility] External Provider LAB BLO OD ORDERABLES Final Result Performing Organization Address City/[facility]/ZIP Co de Phone Number [facility] [address] [place] [phone] * Tissue Transglutaminase Antibody, IgA (05/08/2022 10:09 AM EST) Transglutaminase IgA <1.0 U/mL [facility] Comment:Value Interpretation ----- <15.0 Antibody not detected> or = 15.0 Antibody detectedTHIS TEST WAS PERFORMED AT:[employer] [address] [id number] FULLER MD 05/08/2022 10:0 9 AM EST 05/08/2022 10:09 AM EST [facility] External Provider LAB BLO OD ORDERABLES Final Result Performing Organization Address [facility] Co nh Phone [facility] [address] [place] [phone] * Tissue Transglutaminase (tTG) Antibody (IgG) (05/08/2022 10:09 AM EST) Tissue Transglutaminase Antibody IgG 1.7 U/mL [facility] Comment:Value Interpretation ----- <15.0 Antibody not detected> or = 15.0 Antibody detectedTHIS TEST WAS PERFORMED AT:[employer] [address] [id number] FULLER MD 05/08/2022 10:0 9 AM EST 05/08/2022 10:09 AM EST [facility] External Provider LAB BLO OD ORDERABLES Final Result Performing Organization Address City/[facility] Co de Phone Number [facility] [address] [place] [phone] * (ABNORMAL) VITAMIN D 25-OH (D2 AND D3) (05/08/2022 10:09 AM EST) Vitamin D, 25-OH, D2 <4 ng/mL [facility] Comment:This test was develo ped and its analytical performancecharacteristics have been determined by [employer] [place], [place]. It hasnot been cleared or approved by the .[place]. Food and DrugAdministration. This assay has been validated pursuantto the CLIA regulations and is used for clinicalpurposes.THIS TEST WAS PERFORMED AT:[employer] [id number] [place] [id number] MORA MD,PHD Vitamin D, 25-OH, D3 13 ng/mL [facility] Comment:This test was develo ped and its analytical performancecharacteristics have been determined by [employer] [place], [place]. It hasnot been cleared or approved by the U.S. Food and DrugAdministration. This assay has been validated pursuantto the CLIA regulations and is used for clinicalpurposes. Vitamin D, 25-OH, Total 13(A) 30 - 100 ng/mL [facility] Comment: Vitamin D, 25-Hydroxy reports concentrations of twocommon forms, 25-OHD2 and 25- OHD3. 25-OHD3 indicatesboth endogenous production and supplementation.25-OHD2 is an indicator of exogenous sources such asdiet or supplementation. Therapy is based onmeasurement of Total 25-OHD, with [...] Clin EndocrinolMetab. 2011;96(7):1911-30.For additional information, please refer [email or web address]/[email or web address](This link is being provided for informational/educational purposes only.) 05/08/2022 10:0 9 AM EST 05/08/2022 10:09 AM EST [facility] External Provider LAB BLO OD ORDERABLES Final Result Performing Organization Address [facility] Co de Phone Number [facility] [address] [place] [phone] * (ABNORMAL) Vitamin B12/Folate, Serum Panel (05/08/2022 10:09 AM EST) Vitamin B12 959(H) 200 - 900 pg/mL [facility] Comment:NORMAL 200-900 PG/ML INDETERMINATE 160-199 PG/ML DEFICIENT < 160 PG/ML Folate 13.0 > or = 4.0 ng/mL [facility] Comment:Reference Values:> o r = 4.0 ng/mL< 4.0 ng/mL suggests folate deficiency Methotrexate, aminopterin and folinic acid(leucovorin) are chemotherapeutic agents whose molecularstructures are similar to folate; therefore, the Architectfolate assay cannot be used for patients using these drugs. 05/08/2022 10:0 9 AM EST 05/08/2022 10:09 AM EST [facility] External Provider LAB BLO OD ORDERABLES Final Result Performing Organization Address City/[facility] Co de Phone Number [facility] [address] [place] [phone] * TSH W/Reflex to FT4 (05/08/2022 10:09 AM EST) TSH reflex Free T4 1.69 0.32 - 4.0 uIU/mL [facility] 05/08/2022 10:0 9 AM EST 05/08/2022 10:09 AM EST [facility] External Provider LAB BLO OD ORDERABLES Final Result Performing Organization Address [facility] de Phone Number [facility] [address] [place] [phone] * HIGH SENSITIVITY TROPONIN I (05/05/2022 5:11 PM EST) [facility] TROPONIN I HIGH SENSITIVITY <3.5 <3.5 - 35.0 ng/L [facility] Comment:The [place] high sens itivity Troponin-I results should beused in conjunction with other diagnostic information suchas ECG, clinical observations and information, and patientsymptoms to aid in the diagnosis of [place]. 05/05/2022 5:11 PM EST 05/05/2022 5:16 PM EST [facility] External Provider LAB BLO OD ORDERABLES Final Result Performing Organization Address [facility] Number [facility] [address] [place] [phone] * Magnesium (05/05/2022 5:11 PM EST) [facility] Magnesium 2.1 1.6 - 2.6 mg/dL [facility] 05/05/2022 5:11 PM EST 05/05/2022 5:16 PM EST [facility] External Provider LAB BLO OD ORDERABLES Final Result Performing Organization Address [facility] Phone Number [facility] [address] [place] [phone] * Basic Metabolic Panel (05/05/2022 5:11 PM EST) [facility] Sodium 145 135 - 145 mmol/L [facility] Potassium 4.6 3.3 - 5.1 mmol/L [facility] Chloride 107 96 - 108 mmol/L [facility] Carbon Dioxide 27 22 - 29 mmol/L [facility] Anion Gap 16 12 - 20 [facility] Urea Nitrogen (BUN) 15 9 - 16 mg/dL [facility] Creatinine, Serum 0.86 0.5 - 1.4 mg/dL [facility] Creatinine Clr Calc Pharmacy 102.9 [facility] Comment:eGFR (calculated fro m the MDRD study equation) and eCrCl(calculated from the Cockcroft-Gault equation) are based ondifferent parameters and may not yield comparable results.If eCrCl result is absurd, please check patient'sheight/weight. Estimated Glomerular Filt Rate >60 [facility] Comment:NOTE: For -Am erican individuals, multiply the result by 1.210.Chronic Kidney Disease: Estimated GFR < 60 mL/min/1.81t1Nibiqp Kidney Disease: Estimated GFR < 15 mL/min/1.73m2 Glucose 71 60 - 115 mg/dL [facility] Calcium 9.4 8.4 - 10.2 mg/dL [facility] 05/05/2022 5:11 PM EST 05/05/2022 5:16 PM EST [facility] External Provider LAB BLO OD ORDERABLES Final Result [facility] [address] [place] [phone] * (ABNORMAL) Hepatic Function Panel (05/05/2022 5:11 PM EST) Bilirubin, Total 0.7 0.0 - 1.0 mg/dL [facility] Bilirubin, Direct 0.2 0.0 - 0.5 mg/dL [facility] Aspartate Amino Transferase 24 5 - 37 U/L [facility] Alanine Aminotransferase 46(H) 0 - 40 U/L [facility] Total Protein 8.2(H) 6.5 - 8.0 g/dL [facility] Albumin Level 4.8 3.5 - 5.0 g/dL [facility] Alkaline Phosphatase 78 39 - 117 U/L [facility] 05/05/2022 5:11 PM EST 05/05/2022 5:16 PM EST us [facility] External Provider LAB BLO OD ORDERABLES Final Result [facility] [address] [place] [phone] * (ABNORMAL) CBC auto differential (05/05/2022 5:11 PM EST) White Blood Count 10.0 4.8 - 10.8 X10*3/uL [facility] Red Blood Count 5.31 4.60 - 5.80 X10*6/uL [facility] Hemoglobin 15.7 14.0 - 18.0 g/dl [facility] Hematocrit 47.5 42.0 - 52.0 % [facility] Mean Corpuscular Volume 89.5 80.0 - 98.0 fL [facility] Mean Corpuscular Hemoglobin 29.6 27.0 - 33.0 pg [facility] Mean Corpuscular HGB Conc 33.1 31.0 - 36.0 g/dl [facility] Red Cell Distribution Width 13.5 11.0 - 16.0 % [facility] Platelet Count 215 160 - 400 X10*3/uL [facility] Mean Platelet Volume 9.2(L) 9.4 - 12.4 fL [facility] Neutrophils Percent Auto 50.7 45 - 73 % [facility] Imm Gran Pct Auto 0.1 0.0 - 0.4 % [facility] Lymphocytes Percent Auto 35.9 20 - 40 % [facility] Monocytes Percent Auto 9.9 2 - 11 % [facility] Eosinophils Percent Auto 2.6 0 - 4 % [facility] Basophils Percent Auto 0.8 0 - 2 % [facility] NRBC Pct Auto 0.0 0.0 - 0.2 /100WBC [facility] Neutrophils Absolute Auto 5.1 2.0 - 8.3 x10*3/uL [facility] Imm Gran Abs Auto 0.01 0.00 - 0.03 X10*3/uL [facility] Lymphocytes Absolute Auto 3.6 1.2 - 4.9 X10*3/uL [facility] Monocytes Absolute Auto 1.0 0.1 - 1.2 X10*3/uL [facility] Eosinophils Absolute Auto 0.3 0.0 - 0.4 X10*3/uL [facility] Basophils Absolute Auto 0.1 0.0 - 0.2 X10*3/uL [facility] NRBC Abs Auto 0.000 0.0 - 0.012 X10*3/uL [facility] 05/05/2022 5:11 PM EST 05/05/2022 5:16 PM EST [facility] External Provider LAB BLO OD ORDERABLES Final Result Performing Organization Address [facility] Co de Phone Number [facility] [address] [place] [phone] * Urinalysis with reflex microscopic (05/05/2022 5:11 PM EST) Color Urine Yellow [facility] Appearance Urine Clear [facility] PH 5.0 5.0 - 9.0 [facility] Glucose Urine UA Negative Negative mg/dL [facility] Urine Blood Negative Negative [facility] Specific [place] - Urine 1.025 1.005 - 1.025 [facility] Urine Protein Negative Neg-Trace mg/dL [facility] Urine Ketones Negative Negative mg/dL [facility] Nitrite Urine Negative Negative [facility] Leukocyte Esterase Urine Negative Negative [facility] 05/05/2022 5:11 PM EST 05/05/2022 5:17 PM EST Narrative [facility] - 05/05/2022 5:21 PM EST [id number], Clean Catch [facility] External Provider LAB URI NE ORDERABLES Final Result [facility] [address] [place] [phone] documented in this encounter Visit Diagnoses Not on filedocumented in this encounter Care Teams Supervisor Dehydrogenation Relationship Specialty Start Date End Date Abiola Hadley MD [address] [place] [phone] PCP - General Family Medicine 10/22/17 05/20/23 Ayesha Chua MD [address] [place] [address] PCP - General Family Medicine 05/21/23 12/27/24 Derek Lemos MD [address] [place] [address] PCP - General Internal Medicine 12/28/24 Ho Wilkerson DMD [address] [place] [phone] Dentist 04/21/24 documented as of this encounter
--- OUTSIDE RECORDS SUMMARY | 2025-01-08 03:59 | XMS_ITS | Clinical Summary ---
Author Organization [employer] Address [address] [place] [address] Care Team Providers Care Hand Tool Filer Name Role Phone Rock, Ho DMD Unavailable [phone] Derek Lemos MD Primary Care Prov ider Allergies No known active allergies Medications cholecalciferol [...] AT BEDTIME NEEDED FOR CONSTIPATION 023 Active Linzess 145 MCG capsule Take 145 mcg by mouth in the morning. 024 Active Creon [id number] units capsule delayed-release particles capsule TAKE TWO CAPSULES FOUR TIMES DAILY WITH MEALS AND OR snacks Active triamcinolone (Kenalog) 0.1 % cream Apply topically if needed in the morning and at bedtime (pain and swelling). 30 g 2 024 Active albuterol 108 (90 Base) MCG/ACT inhaler [...] Sodium Fluoride 1.1 % creamIndications:De ntin hypersensitivity [place] teeth for 2 minutes, morning and night. Spit, do not rinse. Do not eat or drink anything for 30 minutes following use. 112 g 3 024 Active omega-3 (Fish Oil) 1000 MG capsule TAKE ONE CAPSULE TWICE DAILY 60 capsule 5 025 Active triamcinolone (Kenalog) 0.1 % ointmentIndications :Post-inflammatory hyperpigmentation APPLY TO THE AFFECTED AREA(S) TWICE DAILY 30 g 025 Active Sodium Fluoride 1.1 % cream [place]strike teeth for 2 minutes, morning and night. Spit, do not rinse. Do not eat or drink anything for 30 minutes following use. 112 g 3 025 Active hydroquinone 4 % cream APPLY TO THE AFFECTED AREA(S) AT BEDTIME 28.35 g 2 025 Active cetirizine (ZyrTEC) 10 MG tablet TAKE ONE TABLET BY MOUTH ONCE DAILY 90 tablet 1 025 Active atorvastatin (Lipitor) 40 MG tabletIndications:M ixed hyperlipidemia TAKE ONE TABLET BY MOUTH AT BEDTIME 90 tablet 1 025 Active fluticasone (Flonase) 50 MCG/ACT nasal spray USE ONE SPRAY IN EACH NOSTRIL ONCE DAILY 16 g 11 Active mometasone (Nasonex) 50 MCG/ACT nasal spray Administer 1-2 sprays into each nostril Once per day. 17 g 2 025 2025 Active fluticasone (Flonase) 50 MCG/ACT nasal spray INHALE ONE SPRAY IN EACH NOSTRIL DAILY 16 g 11 024 2024 Discontinued Active Problems Problem Noted Date [...] Encounters Date Type Department Care Team Description 01/05/2025 Refill [facility] [address] [place] [address] Derek Lemos MD 12/26/2024 Refill [facility] [address] [place] [address] Suze Santos MD 11/23/2024 Refill [facility] [address] [place] [address] Ayesha Chua MD Mixed hyperlipidemia 11/11/2024 Orders Only GENERIC EXTERNAL DATA DEPARTMENT Provider, Generic External Data from Last 3 Months Immunizations Immunization Administration [...] Sign Reading Time Taken Comments Blood Pressure 123/68 09/19/2024 9:41 AM EDT Pulse 58 09/19/2024 9:41 AM EDT Temperature 36.4 C (97.5 F) 09/19/2024 9:41 AM EDT Respiratory Rate 18 09/19/2024 9:41 AM EDT Oxygen Saturation 97% 09/19/2024 9:41 AM EDT Inhaled Oxygen Concentration - - Weight 95.7 kg (211 lb) 09/19/2024 9:41 AM EDT Height 170.2 cm (5' 7 ) 09/19/2024 9:41 AM EDT Body Mass Index 33.05 09/19/2024 9:41 AM EDT Plan of Treatment Health Maintenance Due Date Last Done Comments CT Colonography 1963 FIT DNA/Cologuard 1963 FIT 1963 FOBT 1965 HIV Screening 1965 Sigmoidoscopy 1963 Hepatitis A Vaccines (1 of 2 - Risk 2-dose series) 09/07/1982 Zoster Vaccines (1 of 2) 09/07/2013 Pneumococcal Vaccine: 50+ Years (2 of 2 - PCV) 06/03/2016 06/04/2015 Hepatitis B Vaccines (1 of 3 - Risk 3-dose series) 2023 RSV Patients and Patients Aged 60 years or older (1 - Risk 60-74 years 1-dose series) 2023 Dental X-Ray: Bitewings 05/15/2024 05/15/19 24, 11/27/2021, 10/01/2021, Additional history exists COVID-19 Vaccine ( season) 2024 12/16/2021, 04/12/2021, 06/22/2020, Additional history exists Influenza Vaccine (#1) 2024 , 12/16/2021, 11/22/2019, Additional history exists Dental Oral Exam 01/20/2025 07/19/2024, , 05/15/2023, Additional history exists Dental Prophylaxis 01/20/2025 07/19/2024, 1 03/14/2023, 05/15/2023, Additional history exists Alcohol/Substance Use Screening 06/28/2025 06/28/2024 Depression Screening 06/28/2025 06/28/2024, 06/29/19 25 Disability Screening 06/28/2025 06/28/2024 SDOH Screening 06/28/2025 06/28/2024 Tobacco Screening 09/19/2025 09/19/2024 Diabetes: Hemoglobin A1C 11/11/2025 11/11/2024, 04/02 Dental X-Ray: Full Mouth 05/15/2026 05/15/2023, 01/31 Colonoscopy 01/06/2027 01/06/2022 Colorectal Cancer Screening 01/06/2027 Lipid Panel 08/22/2029 08/22/2024, 03/03, 05/21/2023, Additional history exists DTaP/Tdap/Td Vaccines (3 - Td or Tdap) 02/05/2034 02/06/2024, 05/21/2023, 03/18/2017, Additional history exists Hepatitis C Screening Completed 11/11/2024 HIB Vaccines Aged Out No longer eligi [...] Procedure Name Priority Date/Time Associated Diagnosis Comments LIVER FIBROSIS, FIBROTEST ACTITEST PANEL Routine 11/11/2024 11:59 AM EDT ACTIN (SMOOTH MUSCLE) ANTIBODY (IGG) Routine 11/11/2024 11:59 AM EDT FERDINAND SCREEN, IFA, W/REFL TITER AND PATTERN Routine 11/11/2024 11:59 AM EDT ALPHA FETOPROTEIN, TUMOR MARKER Routine 11/11/2024 11:59 AM EDT HEPATITIS PANEL, GENERAL Routine 11/11/2024 11:59 AM EDT CERULOPLASMIN Routine 11/11/2024 11:59 AM EDT FERRITIN Routine 11/11/2024 11:59 AM EDT C-REACTIVE PROTEIN Routine 11/11/2024 11:59 AM EDT GGT Routine 11/11/2024 11:59 AM EDT PROTHROMBIN TIME-INR Routine 11/11/2024 11:59 AM EDT HEMOGLOBIN A1C Routine 11/11/2024 11:59 AM EDT LIPID PANEL, STANDARD Routine 08/22/2024 9:44 AM EDT Pure hypercholesterolemia PERIODIC ORAL EVALUATION - ESTABLISHED PATIENT Routine 07/19/2024 11:00 AM EDT Partial edentulism, unspecified edentulism class PROPHYLAXIS - ADULT Routine 07/19/2024 9 :00 AM EDT INTRAORAL - COMPLETE SERIES OF RADIOGRAPHIC IMAGES Routine 05/15/2023 8:00 AM EDT HM COLONOSCOPY Routine 01/06/2022 from Last 3 Months or Most Recently Relevant to Health Maintenance Results * (ABNORMAL) Liver Fibrosis (HCV), FibroTest-ActiTest Panel (11/11/2024 11:59 AM EDT) Liver Fibrosis Score 0.25 [facility] Liver Fibrosis Stage F0-F1 [facility] Liver Fibrosis Interpretation SEE NOTE [facility] Comment:no fibrosisFibro Ella t Score (f) Metavir Score f>=0 and f<=0.21 : F0 (no fibrosis)f>0.21 and f<=0.27 : F0-F1 (no fibrosis)f>0.27 and f<=0.31 : F1 (minimal fibrosis)f>0.31 and f<=0.48 : F1-F2 (minimal fibrosis)f>0.48 and f<=0.58 : F2 (moderate fibrosis)f>0.58 and f<=0.72 : F3 (advanced fibrosis)f>0.72 and f<=0.74 : F3-F4 (advanced fibrosis)f>0.74 and f<=1.00 : F4 (severe fibrosis) Nec Inflam Act Score 0.18 [facility] Nec Inflam Act Grade A0-A1 [facility] Nec Inflam Act Interpretation SEE NOTE [facility] Comment:no activityActiTest Score (a) Metavir Score a>=0 and a<=0.17 : A0 (no activity)a>0.17 and a<=0.29 : A0-A1 (no activity)a>0.29 and a<=0.36 : A1 (minimal activity)a>0.36 and a<=0.52 : A1-A2 (minimal activity)a>0.52 and a<=0.60 : A2 (significant activity)a>0.60 and a<=0.62 : A2-A3 (significant activity)a>0.62 and a<=1.00 : A3 (severe activity) DEI-Hgvvw-6-Macroglo bulin 121 106 - 279 mg/dL [facility] Comment:Unusual deviation wi th median value. FIB-Haptoglobin 120 43 - 212 mg/dL [facility] FIB-Apolipoprotein A1 126 94 - 176 mg/dL [facility] FIB-Total Bilirubin 0.6 0.2 - 1.2 mg/dL [facility] FIB-GGT 73(A) 3 - 70 U/L [facility] FIB-ALT 36 9 - 46 U/L [facility] Reference ID [id number] [facility] Footnote SEE NOTE [facility] Comment: The reliability of results is dependent on compliance withthe preanalytical and analytical conditions recommended byBioPredictive. The tests have to be deferred for: acutehemolysis, acute hepatitis, acute inflammation, extrahepatic cholestasis. The advice of a specialist should besought for interpretation in chronic hemolysis and Gilbert'ssyndrome. The test interpretation is not validated in livertransplant patients. Isolated extreme values of one of thecomponents should lead to caution in interpreting theresults. In case of discordance between a biopsy result saleem test, it is recommended to seek the advice of aspecialist. The causes of these discordances could be due toa flaw of the test or to a flaw in the biopsy: i.e. a liverbiopsy has a 33% variability rate for one fibrosis stage.FibroTest is interpretable for chronic hepatitis B and C,alcoholic and non alcoholic steatosis. ActiTest isinterpretable for chronic hepatitis B and C.The performance characteristics have been determined by[facility]. Ithas not been cleared or approved by the U.S. Food and DrugAdministration. Performance characteristics refer to theanalytical performance of the test.[employer], [employer], the associated logo, [employer] and all associated [facility] [employer] cast[employer]eda are theregistered trademarks of [employer]. All third partymarks - (R) and (TM) - are the property of their respectiveowners. (C) [id number] [employer]. Allrights reserved.THIS TEST WAS PERFORMED AT:[facility] [id number] [place] [address]HGFBXZION SANCHEZ MD,PHD,LEI 11/11/2024 11:5 9 AM EDT 11/11/2024 11:59 AM EDT Generic External Data Provider LAB BLOOD ORDERAB LES Final Result Performing Organization Address [facility] Co de Phone Number [facility] [address] [place] [phone] * Hepatitis Panel, General (11/11/2024 11:59 AM EDT) Hepatitis A IgM Nonreactive Nonreactive [facility] Comment:IgM antibodies to THAPA V not detected; does not exclude earlyacute or recovered HAV infection. ~Hepatitis B Surface Antibody NONREACTIVE Nonreactive [facility] Comment:Nonreactive: < 8.00 mIU/mL Hepatitis B Core Antibody Nonreactive Nonreactive [facility] Hepatitis C Antibody Nonreactive Nonreactive [facility] Comment:Antibodies to HCV no t detected; does not exclude early acuteHCV infection. Hepatitis B Surface Ag Negative Negative [facility] 11/11/2024 11:5 9 AM EDT 11/11/2024 11:59 AM EDT Generic External Data Provider LAB BLOOD ORDERAB LES Final Result Performing Organization Address [facility] Co de Phone Number [facility] [address] [place] [phone] * Actin (Smooth Muscle) Antibody (IgG) (11/11/2024 11:59 AM EDT) Smooth Muscle Antibody <20 <20 U [facility] Comment:Reference Range: <20 U: Negative>or=20 U: PositiveAntibodies recognizing actin are the main componentof smooth muscle antibodies associated with auto- immune liver disease. Actin antibodies are found inapproximately 75% of patients with autoimmunehepatitis (AIH) type 1, approximately 65% of patientswith autoimmune cholangitis, approximately 30% ofpatients with primary biliary cirrhosis andapproximately 2% of healthy controls. High values areclosely correlated with AIH type 1.THIS TEST WAS PERFORMED AT:[facility] [id number] [place] [address]UTWSVADGRACIELA MORA MD,PHD 11/11/2024 11:5 9 AM EDT 11/11/2024 11:59 AM EDT Generic External Data Provider LAB BLOOD ORDERAB LES Final Result Performing Organization Address [facility]/ZIP Co de Phone Number [facility] [address] [place] [phone] * Ceruloplasmin (11/11/2024 11:59 AM EDT) Ceruloplasmin 25 14 - 30 mg/dL [facility] Comment:THIS TEST WAS PERFOR MED AT:[facility] [address] [id number] FULLER MD 11/11/2024 11:5 9 AM EDT 11/11/2024 11:59 AM EDT us Generic External Data Provider LAB BLOOD ORDERAB LES Final Result Performing Organization Address [facility] Co de Phone Number [facility] [address] [place] [phone] * Alpha-Fetoprotein, Tumor Marker (11/11/2024 11:59 AM EDT) Alpha Fetoprotein 2.6 <6.1 ng/mL [facility] Comment:This test was perfor med using the Sheri Coulterchemiluminescent method. Values obtained fromdifferent assay methods cannot be usedinterchangeably. AFP levels, regardless ofvalue, should not be interpreted as absoluteevidence of the presence or absence of disease.THIS TEST WAS PERFORMED AT:[facility] [place] [id number] FULLER MD 11/11/2024 11:5 9 AM EDT 11/11/2024 11:59 AM EDT Generic External Data Provider LAB BLOOD ORDERAB LES Final Result Performing Organization Address [facility] Co de Phone Number [facility] [address] [place] [phone] * Prothrombin Time-INR (11/11/2024 11:59 AM EDT) Prothrombin Time 11.5 10.9 - 12.4 SEC [facility] INTERNATIONAL NORM RATIO 1.0 0.9 - 1.1 [facility] Comment:INTERNATIONAL NORMAL IZED RATIO (INR) REFERENCE RANGES Reference RangeFor patients not on anticoagulant therapy: 0.9 - 1.1INR ranges for oral anticoagulanttherapy:For prevention and treatment of venous thrombosis and pulmonary embolism: 2.0 - 3.0For acute myocardial infarction with aspirin therapy: 2.0 - 3.0For acute myocardial infarction without aspirin therapy: 3.0 - 4.0For patients with mechanical prosthetic heart valves: 2.5 - 3.5 11/11/2024 11:5 9 AM EDT 11/11/2024 11:59 AM EDT [email or web address] External Data Provider LAB BLOOD ORDERAB LES Final Result Performing Organization Address [facility] Co de Phone Number [facility] [address] [place] [phone] * C-reactive Protein (11/11/2024 11:59 AM EDT) C Reactive Protein 0.26 < or = 0.50 mg/dL [facility] 11/11/2024 11:5 9 AM EDT 11/11/2024 11:59 AM EDT us Generic External Data Provider LAB BLOOD ORDERAB LES Final Result Performing Organization Address [facility]/ZIP Co de Phone Number [facility] [address] [place] [phone] * FERDINAND Screen,IFA, with Reflex to Titer and Pattern (11/11/2024 11:59 AM EDT) Anti Nuclear Antibody Screen NEGATIVE NEGATIVE [facility] Comment:FERDINAND IFA is a first l ine screen for detecting thepresence of up to approximately 150 autoantibodies invarious autoimmune diseases. A negative FERDINAND IFA resultsuggests an FERDINAND-associated autoimmune disease is notpresent at this time, but is not definitive. If thereis high clinical suspicion for Sjogren's syndrome,testing for anti-SS-A/Ro antibody should be considered.Anti-Alla-1 antibody should be considered for clinicallysuspected inflammatory myopathies.AC-0: NegativeInternational Consensus on FERDINAND Patterns(https://doi.org/10.1515/ihhi-6393-2102)For additional information, please refer tohttp://education.Sh[employer]/faq/OWF174(This link is being provided for informational/educational purposes only.)THIS TEST WAS PERFORMED AT:[facility] [place] [id number] FULLER MD FERDINAND Titer TNP [facility] FERDINAND Pattern TNP [facility] FERDINAND Titer 2 TNP [facility] FERDINAND Pattern 2 [facility] FERDINAND TITER 3 [facility] FERDINAND PATTERN 3 [facility] 11/11/2024 11:5 9 AM EDT 11/11/2024 11:59 AM EDT us Generic External Data Provider LAB BLOOD ORDERAB LES Final Result Performing Organization Address City/[facility]/ZIP Co de Phone Number [facility] [address] [place] [phone] * (ABNORMAL) Hemoglobin A1c (11/11/2024 11:59 AM EDT) Hemoglobin A1c 6.1(H) <6.0 % [facility] Comment:Hemoglobin A1C Refer ence Range Adults: 4.8 - 6.0 % Non diabetic: < 6.0 % Goal: < 7.0 %Additional Action Suggested: > 8.0 %Note: Hemoglobin A1c results are invalid for patients with abnormal amounts of HbF. Blood transfusions may impact the HbA1c concentration in the patient sample. Estimated Average Glucose 128 mg/dL [facility] Comment:eAG = Estimated ave rage glucose which is %A1C expressed asaverage glucose, using the formula of the A8T-HcmyixsDiwyzzp Glucose study (ADAG), Diabetes Care, Vol.31,#8,2007 11/11/2024 11:5 9 AM EDT 11/11/2024 11:59 AM EDT us Generic External Data Provider LAB BLOOD ORDERAB LES Final Result [facility] [address] [place] [phone] * (ABNORMAL) Gamma Glutamyl Transferase (GGT) (11/11/2024 11:59 AM EDT) Gamma Glutamyl Transpeptidase 93(H) 11 - 51 U/L [facility] 11/11/2024 11:5 9 AM EDT 11/11/2024 11:59 AM EDT us Generic External Data Provider LAB BLOOD ORDERAB LES Final Result Performing Organization Address City/[facility]/ZIP Co de Phone Number [facility] [address] [place] [phone] * (ABNORMAL) Ferritin (11/11/2024 11:59 AM EDT) Ferritin 293(H) 20 - 250 ng/mL [facility] 11/11/2024 11:5 9 AM EDT 11/11/2024 11:59 AM EDT us Generic External Data Provider LAB BLOOD ORDERAB LES Final Result Performing Organization Address [facility] Co de Phone Number [facility] [address] [place] [phone] * (ABNORMAL) Lipid Panel, Standard (08/22/2024 9:44 AM EDT) Triglycerides 92 <150 mg/dL [facility] Comment:Desirable Triglyceri de: less than 150 mg/dLBorderline High Triglyceride 150-199 mg/dLHigh Triglyceride: 200-499 mg/dLVery High Triglyceride: greater than or equal to 5OO mg/dL Cholesterol 108 <200 mg/dL [facility] Comment:Desirable Cholestero l: less than 200 mg/dLBorderline High Cholesterol: 200-239 mg/dLHigh Cholesterol: greater than 239 mg/dL LDL Cholesterol Calculated 60 <100 mg/dL [facility] Comment:Desirable LDL: less than 100 mg/dLNear Optimal/Above Optimal LDL: 110- 129 mg/dLBorderline High LDL: 130-159 mg/dLHigh LDL: 160-189 mg/dLVery High LDL: greater than or equal to 190 mg/dL HDL Cholesterol 30(L) >40 mg/dL [facility] Comment:Desirable HDL: great er than 40 mg/dL Note: This HDL assay may give artificially low results in patients with liver disease. Blood Venous blood specimen / Unknown 08/22/2024 9:44 AM EDT 08/22/2024 1:41 PM EDT us Ayesha Chua MD LAB BLOOD ORDERABLES Final Resul t Performing Organization Address City/[facility]/ZIP Co de Phone Number [facility] [address] [place] [phone] * Hm Colonoscopy (01/06/2022) Colonoscopy Normal Normal Narrative Anu Cartagena - 01/06/2022 Recommended 5 year follow up us Historical Provider HEALTH MAINTENANCE Final Result from Last 3 Months or Most Recently Relevant to Health Maintenance Insurance [facility] [place] [id number] [facility] ADULT DENTAL - HSN FULL (MEDICAID) Care Teams Hand Tool Filer Relationship Specialty Start Date End Date Derek Lemos MD [address] [place], [place] PCP - General Internal Medicine 12/28/24 Ho Wilkerson DMD [address] [place], [place] Dentist 04/21/24
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
[2025-01-08 08:15] VITALS: BP 130/72; PULSE 72; RESP 18; TEMP 36.4; O2SAT 99
== END 2025-01-08 08:16 | disposition home or self-care (01) ==
PROVIDERS: Emergency Provider Emergency Medicine Emergency Medical Services; PCP Student in an Organized Health Care Education/Training Program
DX: S13.4XXA Sprain of ligaments of cervical spine, initial encounter (principal); M54.2 Cervicalgia; V43.52XA Car driver injured in collision with other type car in traffic accident, initial encounter; Y93.9 Activity, unspecified; Y92.410 Unspecified street and highway as the place of occurrence of the external cause; Y99.8 Other external cause status
CPT/HCPCS: 99283

== ENCOUNTER 2025-01-31 10:54 | Outpatient (REF) | payer OTHER, SELFPAY ==
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
--- OUTSIDE RECORDS SUMMARY | 2025-01-31 12:51 | XMS_ITS | Encounter Summary ---
Author Organization [employer] Address [address] [facility] [address] [place] [address] Care Team Providers Care Log Loader Helper Name Role Phone Abiola Hadley MD Primary Care Provider [phone] Ayesha Chua MD Primary Care Provider [phone] Ho Wilkerson DMD Unavailable [phone] Derek Lemos MD Primary Care Prov ider Encounter Details Date Type Department Care Team (Latest Contact Info) Description 10/01/2021 Abstract [facility] CONVERSIONS Dental, Provider, DDS Social History [...] Description 03/16/2025 9:45 AM EST Office Visit [facility] CHC MED & PEDS [address] [place], [place] [phone] Derek Lemos MD [address] [place], [place] [phone] documented as of this encounter Visit Diagnoses Not on filedocumented in this encounter Care Teams Log Loader Helper Relationship Specialty Start Date End Date Abiola Hadley MD [address] [place] [address] PCP - General Family Medicine 10/22/17 05/20/23 Ayesha Chua MD [address] [place] [address] PCP - General Family Medicine 05/21/23 12/27/24 Derek Lemos MD [address] [place] [phone] PCP - General Internal Medicine 12/28/24 Ho Wilkerson DMD [address] [place] [phone] Dentist 04/21/24 documented as of this encounter
--- OUTSIDE RECORDS SUMMARY | 2025-01-31 12:51 | XMS_ITS | Encounter Summary ---
Author Organization [employer] Address [address] [facility] [address] [place] [address] Care Team Providers Care Quantitative Analyst Developer Name Role Phone Abiola Hadley MD Primary Care Provider [phone] Ayesha Chua MD Primary Care Provider [phone] Ho Wilkerson DMD Unavailable [phone] Derek Lemos MD Primary Care Prov ider Encounter Details Date Type Department Care Team (Late st Contact Info) Description 01/07/[address] [facility] MEDICINE [address] [place] [address] Anu Cartagena Social History Tobacco Use Types [...] Upcoming Encounters Date Type Department Care Team ([facility] st Contact Info) Description 03/16/2025 9:45 AM EST Office Visit [facility] CHC MED & PEDS [address] [place], [place] [phone] Derek Lemos MD [address] [place], [place] [phone] documented as of this encounter Procedures Procedure [...] documented as of this encounter Care Teams Quantitative Analyst Developer Relationship Specialty Start Date End Date Abiola Hadley MD [address] [place], [place] [phone] PCP - General Family Medicine 10/22/17 05/20/23 Ayesha Chua MD [address] [place] [address] PCP - General Family Medicine 05/21/23 12/27/24 Derek Lemos MD [address] [place] [address] PCP - General Internal Medicine 12/28/24 Ho Wilkerson DMD [address] [place] [address] Dentist 04/21/24 documented as of this encounter
--- OUTSIDE RECORDS SUMMARY | 2025-01-31 12:51 | XMS_ITS | Clinical Summary ---
Author Organization [employer] Address [address] [place] [address] Care Team Providers Care Lead Java Programmer Name Role Phone RockHo sousa DMD Unavailable [phone] Derek Lemos MD Primary Care Prov ider Allergies No known active allergies Medications cholecalciferol (Vitamin D-3) 50 MCG (1999 UT) capsule Take by mouth in the morning. 05/16/19 23 Active polyethylene glycol, PEG, 3350 (Glycolax) 17 GM/SCOOP powder STIR 17GM INTO 8 OUNCES OF WATER, OR JUICE, AND DRINK DAILY NEEDED / DIRECTED 07/11/19 23 Active senna (Senokot) 8.6 MG tablet TAKE TWO TABLETS BY MOUTH AT BEDTIME NEEDED FOR CONSTIPATION 05/08/19 23 Active Linzess 145 MCG capsule Take 145 mcg by mouth in the morning. 04/22/19 24 Active Creon 52971-924858 units capsule delayed-release particles capsule TAKE TWO CAPSULES FOUR TIMES DAILY WITH MEALS AND OR snacks Active triamcinolone (Kenalog) 0.1 % cream Apply topically if needed in the morning and at bedtime (pain and swelling). 30 g 2 05/21/19 24 Active albuterol 108 (90 Base) MCG/ACT inhaler Q4H 02/05/20 21 Active FT Magnesium Citrate oral solution DRINK 150 ML BY MOUTH DAILY NEEDED FOR CONSTIPATION 04/29/19 24 Active oxybutynin XL (Ditropan-XL) 10 MG 24 hr tablet Take 10 mg by mouth with breakfast. 12/21/19 24 Active tamsulosin (Flomax) 0.4 MG 24 hr capsule TAKE ONE CAPSULE EVERY NIGHT AT BEDTIME 12/21/19 24 Active Sodium Fluoride 1.1 % creamIndications:Den tin hypersensitivity [place] teeth for 2 minutes, morning and night. Spit, do not rinse. Do not eat or drink anything for 30 minutes following use. 112 g 3 01/13/20 24 Active omega-3 (Fish Oil) 1000 MG capsule TAKE ONE CAPSULE TWICE DAILY 60 capsule 5 04/29/19 25 Active triamcinolone (Kenalog) 0.1 % ointmentIndications: Post-inflammatory hyperpigmentation APPLY TO THE AFFECTED AREA(S) TWICE DAILY 30 g 09/02/19 25 Active Sodium Fluoride 1.1 % cream [place] teeth for 2 minutes, morning and night. Spit, do not rinse. Do not eat or drink anything for 30 minutes following use. 112 g 3 09/08/19 25 Active hydroquinone 4 % cream APPLY TO THE AFFECTED AREA(S) AT BEDTIME 28.35 g 2 09/28/19 25 Active cetirizine (ZyrTEC) 10 MG tablet TAKE ONE TABLET BY MOUTH ONCE DAILY 90 tablet 1 11/25/19 25 Active atorvastatin (Lipitor) 40 MG tabletIndications:Mi xed hyperlipidemia TAKE ONE TABLET BY MOUTH AT BEDTIME 90 tablet 1 11/25/19 25 Active fluticasone (Flonase) 50 MCG/ACT nasal spray USE ONE SPRAY IN EACH NOSTRIL ONCE DAILY 16 g 11 12/29/19 25 Active mometasone (Nasonex) 50 MCG/ACT nasal spray Administer 1-2 sprays into each nostril Once per day. 17 g 2 01/06/20 25 026 Active meloxicam (Mobic) 15 MG tabletIndications:Ne ck pain,Acute midline low back pain without sciatica Take 1 tablet (15 mg) by mouth Once per day. 30 tablet 11 5 12:27 PM EST 01/31/20 25 026 Active tiZANidine (Zanaflex) 2 MG tabletIndications:Ne ck pain,Acute midline low back pain without sciatica Take 1 tablet (2 mg) by mouth every 6 (six) hours if needed for muscle spasms. 30 tablet 5 12:27 PM EST 01/31/20 25 025 Active Active Problems Problem Noted Date Diagnosed Date [...] Encounters Date Type Department Care Team Description 01/31/2025 Orders Only [facility] [address] [place] [address] Suze Santos MD 01/30/2025 11:15 AM EST Office Visit [facility] [address] [place] [address] Suze Santos MD Neck pain (Primary Dx); Acute midline low back pain without sciatica 01/30/2025 Travel 01/23/2025 Telephone [facility] [address] [place] [address] Derek Lemos MD ER Follow-up; Nurse Triage 01/05/2025 Refill [facility] [address] [place] [address] Derek Lemos MD 12/26/2024 Refill [facility] [address] [place] [address] Suze Santos MD 11/23/2024 Refill [facility] [address] [place] [address] Ayesha Chua MD Mixed hyperlipidemia 11/11/2024 Orders [...] Mass Index 33.67 01/30/2025 11:32 AM EST Plan of Treatment Upcoming Encounters Date Type Department Care Team ([facility] st Contact Info) Description 03/16/2025 9:45 AM EST Office Visit [facility] [address] [place] [address] Derek Lemos MD [address] [place] [address] Health Maintenance Due Date Last Done Comments CT Colonography 1965 FIT DNA/Cologuard 1965 FIT 1965 FOBT 1965 HIV Screening 1965 Sigmoidoscopy 1965 Hepatitis A Vaccines (1 of 2 - Risk 2-dose series) 09/07/1982 RSV Patients and Patients Aged 60 years or older (1 - Risk 50-74 years 1-dose series) 09/07/2013 Zoster Vaccines (1 of 2) 09/07/2013 Pneumococcal Vaccine: 50+ Years (2 of 2 - PCV) 06/03/2016 06/04/2015 Hepatitis B Vaccines (1 of 3 - Risk 3-dose series) 2023 Dental X-Ray: Bitewings 05/15/2024 05/15/19 [...] Screening 06/28/2025 06/28/2024 SDOH Screening 06/28/2025 06/28/2024 Diabetes: Hemoglobin A1C 11/11/2025 11/11/2024, 04/02 Tobacco Screening 01/30/2026 01/30/2025 Dental X-Ray: Full Mouth 05/15/2026 05/15/2023, 01/31 [...] Acute midline low back pain without sciatica XR CERVICAL SPINE 3V Routine 01/31/2025 11:20 AM EST LIVER FIBROSIS, FIBROTEST ACTITEST PANEL Routine 11/11/2024 [...] Recently Relevant to Health Maintenance Results * XR Lumbar Spine 2-3 Views (01/31/2025 11:26 AM EST) Anatomical Region Laterality Modality Spine, L-spine Radiographic Kitty ging 01/31/2025 11:2 6 AM EST Narrative 01/31/2025 12:08 PM EST [address] [address] XRay Report Signed Patient: Jeronimo Mallory MR#: [id number] : 1965 Acct:[id number] Age/Sex: 59 / M ADM Date: 01/31/25 Loc: HO.XRAY Attending Dr: Suze Santos MD Ordering Physician: Suze Santos MD Date of Service: 01/31/25 Procedure(s): XR lumbar spine 2-3V Accession Number(s): [id number] cc: Suze Santos MD; Physician,Unknown Reason for [...] Jose Alejandro Reyes MD 01/31/2025 12:04 PM EST Dictated By: Jose Alejandro Freire MD Signed By: <Electronically signed by Jose Alejandro Diallo MD in OV> 01/31/25 1204 DD/ 1126 TD/TT: 01/31/25 1136 Septic Tank Installer: Procedure Note Donotuseinterpreter, Image - 01/31/2025 [place] [address] XRay Report Signed Patient: Paty Mallory#: [id number] : 1965Acct:[id number] Age/Sex: 59 / MADM Date: 01/31/25 Loc: HO.XRAY Attending Dr: Suze Santos MD Ordering Physician: Suze Santos MD Date of Service: 01/31/25 Procedure(s): XR lumbar spine 2-3V Accession Number(s): [id number] cc: Suze Santso MD; Physician,Unknown Reason for Exam: LBP after [...] Jose Alejandro Reyes MD 01/31/2025 12:04 PM EST RP Dictated By: Jose Alejandro Freire MD Signed By: <Electronically signed by Jose Alejandro Diallo MDin OV> 01/31/25 1204 DD/ 1126 TD/TT: 01/31/25 1136 Septic Tank Installer: us Suze Santos MD IMG XR PROCEDURES Final Res ult * XR CERVICAL SPINE 3V (01/31/2025 11:20 AM EST) Anatomical Region Laterality Modality Abdomen Radiographic Kitty ging 01/31/2025 11:2 0 AM EST Narrative 01/31/2025 12:08 PM EST [place] [address] XRay Report Signed Patient: Jeronimo Mallory MR#: [id number] : 1965 Acct:[id number] Age/Sex: 59 / M ADM Date: 01/31/25 Loc: HO.XRAY Attending Dr: Suze Santos MD Ordering Physician: Suze Santos MD Date of Service: 01/31/25 Procedure(s): XR cervical spine 3V Accession Number(s): [id number] cc: Suze Santos MD; Physician,Unknown Reason for Exam: PAIN EXAMINATION: XR CERVICAL SPINE CLINICAL INFORMATION: PAIN [...] disruption. No lytic or blastic lesions. XR/XR cervical spine 3V IMPRESSION: Multilevel cervical spondylosis pronounced at C5-C6, [...] Jose Alejandro Reyes MD 01/31/2025 12:04 PM [facility] Dictated By: Jose Alejandro Freire MD Signed By: <Electronically signed by Jose Alejandro Diallo MD in OV> 01/31/25 1204 DD/ 1120 TD/TT: 01/31/25 1136 Septic Tank Installer: Procedure Note Donotuseinterpreter, Image - 01/31/[address] [address] XRay Report Signed Patient: Paty Mallory#: [id number] : 1965Acct:[id number] Age/Sex: 59 / MADM Date: 01/31/25 Loc: HO.XRAY Attending Dr: Suze Santos MD Ordering Physician: Suze Santos MD Date of Service: 01/31/25 Procedure(s): XR cervical spine 3V Accession Number(s): [id number] cc: Suze Santos MD; Physician,Unknown Reason for Exam: PAIN EXAMINATION: XR CERVICAL SPINE CLINICAL INFORMATION: PAIN [...] disruption. No lytic or blastic lesions. XR/XR cervical spine 3V IMPRESSION: Multilevel cervical spondylosis pronounced at C5-C6, [...] Jose Alejandro Reyes MD 01/31/2025 12:04 PM [facility] Dictated By: Jose Alejandro Freire MD Signed By: <Electronically signed by Jose Alejandro Diallo MDin OV> 01/31/25 1204 DD/ 1120 TD/TT: 01/31/25 1136 Septic Tank Installer: us Suze Santos MD IMG XR PROCEDURES Final Res ult * (ABNORMAL) Liver Fibrosis (HCV), FibroTest-ActiTest Panel (11/11/2024 11:59 AM EDT) Liver Fibrosis Score 0.25 [facility] Liver Fibrosis Stage F0-F1 [facility] Liver Fibrosis Interpretation SEE NOTE [facility] Comment:no fibrosisFibro Ella t Score [...] (severe fibrosis) Nec Inflam Act Score 0.18 [facility] Nec Inflam Act Grade A0-A1 [facility] Nec Inflam Act Interpretation SEE NOTE [facility] Comment:no activityActiTest Score (a) Metavir Score a>=0 and a<=0.17 : A0 (no activity)a>0.17 and a<=0.29 : A0-A1 (no activity)a>0.29 and a<=0.36 : A1 (minimal activity)a>0.36 and a<=0.52 : A1-A2 (minimal activity)a>0.52 and a<=0.60 : A2 (significant activity)a>0.60 and a<=0.62 : A2-A3 (significant activity)a>0.62 and a<=1.00 : A3 (severe activity) WEP-Hpjwi-9-Macroglo bulin 121 106 - 279 mg/dL [facility] Comment:Unusual deviation wi th median value. FIB-Haptoglobin 120 43 - 212 mg/dL [facility] FIB-Apolipoprotein A1 126 94 - 176 mg/dL [facility] FIB-Total Bilirubin 0.6 0.2 - 1.2 mg/dL [facility] FIB-GGT 73(A) 3 - 70 U/L [facility] FIB-ALT 36 9 - 46 U/L [facility] Reference ID [id number] [facility] Footnote SEE NOTE [facility] Comment: The reliability of results [...] and C.The performance characteristics have been determined by[facility]. Ithas not been cleared or approved by the U.S. Food and DrugAdministration. Performance characteristics refer to theanalytical performance of the test.XMS [employer], [employer], the associated logo, [employer] and all associated [employer] castañeda are theregistered trademarks of [employer]. All third partymarks - (R) and (TM) - are the property of their respectiveowners. (C) [id number] [employer]. Allrights reserved.THIS TEST WAS PERFORMED AT:[facility]/[employer] [id number] [place] [address]LIKLIZION SANCHEZ MD,PHD,LEI 11/11/2024 11:5 9 AM EDT 11/11/2024 11:59 AM EDT us Generic External Data Provider LAB BLOOD ORDERAB LES Final Result [facility] [address] [place] [phone] * Hepatitis Panel, General (11/11/2024 11:59 AM EDT) Hepatitis A IgM Nonreactive Nonreactive [facility] Comment:IgM antibodies to THAPA V not detected; does not exclude earlyacute or recovered HAV infection. ~Hepatitis B Surface Antibody NONREACTIVE Nonreactive [facility] Comment:Nonreactive: < 8.00 mIU/mL Hepatitis B Core Antibody Nonreactive Nonreactive [facility] Hepatitis C Antibody Nonreactive Nonreactive [facility] Comment:Antibodies to HCV no t detected; does not exclude early acuteHCV infection. Hepatitis B Surface Ag Negative Negative [facility] 11/11/2024 11:5 9 AM EDT 11/11/2024 11:59 AM EDT us Generic External Data Provider LAB BLOOD ORDERAB LES Final Result Performing Organization Address [facility] Co de Phone Number [facility] [address] [place] [phone] * Actin (Smooth Muscle) Antibody (IgG) (11/11/2024 11:59 AM EDT) Smooth Muscle Antibody <20 <20 U [facility] Comment:Reference Range: <20 U: Negative>or=20 [...] with AIH type 1.THIS TEST WAS PERFORMED AT:[id number] [place] [address]XFDEWOJGRACIELA MORA MD,PHD 11/11/2024 11:5 9 AM EDT 11/11/2024 11:59 AM EDT us Generic External Data Provider LAB BLOOD ORDERAB LES Final Result Performing Organization Address City/[facility] Co de Phone Number [facility] [address] [place] [phone] * Ceruloplasmin (11/11/2024 11:59 AM EDT) Pathologist [facility] Ceruloplasmin 25 14 - 30 mg/dL [facility] Comment:THIS TEST WAS PERFOR MED AT:[facility] [address] [id number] FULLER MD 11/11/2024 11:5 9 AM EDT 11/11/2024 11:59 AM EDT Generic External Data Provider LAB BLOOD ORDERAB LES Final Result Performing Organization Address [facility] Co de Phone Number [facility] [address] [place] [phone] * Alpha-Fetoprotein, Tumor Marker (11/11/2024 11:59 AM EDT) [facility] Alpha Fetoprotein 2.6 <6.1 ng/mL [facility] Comment:This test was perfor med using the Sheri Coulterchemiluminescent method. Values obtained fromdifferent assay methods cannot be usedinterchangeably. AFP levels, regardless ofvalue, should not be interpreted as absoluteevidence of the presence or absence of disease.THIS TEST WAS PERFORMED AT:[facility] [address] [address]UPDGWSHAHNAZ FULLER MD 11/11/2024 11:5 9 AM EDT 11/11/2024 11:59 AM EDT Generic External Data Provider LAB BLOOD ORDERAB LES Final Result Performing Organization Address City/[facility]/ZIP Co de Phone Number [facility] [address] [place] [phone] * Prothrombin Time-INR (11/11/2024 11:59 AM EDT) Pathologist [facility] Prothrombin Time 11.5 10.9 - 12.4 SEC [facility] INTERNATIONAL NORM RATIO 1.0 0.9 - 1.1 [facility] Comment:INTERNATIONAL NORMAL IZED RATIO (INR) [...] ORDERAB LES Final Result Performing Organization Address [facility] Co de Phone Number [facility] [address] [place] [phone] * C-reactive Protein (11/11/2024 11:59 AM EDT) C Reactive Protein 0.26 < or = 0.50 mg/dL [facility] 11/11/2024 11:5 9 AM EDT 11/11/2024 11:59 AM EDT [employer] External Data Provider LAB BLOOD ORDERAB LES Final Result Performing Organization Address [facility] Co de Phone Number [facility] [address] [place] [phone] * FERDINAND Screen,IFA, with Reflex to Titer and Pattern (11/11/2024 11:59 AM EDT) Anti Nuclear Antibody Screen NEGATIVE NEGATIVE [facility] Comment:FERDINAND IFA is a first [...] clinicallysuspected inflammatory myopathies.AC-0: NegativeInternational Consensus on FERDINAND Patterns(https://doi.org/10.1515/drna-2755-2754)For additional information, please refer tohttp://education.[employer]/faq/TWI434(This link is being provided for informational/educational purposes only.)THIS TEST WAS PERFORMED AT:[employer] [place] [id number] FULLER MD FERDINAND Titer TNP [facility] FERDINAND Pattern TNP [facility] FERDINAND Titer 2 TNP [facility] FERDINAND Pattern 2 TNP [facility] FERDINAND TITER 3 TNP [facility] FERDINAND PATTERN 3 TNP [facility] 11/11/2024 11:5 9 AM EDT 11/11/2024 11:59 AM EDT us Generic External Data Provider LAB BLOOD ORDERAB LES Final Result [facility] [address] [place] [phone] * (ABNORMAL) Hemoglobin A1c (11/11/2024 11:59 AM EDT) Hemoglobin A1c 6.1(H) <6.0 % [facility] Comment:Hemoglobin A1C Refer ence Range Adults: 4.8 - 6.0 % Non diabetic: < 6.0 % Goal: < 7.0 %Additional Action Suggested: > 8.0 %Note: Hemoglobin A1c results are invalid for patients with abnormal amounts of HbF. Blood transfusions may impact the HbA1c concentration in the patient sample. Estimated Average Glucose 128 mg/dL [facility] Comment:eAG = Estimated ave rage glucose which is %A1C expressed asaverage glucose, using the formula of the Y0S-EucyjtvNgeexlm Glucose study (ADAG), Diabetes Care, Vol.31,#8,Sep. 2007 11/11/2024 11:5 9 AM EDT 11/11/2024 11:59 AM EDT us Generic External Data Provider LAB BLOOD ORDERAB LES Final Result Performing Organization Address [facility]/ZIP Co de Phone Number [facility] [address] [place] [phone] * (ABNORMAL) Gamma Glutamyl Transferase (GGT) (11/11/2024 11:59 AM EDT) Gamma Glutamyl Transpeptidase 93(H) 11 - 51 U/L [facility] 11/11/2024 11:5 9 AM EDT 11/11/2024 11:59 AM EDT Generic External Data Provider LAB BLOOD ORDERAB LES Final Result Performing Organization Address [facility] Co de Phone Number [facility] [address] [place] [phone] * (ABNORMAL) Ferritin (11/11/2024 11:59 AM EDT) Ferritin 293(H) 20 - 250 ng/mL [facility] 11/11/2024 11:5 9 AM EDT 11/11/2024 11:59 AM EDT Generic External Data Provider LAB BLOOD ORDERAB LES Final Result Performing Organization Address [facility] Co de Phone Number [facility] [address] [place] [phone] * (ABNORMAL) Lipid Panel, Standard (08/22/2024 9:44 AM EDT) Triglycerides 92 <150 mg/dL [facility] Comment:Desirable Triglyceri de: less than 150 mg/dLBorderline High Triglyceride 150-199 mg/dLHigh Triglyceride: 200-499 mg/dLVery High Triglyceride: greater than or equal to 5OO mg/dL Cholesterol 108 <200 mg/dL [facility] Comment:Desirable Cholestero l: less than 200 mg/dLBorderline High Cholesterol: 200-239 mg/dLHigh Cholesterol: greater than 239 mg/dL LDL Cholesterol Calculated 60 <100 mg/dL [facility] Comment:Desirable LDL: less than 100 mg/dLNear Optimal/Above Optimal LDL: 110- 129 mg/dLBorderline High LDL: 130-159 mg/dLHigh LDL: 160-189 mg/dLVery High LDL: greater than or equal to 190 mg/dL HDL Cholesterol 30(L) >40 mg/dL [facility] Comment:Desirable HDL: great er than 40 mg/dL Note: This HDL assay may give artificially low results in patients with liver disease. Blood Venous blood specimen / Unknown 08/22/2024 9:44 AM EDT 08/22/2024 1:41 PM EDT Ayesha Chua MD LAB BLOOD ORDERABLES Final Resul t [facility] [address] [place] [phone] * Colonoscopy (01/06/2022) Colonoscopy Normal Normal Narrative Anu Cartagena - 01/06/2022 Recommended 5 year follow up Historical Provider HEALTH MAINTENANCE Final Result from Last 3 Months or Most Recently Relevant to Health Maintenance Insurance [employer] LIMITED HSN FULL [facility] 1 MEDICAID LIMITED ADULT DENTAL - HSN FULL (MEDICAID) [place] Care Teams Lead Java Programmer Relationship Specialty Start Date End Date Derek Lemos MD [address] [place] [address] PCP - General Internal Medicine 12/28/24 Ho Wilkerson DMD [address] [place], [place] Dentist 04/21/24
--- OUTSIDE RECORDS SUMMARY | 2025-01-31 12:51 | XMS_ITS | Clinical Summary ---
Author Organization [facility], [facility] Address [address] [place] [phone] Care Team Providers Care Core Drill Operator Name Role Phone Unavailable Primary Care Provider [...]
--- OUTSIDE RECORDS SUMMARY | 2025-01-31 12:51 | XMS_ITS | Encounter Summary ---
Author Organization [employer] Address [address] [facility] 7 [place] [address] Care Team Providers Care Singe Machine Operator Name Role Phone Abiola Hadley MD Primary Care Provider [phone] Ayesha Chua MD Primary Care Provider [phone] Ho Wilkerson DMD Unavailable [phone] Derek Lemos MD Primary Care Prov ider Encounter Details Date Type Department Care Team (Late st Contact Info) Description 02/18/2022 Orders Only [facility] [address] [place] [address] Linda Alvarez LPN Social History Tobacco Use [...] Description 03/16/2025 9:45 AM EST Office Visit [facility] PEDS [address] [place], [place] [phone] Derek Lemos MD [address] [place], [place] [phone] documented as of this encounter Procedures Procedure [...] EDT) Lipase 18 8 - 78 U/L [facility] 10/29/2022 8:42 AM EDT 10/29/2022 8:42 AM EDT Generic External Data Provider LAB BLOOD ORDERAB LES Final Result Performing Organization Address [facility]/ZIP Co de Phone Number [facility] [address] [place] [address] [phone] * (ABNORMAL) Hepatic Function Panel (10/29/2022 8:42 AM EDT) Bilirubin, Total 0.5 0.0 - 1.0 mg/dL [facility] Bilirubin, Direct 0.2 0.0 - 0.5 mg/dL [facility] Aspartate Amino Transferase 26 5 - 37 U/L [facility] Alanine Aminotransferase 42(H) 0 - 40 U/L [facility] Total Protein 7.7 6.5 - 8.0 g/dL [facility] Albumin Level 4.4 3.5 - 5.0 g/dL [facility] Alkaline Phosphatase 91 39 - 117 U/L [facility] 10/29/2022 8:42 AM EDT 10/29/2022 8:42 AM EDT [facility] External Provider LAB BLO OD ORDERABLES Final Result Performing Organization Address [facility] de Phone Number [facility] [address] [place] [phone] * PSA, Total With Reflex to PSA, Free (05/22/2022 11:03 AM EDT) PSA,Total (Free>4and<10) 0.62 0.00 - 4.00 ng/mL [facility] Comment:A Free PSA was not [...] are between 4.0 and 10.0 ng/mL.PSA methodology: [employer] i ChemiluminescentMicroparticle Immunoassay (CMIA) 05/22/2022 11:0 3 AM EDT 05/22/2022 11:03 AM EDT [facility] External Provider LAB BLO OD ORDERABLES Final Result Performing Organization Address [facility] [address] [place] [address] [phone] * Tissue Transglutaminase Antibody, IgA (05/08/2022 10:09 AM EST) Transglutaminase IgA <1.0 U/mL [facility] Comment:Value Interpretation ----- <15.0 Antibody not detected> or = 15.0 Antibody detectedTHIS TEST WAS PERFORMED AT:[employer] [place] [id number] FULLER MD 05/08/2022 10:0 9 AM EST 05/08/2022 10:09 AM EST [facility] External Provider LAB BLO OD ORDERABLES Final Result Performing Organization Address [facility] [address] [place] [phone] * Tissue Transglutaminase (tTG) Antibody (IgG) (05/08/2022 10:09 AM EST) Tissue Transglutaminase Antibody IgG 1.7 U/mL [facility] Comment:Value Interpretation ----- <15.0 Antibody not detected> or = 15.0 Antibody detectedTHIS TEST WAS PERFORMED AT:[employer] [address] [id number] FULLER MD 05/08/2022 10:0 9 AM EST 05/08/2022 10:09 AM EST us [facility] External Provider LAB BLO OD ORDERABLES Final Result [facility] [address] [place], [place] [phone] * (ABNORMAL) VITAMIN D 25-OH (D2 AND D3) (05/08/2022 10:09 AM EST) Vitamin D, 25-OH, D2 <4 ng/mL [facility] Comment:This test was develo ped and its analytical performancecharacteristics have been determined by [employer] [place], [place]. It hasnot been cleared or approved by the .[place]. Food and DrugAdministration. This assay has been validated pursuantto the CLIA regulations and is used for clinicalpurposes.THIS TEST WAS PERFORMED AT:[employer]/[facility] [place] [address]VRHRZSRGRACIELA MORA MD,PHD Vitamin D, 25-OH, D3 13 ng/mL [facility] Comment:This test was develo ped and its analytical performancecharacteristics have been determined by [facility] [place], [place]. It hasnot been cleared or approved by the U.S. Food and DrugAdministration. This assay has been validated pursuantto the CLIA regulations and is used for clinicalpurposes. Vitamin D, 25-OH, Total 13(A) 30 - 100 ng/mL [facility] Comment: Vitamin D, 25-Hydroxy reports [...] beforethere is any concern. Shi MF, Zain NC,Vivi THAPA, et al. Evaluation, treatment andprevention of vitamin D deficiency: an EndocrineSociety clinical practice guideline. J Clin EndocrinolMetab. 2011;96(7):1911-30.For additional information, please refer tohttp://education.Nursenav/faq/YXL748(This link is being provided for informational/educational purposes only.) 05/08/2022 10:0 9 AM EST 05/08/2022 10:09 AM EST [facility] External Provider LAB BLO OD ORDERABLES Final Result Performing Organization Address [facility] Co de Phone Number [facility] [address] [place] [phone] * (ABNORMAL) Vitamin B12/Folate, Serum Panel (05/08/2022 10:09 AM EST) Vitamin B12 959(H) 200 - 900 pg/mL [facility] Comment:NORMAL 200-900 PG/ML INDETERMINATE 160-199 PG/ML DEFICIENT < 160 PG/ML Folate 13.0 > or = 4.0 ng/mL [facility] Comment:Reference Values:> o r = 4.0 ng/mL< 4.0 ng/mL suggests folate deficiency Methotrexate, aminopterin and folinic acid(leucovorin) are chemotherapeutic agents whose molecularstructures are similar to folate; therefore, the Architectfolate assay cannot be used for patients using these drugs. 05/08/2022 10:0 9 AM EST 05/08/2022 10:09 AM EST [facility] External Provider LAB BLO OD ORDERABLES Final Result Performing Organization Address [facility] Co de Phone Number [facility] [address] [place] [phone] * TSH W/Reflex to FT4 (05/08/2022 10:09 AM EST) Pathologist [facility] TSH reflex Free T4 1.69 0.32 - 4.0 uIU/mL [facility] 05/08/2022 10:0 9 AM EST 05/08/2022 10:09 AM EST Result [facility] External Provider LAB BLO OD ORDERABLES Final Result Performing Organization Address [facility] Phone Number [facility] [address] [place] [phone] * HIGH SENSITIVITY TROPONIN I (05/05/2022 5:11 PM EST) [facility] TROPONIN I HIGH SENSITIVITY <3.5 <3.5 - 35.0 ng/L [facility] Comment:The [place] high sens itivity Troponin-I results should beused in conjunction with other diagnostic information suchas ECG, clinical observations and information, and patientsymptoms to aid in the diagnosis of [place]. 05/05/2022 5:11 PM EST 05/05/2022 5:16 PM EST Result [facility] External Provider LAB BLO OD ORDERABLES Final Result Performing Organization Address [facility] Phone Number [facility] [address] [place] [phone] * Magnesium (05/05/2022 5:11 PM EST) Pathologist [facility] Magnesium 2.1 1.6 - 2.6 mg/dL [facility] 05/05/2022 5:11 PM EST 05/05/2022 5:16 PM EST Result [facility] External Provider LAB BLO OD ORDERABLES Final Result Performing Organization Address [facility] Co in Phone Number [facility] [address] [place] [phone] * Basic Metabolic Panel (05/05/2022 5:11 PM EST) Sodium 145 135 - 145 mmol/L [facility] Potassium 4.6 3.3 - 5.1 mmol/L [facility] Chloride 107 96 - 108 mmol/L [facility] Carbon Dioxide 27 22 - 29 mmol/L [facility] Anion Gap 16 12 - 20 [facility] Urea Nitrogen (BUN) 15 9 - 16 mg/dL [facility] Creatinine, Serum 0.86 0.5 - 1.4 mg/dL [facility] Creatinine Clr Calc Pharmacy 102.9 [facility] Comment:eGFR (calculated fro m the MDRD study equation) and eCrCl(calculated from the Cockcroft-Gault equation) are based ondifferent parameters and may not yield comparable results.If eCrCl result is absurd, please check patient'sheight/weight. Estimated Glomerular Filt Rate >60 [facility] Comment:NOTE: For -Am erican individuals, multiply the result by 1.210.Chronic Kidney Disease: Estimated GFR < 60 mL/min/1.99e2Oertqm Kidney Disease: Estimated GFR < 15 mL/min/1.73m2 Glucose 71 60 - 115 mg/dL [facility] Calcium 9.4 8.4 - 10.2 mg/dL [facility] 05/05/2022 5:11 PM EST 05/05/2022 5:16 PM EST us [facility] External Provider LAB BLO OD ORDERABLES Final Result [facility] [address] [place] [address] [phone] * (ABNORMAL) Hepatic Function Panel (05/05/2022 5:11 PM EST) Bilirubin, Total 0.7 0.0 - 1.0 mg/dL [facility] Bilirubin, Direct 0.2 0.0 - 0.5 mg/dL [facility] Aspartate Amino Transferase 24 5 - 37 U/L [facility] Alanine Aminotransferase 46(H) 0 - 40 U/L [facility] Total Protein 8.2(H) 6.5 - 8.0 g/dL [facility] Albumin Level 4.8 3.5 - 5.0 g/dL [facility] Alkaline Phosphatase 78 39 - 117 U/L [facility] 05/05/2022 5:11 PM EST 05/05/2022 5:16 PM EST us [facility] External Provider LAB BLO OD ORDERABLES Final Result [facility] [address] [place], [place] [phone] * (ABNORMAL) CBC auto differential (05/05/2022 5:11 PM EST) White Blood Count 10.0 4.8 - 10.8 X10*3/uL [facility] Red Blood Count 5.31 4.60 - 5.80 X10*6/uL [facility] Hemoglobin 15.7 14.0 - 18.0 g/dl [facility] Hematocrit 47.5 42.0 - 52.0 % [facility] Mean Corpuscular Volume 89.5 80.0 - 98.0 fL [facility] Mean Corpuscular Hemoglobin 29.6 27.0 - 33.0 pg [facility] Mean Corpuscular HGB Conc 33.1 31.0 - 36.0 g/dl [facility] Red Cell Distribution Width 13.5 11.0 - 16.0 % [facility] Platelet Count 215 160 - 400 X10*3/uL [facility] Mean Platelet Volume 9.2(L) 9.4 - 12.4 fL [facility] Neutrophils Percent Auto 50.7 45 - 73 % [facility] Imm Gran Pct Auto 0.1 0.0 - 0.4 % [facility] Lymphocytes Percent Auto 35.9 20 - 40 % [facility] Monocytes Percent Auto 9.9 2 - 11 % [facility] Eosinophils Percent Auto 2.6 0 - 4 % [facility] Basophils Percent Auto 0.8 0 - 2 % [facility] NRBC Pct Auto 0.0 0.0 - 0.2 /100WBC [facility] Neutrophils Absolute Auto 5.1 2.0 - 8.3 x10*3/uL [facility] Imm Gran Abs Auto 0.01 0.00 - 0.03 X10*3/uL [facility] Lymphocytes Absolute Auto 3.6 1.2 - 4.9 X10*3/uL [facility] Monocytes Absolute Auto 1.0 0.1 - 1.2 X10*3/uL [facility] Eosinophils Absolute Auto 0.3 0.0 - 0.4 X10*3/uL [facility] Basophils Absolute Auto 0.1 0.0 - 0.2 X10*3/uL [facility] NRBC Abs Auto 0.000 0.0 - 0.012 X10*3/uL [facility] 05/05/2022 5:11 PM EST 05/05/2022 5:16 PM EST us [facility] External Provider LAB BLO OD ORDERABLES Final Result [facility] [address] [place] [phone] * Urinalysis with reflex microscopic (05/05/2022 5:11 PM EST) Color Urine Yellow [facility] Appearance Urine Clear [facility] PH 5.0 5.0 - 9.0 [facility] Glucose Urine UA Negative Negative mg/dL [facility] Urine Blood Negative Negative [facility] Specific [place] - Urine 1.025 1.005 - 1.025 [facility] Urine Protein Negative Neg-Trace mg/dL [facility] Urine Ketones Negative Negative mg/dL [facility] Nitrite Urine Negative Negative [facility] Leukocyte Esterase Urine Negative Negative [facility] 05/05/2022 5:11 PM EST 05/05/2022 5:17 PM EST Narrative [facility] - 05/05/2022 5:21 PM EST [id number], Clean Catch [facility] External Provider LAB URI NE ORDERABLES Final Result [facility] [address] [place] [phone] documented in this encounter Visit Diagnoses Not on filedocumented in this encounter Care Teams Singe Machine Operator Relationship Specialty Start Date End Date Abiola Hadley MD [address] [place] [address] PCP - General Family Medicine 10/22/17 05/20/23 Ayesha Chua MD [address] [place] [phone] PCP - General Family Medicine 05/21/23 12/27/24 Derek Lemos MD [address] [place] [address] PCP - General Internal Medicine 12/28/24 Ho Wilkerson DMD [address] [place] [address] Dentist 04/21/24 documented as of this encounter
--- OUTSIDE RECORDS SUMMARY | 2025-01-31 12:51 | XMS_ITS | Encounter Summary ---
Author Organization [employer] Address [address] [facility] 7 [place] [address] Care Team Providers Care Supervisor Particleboard Name Role Phone Abiola Hadley MD Primary Care Provider [phone] Ayesha Chua MD Primary Care Provider [phone] Ho Wilkerson DMD Unavailable [phone] Derek Lemos MD Primary Care Prov ider Encounter Details Date Type Department Care Team (Latest Contact Info) Description 12/10/[address] [facility] CONVERSIONS Dental, Provider, DDS Social History [...] Description 03/16/2025 9:45 AM EST Office Visit [facility] MED & PEDS [address] [place], [place] [phone] Derek Lemos MD [address] [place], [place] [phone] documented as of this encounter Visit Diagnoses Not on filedocumented in this encounter Care Teams Supervisor Particleboard Relationship Specialty Start Date End Date Abiola Hadley MD [address] [place] [address] PCP - General Family Medicine 10/22/17 05/20/23 Ayesha Chua MD [address] [place] [phone] PCP - General Family Medicine 05/21/23 12/27/24 Derek Lemos MD [address] [place] [address] PCP - General Internal Medicine 12/28/24 Ho Wilkerson DMD [address] [place] [address] Dentist 04/21/24 documented as of this encounter
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
--- OUTSIDE RECORDS SUMMARY | 2025-01-31 12:51 | XMS_ITS | Encounter Summary ---
Author Organization [employer] Address [address] [facility] 7t [place] [address] Care Team Providers Care Soiled Linen Distributor Name Role Phone Ho Wilkerson DMD Unavailable [phone] Derek Lemos MD Primary Care Prov ider Encounter Details Date Type Department Care Team (Late st Contact Info) Description 01/31/2025 Orders Only [facility] MED & PEDS [address] [place] [address] Suze Santos MD [address] [place] [address] Social History Tobacco Use Types Packs/Day Years [...] Upcoming Encounters Date Type Department Care Team ([facility] st Contact Info) Description 03/16/2025 9:45 AM EST Office Visit [facility] MED & PEDS [address] [place] [address] ValdezDerek Ayala MD [address] [place] [address] documented as of this encounter Procedures Procedure Name Priority Date/Time Associated Diagnosis Comments XR CERVICAL SPINE 3V Routine 01/31/2025 11:20 AM EST documented in this encounter Results * XR CERVICAL SPINE 3V (01/31/2025 11:20 AM EST) Anatomical Region Laterality Modality Abdomen Radiographic Kitty ging 01/31/2025 11:2 0 AM EST Narrative 01/31/2025 12:08 PM EST [address] [address] XRay Report Signed Patient: Jeronimo Banks MR#: [id number] : 1965 Acct:[id number] Age/Sex: 59 / M ADM Date: 01/31/25 Loc: [facility] Attending Dr: Suze Santos MD Ordering Physician: Suze Santos MD Date of Service: 01/31/25 Procedure(s): XR cervical spine 3V Accession Number(s): [id number] cc: Suze Santos MD; Physician,Unknown Reason for [...] Jose Alejandro Reyes MD 01/31/2025 12:04 PM [facility] Dictated By: Jose Alejandro Freire MD Signed By: <Electronically signed by Jose Alejandro Diallo MD in OV> 01/31/25 1204 DD/ 1120 TD/TT: 01/31/25 1136 [employer]: Procedure Note Donotuseinterpreter, Image - 01/31/[address] [address] XRay Report Signed Patient: Paty Banks#: [id number] : 1965Acct:[id number] Age/Sex: 59 / MADM Date: 01/31/25 Loc: [facility] Attending Dr: Suze Santos MD Ordering Physician: Suze Santos MD Date of Service: 01/31/25 Procedure(s): XR cervical spine 3V Accession Number(s): [id number] cc: Suze Santos MD; Physician,Unknown Reason for [...] Jose Alejandro Reyes MD 01/31/2025 12:04 PM [facility] Dictated By: Jose Alejandro Freire MD Signed By: <Electronically signed by Jose Alejandro Diallo MDin OV> 01/31/25 1204 DD/ 1120 TD/TT: 01/31/25 1136 [employer]: us Suze Santos MD IMG XR PROCEDURES Final Res ult documented in this encounter Visit Diagnoses Not on filedocumented in this encounter Additional Health Concerns Assessment Noted Time PHQ-9 Depression Total Score: 0 06/29/19 9:07 AM EDT documented as of this encounter Care Teams Soiled Linen Distributor Relationship Specialty Start Date End Date Derek Lemos MD [address] [place] [address] PCP - General Internal Medicine 12/28/24 Ho Wilkerson DMD [address] [place] [address] Dentist 04/21/24 documented as of this encounter
== END 2025-01-31 10:55 | disposition home or self-care (01) ==
LOC: HO.XRAY 10:54
PROVIDERS: Visit Provider Internal Medicine
DX: M54.2 Cervicalgia (principal); M54.50 Low back pain, unspecified
CPT/HCPCS: 72040; 72100

== ENCOUNTER → 2025-01-31 11:07 | Outpatient (BNV) | payer OTHER, SELFPAY | PROVIDERS: Visit Provider Radiology Diagnostic Radiology | DX: M54.50 Low back pain, unspecified (principal); M47.815 Spondylosis without myelopathy or radiculopathy, thoracolumbar region; M54.2 Cervicalgia; M47.812 Spondylosis without myelopathy or radiculopathy, cervical region; V89.2XXA Person injured in unspecified motor-vehicle accident, traffic, initial encounter | CPT/HCPCS: 72040; 72100 ==